=== PATIENT | female | born 1990 | race Native Hawaiian/Other Pacific Islander ===

== ENCOUNTER 2017-02-22 11:26 | Emergency (ER) | payer OTHER ==
[2017-02-22 11:48] LABS: BILIRUBIN,URINE NEGATIVE (NEGATIVE)
[2017-02-22 11:52] LABS: HCG UR QUAL NEGATIVE; UA w/ MICROSCOPIC CHARGE YES
[2017-02-22 12:02] LABS: WBC,URINE >25 /HPF (0-5)
[2017-02-22 12:03] LABS: UR CULTURE IF IND INDICATED
--- NOTE | 2017-02-22 12:16 | ED Physician Documentation ---
History of Present Illness - Stated complaint Stated Complaint: FEM - Chief complaint Chief Complaint: General - Additonal information Additional information: hx from pt 26 y/o f LMP now dysuria and urgency and suprapubic pain no fever chills NV flank paon no vag dc hx UTIs, last one yr ago Review of Systems Constitutional: denies: Fever, Chills, Myalgias Cardiac: denies: Chest pain / pressure Respiratory: denies: Dyspnea GI: reports: Abdominal Pain (suprapubic) : reports: LMP (now) Musculoskeletal: denies: Back pain Immunocompromised: denies: Immunocompromised PD PAST MEDICAL HISTORY - Past Medical History Past Medical History: No - Past Surgical History Past Surgical History: Yes - Present Medications Home Medications: Ambulatory Orders Medication Instructions Recorded Confirmed Control 02/22/17 Phenazopyridine [Pyridium] 100 mg PO Q8H PRN #9 tablet 02/22/17 Sulfamethox/Trimeth 800/160 1 each PO BID #6 tablet 02/22/17 [Bactrim Ds 800/160] - Allergies Allergies/Adverse Reactions: Allergies Allergy/AdvReac Type Severity Reaction Status Date / Time No Known Drug Allergies Allergy Verified 02/22/17 11:39 - Social History Does the pt smoke?: No Smoking Status: Never smoker Does the pt drink ETOH?: Yes ETOH Use: Liquor Does the pt have substance abuse?: No - Immunizations Immunizations are current?: Yes - POLST Patient has POLST: No PD ED PE NORMAL - Vitals Vital signs reviewed: Yes - General General: Alert and oriented X 3 - Cardiac Cardiac: RRR - Respiratory Respiratory: No respiratory distress, Clear bilaterally - Abdomen Abdomen: Soft, Other (mild suprapubic TTP s peritoneal signs) - Back Back: No CVA TTP - Derm Derm: Normal color - Neuro Neuro: Alert and oriented X 3 Results - Vitals Vitals: Vital Signs - 24 hr 02/22/17 11:36 Temperature 36.7 C Heart Rate 100 Respiratory 16 Rate Blood Pressure 137/93 H O2 Saturation 99 Oxygen O2 Source Room air - Labs Labs: Laboratory Tests 02/22/17 11:37 Urine Color YELLOW Urine Clarity HAZY Urine pH 6.0 Ur Specific [place] <=1.005 Urine Protein TRACE Urine Glucose (UA) NEGATIVE Urine Ketones NEGATIVE Urine Occult Blood LARGE H Urine Nitrite NEGATIVE Urine Bilirubin NEGATIVE Urine Urobilinogen 0.2 (NORMAL) Ur Leukocyte Esterase LARGE H Urine RBC 6-10 H Urine WBC >25 H Urine WBC Clumps PRESENT Ur Epithelial Cells RARE Transitional Ur Squamous Epith Cells FEW Squamous Urine Bacteria Many H Ur Microscopic Review INDICATED Urine Culture Comments INDICATED Urine HCG, Qual NEGATIVE Departure - Departure Disposition: 01 Home, Self Care Clinical Impression: UTI (urinary tract infection) Qualifiers: Urinary tract infection type: acute cystitis Hematuria presence: with hematuria Qualified Code(s): N30.01 - Acute cystitis with hematuria Condition: Good Instructions: ED UTI Cystitis Female Prescriptions: Phenazopyridine [Pyridium] 100 mg PO Q8H PRN #9 tablet PRN Reason: painful urination Sulfamethox/Trimeth 800/160 [Bactrim Ds 800/160] 1 each PO BID #6 tablet Comments: Please follow up with your PMD next week to recheck the urine and be sure the infection is gone Also please get your blood pressure rechecked - it was high today
[2017-02-22 12:27] VITALS: BP 141/96
== END 2017-02-22 12:25 | disposition home or self-care (01) ==
LOC: ED 11:26
DX: N30.01 Acute cystitis with hematuria (principal)
CPT/HCPCS: 81001; 81003; 81025; 87077; 87086; 99283

== ENCOUNTER 2017-11-02 07:27 | Emergency (ER) | payer OTHER ==
[2017-11-02] MEDS ORDERED: PHENAZOPYRIDINE 100 MG TABLET PO STA (07:49)
[2017-11-02 07:51] LABS: GLUCOSE, URINE (UA) NEGATIVE (NEGATIVE); KETONES,URINE (UA) NEGATIVE (NEGATIVE); LEUKOCYTE ESTERASE, URINE LARGE (NEGATIVE); NITRITE,URINE NEGATIVE (NEGATIVE); OCCULT BLOOD,URINE LARGE (NEGATIVE); PH,URINE 6.5 PH (5.0-7.5); PROTEIN,URINE 100 mg/dL (NEGATIVE); UROBILINOGEN,URINE 0.2 (NORMAL) E.U./dL (NORMAL)
--- NOTE | 2017-11-02 07:52 | ED Physician Documentation ---
History of Present Illness - Stated complaint Stated Complaint: FEMALE - Chief complaint Chief Complaint: Abd Pain - Additonal information Additional information: hx from pt 27 f to ED with dysuria and hematuria no fever no flank pain no severe abd pain, just mild suprapubic no NV has had irreg vag bleeding for 3 months and that is being evaluated her HR is 105 and she says she gets very anxious coming to the hospital Review of Systems Constitutional: denies: Fever, Chills Throat: denies: Sore throat Cardiac: denies: Chest pain / pressure Respiratory: denies: Dyspnea GI: reports: Abdominal Pain (mild suprapubic). denies: Nausea, Vomiting : reports: Vaginal bleeding (X 3 m). denies: Now EGA Musculoskeletal: denies: Back pain Endocrine: denies: Easy bruising / bleeding Immunocompromised: denies: Immunocompromised PD PAST MEDICAL HISTORY - Past Surgical History Past Surgical History: Yes - Present Medications Home Medications: Ambulatory Orders Medication Instructions Recorded Confirmed Control 02/22/17 Phenazopyridine [Pyridium] 100 mg PO Q8H PRN #9 tablet 02/22/17 Sulfamethox/Trimeth 800/160 1 each PO BID #6 tablet 02/22/17 [Bactrim Ds 800/160] Cephalexin [Keflex] 500 mg PO Q6H #28 capsule 11/02/17 Phenazopyridine [Pyridium] 100 mg PO Q8H PRN #9 tablet 11/02/17 - Allergies Allergies/Adverse Reactions: Allergies Allergy/AdvReac Type Severity Reaction Status Date / Time No Known Drug Allergies Allergy Verified 02/22/17 11:39 - Social History Does the pt smoke?: No Smoking Status: Never smoker Does the pt drink ETOH?: Yes Does the pt have substance abuse?: No - Immunizations Immunizations are current?: Yes - POLST Patient has POLST: No PD ED PE NORMAL - Vitals Vital signs reviewed: Yes - General General: Alert and oriented X 3 - HEENT HEENT: PERRL - Neck Neck: Supple, no meningeal sign - Cardiac Cardiac: RRR - Respiratory Respiratory: No respiratory distress - Abdomen Abdomen: Soft, Other (mild suprapubic TTP) - Back Back: No CVA TTP - Derm Derm: Normal color - Neuro Neuro: Alert and oriented X 3 Results - Vitals Vitals: Vital Signs - 24 hr 11/02/17 07:36 Temperature 37.0 C Heart Rate 105 H Respiratory 14 Rate Blood Pressure 153/106 H O2 Saturation 97 Oxygen O2 Source Room air - Labs Labs: Laboratory Tests 11/02/17 07:37 Urine Color RED/BLOODY Urine Clarity BLOODY Urine pH 6.5 Ur Specific [place] 1.010 Urine Protein 100 H Urine Glucose (UA) NEGATIVE Urine Ketones NEGATIVE Urine Occult Blood LARGE H Urine Nitrite NEGATIVE Urine Bilirubin NEGATIVE Urine Urobilinogen 0.2 (NORMAL) Ur Leukocyte Esterase LARGE H Urine RBC TNTC H Urine WBC >25 H Urine WBC Clumps PRESENT Ur Epithelial Cells RARE Transitional Ur Squamous Epith Cells NONE SEEN Urine Bacteria Few Ur Microscopic Review INDICATED Urine Culture Comments INDICATED Urine HCG, Qual NEGATIVE PD MEDICAL DECISION MAKING - Sepsis Event Vital Signs: Vital Signs - 24 hr 11/02/17 07:36 Temperature 37.0 C Heart Rate 105 H Respiratory 14 Rate Blood Pressure 153/106 H O2 Saturation 97 Oxygen O2 Source Room air Departure - Departure Disposition: 01 Home, Self Care Clinical Impression: UTI (urinary tract infection) Qualifiers: Urinary tract infection type: acute cystitis Hematuria presence: with hematuria Qualified Code(s): N30.01 - Acute cystitis with hematuria Instructions: ED UTI Cystitis Female Prescriptions: Cephalexin [Keflex] 500 mg PO Q6H #28 capsule Phenazopyridine [Pyridium] 100 mg PO Q8H PRN #9 tablet PRN Reason: painful urination Comments: You do have a urine infection I have prescribed the antibiotic keflex as well as pyridium to ease the symptoms A urine culture will be run and the ER staff will call you if the results indicate a need to change antibiotics There was blood in the uine as well It is very important that you follow up with your PMD to recheck the urine after completing antibiotics to be sure the blood and infection have resolved Return if worse (fever, flank pain, vomiting etc) And your blood pressure and heart rate were a bit high today - you say that coming to the hospital makes you anxious and that is probably the cause - but please have the blood pressure and heart rate rechecked Forms: Activity restrictions
[2017-11-02 08:00] LABS: BILIRUBIN,URINE NEGATIVE (NEGATIVE); CLARITY,URINE BLOODY (CLEAR); HCG UR QUAL NEGATIVE; ICTOTEST,URINE NEGATIVE; RBC,URINE TNTC /HPF (0-5); WBC CLUMPS,URINE PRESENT
[2017-11-02 08:01] LABS: BACTERIA,URINE Few /HPF (None Seen); EPITHELIAL CELLS,UR RARE Transitional /HPF (<= Few); SQUAMOUS EPITHELIAL CELL,UR NONE SEEN (<= Few)
[2017-11-02 08:31] VITALS: BP 149/100
== END 2017-11-02 08:33 | disposition home or self-care (01) ==
LOC: ED 07:27
DX: N30.01 Acute cystitis with hematuria (principal); R03.0 Elevated blood-pressure reading, without diagnosis of hypertension
CPT/HCPCS: 81001; 81025; 87086; 87181; 99283; A9270; 81003

== ENCOUNTER 2020-05-28 16:52 | Emergency (ER) | payer OTHER ==
[2020-05-28 17:07] LABS: BILIRUBIN,URINE NEGATIVE (NEGATIVE); GLUCOSE, URINE (UA) NEGATIVE (NEGATIVE); KETONES,URINE (UA) NEGATIVE (NEGATIVE); LEUKOCYTE ESTERASE, URINE SMALL (NEGATIVE); NITRITE,URINE NEGATIVE (NEGATIVE); OCCULT BLOOD,URINE MODERATE (NEGATIVE); PROTEIN,URINE NEGATIVE (NEGATIVE); UROBILINOGEN,URINE 0.2 (NORMAL) E.U./dL (NORMAL)
[2020-05-28] MEDS ORDERED: PHENAZOPYRIDINE 100 MG TABLET PO STA (17:10)
[2020-05-28] MEDS ORDERED: cephALEXin 250 MG CAPSULE PO STA (17:10)
[2020-05-28 17:11] LABS: CLARITY,URINE HAZY (CLEAR); HCG UR QUAL NEGATIVE
--- NOTE | 2020-05-28 17:14 | ED Physician Documentation ---
PD HPI FEMALE - Stated complaint Stated Complaint: FEMALE - Chief complaint Chief Complaint: UTI - History obtained from History obtained from: Patient - History of Present Illness Timing - onset: Today Timing - duration: Days (1) Timing - details: Gradual onset Pain level max: 4 Pain level max: 3 Associated symptoms: Dysuria, Urinary frequency. No: Fever, Chest/shoulder pain, Abdominal pain, Back pain, Pelvic pain, Vaginal pain, Vaginal bleeding, Vaginal discharge Contributing factors: No: Similar symptoms before: Diagnosis (UTI) - Additional information Additional information: no changes in sexual partners, no STI exposure Review of Systems Constitutional: denies: Fever, Chills Respiratory: denies: Cough GI: denies: Vomiting, Diarrhea : reports: Dysuria, Frequency, Hesitancy. 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 - Present Medications Home Medications: Ambulatory Orders Medication Instructions Recorded Confirmed Control 02/22/17 Nifedipine [Procardia Xl] 60 mg PO DAILY 05/28/20 05/28/20 Phenazopyridine HCl [Pyridium] 200 mg PO TID PRN #6 tab 05/28/20 cephALEXin [Keflex] 500 mg PO Q6H #20 cap 05/28/20 - Allergies Allergies/Adverse Reactions: Allergies Allergy/AdvReac Type Severity Reaction Status Date / Time No Known Drug Allergies Allergy Verified 05/28/20 16:57 - Social History Does the pt smoke?: No Smoking Status: Never smoker Does the pt drink ETOH?: Yes ETOH Use: Wine Does the pt have substance abuse?: No - Immunizations Immunizations are current?: Yes - POLST Patient has POLST: No PD ED PE NORMAL - Vitals Vital signs reviewed: Yes - General General: Alert and oriented X 3, No acute distress - HEENT HEENT: Moist mucous membranes - Neck Neck: Supple, no meningeal sign - Cardiac Cardiac: RRR - Respiratory Respiratory: No respiratory distress, Clear bilaterally - Abdomen Abdomen: Soft, Non tender, Non distended - Back Back: No CVA TTP - Derm Derm: Warm and dry - Neuro Neuro: Alert and oriented X 3 Results - Vitals Vitals: Vital Signs - 24 hr 05/28/20 16:55 Temperature 36.6 C Heart Rate 90 Respiratory 16 Rate Blood Pressure 150/102 H O2 Saturation 99 Oxygen O2 Source Room air - Labs Labs: Laboratory Tests 05/28/20 17:00 Urine Color YELLOW Urine Clarity HAZY Urine pH 6.0 Ur Specific [place] 1.010 Urine Protein NEGATIVE Urine Glucose (UA) NEGATIVE Urine Ketones NEGATIVE Urine Occult Blood MODERATE H Urine Nitrite NEGATIVE Urine Bilirubin NEGATIVE Urine Urobilinogen 0.2 (NORMAL) Ur Leukocyte Esterase SMALL H Ur Microscopic Review INDICATED Urine Culture Comments Not Reportable Urine HCG, Qual NEGATIVE PD MEDICAL DECISION MAKING - ED course Complexity details: reviewed results, considered differential, d/w patient ED course: 29-year-old female with a UTI. Will place on Pyridium and Keflex. Patient is well-appearing, nontoxic. Afebrile. No evidence of pyelonephritis. Denies any possibility of STI. Patient counseled regarding signs and symptoms for which I believe and urgent re-evaluation would be necessary. Patient with good understanding of and agreement to plan and is comfortable going home at this time This document was made in part using voice recognition software. While efforts are made to proofread this document, sound alike and grammatical errors may occur. Departure - Departure Disposition: 01 Home, Self Care Clinical Impression: UTI (urinary tract infection) Qualifiers: Urinary tract infection type: acute cystitis Hematuria presence: without hematuria Qualified Code(s): N30.00 - Acute cystitis without hematuria Condition: Good Instructions: ED UTI Cystitis Female Follow-Up: your,doctor as needed [Other] Prescriptions: cephALEXin [Keflex] 500 mg PO Q6H #20 cap Phenazopyridine HCl [Pyridium] 200 mg PO TID PRN #6 tab PRN Reason: dysuria Comments: Take all antibiotics until gone. Return if you worsen. If you fail to improve as expected, you should follow-up with your doctor.
[2020-05-28 17:20] LABS: BACTERIA,URINE Few /HPF (None Seen); SQUAMOUS EPITHELIAL CELL,UR FEW Squamous (<= Few)
[2020-05-28 17:23] VITALS: BP 140/108
== END 2020-05-28 17:26 | disposition home or self-care (01) ==
LOC: ED 16:52
DX: N30.00 Acute cystitis without hematuria (principal)
CPT/HCPCS: 81001; 81025; 87077; 87086; 87181; 99283; 99284; A9270; 81003

== ENCOUNTER 2020-09-30 12:50 | Emergency (ER) | payer OTHER ==
[2020-09-30 13:12] VITALS: BP 138/85
[2020-09-30 13:51] LABS: BILIRUBIN,URINE NEGATIVE (NEGATIVE); GLUCOSE, URINE (UA) NEGATIVE (NEGATIVE); KETONES,URINE (UA) NEGATIVE (NEGATIVE); LEUKOCYTE ESTERASE, URINE TRACE (NEGATIVE); NITRITE,URINE NEGATIVE (NEGATIVE); OCCULT BLOOD,URINE TRACE-LYSE (NEGATIVE); PH,URINE 7.5 PH (5.0-7.5); PROTEIN,URINE NEGATIVE (NEGATIVE); UROBILINOGEN,URINE 0.2 (NORMAL) E.U./dL (NORMAL)
[2020-09-30 13:55] LABS: CLARITY,URINE CLEAR (CLEAR); HCG UR QUAL NEGATIVE
--- NOTE | 2020-09-30 14:07 | ED Physician Documentation ---
History of Present Illness - Stated complaint Stated Complaint: FEMALE - Chief complaint Chief Complaint: UTI - Additonal information Additional information: 30-year-old female comes to the emergency department for evaluation of 24 hours intermittent dysuria urgency and frequency. She reports that sometimes in the morning when she wakes up it hurts to pee and she has to pee soon after but the symptoms go away during the day and sometimes will occur later in the afternoon. She has recently been sexually active and she admits to drinking more than usual last night. She states that if she has a urinary tract infection today this would be her third one this year. She denies any abdominal pain, flank pain CVA tenderness fevers or vomiting. Denies any pertinent past medical history. Review of Systems Constitutional: denies: Fever, Chills Eyes: reports: Reviewed and negative Ears: reports: Reviewed and negative Nose: reports: Reviewed and negative Throat: reports: Reviewed and negative Cardiac: reports: Reviewed and negative Respiratory: reports: Reviewed and negative GI: reports: Reviewed and negative : reports: Dysuria, Frequency, Hesitancy. 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 Home Medications: Ambulatory Orders Medication Instructions Recorded Confirmed Control 02/22/17 Nifedipine [Procardia Xl] 60 mg PO DAILY 05/28/20 09/30/20 Nitrofurantoin [Macrobid] 100 mg PO BID #14 09/30/20 Phenazopyridine HCl [Pyridium] 200 mg PO TID PRN #6 tablet 09/30/20 - Allergies Allergies/Adverse Reactions: Allergies Allergy/AdvReac Type Severity Reaction Status Date / Time No Known Drug Allergies Allergy Verified 09/30/20 13:12 - Social History Does the pt smoke?: No Smoking Status: Never smoker Does the pt drink ETOH?: Yes Does the pt have substance abuse?: No - Immunizations Immunizations are current?: Yes - POLST Patient has POLST: No PD ED PE NORMAL - General General: Alert and oriented X 3, No acute distress - HEENT HEENT: PERRL - Cardiac Cardiac: RRR, No murmur - Respiratory Respiratory: Clear bilaterally - Abdomen Abdomen: Normal bowel sounds, Soft, Non tender, Non distended, Other (Unable to elicit any abdominal tenderness on exam.) - Back Back: No CVA TTP, No spinal TTP Results - Vitals Vitals: Vital Signs - 24 hr 09/30/20 13:10 Temperature 37.1 C Heart Rate 109 H Respiratory 16 Rate Blood Pressure 138/85 H O2 Saturation 99 Oxygen O2 Source Room air - Labs Labs: Laboratory Tests 09/30/20 13:40 Urine Color YELLOW Urine Clarity CLEAR Urine pH 7.5 Ur Specific [place] 1.015 Urine Protein NEGATIVE Urine Glucose (UA) NEGATIVE Urine Ketones NEGATIVE Urine Occult Blood TRACE-LYSE Urine Nitrite NEGATIVE Urine Bilirubin NEGATIVE Urine Urobilinogen 0.2 (NORMAL) Ur Leukocyte Esterase TRACE H Urine RBC 0-5 Urine WBC >25 H Ur Squamous Epith Cells FEW Squamous Urine Bacteria Few Ur Microscopic Review INDICATED Urine Culture Comments INDICATED Urine HCG, Qual NEGATIVE PD MEDICAL DECISION MAKING - ED course Complexity details: reviewed results, d/w patient ED course: 30-year-old female presents the emergency department for evaluation of intermittent dysuria urgency and frequency that is waxed and waned over the last 24 hours. On exam there was no suprapubic or abdominal tenderness elicited. Her vital signs are unremarkable without fever. Urine is however highly suggestive of a urinary tract infection. No clinical exam findings to suggest a sending cystitis or pyelonephritis. Patient will be started on Macrobid as well as Pyridium. Emergent return precautions discussed for concerns of worsening symptoms. Departure - Departure Disposition: 01 Home, Self Care Clinical Impression: Acute cystitis Qualifiers: Hematuria presence: without hematuria Qualified Code(s): N30.00 - Acute cystitis without hematuria Condition: Stable Record reviewed to determine appropriate education?: Yes Instructions: ED UTI Cystitis Female Prescriptions: Nitrofurantoin [Macrobid] 100 mg PO BID #14 Phenazopyridine HCl [Pyridium] 200 mg PO TID PRN #6 tablet PRN Reason: dysuria Comments: You do have a urinary tract infection. Please fill the prescription for the antibiotics and take twice daily for the next week. I have also prescribed Pyridium which will help reduce the bladder spasm and discomfort but it will make your urine orange. Please make sure you stay well-hydrated and drink lots of fluids. If your symptoms are not improving, you develop severe abdominal pain fevers or vomiting please return to the ER for a second look.
[2020-09-30 14:15] LABS: BACTERIA,URINE Few /HPF (None Seen); RBC,URINE 0-5 /HPF (0-5); SQUAMOUS EPITHELIAL CELL,UR FEW Squamous (<= Few); WBC,URINE >25 /HPF (0-5)
== END 2020-09-30 14:32 | disposition home or self-care (01) ==
LOC: ED 12:50
DX: N30.00 Acute cystitis without hematuria (principal)
CPT/HCPCS: 81001; 81003; 81025; 87077; 87086; 87181; 99283; 99284

== ENCOUNTER 2021-02-25 00:54 | Emergency (ER) | payer OTHER ==
[2021-02-25 01:21] LABS: BASOPHILS # (AUTO) 0.1 10^3/uL (0.0-0.1); BASOPHILS % (AUTO) 0.8 %; EOSINOPHILS # (AUTO) 0.2 10^3/uL (0.0-0.7); EOSINOPHILS % (AUTO) 1.5 %; HCT - HEMATOCRIT 41.3 % (37.0-47.0); HGB - HEMOGLOBIN 13.8 g/dL (12.0-16.0); LYMPHOCYTES # (AUTO) 2.9 10^3/uL (1.5-3.5); LYMPHOCYTES % (AUTO) 24.4 %; MEAN CORPUSCULAR HEMOGLOBIN 27.8 pg (27.0-31.0); MEAN CORPUSCULAR HGB CONC 33.4 g/dL (32.0-36.0); MEAN CORPUSCULAR VOLUME 83.1 fL (81.0-99.0); MEAN PLATELET VOLUME 8.7 fL (7.9-10.8); MONOCYTES # (AUTO) 0.7 10^3/uL (0.0-1.0); MONOCYTES % (AUTO) 5.8 %; NEUTROPHILS # (AUTO) 7.9 10^3/uL (1.5-6.6); NEUTROPHILS % (AUTO) 67.2 %; PLT - PLATELET COUNT 310 10^3/uL (130-450); RED BLOOD COUNT 4.97 10^6/uL (4.20-5.40); WHITE BLOOD COUNT 11.8 x10^3/uL (4.8-10.8)
[2021-02-25 01:35] LABS: ALBUMIN 4.7 g/dL (3.2-5.5); ALBUMIN/GLOBULIN RATIO 1.4 (1.0-2.2); BILIRUBIN,TOTAL 0.4 mg/dL (0.2-1.0); CREATININE 0.5 mg/dL (0.4-1.0); POTASSIUM 3.2 mmol/L (3.5-5.0); TOTAL PROTEIN 8.1 g/dL (6.7-8.2)
[2021-02-25] MEDS ORDERED: POTASSIUM CHLORIDE 20 MEQ TABLET PO STA (02:29)
[2021-02-25 02:47] VITALS: BP 156/87
--- NOTE | 2021-02-25 09:05 | XRAY Report ---
PROCEDURE: Chest 1 View X-Ray INDICATIONS: Chest pain TECHNIQUE: One view of the chest was acquired. COMPARISON: None FINDINGS: Surgical changes and devices: None. Lungs and pleura: No pleural effusions or pneumothorax. Lungs are clear. Mediastinum: Mediastinal contours appear normal. Heart size is normal. Bones and chest wall: No suspicious bony lesions. Overlying soft tissues appear unremarkable. IMPRESSION: Portable chest within normal limits for age. Note: No significant discrepancy from the preliminary report. Reviewed by: Yuriy Malone MD on 02/25/2021 8:04 AM [facility] Approved by: Yuriy Malone MD on 02/25/2021 8:04 AM [facility] Station ID: [id number]
--- NOTE | 2021-02-26 09:27 | ED Physician Documentation ---
History of Present Illness - Stated complaint Stated Complaint: CHEST PRESSURE, HEADACHE, LIGHT HEADED - Chief complaint Chief Complaint: Cardiac - History obtained from History obtained from: Patient - History of Present Illness Timing: Enter time (18:00), Today Pain level max: 0 Pain level now: 0 Improved by: no ameliorating factors Worsened by: ambulating - Additonal information Additional information: c/o pounding palpitations since 6 PM, episodic, onset while at home cooking dinner. Review of Systems Constitutional: reports: Reviewed and negative Cardiac: reports: Palpitations. 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 - Present Medications Home Medications: Ambulatory Orders Medication Instructions Recorded Confirmed Control 02/22/17 Nifedipine [Procardia Xl] 60 mg PO DAILY 05/28/20 09/30/20 Nitrofurantoin [Macrobid] 100 mg PO BID #14 09/30/20 Phenazopyridine HCl [Pyridium] 200 mg PO TID PRN #6 tablet 09/30/20 - Allergies Allergies/Adverse Reactions: Allergies Allergy/AdvReac Type Severity Reaction Status Date / Time No Known Drug Allergies Allergy Verified 02/25/21 01:01 - Social History Does the pt smoke?: No Smoking Status: Never smoker Does the pt drink ETOH?: Yes Does the pt have substance abuse?: No - Immunizations Immunizations are current?: Yes - POLST Patient has POLST: No PD ED PE NORMAL - Vitals Vital signs reviewed: Yes - General General: Alert and oriented X 3, No acute distress, Well developed/nourished - Cardiac Cardiac: No murmur, No gallop, No rub - Respiratory Respiratory: No respiratory distress, Clear bilaterally - Abdomen Abdomen: Soft, Non tender - Extremities Extremities: No edema PD ED PE EXPANDED - Cardiac Cardiac: Tachy, Regular Rhythm Results - Vitals Vitals: Oxygen O2 Source Room air - EKG (time done) No standard instances Rate: Rate (enter#) (124), Tachy Rhythm: NSR [place]: Normal Intervals: Normal [place] QRS: Normal Ischemia: Normal ST segments - Labs Labs: Laboratory Tests 02/25/21 02/25/2102/25/21 01:14 01:14 01:14 WBC 11.8 H RBC 4.97 Hgb 13.8 Hct 41.3 MCV 83.1 MCH 27.8 MCHC 33.4 RDW 12.0 Plt Count 310 MPV 8.7 Neut # (Auto) 7.9 H Lymph # (Auto) 2.9 [place] # (Auto) 0.7 Eos # (Auto) 0.2 Baso # (Auto) 0.1 Absolute Nucleated RBC 0.00 Nucleated RBC % 0.0 Sodium 134 L Potassium 3.2 L Chloride 101 Carbon Dioxide 20 L Anion Gap 13.0 BUN 15 Creatinine 0.5 Estimated GFR (MDRD) 146 Glucose 56 L* POC Whole Bld Glucose Calcium 9.0 Total Bilirubin 0.4 AST 16 ALT 12 Alkaline Phosphatase 75 Troponin I High Sens 6.1 Total Protein 8.1 Albumin 4.7 Globulin 3.4 Albumin/Globulin Ratio 1.4 Lipase 31 02/25/21 02:24 WBC RBC Hgb Hct MCV MCH MCHC RDW Plt Count MPV Neut # (Auto) Lymph # (Auto) [place] # (Auto) Eos # (Auto) Baso # (Auto) Absolute Nucleated RBC Nucleated RBC % Sodium Potassium Chloride Carbon Dioxide Anion Gap BUN Creatinine Estimated GFR (MDRD) Glucose POC Whole Bld Glucose 142 H Calcium Total Bilirubin AST ALT Alkaline Phosphatase Troponin I High Sens Total Protein Albumin Globulin Albumin/Globulin Ratio Lipase - Rads (name of study) chest xray Radiology: Prelim report reviewed, See rad report PD MEDICAL DECISION MAKING - ED course Complexity details: reviewed results, re-evaluated patient, considered differential, d/w patient ED course: only c/o is pounding palpitations. unremarkable testing although noted to be in ST for most of ED stay. She says this is typical for her when she is anxious. doubt PE; no dyspnea, chest pain, extremity swelling, cough. Departure - Departure Disposition: 01 Home, Self Care Clinical Impression: Palpitations, Hypokalemia Condition: Good Instructions: ED Potassium Deficiency, ED Palpitations Comments: Follow up with your primary care provider. They might suggest repeating the blood tests for your potassium level , as it was a little low tonight. Discharge Date/Time: 02/25/21 02:47
== END 2021-02-25 02:47 | disposition home or self-care (01) ==
LOC: ED 00:54
DX: R00.0 Tachycardia, unspecified (principal); E87.6 Hypokalemia; I10 Essential (primary) hypertension
CPT/HCPCS: 36415; 71045; 80053; 83690; 84484; 85025; 93005; 99284; A9270

== ENCOUNTER 2021-04-06 05:24 | Emergency (ER) | payer OTHER ==
[2021-04-06] MEDS ORDERED: hydrOXYzine PAMOATE 25 MG CAPSULE PO STA (05:55)
--- NOTE | 2021-04-06 06:11 | ED Physician Documentation ---
History of Present Illness - Stated complaint Stated Complaint: HEART PALPITATIONS - Chief complaint Chief Complaint: Resp - History obtained from History obtained from: Patient - Additonal information Additional information: 30-year-old woman with past medical history of palpitations, high blood pressure on nifedipine, presents with palpitations occurring since 3 AM as well as URI symptoms X 1 week. her child has RSV at present. denies fever and states her cough and sore throat are improving. denies cp, soa, nausea. Review of Systems Ten Systems: 10 systems reviewed and negative Constitutional: denies: Fever Throat: reports: Sore throat Cardiac: reports: Palpitations. denies: Chest pain / pressure Respiratory: reports: Cough. denies: Dyspnea GI: denies: Nausea PD PAST MEDICAL HISTORY - Past Medical History Past Medical History: Yes Cardiovascular: Hypertension - Past Surgical History Past Surgical History: Yes /[employer]: section - Present Medications Home Medications: Ambulatory Orders Medication Instructions Recorded Confirmed Control 02/22/17 Nifedipine [Procardia Xl] 60 mg PO DAILY 05/28/20 04/06/21 hydrOXYzine HCL [Hydroxyzine HCl] 25 mg PO Q6H PRN #30 tablet 04/06/21 - Allergies Allergies/Adverse Reactions: Allergies Allergy/AdvReac Type Severity Reaction Status Date / Time No Known Drug Allergies Allergy Verified 04/06/21 05:51 - Social History Does the pt smoke?: No Smoking Status: Never smoker Does the pt drink ETOH?: Yes Does the pt have substance abuse?: No - Immunizations Immunizations are current?: Yes - POLST Patient has POLST: No PD ED PE NORMAL - Vitals Vital signs reviewed: Yes - General General: Alert and oriented X 3, No acute distress, Well developed/nourished - HEENT HEENT: Atraumatic, PERRL, EOMI - Neck Neck: Supple, no meningeal sign - Cardiac Cardiac: RRR - Respiratory Respiratory: No respiratory distress, Clear bilaterally - Abdomen Abdomen: Non tender, Non distended - Derm Derm: Normal color, Warm and dry - Extremities Extremities: No deformity, No edema - Neuro Neuro: Alert and oriented X 3 - Psych Psych: Normal mood, Normal affect Results - Vitals Vitals: Vital Signs - 24 hr 04/06/21 04/06/21 05:30 06:15 Temperature 36.2 C L Heart Rate 120 H 105 H Respiratory 18 18 Rate Blood Pressure 123/91 H O2 Saturation 97 99 Oxygen O2 Source Room air - EKG (time done) 0541 Rate: Rate (enter#) (117) Rhythm: Sinus tachycardia Intervals: Normal [place] QRS: Normal Ischemia: Normal ST segments PD MEDICAL DECISION MAKING - ED course ED course: 30-year-old woman presents with low risk palpitations. Patient has minimal risk factors for pulmonary embolism but I have low suspicion of cardiac etiology at this time. She will follow up for her appointment with her primary practitioner on April 18 in [place]. Return precautions given. Departure - Departure Disposition: Home, Self Care Clinical Impression: Palpitations, URI (upper respiratory infection) Condition: Good Instructions: ED Viral Syndrome, ED Palpitations Prescriptions: hydrOXYzine HCL [Hydroxyzine HCl] 25 mg PO Q6H PRN #30 tablet PRN Reason: Anxiety Comments: You are seen in the emergency department for evaluation of palpitations. Your EKG and cardiac monitoring in the emergency department was normal. A respiratory viral panel was sent to test for Covid, cold viruses and flu. You can view your results on the patient health portal. Please follow-up for your appointment with your primary practitioner on April 18. Return the emergency department if you have any new or worsening symptoms or other concerns.
[2021-04-06 07:00] VITALS: BP 124/91
[2021-04-06 07:59] LABS: B. PARAPERTUSSIS- RESP PCR PAN NOT DETECTED; B. PERTUSSIS- RESP PCR PANEL NOT DETECTED; C. PNEUMONIAE- RESP PCR PANEL NOT DETECTED; CORONAVIRUS 229E-RESP PCR NOT DETECTED; CORONAVIRUS HKU1-RESP PCR NOT DETECTED; CORONAVIRUS NL63-RESP PCR NOT DETECTED; CORONAVIRUS OC43-RESP PCR NOT DETECTED; HUMAN METAPNEUMOVIRUS NOT DETECTED; INFLUENZA A- RESP PCR PANEL NOT DETECTED; INFLUENZA B - RESP PCR PANEL NOT DETECTED; M. PNEUMONIAE- RESP PCR PANEL NOT DETECTED; PARAINFLUENZA VIRUS 1 NOT DETECTED; PARAINFLUENZA VIRUS 2 NOT DETECTED; PARAINFLUENZA VIRUS 3 NOT DETECTED; PARAINFLUENZA VIRUS 4 NOT DETECTED; RHINOVIRUS/ENTEROVIRUS NOT DETECTED; RSV- RESP PCR PANEL DETECTED; SARS-CoV-2 -RESP PCR PANEL NOT DETECTED
== END 2021-04-06 07:04 | disposition home or self-care (01) ==
LOC: ED 05:24
DX: R00.2 Palpitations (principal); R00.0 Tachycardia, unspecified; J06.9 Acute upper respiratory infection, unspecified; Z20.822 Contact with and (suspected) exposure to COVID-19; I10 Essential (primary) hypertension
CPT/HCPCS: 0202U; 36415; 93005; 99283; A9270

== ENCOUNTER 2022-02-01 22:24 | Emergency (ER) | payer OTHER ==
[2022-02-01 22:38] VITALS: BP 188/108
--- OUTSIDE RECORDS SUMMARY | 2022-02-01 22:41 | EXTERNAL MEDICAL SUMMARY RPT | Continuity of Care Document ---
:1990 Author Organization [facility] Address [address] [place] [address] Phone Care Team Providers Name Role Phone Nadja Vargas Unavailable Unavailable Allergies and Intolerances date description facility type (no date) No Known Drug Allergies [facility] (unkn own) Encounters No information. Functional Status No information. Immunizations No information. Medications date description facility [id number] [facility] [id number] Metoprolol Succinate [facility] Problems No information. Procedures No information. Results/Labs test date author facility value unit interpret ation Result panel 1 (unknown) (no (unknown) (unknown) (no value) (units (unk nown) date) unknown) (unknown) (no (unknown) (unknown) 12/07/21 (units (unkno wn) date) unknown) (unknown) (no (unknown) (unknown) Age/Sex: 31 / F (units (unknown) date) Date of Service: unknown) (unknown) (no (unknown) (unknown) Allergies (units (unkn own) date) unknown) (unknown) (no (unknown) (unknown) [place] (units ( unknown) date) [id number] unknown) (unknown) (no (unknown) (unknown) Anxiety (units (unkno wn) date) unknown) (unknown) (no (unknown) (unknown) Attending Dr: (units ( unknown) date) Celso SAUNDERS unknown) (unknown) (no (unknown) (unknown) Chicken pox (units (un known) date) () unknown) (unknown) (no (unknown) (unknown) : 1990 (units (unknown) date) Acct:[id number] unknown) (unknown) (no (unknown) (unknown) Dept at (units (unkno wn) date) . unknown) (unknown) (no (unknown) (unknown) Documented By: (units (unknown) date) Celso Rowley unknown) 12/07/21 1407 (unknown) (no (unknown) (unknown) Draft (units (unkno wn) date) unknown) (unknown) (no (unknown) (unknown) Essential (units (unkn own) date) hypertension unknown) (-2019) (unknown) (no (unknown) (unknown) Family Practice (units (unknown) date) Office Visit unknown) (unknown) (no (unknown) (unknown) [facility] ([facility]) (unknown) (no (unknown) (unknown) History of (units (unk nown) date) section unknown) (-01/02/19) (unknown) (no (unknown) (unknown) Immunization due (units (unknown) date) unknown) (unknown) (no (unknown) (unknown) Intake Note: (units (u nknown) date) unknown) (unknown) (no (unknown) (unknown) Intake (units (unkno wn) date) unknown) (unknown) (no (unknown) (unknown) Last Menstural (units (unknown) date) Cycle + Details unknown) (unknown) (no (unknown) (unknown) Loc: [facility] (units (unkno wn) date) unknown) (unknown) (no (unknown) (unknown) [id number] (units (unk nown) date) unknown) (unknown) (no (unknown) (unknown) Mass of breast, (units (unknown) date) left unknown) (unknown) (no (unknown) (unknown) Medical History (units (unknown) date) (Updated 05/25/21 unknown) @ 15:00 by NICKY Ellis) (unknown) (no (unknown) (unknown) Meds review (units (un known) date) unknown) (unknown) (no (unknown) (unknown) No Known Drug (units ( unknown) date) Allergies Allergy unknown) (Unverified 12/07/21 14:08) (unknown) (no (unknown) (unknown) Other Menstrual (units (unknown) date) Period: Other unknown) (irregular cycles since giving 2018) (unknown) (no (unknown) (unknown) PFSH (units (unkno wn) date) unknown) (unknown) (no (unknown) (unknown) Painful lumpy (units ( unknown) date) left breast unknown) (unknown) (no (unknown) (unknown) Patient: (units (unkno wn) date) Deepa Moser unknown) S MR#: (unknown) (no (unknown) (unknown) Pt here for (units (un known) date) establish care- unknown) new to you (unknown) (no (unknown) (unknown) Reason For Visit (units (unknown) date) unknown) (unknown) (no (unknown) (unknown) Signed By: (units (unk nown) date) unknown) (unknown) (no (unknown) (unknown) Smoking Status: (units (unknown) date) Never smoker unknown) (unknown) (no (unknown) (unknown) Surgical History (units (unknown) date) (Reviewed unknown) 04/18/21 @ 10:24 by NICKY Ellis) (unknown) (no (unknown) (unknown) This note may (units ( unknown) date) have been all or unknown) partially generated using voice recognition (unknown) (no (unknown) (unknown) Tobacco + (units (unkn own) date) Substance Use unknown) (unknown) (no (unknown) (unknown) Tobacco Status (units (unknown) date) unknown) (unknown) (no (unknown) (unknown) Visit Reasons: (units (unknown) date) NTY: Med Review unknown) (unknown) (no (unknown) (unknown) [place] teeth (units (u nknown) date) removed () unknown) (unknown) (no (unknown) (unknown) have occurred. (units (unknown) date) If there are any unknown) questions, please contact the Medical Records (unknown) (no (unknown) (unknown) may occur. (units (unk nown) date) Occasional unknown) wrong-word or 'sound-alike' substitutions may have (unknown) (no (unknown) (unknown) occurred due to (units (unknown) date) the inherent unknown) limitations of voice recognition software. Please (unknown) (no (unknown) (unknown) read the note (units ( unknown) date) carefully and unknown) recognize, using context, where these substitutions (unknown) (no (unknown) (unknown) software. 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 Result panel 2 (unknown) (no (unknown) (unknown) (no value) (units (unk nown) date) unknown) (unknown) (no (unknown) (unknown) .Route .COMPLEX (units (unknown) date) #63 tabs 09/01/21 unknown) [Rx Confirmed 12/07/21] (unknown) (no (unknown) (unknown) 12/07/21 (units (unkno wn) date) unknown) (unknown) (no (unknown) (unknown) 14:13 (units (unkno wn) date) unknown) (unknown) (no (unknown) (unknown) Age/Sex: 31 / F (units (unknown) date) Date of Service: unknown) (unknown) (no (unknown) (unknown) Allergies (units (unkn own) date) unknown) (unknown) (no (unknown) (unknown) [place], [place] (units ( unknown) date) [id number] unknown) (unknown) (no (unknown) (unknown) Anxiety (units (unkno wn) date) unknown) (unknown) (no (unknown) (unknown) Attending Dr: (units ( unknown) date) Celso SAUNDERS unknown) (unknown) (no (unknown) (unknown) BMI 29.5 (units (unkno wn) date) unknown) (unknown) (no (unknown) (unknown) BP 122/70 (units (unkn own) date) unknown) (unknown) (no (unknown) (unknown) Blood Pressure (units (unknown) date) Location Lt unknown) brachial (unknown) (no (unknown) (unknown) Chicken pox (units (un known) date) () unknown) (unknown) (no (unknown) (unknown) : 1990 (units (unknown) date) Acct:[id number] unknown) (unknown) (no (unknown) (unknown) Dept at (units (unkno wn) date) . unknown) (unknown) (no (unknown) (unknown) Documented By: (units (unknown) date) Celso Rowley unknown) 12/07/21 1407 (unknown) (no (unknown) (unknown) Draft (units (unkno wn) date) unknown) (unknown) (no (unknown) (unknown) Essential (units (unkn own) date) hypertension unknown) (-2019) (unknown) (no (unknown) (unknown) Family Practice (units (unknown) date) Office Visit unknown) (unknown) (no (unknown) (unknown) [facility] ([facility] unknown) (unknown) (no (unknown) (unknown) Height 5 ft (units (un known) date) unknown) (unknown) (no (unknown) (unknown) History of (units (unk nown) date) section unknown) (-01/02/19) (unknown) (no (unknown) (unknown) Immunization due (units (unknown) date) unknown) (unknown) (no (unknown) (unknown) Intake Note: (units (u nknown) date) unknown) (unknown) (no (unknown) (unknown) Intake (units (unkno wn) date) unknown) (unknown) (no (unknown) (unknown) Last Menstural (units (unknown) date) Cycle + Details unknown) (unknown) (no (unknown) (unknown) Loc: [facility] (units (unkno wn) date) unknown) (unknown) (no (unknown) (unknown) [id number] (units (unk nown) date) unknown) (unknown) (no (unknown) (unknown) Mass of breast, (units (unknown) date) left unknown) (unknown) (no (unknown) (unknown) Medical History (units (unknown) date) (Updated 05/25/21 unknown) @ 15:00 by NICKY Ellis) (unknown) (no (unknown) (unknown) Medications (units (un known) date) unknown) (unknown) (no (unknown) (unknown) Meds review (units (un known) date) unknown) (unknown) (no (unknown) (unknown) No Known Drug (units ( unknown) date) Allergies Allergy unknown) (Unverified 12/07/21 14:08) (unknown) (no (unknown) (unknown) Other Menstrual (units (unknown) date) Period: Other unknown) (irregular cycles since giving 2018) (unknown) (no (unknown) (unknown) Oxygen Delivery (units (unknown) date) Method room air unknown) (unknown) (no (unknown) (unknown) PFSH (units (unkno wn) date) unknown) (unknown) (no (unknown) (unknown) Painful lumpy (units ( unknown) date) left breast unknown) (unknown) (no (unknown) (unknown) Patient: (units (unkno wn) date) Deepa Moser unknown) S MR#: (unknown) (no (unknown) (unknown) Position Sitting (units (unknown) date) unknown) (unknown) (no (unknown) (unknown) Pt here for (units (un known) date) establish care- unknown) new to you (unknown) (no (unknown) (unknown) Pulse 64 (units (unkno wn) date) unknown) (unknown) (no (unknown) (unknown) Pulse Oximetry (units (unknown) date) (%) 99 unknown) (unknown) (no (unknown) (unknown) Pulse Source (units (u nknown) date) Monitor unknown) (unknown) (no (unknown) (unknown) Reason For Visit (units (unknown) date) unknown) (unknown) (no (unknown) (unknown) Signed By: (units (unk nown) date) unknown) (unknown) (no (unknown) (unknown) Smoking Status: (units (unknown) date) Never smoker unknown) (unknown) (no (unknown) (unknown) Surgical History (units (unknown) date) (Reviewed unknown) 04/18/21 @ 10:24 by NICKY Ellis) (unknown) (no (unknown) (unknown) This note may (units ( unknown) date) have been all or unknown) partially generated using voice recognition (unknown) (no (unknown) (unknown) Tobacco + (units (unkn own) date) Substance Use unknown) (unknown) (no (unknown) (unknown) Tobacco Status (units (unknown) date) unknown) (unknown) (no (unknown) (unknown) Visit Reasons: (units (unknown) date) NTY: Med Review unknown) (unknown) (no (unknown) (unknown) Vitals (units (unkno wn) date) unknown) (unknown) (no (unknown) (unknown) Weight 151 lb (units ( unknown) date) unknown) (unknown) (no (unknown) (unknown) [place] teeth (units (u nknown) date) removed () unknown) (unknown) (no (unknown) (unknown) [Rx Confirmed (units ( unknown) date) 12/07/21] unknown) (unknown) (no (unknown) (unknown) have occurred. (units (unknown) date) If there are any unknown) questions, please contact the Medical Records (unknown) (no (unknown) (unknown) may occur. (units (unk nown) date) Occasional unknown) wrong-word or 'sound-alike' substitutions may have (unknown) (no (unknown) (unknown) nifedipine 60 mg (units (unknown) date) tablet,extended unknown) release 60 mg PO DAILY HTN #30 tabs 11/14/21 (unknown) (no (unknown) (unknown) norethindrone (units ( unknown) date) acetate 1 unknown) mg-ethinyl estradiol 20 mcg tablet See Rx Instructions (unknown) (no (unknown) (unknown) occurred due to (units (unknown) date) the inherent unknown) limitations of voice recognition software. Please (unknown) (no (unknown) (unknown) read the note (units ( unknown) date) carefully and unknown) recognize, using context, where these substitutions (unknown) (no (unknown) (unknown) software. 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 Result panel 3 (unknown) (no (unknown) (unknown) (no value) (units (unk nown) date) unknown) (unknown) (no (unknown) (unknown) .Route .COMPLEX (units (unknown) date) #63 tabs 09/01/21 unknown) [Rx Confirmed 12/07/21] (unknown) (no (unknown) (unknown) 12/07/21 (units (unkno wn) date) unknown) (unknown) (no (unknown) (unknown) 1) irregular (units (u nknown) date) menstrual cycles, unknown) ovarian cysts: delivered in 2019 and has been (unknown) (no (unknown) (unknown) 14:13 (units (unkno wn) date) unknown) (unknown) (no (unknown) (unknown) 2) hypertension: (units (unknown) date) Stable and unknown) controlled with nifedipine med. Tolerating med and (unknown) (no (unknown) (unknown) Age/Sex: F (units (unknown) date) Date of Service: unknown) (unknown) (no (unknown) (unknown) Allergies (units (unkn own) date) unknown) (unknown) (no (unknown) (unknown) [place], [place] (units ( unknown) date) [address] unknown) (unknown) (no (unknown) (unknown) Anxiety (units (unkno wn) date) unknown) (unknown) (no (unknown) (unknown) Attending Dr: (units ( unknown) date) Celso SAUNDERS unknown) (unknown) (no (unknown) (unknown) BMI 29.5 (units (unkno wn) date) unknown) (unknown) (no (unknown) (unknown) BP 122/70 (units (unkn own) date) unknown) (unknown) (no (unknown) (unknown) Blood Pressure (units (unknown) date) Location Lt unknown) brachial (unknown) (no (unknown) (unknown) Chicken pox (units (un known) date) () unknown) (unknown) (no (unknown) (unknown) Chief Complaint (units (unknown) date) unknown) (unknown) (no (unknown) (unknown) Chief Complaint: (units (unknown) date) establish care unknown) (unknown) (no (unknown) (unknown) : 1990 (units (unknown) date) Acct:[id number] unknown) (unknown) (no (unknown) (unknown) Denies any (units (unk nown) date) personal or unknown) family history of blood disorder/or blood clots. (unknown) (no (unknown) (unknown) Denies any (units (unk nown) date) smoking; uses 1-3 unknown) drinks/week; denies any drug use (unknown) (no (unknown) (unknown) Dept at (units (unkno wn) date) . unknown) (unknown) (no (unknown) (unknown) Details: (units (unkno wn) date) unknown) (unknown) (no (unknown) (unknown) Documented By: (units (unknown) date) Celso Rowley unknown) 12/07/21 1407 (unknown) (no (unknown) (unknown) Draft (units (unkno wn) date) unknown) (unknown) (no (unknown) (unknown) Essential (units (unkn own) date) hypertension unknown) () (unknown) (no (unknown) (unknown) Family Practice (units (unknown) date) Office Visit unknown) (unknown) (no (unknown) (unknown) Family history (units (unknown) date) of diabetes. unknown) (unknown) (no (unknown) (unknown) [facility] ([facility]) (unknown) (no (unknown) (unknown) HPI (units (unkno wn) date) unknown) (unknown) (no (unknown) (unknown) Height 152.4 cm (units (unknown) date) unknown) (unknown) (no (unknown) (unknown) History of (units (unk nown) date) section unknown) (-01/02/19) (unknown) (no (unknown) (unknown) Immunization due (units (unknown) date) unknown) (unknown) (no (unknown) (unknown) Intake Note: (units (u nknown) date) unknown) (unknown) (no (unknown) (unknown) Intake (units (unkno wn) date) unknown) (unknown) (no (unknown) (unknown) Last Menstural (units (unknown) date) Cycle + Details unknown) (unknown) (no (unknown) (unknown) Last Pap test (units ( unknown) date) was in September 2019 unknown) and results were normal. Reports a history of (unknown) (no (unknown) (unknown) Loc: [facility] (units (unkno wn) date) unknown) (unknown) (no (unknown) (unknown) [id number] (units (unk nown) date) unknown) (unknown) (no (unknown) (unknown) Mass of breast, (units (unknown) date) left unknown) (unknown) (no (unknown) (unknown) Medical History (units (unknown) date) (Updated 05/25/21 unknown) @ 15:00 by NICKY Ellis) (unknown) (no (unknown) (unknown) Medications (units (un known) date) unknown) (unknown) (no (unknown) (unknown) Meds review (units (un known) date) unknown) (unknown) (no (unknown) (unknown) No Known Drug (units ( unknown) date) Allergies Allergy unknown) (Unverified 12/07/21 14:08) (unknown) (no (unknown) (unknown) Other Menstrual (units (unknown) date) Period: Other unknown) (irregular cycles since giving 2018) (unknown) (no (unknown) (unknown) Oxygen Delivery (units (unknown) date) Method room air unknown) (unknown) (no (unknown) (unknown) PFSH (units (unkno wn) date) unknown) (unknown) (no (unknown) (unknown) Painful lumpy (units ( unknown) date) left breast unknown) (unknown) (no (unknown) (unknown) Patient is (units (unk nown) date) pleasant unknown) 29-year-old female c/o here to establish care. Reports (unknown) (no (unknown) (unknown) Patient: (units (unkno wn) date) Deepa Moser unknown) S MR#: (unknown) (no (unknown) (unknown) Position Sitting (units (unknown) date) unknown) (unknown) (no (unknown) (unknown) Previous history (units (unknown) date) of gestational unknown) diabetes. Has not had any issues after this. (unknown) (no (unknown) (unknown) Pt here for (units (un known) date) establish care- unknown) new to you (unknown) (no (unknown) (unknown) Pulse 64 (units (unkno wn) date) unknown) (unknown) (no (unknown) (unknown) Pulse Oximetry (units (unknown) date) (%) 99 unknown) (unknown) (no (unknown) (unknown) Pulse Source (units (u nknown) date) Monitor unknown) (unknown) (no (unknown) (unknown) Reason For Visit (units (unknown) date) unknown) (unknown) (no (unknown) (unknown) Reports family (units (unknown) date) history of high unknown) cholesterol and would like to check her (unknown) (no (unknown) (unknown) Reports of (units (unk nown) date) following unknown) well-balanced diet, daily; does not follow any specific (unknown) (no (unknown) (unknown) Requesting (units (unk nown) date) further unknown) evaluation and management of conditions at this time. Also, (unknown) (no (unknown) (unknown) Signed By: (units (unk nown) date) unknown) (unknown) (no (unknown) (unknown) Smoking Status: (units (unknown) date) Never smoker unknown) (unknown) (no (unknown) (unknown) Surgical History (units (unknown) date) (Reviewed unknown) 04/18/21 @ 10:24 by NICKY Ellis) (unknown) (no (unknown) (unknown) This note may (units ( unknown) date) have been all or unknown) partially generated using voice recognition (unknown) (no (unknown) (unknown) Tobacco + (units (unkn own) date) Substance Use unknown) (unknown) (no (unknown) (unknown) Tobacco Status (units (unknown) date) unknown) (unknown) (no (unknown) (unknown) Visit Reasons: (units (unknown) date) NTY: Med Review unknown) (unknown) (no (unknown) (unknown) Vitals (units (unkno wn) date) unknown) (unknown) (no (unknown) (unknown) Weight 68.492 kg (units (unknown) date) unknown) (unknown) (no (unknown) (unknown) [place] teeth (units (u nknown) date) removed () unknown) (unknown) (no (unknown) (unknown) [Rx Confirmed (units ( unknown) date) 12/07/21] unknown) (unknown) (no (unknown) (unknown) a biopsy of the (units (unknown) date) endometrium in unknown) December 2019, and was told results were normal. (unknown) (no (unknown) (unknown) been consistent (units (unknown) date) as can get menses unknown) between periods as well. Was on Depo Provera (unknown) (no (unknown) (unknown) chlamydia. (units (unk nown) date) Denies any HPV or unknown) other STDs at this time. (unknown) (no (unknown) (unknown) cholesterol lab. (units (unknown) date) Aware might have unknown) to pay out of pocket if lipid panel is not (unknown) (no (unknown) (unknown) covered by (units (unk nown) date) insurance. Also unknown) reports family history of hypertension. (unknown) (no (unknown) (unknown) exercises but (units ( unknown) date) does housework to unknown) stay active. (unknown) (no (unknown) (unknown) have occurred. (units (unknown) date) If there are any unknown) questions, please contact the Medical Records (unknown) (no (unknown) (unknown) having irregular (units (unknown) date) menses since unknown) then. Menses usually last for 5 days but have not (unknown) (no (unknown) (unknown) injection and (units (u nknown) date) then OC unknown) control med but continues with irregular menses. Had (unknown) (no (unknown) (unknown) is requesting (units ( unknown) date) med refills. Uses unknown) salt. (unknown) (no (unknown) (unknown) may occur. (units (unk nown) date) Occasional unknown) wrong-word or 'sound-alike' substitutions may have (unknown) (no (unknown) (unknown) medical history (units (unknown) date) of: unknown) (unknown) (no (unknown) (unknown) nifedipine 60 mg (units (unknown) date) tablet,extended unknown) release 60 mg PO DAILY HTN #30 tabs 11/14/21 (unknown) (no (unknown) (unknown) norethindrone (units ( unknown) date) acetate 1 unknown) mg-ethinyl estradiol 20 mcg tablet See Rx Instructions (unknown) (no (unknown) (unknown) occurred due to (units (unknown) date) the inherent unknown) limitations of voice recognition software. Please (unknown) (no (unknown) (unknown) read the note (units ( unknown) date) carefully and unknown) recognize, using context, where these substitutions (unknown) (no (unknown) (unknown) request refills (units (unknown) date) on her med. unknown) Has been tolerating med. Denies any smoking. (unknown) (no (unknown) (unknown) software. 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 Result panel 4 (unknown) (no (unknown) (unknown) (no value) (units (unk nown) date) unknown) (unknown) (no (unknown) (unknown) .Route .COMPLEX (units (unknown) date) #63 tabs 09/01/21 unknown) [Rx Confirmed 12/07/21] (unknown) (no (unknown) (unknown) 12/07/21 (units (unkno wn) date) unknown) (unknown) (no (unknown) (unknown) 1) irregular (units (u nknown) date) menstrual cycles, unknown) ovarian cysts: delivered in 2019 and has been (unknown) (no (unknown) (unknown) 14:13 (units (unkno wn) date) unknown) (unknown) (no (unknown) (unknown) 2) hypertension: (units (unknown) date) Stable and unknown) controlled with nifedipine med. Tolerating med and (unknown) (no (unknown) (unknown) Age/Sex: 31 / F (units (unknown) date) Date of Service: unknown) (unknown) (no (unknown) (unknown) Allergies (units (unkn own) date) unknown) (unknown) (no (unknown) (unknown) [place], [place] (units ( unknown) date) [id number] unknown) (unknown) (no (unknown) (unknown) Anxiety (units (unkno wn) date) unknown) (unknown) (no (unknown) (unknown) Attending Dr: (units ( unknown) date) Celso SAUNDERS unknown) (unknown) (no (unknown) (unknown) BMI 29.5 (units (unkno wn) date) unknown) (unknown) (no (unknown) (unknown) BP 122/70 (units (unkn own) date) unknown) (unknown) (no (unknown) (unknown) Blood Pressure (units (unknown) date) Location Lt unknown) brachial (unknown) (no (unknown) (unknown) Chicken pox (units (un known) date) () unknown) (unknown) (no (unknown) (unknown) Chief Complaint (units (unknown) date) unknown) (unknown) (no (unknown) (unknown) Chief Complaint: (units (unknown) date) establish care unknown) (unknown) (no (unknown) (unknown) : 1990 (units (unknown) date) Acct:[id number] unknown) (unknown) (no (unknown) (unknown) Denies any (units (unk nown) date) personal or family unknown) history of blood disorder/or blood clots. (unknown) (no (unknown) (unknown) Denies any (units (unk nown) date) smoking; uses 1-3 unknown) drinks/week; denies any drug use (unknown) (no (unknown) (unknown) Dept at (units (unkno wn) date) . unknown) (unknown) (no (unknown) (unknown) Details: (units (unkno wn) date) unknown) (unknown) (no (unknown) (unknown) Documented By: (units (unknown) date) Celso Rowley unknown) 12/07/21 1407 (unknown) (no (unknown) (unknown) Draft (units (unkno wn) date) unknown) (unknown) (no (unknown) (unknown) Essential (units (unkn own) date) hypertension unknown) () (unknown) (no (unknown) (unknown) Family Practice (units (unknown) date) Office Visit unknown) (unknown) (no (unknown) (unknown) Family history of (units (unknown) date) diabetes. unknown) (unknown) (no (unknown) (unknown) [facility] ([facility]) (unknown) (no (unknown) (unknown) HPI (units (unkno wn) date) unknown) (unknown) (no (unknown) (unknown) Height 152.4 cm (units (unknown) date) unknown) (unknown) (no (unknown) (unknown) History of (units (unk nown) date) section unknown) (-01/02/19) (unknown) (no (unknown) (unknown) Immunization due (units (unknown) date) unknown) (unknown) (no (unknown) (unknown) Intake Note: (units (u nknown) date) unknown) (unknown) (no (unknown) (unknown) Intake (units (unkno wn) date) unknown) (unknown) (no (unknown) (unknown) Last Menstural (units (unknown) date) Cycle + Details unknown) (unknown) (no (unknown) (unknown) Last Pap test was (units (unknown) date) in September 2019 and unknown) results were normal. Reports a history of (unknown) (no (unknown) (unknown) Loc: [facility] (units (unkno wn) date) unknown) (unknown) (no (unknown) (unknown) [id number] (units (unk nown) date) unknown) (unknown) (no (unknown) (unknown) Mass of breast, (units (unknown) date) left unknown) (unknown) (no (unknown) (unknown) Medical History (units (unknown) date) (Updated 05/25/21 @ unknown) 15:00 by NICKY Ellis) (unknown) (no (unknown) (unknown) Medications (units (un known) date) unknown) (unknown) (no (unknown) (unknown) Meds review (units (un known) date) unknown) (unknown) (no (unknown) (unknown) No Known Drug (units ( unknown) date) Allergies Allergy unknown) (Unverified 12/07/21 14:08) (unknown) (no (unknown) (unknown) Other Menstrual (units (unknown) date) Period: Other unknown) (irregular cycles since giving 2018) (unknown) (no (unknown) (unknown) Oxygen Delivery (units (unknown) date) Method room air unknown) (unknown) (no (unknown) (unknown) PFSH (units (unkno wn) date) unknown) (unknown) (no (unknown) (unknown) Painful lumpy left (units (unknown) date) breast unknown) (unknown) (no (unknown) (unknown) Patient is (units (unk nown) date) pleasant unknown) 29-year-old female c/o here to establish care. Reports (unknown) (no (unknown) (unknown) Patient: (units (unkno wn) date) Deepa Moser S unknown) MR#: (unknown) (no (unknown) (unknown) Position Sitting (units (unknown) date) unknown) (unknown) (no (unknown) (unknown) Previous history (units (unknown) date) of gestational unknown) diabetes. Has not had any issues after this. (unknown) (no (unknown) (unknown) Pt here for (units (un known) date) establish care- new unknown) to you (unknown) (no (unknown) (unknown) Pulse 64 (units (unkno wn) date) unknown) (unknown) (no (unknown) (unknown) Pulse Oximetry (%) (units (unknown) date) 99 unknown) (unknown) (no (unknown) (unknown) Pulse Source (units (u nknown) date) Monitor unknown) (unknown) (no (unknown) (unknown) Reason For Visit (units (unknown) date) unknown) (unknown) (no (unknown) (unknown) Reports family (units (unknown) date) history of high unknown) cholesterol and would like to check her (unknown) (no (unknown) (unknown) Reports of (units (unk nown) date) following unknown) well-balanced diet, daily; does not follow any specific (unknown) (no (unknown) (unknown) Requesting further (units (unknown) date) evaluation and unknown) management of conditions at this time. Also, (unknown) (no (unknown) (unknown) Signed By: (units (unk nown) date) unknown) (unknown) (no (unknown) (unknown) Smoking Status: (units (unknown) date) Never smoker unknown) (unknown) (no (unknown) (unknown) Surgical History (units (unknown) date) (Reviewed 04/18/21 unknown) @ 10:24 by NICKY Ellis) (unknown) (no (unknown) (unknown) This note may have (units (unknown) date) been all or unknown) partially generated using voice recognition (unknown) (no (unknown) (unknown) Tobacco + (units (unkn own) date) Substance Use unknown) (unknown) (no (unknown) (unknown) Tobacco Status (units (unknown) date) unknown) (unknown) (no (unknown) (unknown) Visit Reasons: (units (unknown) date) NTY: Med Review unknown) (unknown) (no (unknown) (unknown) Vitals (units (unkno wn) date) unknown) (unknown) (no (unknown) (unknown) Weight 68.492 kg (units (unknown) date) unknown) (unknown) (no (unknown) (unknown) [place] teeth (units (u nknown) date) removed (-2013) unknown) (unknown) (no (unknown) (unknown) [Rx Confirmed (units ( unknown) date) 12/07/21] unknown) (unknown) (no (unknown) (unknown) a biopsy of the (units (unknown) date) endometrium in unknown) December 2019, and was told results were normal. (unknown) (no (unknown) (unknown) been consistent as (units (unknown) date) can get menses unknown) between periods as well. Was on Depo Provera (unknown) (no (unknown) (unknown) chlamydia. Denies (units (unknown) date) any HPV or other unknown) STDs at this time. (unknown) (no (unknown) (unknown) cholesterol lab. (units (unknown) date) Aware might have to unknown) pay out of pocket if lipid panel is not (unknown) (no (unknown) (unknown) covered by (units (unk nown) date) insurance. Also unknown) reports family history of hypertension. (unknown) (no (unknown) (unknown) exercises but does (units (unknown) date) housework to stay unknown) active. (unknown) (no (unknown) (unknown) have occurred. If (units (unknown) date) there are any unknown) questions, please contact the Medical Records (unknown) (no (unknown) (unknown) having irregular (units (unknown) date) menses since then. unknown) Menses usually last for 5 days but have not (unknown) (no (unknown) (unknown) injection and then (units (unknown) date) OC control unknown) med but continues with irregular menses. Had (unknown) (no (unknown) (unknown) is requesting med (units (unknown) date) refills. Uses salt. unknown) (unknown) (no (unknown) (unknown) lives with (units (unknown) date) and nearly 3 yo unknown) son. 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 (units (unk nown) date) Occasional unknown) wrong-word or 'sound-alike' substitutions may have (unknown) (no (unknown) (unknown) medical history (units (unknown) date) of: unknown) (unknown) (no (unknown) (unknown) nifedipine 60 mg (units (unknown) date) tablet,extended unknown) release 60 mg PO DAILY HTN #30 tabs 11/14/21 (unknown) (no (unknown) (unknown) norethindrone (units ( unknown) date) acetate 1 unknown) mg-ethinyl estradiol 20 mcg tablet See Rx Instructions (unknown) (no (unknown) (unknown) occurred due to (units (unknown) date) the inherent unknown) limitations of voice recognition software. Please (unknown) (no (unknown) (unknown) read the note (units ( unknown) date) carefully and unknown) recognize, using context, where these substitutions (unknown) (no (unknown) (unknown) request refills on (units (unknown) date) her Junel med. Has unknown) been tolerating med. Denies any smoking. (unknown) (no (unknown) (unknown) software. 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 no unknown) SEs. (unknown) (no (unknown) (unknown) started wroking at (units (unknown) date) [employer] sn[facility] unknown) full-times. daytimes. child goes to daycare. (unknown) (no (unknown) (unknown) was on HCTZ before (units (unknown) date) , no unknown) antihypertensive during preg, only ASA. Result panel 5 (unknown) (no (unknown) (unknown) (no value) (units (unk nown) date) unknown) (unknown) (no (unknown) (unknown) .Route .COMPLEX (units (unknown) date) #63 tabs 09/01/21 unknown) [Rx Confirmed 12/07/21] (unknown) (no (unknown) (unknown) 12/07/21 (units (unkno wn) date) unknown) (unknown) (no (unknown) (unknown) 1) irregular (units (u nknown) date) menstrual cycles, unknown) ovarian cysts: delivered in 2019 and has been (unknown) (no (unknown) (unknown) 14:13 (units (unkno wn) date) unknown) (unknown) (no (unknown) (unknown) 2) hypertension: (units (unknown) date) Stable and unknown) controlled with nifedipine med. Tolerating med and (unknown) (no (unknown) (unknown) Age/Sex: 31 / F (units (unknown) date) Date of Service: unknown) (unknown) (no (unknown) (unknown) Allergies (units (unkn own) date) unknown) (unknown) (no (unknown) (unknown) [place], [place] (units ( unknown) date) [id number] unknown) (unknown) (no (unknown) (unknown) Anxiety (units (unkno wn) date) unknown) (unknown) (no (unknown) (unknown) Attending Dr: (units ( unknown) date) Celso SAUNDERS unknown) (unknown) (no (unknown) (unknown) BMI 29.5 (units (unkno wn) date) unknown) (unknown) (no (unknown) (unknown) BP 122/70 (units (unkn own) date) unknown) (unknown) (no (unknown) (unknown) Blood Pressure (units (unknown) date) Location Lt unknown) brachial (unknown) (no (unknown) (unknown) Chicken pox (units (un known) date) () unknown) (unknown) (no (unknown) (unknown) Chief Complaint (units (unknown) date) unknown) (unknown) (no (unknown) (unknown) Chief Complaint: (units (unknown) date) establish care unknown) (unknown) (no (unknown) (unknown) : 1990 (units (unknown) date) Acct:[id number] unknown) (unknown) (no (unknown) (unknown) Denies any (units (unk nown) date) personal or family unknown) history of blood disorder/or blood clots. (unknown) (no (unknown) (unknown) Denies any (units (unk nown) date) smoking; uses 1-3 unknown) drinks/week; denies any drug use (unknown) (no (unknown) (unknown) Dept at (units (unkno wn) date) . unknown) (unknown) (no (unknown) (unknown) Details: (units (unkno wn) date) unknown) (unknown) (no (unknown) (unknown) Documented By: (units (unknown) date) Celso Rowley unknown) 12/07/21 1407 (unknown) (no (unknown) (unknown) Draft (units (unkno wn) date) unknown) (unknown) (no (unknown) (unknown) Essential (units (unkn own) date) hypertension unknown) () (unknown) (no (unknown) (unknown) Family Practice (units (unknown) date) Office Visit unknown) (unknown) (no (unknown) (unknown) Family history of (units (unknown) date) diabetes. unknown) (unknown) (no (unknown) (unknown) [facility]) (unknown) (no (unknown) (unknown) HPI (units (unkno wn) date) unknown) (unknown) (no (unknown) (unknown) Height 152.4 cm (units (unknown) date) unknown) (unknown) (no (unknown) (unknown) History of (units (unk nown) date) section unknown) (-01/02/19) (unknown) (no (unknown) (unknown) Immunization due (units (unknown) date) unknown) (unknown) (no (unknown) (unknown) Intake Note: (units (u nknown) date) unknown) (unknown) (no (unknown) (unknown) Intake (units (unkno wn) date) unknown) (unknown) (no (unknown) (unknown) Last Menstural (units (unknown) date) Cycle + Details unknown) (unknown) (no (unknown) (unknown) Last Pap test was (units (unknown) date) in September 2019 and unknown) results were normal. Reports a history of (unknown) (no (unknown) (unknown) Loc: [facility] (units (unkno wn) date) unknown) (unknown) (no (unknown) (unknown) [id number] (units (unk nown) date) unknown) (unknown) (no (unknown) (unknown) Mass of breast, (units (unknown) date) left unknown) (unknown) (no (unknown) (unknown) Medical History (units (unknown) date) (Updated 05/25/21 @ unknown) 15:00 by NICKY Ellis) (unknown) (no (unknown) (unknown) Medications (units (un known) date) unknown) (unknown) (no (unknown) (unknown) Meds review (units (un known) date) unknown) (unknown) (no (unknown) (unknown) No Known Drug (units ( unknown) date) Allergies Allergy unknown) (Unverified 12/07/21 14:08) (unknown) (no (unknown) (unknown) Other Menstrual (units (unknown) date) Period: Other unknown) (irregular cycles since giving 2018) (unknown) (no (unknown) (unknown) Oxygen Delivery (units (unknown) date) Method room air unknown) (unknown) (no (unknown) (unknown) PFSH (units (unkno wn) date) unknown) (unknown) (no (unknown) (unknown) Painful lumpy left (units (unknown) date) breast unknown) (unknown) (no (unknown) (unknown) Patient is (units (unk nown) date) pleasant unknown) 29-year-old female c/o here to establish care. Reports (unknown) (no (unknown) (unknown) Patient: (units (unkno wn) date) ZiggyyumikoSergeDeepa Dyan S unknown) MR#: (unknown) (no (unknown) (unknown) Position Sitting (units (unknown) date) unknown) (unknown) (no (unknown) (unknown) Previous history (units (unknown) date) of gestational unknown) diabetes. Has not had any issues after this. (unknown) (no (unknown) (unknown) Pt here for (units (un known) date) establish care- new unknown) to you (unknown) (no (unknown) (unknown) Pulse 64 (units (unkno wn) date) unknown) (unknown) (no (unknown) (unknown) Pulse Oximetry (%) (units (unknown) date) 99 unknown) (unknown) (no (unknown) (unknown) Pulse Source (units (u nknown) date) Monitor unknown) (unknown) (no (unknown) (unknown) Reason For Visit (units (unknown) date) unknown) (unknown) (no (unknown) (unknown) Reports family (units (unknown) date) history of high unknown) cholesterol and would like to check her (unknown) (no (unknown) (unknown) Reports of (units (unk nown) date) following unknown) well-balanced diet, daily; does not follow any specific (unknown) (no (unknown) (unknown) Requesting further (units (unknown) date) evaluation and unknown) management of conditions at this time. Also, (unknown) (no (unknown) (unknown) Signed By: (units (unk nown) date) unknown) (unknown) (no (unknown) (unknown) Smoking Status: (units (unknown) date) Never smoker unknown) (unknown) (no (unknown) (unknown) Surgical History (units (unknown) date) (Reviewed 04/18/21 unknown) @ 10:24 by NICKY Ellis) (unknown) (no (unknown) (unknown) This note may have (units (unknown) date) been all or unknown) partially generated using voice recognition (unknown) (no (unknown) (unknown) Tobacco + (units (unkn own) date) Substance Use unknown) (unknown) (no (unknown) (unknown) Tobacco Status (units (unknown) date) unknown) (unknown) (no (unknown) (unknown) Visit Reasons: (units (unknown) date) NTY: Med Review unknown) (unknown) (no (unknown) (unknown) Vitals (units (unkno wn) date) unknown) (unknown) (no (unknown) (unknown) Weight 68.492 kg (units (unknown) date) unknown) (unknown) (no (unknown) (unknown) [place] teeth (units (u nknown) date) removed () unknown) (unknown) (no (unknown) (unknown) [Rx Confirmed (units ( unknown) date) 12/07/21] unknown) (unknown) (no (unknown) (unknown) a biopsy of the (units (unknown) date) endometrium in unknown) December 2019, and was told results were normal. (unknown) (no (unknown) (unknown) been consistent as (units (unknown) date) can get menses unknown) between periods as well. Was on Depo Provera (unknown) (no (unknown) (unknown) chlamydia. Denies (units (unknown) date) any HPV or other unknown) STDs at this time. (unknown) (no (unknown) (unknown) cholesterol lab. (units (unknown) date) Aware might have to unknown) pay out of pocket if lipid panel is not (unknown) (no (unknown) (unknown) covered by (units (unk nown) date) insurance. Also unknown) reports family history of hypertension. (unknown) (no (unknown) (unknown) exercises but does (units (unknown) date) housework to stay unknown) active. (unknown) (no (unknown) (unknown) have occurred. If (units (unknown) date) there are any unknown) questions, please contact the Medical Records (unknown) (no (unknown) (unknown) having irregular (units (unknown) date) menses since then. unknown) Menses usually last for 5 days but have not (unknown) (no (unknown) (unknown) hours, then goes (units (unknown) date) away. unknown) (unknown) (no (unknown) (unknown) injection and then (units (unknown) date) OC control unknown) med but continues with irregular menses. Had (unknown) (no (unknown) (unknown) is requesting med (units (unknown) date) refills. Uses salt. unknown) (unknown) (no (unknown) (unknown) lives with (units (unknown) date) and nearly 3 yo unknown) son. 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 (units (unk nown) date) Occasional unknown) wrong-word or 'sound-alike' substitutions may have (unknown) (no (unknown) (unknown) medical history (units (unknown) date) of: unknown) (unknown) (no (unknown) (unknown) nifedipine 60 mg (units (unknown) date) tablet,extended unknown) release 60 mg PO DAILY HTN #30 tabs 11/14/21 (unknown) (no (unknown) (unknown) norethindrone (units ( unknown) date) acetate 1 unknown) mg-ethinyl estradiol 20 mcg tablet See Rx Instructions (unknown) (no (unknown) (unknown) occurred due to (units (unknown) date) the inherent unknown) limitations of voice recognition software. Please (unknown) (no (unknown) (unknown) read the note (units ( unknown) date) carefully and unknown) recognize, using context, where these substitutions (unknown) (no (unknown) (unknown) request refills on (units (unknown) date) her med. Has unknown) been tolerating med. Denies any smoking. (unknown) (no (unknown) (unknown) software. 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 no unknown) SEs. (unknown) (no (unknown) (unknown) started wroking at (units (unknown) date) [employer] unknown) full-times. daytimes. child goes to daycare. (unknown) (no (unknown) (unknown) usually in morning (units (unknown) date) when awakens. feels unknown) like pounding, no other sx. lasts 1-2 (unknown) (no (unknown) (unknown) was on HCTZ before (units (unknown) date) , no unknown) antihypertensive during preg, only ASA. Result panel 6 (unknown) (no (unknown) (unknown) (no value) (units (unk nown) date) unknown) (unknown) (no (unknown) (unknown) .Route .COMPLEX (units (unknown) date) #63 tabs 09/01/21 unknown) [Rx Confirmed 12/07/21] (unknown) (no (unknown) (unknown) 12/07/21 [Rx (units (u nknown) date) Confirmed 12/07/21] unknown) (unknown) (no (unknown) (unknown) 12/07/21 (units (unkno wn) date) unknown) (unknown) (no (unknown) (unknown) 1) irregular (units (u nknown) date) menstrual cycles, unknown) ovarian cysts: delivered in 2019 and has been (unknown) (no (unknown) (unknown) 14:13 (units (unkno wn) date) unknown) (unknown) (no (unknown) (unknown) 2) hypertension: (units (unknown) date) Stable and unknown) controlled with nifedipine med. Tolerating med and (unknown) (no (unknown) (unknown) Age/Sex: 31 / F (units (unknown) date) Date of Service: unknown) (unknown) (no (unknown) (unknown) Allergies (units (unkn own) date) unknown) (unknown) (no (unknown) (unknown) [place], [place] (units ( unknown) date) [id number] unknown) (unknown) (no (unknown) (unknown) Anxiety (units (unkno wn) date) unknown) (unknown) (no (unknown) (unknown) Assessment + Plan (units (unknown) date) unknown) (unknown) (no (unknown) (unknown) Attending Dr: (units ( unknown) date) Celso SAUNDERS unknown) (unknown) (no (unknown) (unknown) BMI 29.5 (units (unkno wn) date) unknown) (unknown) (no (unknown) (unknown) BP 122/70 (units (unkn own) date) unknown) (unknown) (no (unknown) (unknown) Blood Pressure (units (unknown) date) Location Lt unknown) brachial (unknown) (no (unknown) (unknown) Chicken pox (units (un known) date) () unknown) (unknown) (no (unknown) (unknown) Chief Complaint (units (unknown) date) unknown) (unknown) (no (unknown) (unknown) Chief Complaint: (units (unknown) date) establish care unknown) (unknown) (no (unknown) (unknown) : 1990 (units (unknown) date) Acct:[id number] unknown) (unknown) (no (unknown) (unknown) Denies any (units (unk nown) date) personal or family unknown) history of blood disorder/or blood clots. (unknown) (no (unknown) (unknown) Denies any (units (unk nown) date) smoking; uses 1-3 unknown) drinks/week; denies any drug use (unknown) (no (unknown) (unknown) Dept at (units (unkno wn) date) . unknown) (unknown) (no (unknown) (unknown) Details: (units (unkno wn) date) unknown) (unknown) (no (unknown) (unknown) Discontinued (units (u nknown) date) Reason: Order unknown) Change 60 mg PO DAILY 30 tabs 0RF HTN (unknown) (no (unknown) (unknown) Discontinued (units (u nknown) date) unknown) (unknown) (no (unknown) (unknown) Documented By: (units (unknown) date) Celso Rowley unknown) 12/07/21 1407 (unknown) (no (unknown) (unknown) Draft (units (unkno wn) date) unknown) (unknown) (no (unknown) (unknown) Essential (units (unkn own) date) hypertension unknown) () (unknown) (no (unknown) (unknown) Family [facility] (units (unknown) date) Office Visit unknown) (unknown) (no (unknown) (unknown) Family history of (units (unknown) date) diabetes. unknown) (unknown) (no (unknown) (unknown) [facility]) (unknown) (no (unknown) (unknown) HPI (units (unkno wn) date) unknown) (unknown) (no (unknown) (unknown) Height 152.4 cm (units (unknown) date) unknown) (unknown) (no (unknown) (unknown) History of (units (unk nown) date) section unknown) (-01/02/19) (unknown) (no (unknown) (unknown) Immunization due (units (unknown) date) unknown) (unknown) (no (unknown) (unknown) Intake Note: (units (u nknown) date) unknown) (unknown) (no (unknown) (unknown) Intake (units (unkno wn) date) unknown) (unknown) (no (unknown) (unknown) Last Menstural (units (unknown) date) Cycle + Details unknown) (unknown) (no (unknown) (unknown) Last Pap test was (units (unknown) date) in September 2019 and unknown) results were normal. Reports a history of (unknown) (no (unknown) (unknown) Loc: [facility] (units (unkno wn) date) unknown) (unknown) (no (unknown) (unknown) [id number] (units (unk nown) date) unknown) (unknown) (no (unknown) (unknown) Mass of breast, (units (unknown) date) left unknown) (unknown) (no (unknown) (unknown) Medical History (units (unknown) date) (Updated 05/25/21 @ unknown) 15:00 by NICKY Ellis) (unknown) (no (unknown) (unknown) Medications (units (un known) date) unknown) (unknown) (no (unknown) (unknown) Medications: (units (u nknown) date) unknown) (unknown) (no (unknown) (unknown) Meds review (units (un known) date) unknown) (unknown) (no (unknown) (unknown) New (units (unkno wn) date) unknown) (unknown) (no (unknown) (unknown) No Known Drug (units ( unknown) date) Allergies Allergy unknown) (Unverified 12/07/21 14:08) (unknown) (no (unknown) (unknown) Other Menstrual (units (unknown) date) Period: Other unknown) (irregular cycles since giving 2018) (unknown) (no (unknown) (unknown) Oxygen Delivery (units (unknown) date) Method room air unknown) (unknown) (no (unknown) (unknown) PFSH (units (unkno wn) date) unknown) (unknown) (no (unknown) (unknown) Painful lumpy left (units (unknown) date) breast unknown) (unknown) (no (unknown) (unknown) Patient is (units (unk nown) date) pleasant unknown) 29-year-old female c/o here to establish care. Reports (unknown) (no (unknown) (unknown) Patient: (units (unkno wn) date) Deepa Moser S unknown) MR#: (unknown) (no (unknown) (unknown) Position Sitting (units (unknown) date) unknown) (unknown) (no (unknown) (unknown) Previous history (units (unknown) date) of gestational unknown) diabetes. Has not had any issues after this. (unknown) (no (unknown) (unknown) Pt here for (units (un known) date) establish care- new unknown) to you (unknown) (no (unknown) (unknown) Pulse 64 (units (unkno wn) date) unknown) (unknown) (no (unknown) (unknown) Pulse Oximetry (%) (units (unknown) date) 99 unknown) (unknown) (no (unknown) (unknown) Pulse Source (units (u nknown) date) Monitor unknown) (unknown) (no (unknown) (unknown) Reason For Visit (units (unknown) date) unknown) (unknown) (no (unknown) (unknown) Reports family (units (unknown) date) history of high unknown) cholesterol and would like to check her (unknown) (no (unknown) (unknown) Reports of (units (unk nown) date) following unknown) well-balanced diet, daily; does not follow any specific (unknown) (no (unknown) (unknown) Requesting further (units (unknown) date) evaluation and unknown) management of conditions at this time. Also, (unknown) (no (unknown) (unknown) Signed By: (units (unk nown) date) unknown) (unknown) (no (unknown) (unknown) Smoking Status: (units (unknown) date) Never smoker unknown) (unknown) (no (unknown) (unknown) Surgical History (units (unknown) date) (Reviewed 04/18/21 unknown) @ 10:24 by NICKY Ellis) (unknown) (no (unknown) (unknown) This note may have (units (unknown) date) been all or unknown) partially generated using voice recognition (unknown) (no (unknown) (unknown) Tobacco + (units (unkn own) date) Substance Use unknown) (unknown) (no (unknown) (unknown) Tobacco Status (units (unknown) date) unknown) (unknown) (no (unknown) (unknown) Visit Reasons: (units (unknown) date) NTY: Med Review unknown) (unknown) (no (unknown) (unknown) Vitals (units (unkno wn) date) unknown) (unknown) (no (unknown) (unknown) Weight 68.492 kg (units (unknown) date) unknown) (unknown) (no (unknown) (unknown) [place] teeth (units (u nknown) date) removed () unknown) (unknown) (no (unknown) (unknown) a biopsy of the (units (unknown) date) endometrium in unknown) December 2019, and was told results were normal. (unknown) (no (unknown) (unknown) been consistent as (units (unknown) date) can get menses unknown) between periods as well. Was on Depo Provera (unknown) (no (unknown) (unknown) being monitored, (units (unknown) date) sinus tachycardia unknown) so we deferred further w/u today. (unknown) (no (unknown) (unknown) chlamydia. Denies (units (unknown) date) any HPV or other unknown) STDs at this time. (unknown) (no (unknown) (unknown) cholesterol lab. (units (unknown) date) Aware might have to unknown) pay out of pocket if lipid panel is not (unknown) (no (unknown) (unknown) covered by (units (unk nown) date) insurance. Also unknown) reports family history of hypertension. (unknown) (no (unknown) (unknown) exercises but does (units (unknown) date) housework to stay unknown) active. (unknown) (no (unknown) (unknown) f/u. feels like (units (unknown) date) nifedipine causes unknown) high HR. was having palpitations in ed while (unknown) (no (unknown) (unknown) have occurred. If (units (unknown) date) there are any unknown) questions, please contact the Medical Records (unknown) (no (unknown) (unknown) having irregular (units (unknown) date) menses since then. unknown) Menses usually last for 5 days but have not (unknown) (no (unknown) (unknown) hours, then goes (units (unknown) date) away. unknown) (unknown) (no (unknown) (unknown) injection and then (units (unknown) date) OC control unknown) med but continues with irregular menses. Had (unknown) (no (unknown) (unknown) is requesting med (units (unknown) date) refills. Uses salt. unknown) (unknown) (no (unknown) (unknown) lives with (units (unknown) date) and nearly 3 yo unknown) son. 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 (units (unk nown) date) Occasional unknown) wrong-word or 'sound-alike' substitutions may have (unknown) (no (unknown) (unknown) medical history (units (unknown) date) of: unknown) (unknown) (no (unknown) (unknown) metoprolol (units (unkn own) date) succinate 50 mg unknown) tablet,extended release 24 hr 50 mg PO DAILY #30 tabs (unknown) (no (unknown) (unknown) metoprolol (units (unk nown) date) succinate ER 50 mg unknown) PO DAILY 30 tabs 2RF (unknown) (no (unknown) (unknown) nifedipine ER (units ( unknown) date) unknown) (unknown) (no (unknown) (unknown) norethindrone (units ( unknown) date) acetate 1 unknown) mg-ethinyl estradiol 20 mcg tablet See Rx Instructions (unknown) (no (unknown) (unknown) normal cardiac (units (unknown) date) exam in clinic. unknown) switch to toprol xl, f/u 6 weeks for wwe/pap/bp (unknown) (no (unknown) (unknown) occurred due to (units (unknown) date) the inherent unknown) limitations of voice recognition software. Please (unknown) (no (unknown) (unknown) read the note (units ( unknown) date) carefully and unknown) recognize, using context, where these substitutions (unknown) (no (unknown) (unknown) request refills on (units (unknown) date) her Junel med. Has unknown) been tolerating med. Denies any smoking. (unknown) (no (unknown) (unknown) software. 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 unknown) (unknown) (no (unknown) (unknown) started wroking at (units (unknown) date) [employer] [facility] unknown) full-times. daytimes. child goes to daycare. (unknown) (no (unknown) (unknown) usually in morning (units (unknown) date) when awakens. feels unknown) like pounding, no other sx. lasts 1-2 (unknown) (no (unknown) (unknown) was on HCTZ before (units (unknown) date) , no unknown) antihypertensive during preg, only ASA. Result panel 7 (unknown) (no (unknown) (unknown) (no value) (units (unk nown) date) unknown) (unknown) (no (unknown) (unknown) .Route .COMPLEX #63 (unit s (unknown) date) tabs 09/01/21 [Rx unknown) Confirmed 12/07/21] (unknown) (no (unknown) (unknown) 12/07/21 [Rx (units (u nknown) date) Confirmed 12/07/21] unknown) (unknown) (no (unknown) (unknown) 12/07/21 (units (unkno wn) date) unknown) (unknown) (no (unknown) (unknown) 14:13 (units (unkno wn) date) unknown) (unknown) (no (unknown) (unknown) 31-year-old female (units (unknown) date) presents to establish unknown) care. She lives with her and (unknown) (no (unknown) (unknown) Age/Sex: 31 / F Date (uni ts (unknown) date) of Service: unknown) (unknown) (no (unknown) (unknown) Allergies (units (unkn own) date) unknown) (unknown) (no (unknown) (unknown) [place] [address] (unit s (unknown) date) unknown) (unknown) (no (unknown) (unknown) Anxiety (units (unkno wn) date) unknown) (unknown) (no (unknown) (unknown) Assessment + Plan (units (unknown) date) unknown) (unknown) (no (unknown) (unknown) Attending Dr: Celso (uni ts (unknown) date) Amrik SAUNDERS unknown) (unknown) (no (unknown) (unknown) BMI 29.5 (units (unkno wn) date) unknown) (unknown) (no (unknown) (unknown) BP 122/70 (units (unkn own) date) unknown) (unknown) (no (unknown) (unknown) Blood Pressure (units (unknown) date) Location Lt brachial unknown) (unknown) (no (unknown) (unknown) Chicken pox (-1995) (unit s (unknown) date) unknown) (unknown) (no (unknown) (unknown) Chief Complaint (units (unknown) date) unknown) (unknown) (no (unknown) (unknown) Chief Complaint: (units (unknown) date) establish care unknown) (unknown) (no (unknown) (unknown) : 1990 (units (unknown) date) Acct:[id number] unknown) (unknown) (no (unknown) (unknown) Dept at (units (unkno wn) date) . unknown) (unknown) (no (unknown) (unknown) Details: (units (unkno wn) date) unknown) (unknown) (no (unknown) (unknown) Discontinued Reason: (uni ts (unknown) date) Order Change 60 mg PO unknown) DAILY 30 tabs 0RF HTN (unknown) (no (unknown) (unknown) Discontinued (units (u nknown) date) unknown) (unknown) (no (unknown) (unknown) Documented By: (units (unknown) date) Celso Rowley unknown) 12/07/21 1407 (unknown) (no (unknown) (unknown) Draft (units (unkno wn) date) unknown) (unknown) (no (unknown) (unknown) Essential (units (unkn own) date) hypertension (-2019) unknown) (unknown) (no (unknown) (unknown) Family Practice (units (unknown) date) Office Visit unknown) (unknown) (no (unknown) (unknown) [facility]) (unknown) (no (unknown) (unknown) HPI (units (unkno wn) date) unknown) (unknown) (no (unknown) (unknown) [place]. Her (unit s (unknown) date) is in the [facility] unknown) [facility]. 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 She states that her (unknown) (no (unknown) (unknown) Immunization due (units (unknown) date) unknown) (unknown) (no (unknown) (unknown) Intake Note: (units (u nknown) date) unknown) (unknown) (no (unknown) (unknown) Intake (units (unkno wn) date) unknown) (unknown) (no (unknown) (unknown) Last Menstural Cycle (uni ts (unknown) date) + Details unknown) (unknown) (no (unknown) (unknown) Loc: [facility] (units (unkno wn) date) unknown) (unknown) (no (unknown) (unknown) [id number] (units (unk nown) date) unknown) (unknown) (no (unknown) (unknown) Mass of breast, left (uni ts (unknown) date) unknown) (unknown) (no (unknown) (unknown) Medical History (units (unknown) date) (Updated 05/25/21 @ unknown) 15:00 by NICKY Ellis) (unknown) (no (unknown) (unknown) Medications (units (un known) date) unknown) (unknown) (no (unknown) (unknown) Medications: (units (u nknown) date) unknown) (unknown) (no (unknown) (unknown) Meds review (units (un known) date) unknown) (unknown) (no (unknown) (unknown) New (units (unkno wn) date) unknown) (unknown) (no (unknown) (unknown) No Known Drug (units ( unknown) date) Allergies Allergy unknown) (Unverified 12/07/21 14:08) (unknown) (no (unknown) (unknown) No sensation of (units (unknown) date) irregular heartbeat unknown) or skipped beats. (unknown) (no (unknown) (unknown) On April 20, 2021 (unit s (unknown) date) patient was seen at unknown) [facility] ED for (unknown) (no (unknown) (unknown) Other Menstrual (units (unknown) date) Period: Other unknown) (irregular cycles since giving 2018) (unknown) (no (unknown) (unknown) Oxygen Delivery (units (unknown) date) Method room air unknown) (unknown) (no (unknown) (unknown) PFSH (units (unkno wn) date) unknown) (unknown) (no (unknown) (unknown) Painful lumpy left (units (unknown) date) breast unknown) (unknown) (no (unknown) (unknown) Past medical history (uni ts (unknown) date) notable for unknown) hypertension and anxiety. (unknown) (no (unknown) (unknown) Patient feels that (units (unknown) date) nifedipine XR has a unknown) side effect of palpitations. (unknown) (no (unknown) (unknown) Patient tells me (units (unknown) date) that she did not have unknown) these palpitations prior to starting (unknown) (no (unknown) (unknown) Patient: (units (unkno wn) date) Deepa Moser S unknown) MR#: (unknown) (no (unknown) (unknown) Position Sitting (units (unknown) date) unknown) (unknown) (no (unknown) (unknown) Pt here for (units (un known) date) establish care- new unknown) to you (unknown) (no (unknown) (unknown) Pulse 64 (units (unkno wn) date) unknown) (unknown) (no (unknown) (unknown) Pulse Oximetry (%) (units (unknown) date) 99 unknown) (unknown) (no (unknown) (unknown) Pulse Source Monitor (uni ts (unknown) date) unknown) (unknown) (no (unknown) (unknown) Reason For Visit (units (unknown) date) unknown) (unknown) (no (unknown) (unknown) Signed By: (units (unk nown) date) unknown) (unknown) (no (unknown) (unknown) Smoking Status: (units (unknown) date) Never smoker unknown) (unknown) (no (unknown) (unknown) Surgical History (units (unknown) date) (Reviewed 04/18/21 @ unknown) 10:24 by NICKY Ellis) (unknown) (no (unknown) (unknown) This note may have (units (unknown) date) been all or partially unknown) generated using voice recognition (unknown) (no (unknown) (unknown) Tobacco + Substance (unit s (unknown) date) Use unknown) (unknown) (no (unknown) (unknown) Tobacco Status (units (unknown) date) unknown) (unknown) (no (unknown) (unknown) Visit Reasons: NTY: (unit s (unknown) date) Med Review unknown) (unknown) (no (unknown) (unknown) Vitals (units (unkno wn) date) unknown) (unknown) (no (unknown) (unknown) Weight 68.492 kg (units (unknown) date) unknown) (unknown) (no (unknown) (unknown) [place] teeth removed (uni ts (unknown) date) () unknown) (unknown) (no (unknown) (unknown) anxiety without (units (unknown) date) medication. unknown) (unknown) (no (unknown) (unknown) being monitored, (units (unknown) date) sinus tachycardia so unknown) we deferred further w/u today. (unknown) (no (unknown) (unknown) but was on ASA. (units (unknown) date) During the unknown) period she was started on nifedipine XR. (unknown) (no (unknown) (unknown) child goes to (units ( unknown) date) daycare while she is unknown) at work. (unknown) (no (unknown) (unknown) complaint of (units (u nknown) date) palpitations. Twelve unknown) lead EKG was performed showing sinus (unknown) (no (unknown) (unknown) correlate with (units (unknown) date) feeling anxious. No unknown) chest pain, dizziness, shortness of breath. (unknown) (no (unknown) (unknown) f/u. feels like (units (unknown) date) nifedipine causes unknown) high HR. was having palpitations in ed while (unknown) (no (unknown) (unknown) have occurred. If (units (unknown) date) there are any unknown) questions, please contact the Medical Records (unknown) (no (unknown) (unknown) heartbeat. She did (units (unknown) date) follow-up with former unknown) PCP and they treated this as a (unknown) (no (unknown) (unknown) her nearly (units (unk nown) date) 3-year-old son in [place] unknown) [place], [place]. They are originally from (unknown) (no (unknown) (unknown) hours, then goes (units (unknown) date) away. unknown) (unknown) (no (unknown) (unknown) hypertension was 1st (uni ts (unknown) date) treated with unknown) hydrochlorothiazide before she became (unknown) (no (unknown) (unknown) indicated that (units (unknown) date) cardiac monitoring unknown) showed no worrisome findings. Patient tells (unknown) (no (unknown) (unknown) lives with (units (unknown) date) and nearly 3 yo son. unknown) from [place]. 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 (units (unk nown) date) Occasional wrong-word unknown) or 'sound-alike' substitutions may have (unknown) (no (unknown) (unknown) me that she was (units (unknown) date) indeed experiencing unknown) the palpitations sensation while being (unknown) (no (unknown) (unknown) metoprolol succinate (unit s (unknown) date) 50 mg tablet,extended unknown) release 24 hr 50 mg PO DAILY #30 tabs (unknown) (no (unknown) (unknown) metoprolol succinate (uni ts (unknown) date) ER 50 mg PO DAILY 30 unknown) tabs 2RF (unknown) (no (unknown) (unknown) monitored in the (units (unknown) date) EKG. She describes unknown) this as a sensation of a pounding (unknown) (no (unknown) (unknown) nifedipine ER (units ( unknown) date) unknown) (unknown) (no (unknown) (unknown) nifedipine XR. She (units (unknown) date) does believe this is unknown) a side effect. Although she endorses (unknown) (no (unknown) (unknown) norethindrone (units ( unknown) date) acetate 1 mg-ethinyl unknown) estradiol 20 mcg tablet See Rx Instructions (unknown) (no (unknown) (unknown) normal cardiac exam (unit s (unknown) date) in clinic. switch to unknown) toprol xl, f/u 6 weeks for wwe/pap/bp (unknown) (no (unknown) (unknown) occurred due to the (unit s (unknown) date) inherent limitations unknown) of voice recognition software. Please (unknown) (no (unknown) (unknown) . While she (unit s (unknown) date) was she was unknown) not on any antihypertensive medication (unknown) (no (unknown) (unknown) read the note (units ( unknown) date) carefully and unknown) recognize, using context, where these substitutions (unknown) (no (unknown) (unknown) recently started (units (unknown) date) working at [employer] unknown) [employer] full-time. 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 unknown) (unknown) (no (unknown) (unknown) started wroking at (units (unknown) date) [employer] sn[facility] unknown) full-times. daytimes. child goes to daycare. (unknown) (no (unknown) (unknown) tachycardia with a (units (unknown) date) rate of 117. EKG was unknown) otherwise normal and the provider (unknown) (no (unknown) (unknown) usually in morning (units (unknown) date) when awakens. feels unknown) like pounding, no other sx. lasts 1-2 (unknown) (no (unknown) (unknown) was on HCTZ before (units (unknown) date) , no unknown) antihypertensive during preg, only ASA. Result panel 8 (unknown) (no (unknown) (unknown) (no value) (units (unk nown) date) unknown) (unknown) (no (unknown) (unknown) (1) Palpitations: (units (unknown) date) unknown) (unknown) (no (unknown) (unknown) (2) Tachycardia: (units (unknown) date) unknown) (unknown) (no (unknown) (unknown) (3) Essential (units ( unknown) date) hypertension: unknown) (unknown) (no (unknown) (unknown) (4) Impaired fasting (uni ts (unknown) date) blood sugar: unknown) (unknown) (no (unknown) (unknown) (5) Dyslipidemia: (units (unknown) date) unknown) (unknown) (no (unknown) (unknown) - Palpitations, (units (unknown) date) R73.01 - Impaired unknown) fasting glucose (unknown) (no (unknown) (unknown) .Route .COMPLEX #63 (unit s (unknown) date) tabs 09/01/21 [Rx unknown) Confirmed 12/07/21] (unknown) (no (unknown) (unknown) 12/07/21 [Rx (units (u nknown) date) Confirmed 12/07/21] unknown) (unknown) (no (unknown) (unknown) 12/07/21 (units (unkno wn) date) unknown) (unknown) (no (unknown) (unknown) 12/09/21 1456 (units ( unknown) date) unknown) (unknown) (no (unknown) (unknown) 14:13 (units (unkno wn) date) unknown) (unknown) (no (unknown) (unknown) 31-year-old female (units (unknown) date) presents to establish unknown) care. She lives with her and (unknown) (no (unknown) (unknown) Affect: normal (units (unknown) date) affect unknown) (unknown) (no (unknown) (unknown) Age/Sex: 31 / F Date (uni ts (unknown) date) of Service: unknown) (unknown) (no (unknown) (unknown) All systems reviewed (uni ts (unknown) date) + are unremarkable unknown) except as noted in HPI and below (unknown) (no (unknown) (unknown) Allergies (units (unkn own) date) unknown) (unknown) (no (unknown) (unknown) [place] [address] (unit s (unknown) date) unknown) (unknown) (no (unknown) (unknown) Anxiety (units (unkno wn) date) unknown) (unknown) (no (unknown) (unknown) Appearance: grossly (unit s (unknown) date) normal unknown) (unknown) (no (unknown) (unknown) Assessment + Plan (units (unknown) date) unknown) (unknown) (no (unknown) (unknown) Attending Dr: Celso (uni ts (unknown) date) Amrik SAUNDERS unknown) (unknown) (no (unknown) (unknown) Attitude: (units (unkn own) date) cooperative unknown) (unknown) (no (unknown) (unknown) Auscultation: clear (unit s (unknown) date) to auscultation unknown) bilaterally (unknown) (no (unknown) (unknown) BMI 29.5 (units (unkno wn) date) unknown) (unknown) (no (unknown) (unknown) BP 122/70 (units (unkn own) date) unknown) (unknown) (no (unknown) (unknown) Blood Pressure (units (unknown) date) Location Lt brachial unknown) (unknown) (no (unknown) (unknown) Cardio (units (unkno wn) date) unknown) (unknown) (no (unknown) (unknown) Chicken pox (-1995) (unit s (unknown) date) unknown) (unknown) (no (unknown) (unknown) Chief Complaint (units (unknown) date) unknown) (unknown) (no (unknown) (unknown) Chief Complaint: (units (unknown) date) establish care unknown) (unknown) (no (unknown) (unknown) Cognition: normal (units (unknown) date) cognition unknown) (unknown) (no (unknown) (unknown) Complete Blood Count (uni ts (unknown) date) NO DIFF 2 Weeks E78.5 unknown) - Hyperlipidemia, unspecified, R00.2 (unknown) (no (unknown) (unknown) Comprehensive (units (u nknown) date) Metabolic Panel 2 unknown) Weeks E78.5 - Hyperlipidemia, unspecified, R00.2 (unknown) (no (unknown) (unknown) Const (units (unkno wn) date) unknown) (unknown) (no (unknown) (unknown) : 1990 (units (unknown) date) Acct:[id number] unknown) (unknown) (no (unknown) (unknown) Dept at (units (unkno wn) date) . unknown) (unknown) (no (unknown) (unknown) Details: (units (unkno wn) date) unknown) (unknown) (no (unknown) (unknown) Discontinued Reason: (uni ts (unknown) date) Order Change 60 mg PO unknown) DAILY 30 tabs 0RF HTN (unknown) (no (unknown) (unknown) Discontinued (units (u nknown) date) unknown) (unknown) (no (unknown) (unknown) Documented By: (units (unknown) date) Celso Rowley unknown) 12/07/21 1407 (unknown) (no (unknown) (unknown) Dyslipidemia (units (u nknown) date) unknown) (unknown) (no (unknown) (unknown) Effort + Inspection: (uni ts (unknown) date) normal respiratory unknown) effort (unknown) (no (unknown) (unknown) Essential (units (unkn own) date) hypertension (-2019) unknown) (unknown) (no (unknown) (unknown) Exam (units (unkno wn) date) unknown) (unknown) (no (unknown) (unknown) Extrem (units (unkno wn) date) unknown) (unknown) (no (unknown) (unknown) Eyes (units (unkno wn) date) unknown) (unknown) (no (unknown) (unknown) Family Practice (units (unknown) date) Office Visit unknown) (unknown) (no (unknown) (unknown) [facility]) (unknown) (no (unknown) (unknown) Gait: normal gait (units (unknown) date) unknown) (unknown) (no (unknown) (unknown) General: appearance (unit s (unknown) date) normal, both eyes and unknown) all related structures (unknown) (no (unknown) (unknown) General: (units (unkno wn) date) cooperative, healthy unknown) appearing and no acute distress (unknown) (no (unknown) (unknown) General: no edema (units (unknown) date) unknown) (unknown) (no (unknown) (unknown) General: no rashes (units (unknown) date) or lesions noted unknown) (unknown) (no (unknown) (unknown) General: patient (units (unknown) date) alert, patient awake unknown) and patient oriented x3 (unknown) (no (unknown) (unknown) HENMT (units (unkno wn) date) unknown) (unknown) (no (unknown) (unknown) HPI (units (unkno wn) date) unknown) (unknown) (no (unknown) (unknown) [place]. Her (unit s (unknown) date) is in the [facility] unknown) [facility]. 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 (unknown) (no (unknown) (unknown) Head: normal to (units (unknown) date) inspection unknown) (unknown) (no (unknown) (unknown) Heart Sounds: S1 (units (unknown) date) normal, S2 normal, unknown) normal S1 and S2 and no murmurs (unknown) (no (unknown) (unknown) Height 152.4 cm (units (unknown) date) unknown) (unknown) (no (unknown) (unknown) Hemoglobin A1C% w Est (uni ts (unknown) date) Avg Glu 2 Weeks E78.5 unknown) - Hyperlipidemia, unspecified, R00.2 (unknown) (no (unknown) (unknown) History of (unit s (unknown) date) section (-01/02/19) unknown) (unknown) (no (unknown) (unknown) Hypertension has (units (unknown) date) been generally well unknown) controlled. She states that her (unknown) (no (unknown) (unknown) Immunization due (units (unknown) date) unknown) (unknown) (no (unknown) (unknown) Impaired fasting (units (unknown) date) blood sugar unknown) (unknown) (no (unknown) (unknown) Impaired fasting (units (unknown) date) glucose and unknown) dyslipidemia: Noted on 2020 labs. We will get (unknown) (no (unknown) (unknown) Intake Note: (units (u nknown) date) unknown) (unknown) (no (unknown) (unknown) Intake (units (unkno wn) date) unknown) (unknown) (no (unknown) (unknown) Judgment: judgment (units (unknown) date) good unknown) (unknown) (no (unknown) (unknown) Last Menstural Cycle (uni ts (unknown) date) + Details unknown) (unknown) (no (unknown) (unknown) Lipid Panel 2 Weeks (unit s (unknown) date) E78.5 - unknown) Hyperlipidemia, unspecified, R00.2 - Palpitations, (unknown) (no (unknown) (unknown) Loc: [facility] (units (unkno wn) date) unknown) (unknown) (no (unknown) (unknown) [id number] (units (unk nown) date) unknown) (unknown) (no (unknown) (unknown) Mass of breast, left (uni ts (unknown) date) unknown) (unknown) (no (unknown) (unknown) Medical History (units (unknown) date) (Reviewed 12/09/21 @ unknown) 14:47 by NICKY Ferrer) (unknown) (no (unknown) (unknown) Medications (units (un known) date) unknown) (unknown) (no (unknown) (unknown) Medications: (units (u nknown) date) unknown) (unknown) (no (unknown) (unknown) Meds review (units (un known) date) unknown) (unknown) (no (unknown) (unknown) Mental Status: (units (unknown) date) mental status grossly unknown) normal (unknown) (no (unknown) (unknown) Mood: congruent mood (uni ts (unknown) date) unknown) (unknown) (no (unknown) (unknown) Neuro (units (unkno wn) date) unknown) (unknown) (no (unknown) (unknown) New (units (unkno wn) date) unknown) (unknown) (no (unknown) (unknown) No Known Drug (units ( unknown) date) Allergies Allergy unknown) (Unverified 12/07/21 14:08) (unknown) (no (unknown) (unknown) No sensation of (units (unknown) date) irregular heartbeat unknown) or skipped beats. She often feels this in (unknown) (no (unknown) (unknown) Nutritional (units (un known) date) Appearance: average unknown) body habitus (unknown) (no (unknown) (unknown) On April 20, 2021 (unit s (unknown) date) patient was seen at unknown) [facility] ED for (unknown) (no (unknown) (unknown) Orders (units (unkno wn) date) unknown) (unknown) (no (unknown) (unknown) Orders: (units (unkno wn) date) unknown) (unknown) (no (unknown) (unknown) Other Menstrual (units (unknown) date) Period: Other unknown) (irregular cycles since giving 2018) (unknown) (no (unknown) (unknown) Oxygen Delivery (units (unknown) date) Method room air unknown) (unknown) (no (unknown) (unknown) PFSH (units (unkno wn) date) unknown) (unknown) (no (unknown) (unknown) Painful lumpy left (units (unknown) date) breast unknown) (unknown) (no (unknown) (unknown) Palpitations, R73.01 (uni ts (unknown) date) - Impaired fasting unknown) glucose (unknown) (no (unknown) (unknown) Palpitations/tachyca (uni ts (unknown) date) rdia/hypertension: unknown) Reviewed ED note as well as note from (unknown) (no (unknown) (unknown) Past medical history (uni ts (unknown) date) notable for unknown) hypertension and anxiety. (unknown) (no (unknown) (unknown) Patient feels that (units (unknown) date) nifedipine XR has a unknown) side effect of palpitations. (unknown) (no (unknown) (unknown) Patient tells me (units (unknown) date) that she did not have unknown) these palpitations prior to starting (unknown) (no (unknown) (unknown) Patient: (units (unkno wn) date) Deepa Moser S unknown) MR#: (unknown) (no (unknown) (unknown) Plan (units (unkno wn) date) unknown) (unknown) (no (unknown) (unknown) Position Sitting (units (unknown) date) unknown) (unknown) (no (unknown) (unknown) Psych (units (unkno wn) date) unknown) (unknown) (no (unknown) (unknown) Pt here for (units (un known) date) establish care- new unknown) to you (unknown) (no (unknown) (unknown) Pulse 64 (units (unkno wn) date) unknown) (unknown) (no (unknown) (unknown) Pulse Oximetry (%) (units (unknown) date) 99 unknown) (unknown) (no (unknown) (unknown) Pulse Source Monitor (uni ts (unknown) date) unknown) (unknown) (no (unknown) (unknown) R73.01 - Impaired (units (unknown) date) fasting glucose unknown) (unknown) (no (unknown) (unknown) ROS (units (unkno wn) date) unknown) (unknown) (no (unknown) (unknown) Rate: regular rate (units (unknown) date) unknown) (unknown) (no (unknown) (unknown) Reason For Visit (units (unknown) date) unknown) (unknown) (no (unknown) (unknown) Resp (units (unkno wn) date) unknown) (unknown) (no (unknown) (unknown) Rhythm: regular (units (unknown) date) rhythm unknown) (unknown) (no (unknown) (unknown) Signed By: (units (unk nown) date) <Electronically unknown) signed by Celso Rowley> (unknown) (no (unknown) (unknown) Signed (units (unkno wn) date) unknown) (unknown) (no (unknown) (unknown) Skin (units (unkno wn) date) unknown) (unknown) (no (unknown) (unknown) Smoking Status: (units (unknown) date) Never smoker unknown) (unknown) (no (unknown) (unknown) Speech: speech (units (unknown) date) normal unknown) (unknown) (no (unknown) (unknown) Status: Acute (units ( unknown) date) unknown) (unknown) (no (unknown) (unknown) Status: Chronic (units (unknown) date) unknown) (unknown) (no (unknown) (unknown) Surgical History (units (unknown) date) (Reviewed 12/09/21 @ unknown) 14:47 by NICKY Ferrer) (unknown) (no (unknown) (unknown) TSH w/ Reflex to FT4 (uni ts (unknown) date) 2 Weeks E78.5 - unknown) Hyperlipidemia, unspecified, R00.2 (unknown) (no (unknown) (unknown) This note may have (units (unknown) date) been all or partially unknown) generated using voice recognition (unknown) (no (unknown) (unknown) Thought Content: (units (unknown) date) normal unknown) (unknown) (no (unknown) (unknown) Thought Process: (units (unknown) date) normal unknown) (unknown) (no (unknown) (unknown) Tobacco + Substance (unit s (unknown) date) Use unknown) (unknown) (no (unknown) (unknown) Tobacco Status (units (unknown) date) unknown) (unknown) (no (unknown) (unknown) Visit Reasons: NTY: (unit s (unknown) date) Med Review unknown) (unknown) (no (unknown) (unknown) Vitals (units (unkno wn) date) unknown) (unknown) (no (unknown) (unknown) Weight 68.492 kg (units (unknown) date) unknown) (unknown) (no (unknown) (unknown) [place] teeth removed (uni ts (unknown) date) () unknown) (unknown) (no (unknown) (unknown) action. Will trial (units (unknown) date) change to unknown) beta-suzie. Counseled on (unknown) (no (unknown) (unknown) administration/risks (uni ts (unknown) date) /benefits/side unknown) effects of medication. I have also ordered (unknown) (no (unknown) (unknown) anxiety without (units (unknown) date) medication. unknown) (unknown) (no (unknown) (unknown) at the ED she had no (uni ts (unknown) date) labs performed other unknown) than a respiratory panel, and her (unknown) (no (unknown) (unknown) but was on ASA. (units (unknown) date) During the unknown) period she was started on nifedipine XR. (unknown) (no (unknown) (unknown) child goes to (units ( unknown) date) daycare while she is unknown) at work. (unknown) (no (unknown) (unknown) complaint of (units (u nknown) date) palpitations. Twelve unknown) lead EKG was performed showing sinus (unknown) (no (unknown) (unknown) concerned that the (units (unknown) date) palpitation symptom unknown) which was associated with sinus (unknown) (no (unknown) (unknown) correlate with (units (unknown) date) feeling anxious. No unknown) chest pain, dizziness, shortness of breath. (unknown) (no (unknown) (unknown) effect and I agree (units (unknown) date) that changing to a unknown) different medication is an appropriate (unknown) (no (unknown) (unknown) follow-up labs and (units (unknown) date) review these at unknown) upcoming well-woman exam/Pap. (unknown) (no (unknown) (unknown) former PCP and lab (units (unknown) date) history. Although I unknown) did not see this until after our visit, (unknown) (no (unknown) (unknown) former PCP did not (units (unknown) date) perform any labs to unknown) further evaluate the issue. I am (unknown) (no (unknown) (unknown) have occurred. If (units (unknown) date) there are any unknown) questions, please contact the Medical Records (unknown) (no (unknown) (unknown) heartbeat. She did (units (unknown) date) follow-up with former unknown) PCP and they treated this as a (unknown) (no (unknown) (unknown) her nearly (units (unk nown) date) 3-year-old [place]. They are originally from (unknown) (no (unknown) (unknown) [place]. Since (unit s (unknown) date) the patient reports unknown) that she did have ongoing palpitations (unknown) (no (unknown) (unknown) hypertension was 1st (uni ts (unknown) date) treated with unknown) hydrochlorothiazide before she became (unknown) (no (unknown) (unknown) indicated that (units (unknown) date) cardiac monitoring unknown) showed no worrisome findings. Patient tells (unknown) (no (unknown) (unknown) irregular heartbeats (uni ts (unknown) date) so these may be less unknown) pertinent. Advised avoid caffeine and (unknown) (no (unknown) (unknown) lab work, with the (units (unknown) date) greatest concern unknown) being to check her thyroid lab, although her (unknown) (no (unknown) (unknown) manifestation of (units (unknown) date) anxiety and patient unknown) was advised on general measures to address (unknown) (no (unknown) (unknown) may occur. (units (unk nown) date) Occasional wrong-word unknown) or 'sound-alike' substitutions may have (unknown) (no (unknown) (unknown) me that she was (units (unknown) date) indeed experiencing unknown) the palpitations sensation while being (unknown) (no (unknown) (unknown) metoprolol succinate (unit s (unknown) date) 50 mg tablet,extended unknown) release 24 hr 50 mg PO DAILY #30 tabs (unknown) (no (unknown) (unknown) metoprolol succinate (uni ts (unknown) date) ER 50 mg PO DAILY 30 unknown) tabs 2RF (unknown) (no (unknown) (unknown) monitored in the (units (unknown) date) EKG. She describes unknown) this as a sensation of a pounding (unknown) (no (unknown) (unknown) nifedipine ER (units ( unknown) date) unknown) (unknown) (no (unknown) (unknown) nifedipine XR. She (units (unknown) date) does believe this is unknown) a side effect. Although she endorses (unknown) (no (unknown) (unknown) norethindrone (units ( unknown) date) acetate 1 mg-ethinyl unknown) estradiol 20 mcg tablet See Rx Instructions (unknown) (no (unknown) (unknown) occurred due to the (unit s (unknown) date) inherent limitations unknown) of voice recognition software. Please (unknown) (no (unknown) (unknown) patch/Holter monitor (uni ts (unknown) date) at this time. unknown) (unknown) (no (unknown) (unknown) . While she (unit s (unknown) date) was she was unknown) not on any antihypertensive medication (unknown) (no (unknown) (unknown) read the note (units ( unknown) date) carefully and unknown) recognize, using context, where these substitutions (unknown) (no (unknown) (unknown) recently started (units (unknown) date) working at [employer] unknown) [employer] full-time. 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 Although I have not seen this (unknown) (no (unknown) (unknown) tachycardia with a (units (unknown) date) rate of 117. EKG was unknown) otherwise normal and the provider (unknown) (no (unknown) (unknown) the morning when she (uni ts (unknown) date) awakens. unknown) (unknown) (no (unknown) (unknown) to be a common side (unit s (unknown) date) effect of nifedipine unknown) XR, tachycardia is a possible side (unknown) (no (unknown) (unknown) weight has been (units (unknown) date) reasonably stable, unknown) making rani hyperthyroidism less likely. We (unknown) (no (unknown) (unknown) while being (units (un known) date) monitored in the ED, unknown) we have deferred monitoring with [facility] (unknown) (no (unknown) (unknown) will get (units (unkno wn) date) electrolytes as well, unknown) although she has not reported a sense of Result panel 9 (unknown) (no date) (unknown) (unknown) 12.6 % (unkn own) (unknown) (no date) (unknown) (unknown) 14.1 g/dl (unkn own) (unknown) (no date) (unknown) (unknown) 27.3 pg (unkn own) (unknown) (no date) (unknown) (unknown) 33.5 % (unkn own) (unknown) (no date) (unknown) (unknown) 355 x10 3/ul (unkn own) (unknown) (no date) (unknown) (unknown) 42.1 % (unkn own) (unknown) (no date) (unknown) (unknown) 5.16 x10 6/ul (unkn own) (unknown) (no date) (unknown) (unknown) 6.1 x10 3/ul (unkn own) (unknown) (no date) (unknown) (unknown) 81.5 fl (unkn own) Result panel 10 (unknown) (no date) (unknown) (unknown) > 60 ml/min (unkn own) (unknown) (no date) (unknown) (unknown) > 60 ml/min (unkn own) (unknown) (no date) (unknown) (unknown) 0.4 mg/dl (unkn own) (unknown) (no date) (unknown) (unknown) 0.61 mg/dl (unkn own) (unknown) (no date) (unknown) (unknown) 1.4 (units unknown) (unknown) (unknown) (no date) (unknown) (unknown) 10 mg/dl (unkn own) (unknown) (no date) (unknown) (unknown) 102 mmol/l (unkn own) (unknown) (no date) (unknown) (unknown) 132 mg/dl (unkn own) (unknown) (no date) (unknown) (unknown) 132 mg/dl (unkn own) (unknown) (no date) (unknown) (unknown) 140 mmol/l (unkn own) (unknown) (no date) (unknown) (unknown) 15 iu/l (unkn own) (unknown) (no date) (unknown) (unknown) 16.4 (units unknown) (unknown) (unknown) (no date) (unknown) (unknown) 189 mg/dl (unkn own) (unknown) (no date) (unknown) (unknown) 189 mg/dl (unkn own) (unknown) (no date) (unknown) (unknown) 22 iu/l (unkn own) (unknown) (no date) (unknown) (unknown) 28 mmol/l (unkn own) (unknown) (no date) (unknown) (unknown) 3.3 g/dl (unkn own) (unknown) (no date) (unknown) (unknown) 3.6 mg/dl (unkn own) (unknown) (no date) (unknown) (unknown) 37 mg/dl (unkn own) (unknown) (no date) (unknown) (unknown) 37 mg/dl (unkn own) (unknown) (no date) (unknown) (unknown) 38.8 ug/mg cr (unkn own) (unknown) (no date) (unknown) (unknown) 38.8 ug/mg cr (unkn own) (unknown) (no date) (unknown) (unknown) 4.4 mmol/l (unkn own) (unknown) (no date) (unknown) (unknown) 4.7 g/dl (unkn own) (unknown) (no date) (unknown) (unknown) 5.0 % (unkn own) (unknown) (no date) (unknown) (unknown) 5.0 % (unkn own) (unknown) (no date) (unknown) (unknown) 8.0 g/dl (unkn own) (unknown) (no date) (unknown) (unknown) 81 u/l (unkn own) (unknown) (no date) (unknown) (unknown) 9.2 mg/dl (unkn own) (unknown) (no date) (unknown) (unknown) 92.6 mg/dl (unkn own) (unknown) (no date) (unknown) (unknown) 93 mg/dl (unkn own) (unknown) (no date) (unknown) (unknown) 93 mg/dl (unkn own) (unknown) (no date) (unknown) (unknown) 99 mg/dl (unkn own) (unknown) (no date) (unknown) (unknown) 99 mg/dl (unkn own) Result panel 11 (unknown) (no date) (unknown) (unknown) 1.03 uiu/ml (unkn own) Result panel 12 (unknown) (no (unknown) (unknown) (no value) (units (unk nown) date) unknown) (unknown) (no (unknown) (unknown) .Route .COMPLEX (units (unknown) date) #63 tabs 09/01/21 unknown) [Rx Confirmed 01/17/22] (unknown) (no (unknown) (unknown) 12/07/21 [Rx (units (u nknown) date) Confirmed unknown) 01/17/22] (unknown) (no (unknown) (unknown) 01/17/22 (units (unkno wn) date) unknown) (unknown) (no (unknown) (unknown) 11:19 (units (unkno wn) date) unknown) (unknown) (no (unknown) (unknown) 31 yo female (units (u nknown) date) presents today unknown) for a WWE and a PAP. BP was high, will recheck (unknown) (no (unknown) (unknown) Age/Sex: 31 / F (units (unknown) date) Date of Service: unknown) (unknown) (no (unknown) (unknown) Allergies (units (unkn own) date) unknown) (unknown) (no (unknown) (unknown) [place], [place] (units ( unknown) date) [id number] unknown) (unknown) (no (unknown) (unknown) Anxiety (units (unkno wn) date) unknown) (unknown) (no (unknown) (unknown) Attending Dr: (units ( unknown) date) Celso SAUNDERS unknown) (unknown) (no (unknown) (unknown) BMI 29.4 (units (unkno wn) date) unknown) (unknown) (no (unknown) (unknown) BP 158/110 H (units (u nknown) date) unknown) (unknown) (no (unknown) (unknown) Blood Pressure (units (unknown) date) Location Lt unknown) brachial (unknown) (no (unknown) (unknown) Chicken pox (units (un known) date) () unknown) (unknown) (no (unknown) (unknown) : 1990 (units (unknown) date) Acct:[id number] unknown) (unknown) (no (unknown) (unknown) Dept at (units (unkno wn) date) . unknown) (unknown) (no (unknown) (unknown) Documented By: (units (unknown) date) Celso Rowley unknown) 01/17/22 1118 (unknown) (no (unknown) (unknown) Draft (units (unkno wn) date) unknown) (unknown) (no (unknown) (unknown) Dyslipidemia (units (u nknown) date) unknown) (unknown) (no (unknown) (unknown) Essential (units (unkn own) date) hypertension unknown) () (unknown) (no (unknown) (unknown) Family Practice (units (unknown) date) Office Visit unknown) (unknown) (no (unknown) (unknown) [facility]) (unknown) (no (unknown) (unknown) Health (units (unkno wn) date) Management unknown) reviewed with patient: Yes (unknown) (no (unknown) (unknown) Health (units (unkno wn) date) Management unknown) (unknown) (no (unknown) (unknown) Height 5 ft (units (un known) date) unknown) (unknown) (no (unknown) (unknown) History of (units (unk nown) date) section unknown) (-01/02/19) (unknown) (no (unknown) (unknown) Immunization due (units (unknown) date) unknown) (unknown) (no (unknown) (unknown) Impaired fasting (units (unknown) date) blood sugar unknown) (unknown) (no (unknown) (unknown) Intake Note: (units (u nknown) date) unknown) (unknown) (no (unknown) (unknown) Intake performed (units (unknown) date) by: Jannette Whitman unknown) (unknown) (no (unknown) (unknown) Intake (units (unkno wn) date) unknown) (unknown) (no (unknown) (unknown) Intake- Clincial (units (unknown) date) Staff unknown) (unknown) (no (unknown) (unknown) Last Menstural (units (unknown) date) Cycle + Details unknown) (unknown) (no (unknown) (unknown) Loc: [facility] (units (unkno wn) date) unknown) (unknown) (no (unknown) (unknown) [id number] (units (unk nown) date) unknown) (unknown) (no (unknown) (unknown) Mass of breast, (units (unknown) date) left unknown) (unknown) (no (unknown) (unknown) Medical History (units (unknown) date) (Reviewed unknown) 12/09/21 @ 14:47 by NICKY Ferrer) (unknown) (no (unknown) (unknown) Medications (units (un known) date) unknown) (unknown) (no (unknown) (unknown) No Known Drug (units ( unknown) date) Allergies Allergy unknown) (Unverified 01/17/22 11:19) (unknown) (no (unknown) (unknown) Other Menstrual (units (unknown) date) Period: Other unknown) (irregular cycles since giving 2018) (unknown) (no (unknown) (unknown) Oxygen Delivery (units (unknown) date) Method room air unknown) (unknown) (no (unknown) (unknown) PFSH (units (unkno wn) date) unknown) (unknown) (no (unknown) (unknown) Painful lumpy (units ( unknown) date) left breast unknown) (unknown) (no (unknown) (unknown) Patient: (units (unkno wn) date) Deepa Moser unknown) S MR#: (unknown) (no (unknown) (unknown) Position Sitting (units (unknown) date) unknown) (unknown) (no (unknown) (unknown) Pulse 81 (units (unkno wn) date) unknown) (unknown) (no (unknown) (unknown) Pulse Oximetry (units (unknown) date) (%) 98 unknown) (unknown) (no (unknown) (unknown) Pulse Source (units (u nknown) date) Monitor unknown) (unknown) (no (unknown) (unknown) Reason For Visit (units (unknown) date) unknown) (unknown) (no (unknown) (unknown) Signed By: (units (unk nown) date) unknown) (unknown) (no (unknown) (unknown) Smoking Status: (units (unknown) date) Never smoker unknown) (unknown) (no (unknown) (unknown) Surgical History (units (unknown) date) (Reviewed unknown) 12/09/21 @ 14:47 by NICKY Ferrer) (unknown) (no (unknown) (unknown) This note may (units ( unknown) date) have been all or unknown) partially generated using voice recognition (unknown) (no (unknown) (unknown) Tobacco + (units (unkn own) date) Substance Use unknown) (unknown) (no (unknown) (unknown) Tobacco Status (units (unknown) date) unknown) (unknown) (no (unknown) (unknown) Visit Reasons: (units (unknown) date) WWE W/PAP, f/u BP unknown) (unknown) (no (unknown) (unknown) Vitals (units (unkno wn) date) unknown) (unknown) (no (unknown) (unknown) Weight 150 lb 8 (units (unknown) date) oz unknown) (unknown) (no (unknown) (unknown) [place] teeth (units (u nknown) date) removed () unknown) (unknown) (no (unknown) (unknown) before patient (units (unknown) date) leaves. unknown) (unknown) (no (unknown) (unknown) have occurred. (units (unknown) date) If there are any unknown) questions, please contact the Medical Records (unknown) (no (unknown) (unknown) may occur. (units (unk nown) date) Occasional unknown) wrong-word or 'sound-alike' substitutions may have (unknown) (no (unknown) (unknown) metoprolol (units (unkn own) date) succinate 50 mg unknown) tablet,extended release 24 hr 50 mg PO DAILY #30 tabs (unknown) (no (unknown) (unknown) norethindrone (units ( unknown) date) acetate 1 unknown) mg-ethinyl estradiol 20 mcg tablet See Rx Instructions (unknown) (no (unknown) (unknown) occurred due to (units (unknown) date) the inherent unknown) limitations of voice recognition software. Please (unknown) (no (unknown) (unknown) read the note (units ( unknown) date) carefully and unknown) recognize, using context, where these substitutions (unknown) (no (unknown) (unknown) software. 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 BP was high, will recheck (unknown) (no (unknown) (unknown) Age/Sex: 31 / F (units (unknown) date) Date of Service: unknown) (unknown) (no (unknown) (unknown) Allergies (units (unkn own) date) unknown) (unknown) (no (unknown) (unknown) [place] (units ( unknown) date) [id number] unknown) (unknown) (no (unknown) (unknown) Anxiety (units (unkno wn) date) unknown) (unknown) (no (unknown) (unknown) Assessment + (units (u nknown) date) Plan unknown) (unknown) (no (unknown) (unknown) Attending Dr: (units ( unknown) date) Celso SAUNDERS unknown) (unknown) (no (unknown) (unknown) BMI 29.4 (units (unkno wn) date) unknown) (unknown) (no (unknown) (unknown) BP 158/110 H (units (u nknown) date) unknown) (unknown) (no (unknown) (unknown) Blood Pressure (units (unknown) date) Location Lt unknown) brachial (unknown) (no (unknown) (unknown) Chicken pox (units (un known) date) () unknown) (unknown) (no (unknown) (unknown) : 1990 (units (unknown) date) Acct:[id number] unknown) (unknown) (no (unknown) (unknown) Dept at (units (unkno wn) date) . unknown) (unknown) (no (unknown) (unknown) Documented By: (units (unknown) date) Celso Rowley unknown) 01/17/22 1118 (unknown) (no (unknown) (unknown) Draft (units (unkno wn) date) unknown) (unknown) (no (unknown) (unknown) Dyslipidemia (units (u nknown) date) unknown) (unknown) (no (unknown) (unknown) Essential (units (unkn own) date) hypertension unknown) () (unknown) (no (unknown) (unknown) Family Practice (units (unknown) date) Office Visit unknown) (unknown) (no (unknown) (unknown) [facility]) (unknown) (no (unknown) (unknown) Health (units (unkno wn) date) Management unknown) reviewed with patient: Yes (unknown) (no (unknown) (unknown) Health (units (unkno wn) date) Management unknown) (unknown) (no (unknown) (unknown) Height 5 ft (units (un known) date) unknown) (unknown) (no (unknown) (unknown) History of (units (unk nown) date) section unknown) (-01/02/19) (unknown) (no (unknown) (unknown) Immunization due (units (unknown) date) unknown) (unknown) (no (unknown) (unknown) Impaired fasting (units (unknown) date) blood sugar unknown) (unknown) (no (unknown) (unknown) Intake Note: (units (u nknown) date) unknown) (unknown) (no (unknown) (unknown) Intake performed (units (unknown) date) by: Jannette Whitman unknown) (unknown) (no (unknown) (unknown) Intake (units (unkno wn) date) unknown) (unknown) (no (unknown) (unknown) Intake- Clincial (units (unknown) date) Staff unknown) (unknown) (no (unknown) (unknown) Last Menstural (units (unknown) date) Cycle + Details unknown) (unknown) (no (unknown) (unknown) Loc: [facility] (units (unkno wn) date) unknown) (unknown) (no (unknown) (unknown) [id number] (units (unk nown) date) unknown) (unknown) (no (unknown) (unknown) Mass of breast, (units (unknown) date) left unknown) (unknown) (no (unknown) (unknown) Medical History (units (unknown) date) (Reviewed unknown) 12/09/21 @ 14:47 by NICKY Ferrer) (unknown) (no (unknown) (unknown) Medications (units (un known) date) unknown) (unknown) (no (unknown) (unknown) No Known Drug (units ( unknown) date) Allergies Allergy unknown) (Unverified 01/17/22 11:19) (unknown) (no (unknown) (unknown) Orders (units (unkno wn) date) unknown) (unknown) (no (unknown) (unknown) Orders: (units (unkno wn) date) unknown) (unknown) (no (unknown) (unknown) Other Menstrual (units (unknown) date) Period: Other unknown) (irregular cycles since giving 2019) (unknown) (no (unknown) (unknown) Oxygen Delivery (units (unknown) date) Method room air unknown) (unknown) (no (unknown) (unknown) PAP with hr HPV (units (unknown) date) Today Z00.00 - unknown) Encounter for general adult medical examination (unknown) (no (unknown) (unknown) PFSH (units (unkno wn) date) unknown) (unknown) (no (unknown) (unknown) Painful lumpy (units ( unknown) date) left breast unknown) (unknown) (no (unknown) (unknown) Patient: (units (unkno wn) date) Deepa Moser unknown) S MR#: (unknown) (no (unknown) (unknown) Position Sitting (units (unknown) date) unknown) (unknown) (no (unknown) (unknown) Pulse 81 (units (unkno wn) date) unknown) (unknown) (no (unknown) (unknown) Pulse Oximetry (units (unknown) date) (%) 98 unknown) (unknown) (no (unknown) (unknown) Pulse Source (units (u nknown) date) Monitor unknown) (unknown) (no (unknown) (unknown) Reason For Visit (units (unknown) date) unknown) (unknown) (no (unknown) (unknown) Signed By: (units (unk nown) date) unknown) (unknown) (no (unknown) (unknown) Smoking Status: (units (unknown) date) Never smoker unknown) (unknown) (no (unknown) (unknown) Surgical History (units (unknown) date) (Reviewed unknown) 12/09/21 @ 14:47 by NICKY Ferrer) (unknown) (no (unknown) (unknown) This note may (units ( unknown) date) have been all or unknown) partially generated using voice recognition (unknown) (no (unknown) (unknown) Tobacco + (units (unkn own) date) Substance Use unknown) (unknown) (no (unknown) (unknown) Tobacco Status (units (unknown) date) unknown) (unknown) (no (unknown) (unknown) Visit Reasons: (units (unknown) date) WWE W/PAP, f/u BP unknown) (unknown) (no (unknown) (unknown) Vitals (units (unkno wn) date) unknown) (unknown) (no (unknown) (unknown) Weight 150 lb 8 (units (unknown) date) oz unknown) (unknown) (no (unknown) (unknown) [place] teeth (units (u nknown) date) removed () unknown) (unknown) (no (unknown) (unknown) before patient (units (unknown) date) leaves. unknown) (unknown) (no (unknown) (unknown) have occurred. (units (unknown) date) If there are any unknown) questions, please contact the Medical Records (unknown) (no (unknown) (unknown) may occur. (units (unk nown) date) Occasional unknown) wrong-word or 'sound-alike' substitutions may have (unknown) (no (unknown) (unknown) metoprolol (units (unkn own) date) succinate 50 mg unknown) tablet,extended release 24 hr 50 mg PO DAILY #30 tabs (unknown) (no (unknown) (unknown) neoplasm of (units (un known) date) cervix unknown) (unknown) (no (unknown) (unknown) norethindrone (units ( unknown) date) acetate 1 unknown) mg-ethinyl estradiol 20 mcg tablet See Rx Instructions (unknown) (no (unknown) (unknown) occurred due to (units (unknown) date) the inherent unknown) limitations of voice recognition software. Please (unknown) (no (unknown) (unknown) read the note (units ( unknown) date) carefully and unknown) recognize, using context, where these substitutions (unknown) (no (unknown) (unknown) software. 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 (unknown) (no (unknown) (unknown) without abnormal (units (unknown) date) findings, Z12.4 - unknown) Encounter for screening for malignant Result panel 14 (unknown) (no (unknown) (unknown) (no value) (units (unk nown) date) unknown) (unknown) (no (unknown) (unknown) .Route .COMPLEX #63 (unit s (unknown) date) tabs 09/01/21 [Rx unknown) Confirmed 01/17/22] (unknown) (no (unknown) (unknown) 12/07/21 [Rx (units (u nknown) date) Confirmed 01/17/22] unknown) (unknown) (no (unknown) (unknown) 01/17/22 (units (unkno wn) date) unknown) (unknown) (no (unknown) (unknown) 11:19 (units (unkno wn) date) unknown) (unknown) (no (unknown) (unknown) 31 yo female (units (u nknown) date) presents today for a unknown) [employer] and a PAP. BP was high, will recheck (unknown) (no (unknown) (unknown) 31-year-old female (units (unknown) date) presents to establish unknown) care. She lives with her and (unknown) (no (unknown) (unknown) Age/Sex: 31 / F Date (uni ts (unknown) date) of Service: unknown) (unknown) (no (unknown) (unknown) Allergies (units (unkn own) date) unknown) (unknown) (no (unknown) (unknown) [place] [address] (unit s (unknown) date) unknown) (unknown) (no (unknown) (unknown) Anxiety (units (unkno wn) date) unknown) (unknown) (no (unknown) (unknown) Assessment + Plan (units (unknown) date) unknown) (unknown) (no (unknown) (unknown) Attending Dr: Celso (uni ts (unknown) date) Amrik SAUNDERS unknown) (unknown) (no (unknown) (unknown) BMI 29.4 (units (unkno wn) date) unknown) (unknown) (no (unknown) (unknown) BP 158/110 H (units (u nknown) date) unknown) (unknown) (no (unknown) (unknown) Blood Pressure (units (unknown) date) Location Lt brachial unknown) (unknown) (no (unknown) (unknown) Chicken pox (-1995) (unit s (unknown) date) unknown) (unknown) (no (unknown) (unknown) Chief Complaint (units (unknown) date) unknown) (unknown) (no (unknown) (unknown) Chief Complaint: (units (unknown) date) WWE/Pap unknown) (unknown) (no (unknown) (unknown) : 1990 (units (unknown) date) Acct:[id number] unknown) (unknown) (no (unknown) (unknown) Dept at (units (unkno wn) date) . unknown) (unknown) (no (unknown) (unknown) Details: (units (unkno wn) date) unknown) (unknown) (no (unknown) (unknown) Documented By: (units (unknown) date) Celso Rowley unknown) 01/17/22 1118 (unknown) (no (unknown) (unknown) Draft (units (unkno wn) date) unknown) (unknown) (no (unknown) (unknown) Dyslipidemia (units (u nknown) date) unknown) (unknown) (no (unknown) (unknown) EKG. She describes (units (unknown) date) this as a sensation unknown) of a pounding heartbeat. She did (unknown) (no (unknown) (unknown) Essential (units (unkn own) date) hypertension () unknown) (unknown) (no (unknown) (unknown) Family Practice (units (unknown) date) Office Visit unknown) (unknown) (no (unknown) (unknown) [facility]) (unknown) (no (unknown) (unknown) HPI (units (unkno wn) date) unknown) (unknown) (no (unknown) (unknown) [place]. Her (unit s (unknown) date) is in the [facility] unknown) [facility]. 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 She states that her (unknown) (no (unknown) (unknown) Immunization due (units (unknown) date) unknown) (unknown) (no (unknown) (unknown) Impaired fasting (units (unknown) date) blood sugar unknown) (unknown) (no (unknown) (unknown) Intake Note: (units (u nknown) date) unknown) (unknown) (no (unknown) (unknown) Intake performed by: (uni ts (unknown) date) Jannette Whitman unknown) (unknown) (no (unknown) (unknown) Intake (units (unkno wn) date) unknown) (unknown) (no (unknown) (unknown) Intake- Clincial (units (unknown) date) Staff unknown) (unknown) (no (unknown) (unknown) Last Menstural Cycle (uni ts (unknown) date) + Details unknown) (unknown) (no (unknown) (unknown) Loc: [facility] (units (unkno wn) date) unknown) (unknown) (no (unknown) (unknown) [id number] (units (unk nown) date) unknown) (unknown) (no (unknown) (unknown) Mass of breast, left (uni ts (unknown) date) unknown) (unknown) (no (unknown) (unknown) Medical History (units (unknown) date) (Reviewed 12/09/21 @ unknown) 14:47 by NICKY Ferrer) (unknown) (no (unknown) (unknown) Medications (units (un known) date) unknown) (unknown) (no (unknown) (unknown) No Known Drug (units ( unknown) date) Allergies Allergy unknown) (Unverified 01/17/22 11:19) (unknown) (no (unknown) (unknown) No sensation of (units (unknown) date) irregular heartbeat unknown) or skipped beats. She often feels this in (unknown) (no (unknown) (unknown) On April 20, 2021 (unit s (unknown) date) patient was seen at unknown) [facility] ED for (unknown) (no (unknown) (unknown) Orders (units (unkno wn) date) unknown) (unknown) (no (unknown) (unknown) Orders: (units (unkno wn) date) unknown) (unknown) (no (unknown) (unknown) Other Menstrual (units (unknown) date) Period: Other unknown) (irregular cycles since giving 2018) (unknown) (no (unknown) (unknown) Oxygen Delivery (units (unknown) date) Method room air unknown) (unknown) (no (unknown) (unknown) PAP with hr HPV (units (unknown) date) Today Z00.00 - unknown) Encounter for general adult medical examination (unknown) (no (unknown) (unknown) PFSH (units (unkno wn) date) unknown) (unknown) (no (unknown) (unknown) Painful lumpy left (units (unknown) date) breast unknown) (unknown) (no (unknown) (unknown) Past medical history (uni ts (unknown) date) notable for unknown) hypertension and anxiety. (unknown) (no (unknown) (unknown) Patient feels that (units (unknown) date) nifedipine XR has a unknown) side effect of palpitations. (unknown) (no (unknown) (unknown) Patient tells me (units (unknown) date) that she did not have unknown) these palpitations prior to starting (unknown) (no (unknown) (unknown) Patient: (units (unkno wn) date) Deepa Moser S unknown) MR#: (unknown) (no (unknown) (unknown) Position Sitting (units (unknown) date) unknown) (unknown) (no (unknown) (unknown) Pulse 81 (units (unkno wn) date) unknown) (unknown) (no (unknown) (unknown) Pulse Oximetry (%) (units (unknown) date) 98 unknown) (unknown) (no (unknown) (unknown) Pulse Source Monitor (uni ts (unknown) date) unknown) (unknown) (no (unknown) (unknown) Reason For Visit (units (unknown) date) unknown) (unknown) (no (unknown) (unknown) Signed By: (units (unk nown) date) unknown) (unknown) (no (unknown) (unknown) Smoking Status: (units (unknown) date) Never smoker unknown) (unknown) (no (unknown) (unknown) Surgical History (units (unknown) date) (Reviewed 12/09/21 @ unknown) 14:47 by NICKY Ferrer) (unknown) (no (unknown) (unknown) This note may have (units (unknown) date) been all or partially unknown) generated using voice recognition (unknown) (no (unknown) (unknown) Tobacco + Substance (unit s (unknown) date) Use unknown) (unknown) (no (unknown) (unknown) Tobacco Status (units (unknown) date) unknown) (unknown) (no (unknown) (unknown) Visit Reasons: WWE (units (unknown) date) W/PAP, f/u BP unknown) (unknown) (no (unknown) (unknown) Vitals (units (unkno wn) date) unknown) (unknown) (no (unknown) (unknown) Weight 68.266 kg (units (unknown) date) unknown) (unknown) (no (unknown) (unknown) [place] teeth removed (uni ts (unknown) date) () unknown) (unknown) (no (unknown) (unknown) and patient was (units (unknown) date) advised on general unknown) measures to address anxiety without (unknown) (no (unknown) (unknown) before patient (units (unknown) date) leaves. unknown) (unknown) (no (unknown) (unknown) but was on ASA. (units (unknown) date) During the unknown) period she was started on nifedipine XR. (unknown) (no (unknown) (unknown) child goes to (units ( unknown) date) daycare while she is unknown) at work. (unknown) (no (unknown) (unknown) complaint of (units (u nknown) date) palpitations. Twelve unknown) lead EKG was performed showing sinus tachyca (unknown) (no (unknown) (unknown) correlate with (units (unknown) date) feeling anxious. No unknown) chest pain, dizziness, shortness of breath. (unknown) (no (unknown) (unknown) follow-up with (units (unknown) date) former PCP and they unknown) treated this as a manifestation of anxiety (unknown) (no (unknown) (unknown) have occurred. If (units (unknown) date) there are any unknown) questions, please contact the Medical Records (unknown) (no (unknown) (unknown) her nearly (units (unk nown) date) 3-year-old son in [place] unknown) [place], [place]. They are originally from (unknown) (no (unknown) (unknown) hypertension was 1st (uni ts (unknown) date) treated with unknown) hydrochlorothiazide before she became (unknown) (no (unknown) (unknown) may occur. (units (unk nown) date) Occasional wrong-word unknown) or 'sound-alike' substitutions may have (unknown) (no (unknown) (unknown) medication. (units (un known) date) unknown) (unknown) (no (unknown) (unknown) metoprolol succinate (unit s (unknown) date) 50 mg tablet,extended unknown) release 24 hr 50 mg PO DAILY #30 tabs (unknown) (no (unknown) (unknown) neoplasm of cervix (units (unknown) date) unknown) (unknown) (no (unknown) (unknown) nifedipine XR. She (units (unknown) date) does believe this is unknown) a side effect. Although she endorses (unknown) (no (unknown) (unknown) norethindrone (units ( unknown) date) acetate 1 mg-ethinyl unknown) estradiol 20 mcg tablet See Rx Instructions (unknown) (no (unknown) (unknown) occurred due to the (unit s (unknown) date) inherent limitations unknown) of voice recognition software. Please (unknown) (no (unknown) (unknown) . While she (unit s (unknown) date) was she was unknown) not on any antihypertensive medication (unknown) (no (unknown) (unknown) rdia with a rate of (unit s (unknown) date) 117. EKG was unknown) otherwise normal and the provider indicated (unknown) (no (unknown) (unknown) read the note (units ( unknown) date) carefully and unknown) recognize, using context, where these substitutions (unknown) (no (unknown) (unknown) recently started (units (unknown) date) working at [employer] unknown) [employer] full-time. 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 Patient tells me that she (unknown) (no (unknown) (unknown) the morning when she (uni ts (unknown) date) awakens. unknown) (unknown) (no (unknown) (unknown) was indeed (units (unk nown) date) experiencing the unknown) palpitations sensation while being monitored in the (unknown) (no (unknown) (unknown) without abnormal (units (unknown) date) findings, Z12.4 - unknown) Encounter for screening for malignant Result panel 15 (unknown) (no (unknown) (unknown) (no value) (units (unk nown) date) unknown) (unknown) (no (unknown) (unknown) .Route .COMPLEX #63 (unit s (unknown) date) tabs 09/01/21 [Rx unknown) Confirmed 01/17/22] (unknown) (no (unknown) (unknown) 12/07/21 [Rx (units (u nknown) date) Confirmed 01/17/22] unknown) (unknown) (no (unknown) (unknown) 01/17/22 (units (unkno wn) date) unknown) (unknown) (no (unknown) (unknown) 11:19 (units (unkno wn) date) unknown) (unknown) (no (unknown) (unknown) 31 yo female (units (u nknown) date) presents today for a unknown) [employer] and a PAP. BP was high, will recheck (unknown) (no (unknown) (unknown) 31-year-old female (units (unknown) date) presents to establish unknown) care. She lives with her and (unknown) (no (unknown) (unknown) Age/Sex: 31 / F Date (uni ts (unknown) date) of Service: unknown) (unknown) (no (unknown) (unknown) Allergies (units (unkn own) date) unknown) (unknown) (no (unknown) (unknown) [place] [address] (unit s (unknown) date) unknown) (unknown) (no (unknown) (unknown) Anxiety (units (unkno wn) date) unknown) (unknown) (no (unknown) (unknown) Assessment + Plan (units (unknown) date) unknown) (unknown) (no (unknown) (unknown) Attending Dr: Celso (uni ts (unknown) date) Amrik SAUNDERS unknown) (unknown) (no (unknown) (unknown) BMI 29.4 (units (unkno wn) date) unknown) (unknown) (no (unknown) (unknown) BP 158/110 H (units (u nknown) date) unknown) (unknown) (no (unknown) (unknown) Blood Pressure (units (unknown) date) Location Lt brachial unknown) (unknown) (no (unknown) (unknown) Chicken pox (-1995) (unit s (unknown) date) unknown) (unknown) (no (unknown) (unknown) Chief Complaint (units (unknown) date) unknown) (unknown) (no (unknown) (unknown) Chief Complaint: (units (unknown) date) WWE/Pap unknown) (unknown) (no (unknown) (unknown) : 1990 (units (unknown) date) Acct:[id number] unknown) (unknown) (no (unknown) (unknown) Dept at (units (unkno wn) date) . unknown) (unknown) (no (unknown) (unknown) Details: (units (unkno wn) date) unknown) (unknown) (no (unknown) (unknown) Documented By: (units (unknown) date) Celso Rowley unknown) 01/17/22 1118 (unknown) (no (unknown) (unknown) Draft (units (unkno wn) date) unknown) (unknown) (no (unknown) (unknown) Dyslipidemia (units (u nknown) date) unknown) (unknown) (no (unknown) (unknown) Essential (units (unkn own) date) hypertension () unknown) (unknown) (no (unknown) (unknown) Family Practice (units (unknown) date) Office Visit unknown) (unknown) (no (unknown) (unknown) [facility] unknown) (unknown) (no (unknown) (unknown) HPI (units (unkno wn) date) unknown) (unknown) (no (unknown) (unknown) [place]. Her (unit s (unknown) date) is in the [facility] unknown) [employer]. 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 She states that her (unknown) (no (unknown) (unknown) Immunization due (units (unknown) date) unknown) (unknown) (no (unknown) (unknown) Impaired fasting (units (unknown) date) blood sugar unknown) (unknown) (no (unknown) (unknown) Intake Note: (units (u nknown) date) unknown) (unknown) (no (unknown) (unknown) Intake performed by: (uni ts (unknown) date) Jannette Whitman unknown) (unknown) (no (unknown) (unknown) Intake (units (unkno wn) date) unknown) (unknown) (no (unknown) (unknown) Intake- Clincial (units (unknown) date) Staff unknown) (unknown) (no (unknown) (unknown) Last Menstural Cycle (uni ts (unknown) date) + Details unknown) (unknown) (no (unknown) (unknown) Loc: [facility] (units (unkno wn) date) unknown) (unknown) (no (unknown) (unknown) [id number] (units (unk nown) date) unknown) (unknown) (no (unknown) (unknown) Mass of breast, left (uni ts (unknown) date) unknown) (unknown) (no (unknown) (unknown) Medical History (units (unknown) date) (Reviewed 12/09/21 @ unknown) 14:47 by NICKY Ferrer) (unknown) (no (unknown) (unknown) Medications (units (un known) date) unknown) (unknown) (no (unknown) (unknown) No Known Drug (units ( unknown) date) Allergies Allergy unknown) (Unverified 01/17/22 11:19) (unknown) (no (unknown) (unknown) No sensation of (units (unknown) date) irregular heartbeat unknown) or skipped beats. She often feels this in (unknown) (no (unknown) (unknown) On April 20, 2021 (unit s (unknown) date) patient was seen at unknown) [facility] ED for (unknown) (no (unknown) (unknown) Orders (units (unkno wn) date) unknown) (unknown) (no (unknown) (unknown) Orders: (units (unkno wn) date) unknown) (unknown) (no (unknown) (unknown) Other Menstrual (units (unknown) date) Period: Other unknown) (irregular cycles since giving 2019) (unknown) (no (unknown) (unknown) Oxygen Delivery (units (unknown) date) Method room air unknown) (unknown) (no (unknown) (unknown) PAP with hr HPV (units (unknown) date) Today Z00.00 - unknown) Encounter for general adult medical examination (unknown) (no (unknown) (unknown) PFSH (units (unkno wn) date) unknown) (unknown) (no (unknown) (unknown) Painful lumpy left (units (unknown) date) breast unknown) (unknown) (no (unknown) (unknown) Past medical history (uni ts (unknown) date) notable for unknown) hypertension and anxiety. (unknown) (no (unknown) (unknown) Patient feels that (units (unknown) date) nifedipine XR has a unknown) side effect of palpitations. (unknown) (no (unknown) (unknown) Patient tells me (units (unknown) date) that she did not have unknown) these palpitations prior to starting (unknown) (no (unknown) (unknown) Patient: (units (unkno wn) date) Deepa Moser unknown) MR#: (unknown) (no (unknown) (unknown) Position Sitting (units (unknown) date) unknown) (unknown) (no (unknown) (unknown) Pulse 81 (units (unkno wn) date) unknown) (unknown) (no (unknown) (unknown) Pulse Oximetry (%) (units (unknown) date) 98 unknown) (unknown) (no (unknown) (unknown) Pulse Source Monitor (uni ts (unknown) date) unknown) (unknown) (no (unknown) (unknown) Reason For Visit (units (unknown) date) unknown) (unknown) (no (unknown) (unknown) Signed By: (units (unk nown) date) unknown) (unknown) (no (unknown) (unknown) Smoking Status: (units (unknown) date) Never smoker unknown) (unknown) (no (unknown) (unknown) Surgical History (units (unknown) date) (Reviewed 12/09/21 @ unknown) 14:47 by NICKY Ferrer) (unknown) (no (unknown) (unknown) This note may have (units (unknown) date) been all or partially unknown) generated using voice recognition (unknown) (no (unknown) (unknown) Tobacco + Substance (unit s (unknown) date) Use unknown) (unknown) (no (unknown) (unknown) Tobacco Status (units (unknown) date) unknown) (unknown) (no (unknown) (unknown) Visit Reasons: WWE (units (unknown) date) W/PAP, f/u BP unknown) (unknown) (no (unknown) (unknown) Vitals (units (unkno wn) date) unknown) (unknown) (no (unknown) (unknown) Weight 68.266 kg (units (unknown) date) unknown) (unknown) (no (unknown) (unknown) [place] teeth removed (uni ts (unknown) date) () unknown) (unknown) (no (unknown) (unknown) anxiety without (units (unknown) date) medication. unknown) (unknown) (no (unknown) (unknown) before patient (units (unknown) date) leaves. unknown) (unknown) (no (unknown) (unknown) but was on ASA. (units (unknown) date) During the unknown) period she was started on nifedipine XR. (unknown) (no (unknown) (unknown) child goes to (units ( unknown) date) daycare while she is unknown) at work. (unknown) (no (unknown) (unknown) complaint of (units (u nknown) date) palpitations. Twelve unknown) lead EKG was performed showing sinus (unknown) (no (unknown) (unknown) correlate with (units (unknown) date) feeling anxious. No unknown) chest pain, dizziness, shortness of breath. (unknown) (no (unknown) (unknown) have occurred. If (units (unknown) date) there are any unknown) questions, please contact the Medical Records (unknown) (no (unknown) (unknown) heartbeat. She did (units (unknown) date) follow-up with former unknown) PCP and they treated this as a (unknown) (no (unknown) (unknown) her nearly (units (unk nown) date) 3-year-old son in [place] unknown) [place], [place]. They are originally from (unknown) (no (unknown) (unknown) hypertension was 1st (uni ts (unknown) date) treated with unknown) hydrochlorothiazide before she became (unknown) (no (unknown) (unknown) indicated that (units (unknown) date) cardiac monitoring unknown) showed no worrisome findings. Patient tells (unknown) (no (unknown) (unknown) manifestation of (units (unknown) date) anxiety and patient unknown) was advised on general measures to address (unknown) (no (unknown) (unknown) may occur. (units (unk nown) date) Occasional wrong-word unknown) or 'sound-alike' substitutions may have (unknown) (no (unknown) (unknown) me that she was (units (unknown) date) indeed experiencing unknown) the palpitations sensation while being (unknown) (no (unknown) (unknown) metoprolol succinate (unit s (unknown) date) 50 mg tablet,extended unknown) release 24 hr 50 mg PO DAILY #30 tabs (unknown) (no (unknown) (unknown) monitored in the (units (unknown) date) EKG. She describes unknown) this as a sensation of a pounding (unknown) (no (unknown) (unknown) neoplasm of cervix (units (unknown) date) unknown) (unknown) (no (unknown) (unknown) nifedipine XR. She (units (unknown) date) does believe this is unknown) a side effect. Although she endorses (unknown) (no (unknown) (unknown) no side effects of (units (unknown) date) metoprolol, feeling unknown) slightly better. will increase dose. (unknown) (no (unknown) (unknown) norethindrone (units ( unknown) date) acetate 1 mg-ethinyl unknown) estradiol 20 mcg tablet See Rx Instructions (unknown) (no (unknown) (unknown) occurred due to the (unit s (unknown) date) inherent limitations unknown) of voice recognition software. Please (unknown) (no (unknown) (unknown) . While she (unit s (unknown) date) was she was unknown) not on any antihypertensive medication (unknown) (no (unknown) (unknown) read the note (units ( unknown) date) carefully and unknown) recognize, using context, where these substitutions (unknown) (no (unknown) (unknown) recently started (units (unknown) date) working at [employer] unknown) [employer] full-time. 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 EKG was unknown) otherwise normal and the provider (unknown) (no (unknown) (unknown) the morning when she (uni ts (unknown) date) awakens. unknown) (unknown) (no (unknown) (unknown) without abnormal (units (unknown) date) findings, Z12.4 - unknown) Encounter for screening for malignant Result panel 16 (unknown) (no (unknown) (unknown) (no value) (units (unk nown) date) unknown) (unknown) (no (unknown) (unknown) .Route .COMPLEX #63 (unit s (unknown) date) tabs 09/01/21 [Rx unknown) Confirmed 01/17/22] (unknown) (no (unknown) (unknown) 01/17/22 (units (unkno wn) date) unknown) (unknown) (no (unknown) (unknown) 11:19 (units (unkno wn) date) unknown) (unknown) (no (unknown) (unknown) 31 yo female (units (u nknown) date) presents today for a unknown) [employer] and a PAP. BP was high, will recheck (unknown) (no (unknown) (unknown) 31-year-old female (units (unknown) date) presents to establish unknown) care. She lives with her and (unknown) (no (unknown) (unknown) Age/Sex: 31 / F Date (uni ts (unknown) date) of Service: unknown) (unknown) (no (unknown) (unknown) Allergies (units (unkn own) date) unknown) (unknown) (no (unknown) (unknown) [place] [address] (unit s (unknown) date) unknown) (unknown) (no (unknown) (unknown) Anxiety (units (unkno wn) date) unknown) (unknown) (no (unknown) (unknown) Assessment + Plan (units (unknown) date) unknown) (unknown) (no (unknown) (unknown) Attending Dr: Celso (uni ts (unknown) date) Amrik SAUNDERS unknown) (unknown) (no (unknown) (unknown) BMI 29.4 (units (unkno wn) date) unknown) (unknown) (no (unknown) (unknown) BP 158/110 H (units (u nknown) date) unknown) (unknown) (no (unknown) (unknown) Blood Pressure (units (unknown) date) Location Lt brachial unknown) (unknown) (no (unknown) (unknown) Chicken pox (-1995) (unit s (unknown) date) unknown) (unknown) (no (unknown) (unknown) Chief Complaint (units (unknown) date) unknown) (unknown) (no (unknown) (unknown) Chief Complaint: (units (unknown) date) WWE/Pap unknown) (unknown) (no (unknown) (unknown) : 1990 (units (unknown) date) Acct:[id number] unknown) (unknown) (no (unknown) (unknown) Dept at (units (unkno wn) date) . unknown) (unknown) (no (unknown) (unknown) Details: (units (unkno wn) date) unknown) (unknown) (no (unknown) (unknown) Discontinued Reason: (uni ts (unknown) date) Dose Change 50 mg PO unknown) DAILY 30 tabs 2RF (unknown) (no (unknown) (unknown) Discontinued (units (u nknown) date) unknown) (unknown) (no (unknown) (unknown) Documented By: (units (unknown) date) Celso Rowley unknown) 01/17/22 1118 (unknown) (no (unknown) (unknown) Draft (units (unkno wn) date) unknown) (unknown) (no (unknown) (unknown) Dyslipidemia (units (u nknown) date) unknown) (unknown) (no (unknown) (unknown) Essential (units (unkn own) date) hypertension (-2019) unknown) (unknown) (no (unknown) (unknown) Family Practice (units (unknown) date) Office Visit unknown) (unknown) (no (unknown) (unknown) [facility]) (unknown) (no (unknown) (unknown) HPI (units (unkno wn) date) unknown) (unknown) (no (unknown) (unknown) [place]. Her (unit s (unknown) date) is in the [facility] unknown) Eponymy. 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 She states that her (unknown) (no (unknown) (unknown) Immunization due (units (unknown) date) unknown) (unknown) (no (unknown) (unknown) Impaired fasting (units (unknown) date) blood sugar unknown) (unknown) (no (unknown) (unknown) Intake Note: (units (u nknown) date) unknown) (unknown) (no (unknown) (unknown) Intake performed by: (uni ts (unknown) date) Jannette Whitman unknown) (unknown) (no (unknown) (unknown) Intake (units (unkno wn) date) unknown) (unknown) (no (unknown) (unknown) Intake- Clincial (units (unknown) date) Staff unknown) (unknown) (no (unknown) (unknown) L breast lum about (units (unknown) date) 12 oclock is smaller, unknown) about 1cm feels more fibrocystic now (unknown) (no (unknown) (unknown) Last Menstural Cycle (uni ts (unknown) date) + Details unknown) (unknown) (no (unknown) (unknown) Loc: [facility] (units (unkno wn) date) unknown) (unknown) (no (unknown) (unknown) [id number] (units (unk nown) date) unknown) (unknown) (no (unknown) (unknown) Mass of breast, left (uni ts (unknown) date) unknown) (unknown) (no (unknown) (unknown) Medical History (units (unknown) date) (Reviewed 12/09/21 @ unknown) 14:47 by NICKY Ferrer) (unknown) (no (unknown) (unknown) Medications (units (un known) date) unknown) (unknown) (no (unknown) (unknown) Medications: (units (u nknown) date) unknown) (unknown) (no (unknown) (unknown) New (units (unkno wn) date) unknown) (unknown) (no (unknown) (unknown) No Known Drug (units ( unknown) date) Allergies Allergy unknown) (Unverified 01/17/22 11:19) (unknown) (no (unknown) (unknown) No sensation of (units (unknown) date) irregular heartbeat unknown) or skipped beats. She often feels this in (unknown) (no (unknown) (unknown) On April 20, 2021 (unit s (unknown) date) patient was seen at unknown) [facility] ED for (unknown) (no (unknown) (unknown) Orders (units (unkno wn) date) unknown) (unknown) (no (unknown) (unknown) Orders: (units (unkno wn) date) unknown) (unknown) (no (unknown) (unknown) Other Menstrual (units (unknown) date) Period: Other unknown) (irregular cycles since giving 2019) (unknown) (no (unknown) (unknown) Oxygen Delivery (units (unknown) date) Method room air unknown) (unknown) (no (unknown) (unknown) PAP with hr HPV (units (unknown) date) Today Z00.00 - unknown) Encounter for general adult medical examination (unknown) (no (unknown) (unknown) PFSH (units (unkno wn) date) unknown) (unknown) (no (unknown) (unknown) Painful lumpy left (units (unknown) date) breast unknown) (unknown) (no (unknown) (unknown) Past medical history (uni ts (unknown) date) notable for unknown) hypertension and anxiety. (unknown) (no (unknown) (unknown) Patient feels that (units (unknown) date) nifedipine XR has a unknown) side effect of palpitations. (unknown) (no (unknown) (unknown) Patient tells me (units (unknown) date) that she did not have unknown) these palpitations prior to starting (unknown) (no (unknown) (unknown) Patient: (units (unkno wn) date) Deepa Moser S unknown) MR#: (unknown) (no (unknown) (unknown) Position Sitting (units (unknown) date) unknown) (unknown) (no (unknown) (unknown) Pulse 81 (units (unkno wn) date) unknown) (unknown) (no (unknown) (unknown) Pulse Oximetry (%) (units (unknown) date) 98 unknown) (unknown) (no (unknown) (unknown) Pulse Source Monitor (uni ts (unknown) date) unknown) (unknown) (no (unknown) (unknown) Reason For Visit (units (unknown) date) unknown) (unknown) (no (unknown) (unknown) Signed By: (units (unk nown) date) unknown) (unknown) (no (unknown) (unknown) Smoking Status: (units (unknown) date) Never smoker unknown) (unknown) (no (unknown) (unknown) Surgical History (units (unknown) date) (Reviewed 12/09/21 @ unknown) 14:47 by NICKY Ferrer) (unknown) (no (unknown) (unknown) This note may have (units (unknown) date) been all or partially unknown) generated using voice recognition (unknown) (no (unknown) (unknown) Tobacco + Substance (unit s (unknown) date) Use unknown) (unknown) (no (unknown) (unknown) Tobacco Status (units (unknown) date) unknown) (unknown) (no (unknown) (unknown) Visit Reasons: WWE (units (unknown) date) W/PAP, f/u BP unknown) (unknown) (no (unknown) (unknown) Vitals (units (unkno wn) date) unknown) (unknown) (no (unknown) (unknown) Weight 68.266 kg (units (unknown) date) unknown) (unknown) (no (unknown) (unknown) [place] teeth removed (uni ts (unknown) date) () unknown) (unknown) (no (unknown) (unknown) anxiety without (units (unknown) date) medication. unknown) (unknown) (no (unknown) (unknown) before patient (units (unknown) date) leaves. unknown) (unknown) (no (unknown) (unknown) but was on ASA. (units (unknown) date) During the unknown) period she was started on nifedipine XR. (unknown) (no (unknown) (unknown) child goes to (units ( unknown) date) daycare while she is unknown) at work. (unknown) (no (unknown) (unknown) complaint of (units (u nknown) date) palpitations. Twelve unknown) lead EKG was performed showing sinus (unknown) (no (unknown) (unknown) correlate with (units (unknown) date) feeling anxious. No unknown) chest pain, dizziness, shortness of breath. (unknown) (no (unknown) (unknown) have occurred. If (units (unknown) date) there are any unknown) questions, please contact the Medical Records (unknown) (no (unknown) (unknown) heartbeat. She did (units (unknown) date) follow-up with former unknown) PCP and they treated this as a (unknown) (no (unknown) (unknown) her nearly (units (unk nown) date) 3-year-old [place]. They are originally from (unknown) (no (unknown) (unknown) hypertension was 1st (uni ts (unknown) date) treated with unknown) hydrochlorothiazide before she became (unknown) (no (unknown) (unknown) indicated that (units (unknown) date) cardiac monitoring unknown) showed no worrisome findings. Patient tells (unknown) (no (unknown) (unknown) manifestation of (units (unknown) date) anxiety and patient unknown) was advised on general measures to address (unknown) (no (unknown) (unknown) may occur. (units (unk nown) date) Occasional wrong-word unknown) or 'sound-alike' substitutions may have (unknown) (no (unknown) (unknown) me that she was (units (unknown) date) indeed experiencing unknown) the palpitations sensation while being (unknown) (no (unknown) (unknown) metoprolol succinate (uni ts (unknown) date) 100 mg unknown) tablet,extended release 24 hr 100 mg PO DAILY #90 (unknown) (no (unknown) (unknown) metoprolol succinate (uni ts (unknown) date) ER 100 mg PO DAILY 90 unknown) tabs 0RF (unknown) (no (unknown) (unknown) metoprolol succinate (uni ts (unknown) date) ER unknown) (unknown) (no (unknown) (unknown) monitored in the (units (unknown) date) EKG. She describes unknown) this as a sensation of a pounding (unknown) (no (unknown) (unknown) neoplasm of cervix (units (unknown) date) unknown) (unknown) (no (unknown) (unknown) nifedipine XR. She (units (unknown) date) does believe this is unknown) a side effect. Although she endorses (unknown) (no (unknown) (unknown) no side effects of (units (unknown) date) metoprolol, feeling unknown) slightly better. will increase dose. (unknown) (no (unknown) (unknown) norethindrone (units ( unknown) date) acetate 1 mg-ethinyl unknown) estradiol 20 mcg tablet See Rx Instructions (unknown) (no (unknown) (unknown) occurred due to the (unit s (unknown) date) inherent limitations unknown) of voice recognition software. Please (unknown) (no (unknown) (unknown) . While she (unit s (unknown) date) was she was unknown) not on any antihypertensive medication (unknown) (no (unknown) (unknown) read the note (units ( unknown) date) carefully and unknown) recognize, using context, where these substitutions (unknown) (no (unknown) (unknown) recently started (units (unknown) date) working at [employer] unknown) [employer] full-time. 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 EKG was unknown) otherwise normal and the provider (unknown) (no (unknown) (unknown) the morning when she (uni ts (unknown) date) awakens. unknown) (unknown) (no (unknown) (unknown) without abnormal (units (unknown) date) findings, Z12.4 - unknown) Encounter for screening for malignant Result panel 17 (unknown) (no (unknown) (unknown) (no value) (units (unk nown) date) unknown) (unknown) (no (unknown) (unknown) .Route .COMPLEX #63 (unit s (unknown) date) tabs 09/01/21 [Rx unknown) Confirmed 01/17/22] (unknown) (no (unknown) (unknown) 01/17/22 (units (unkno wn) date) unknown) (unknown) (no (unknown) (unknown) 11:19 01/17/22 (units (unknown) date) unknown) (unknown) (no (unknown) (unknown) 12:14 (units (unkno wn) date) unknown) (unknown) (no (unknown) (unknown) 31 yo female (units (u nknown) date) presents today for a unknown) WWE and a PAP. BP was high, will recheck (unknown) (no (unknown) (unknown) 31-year-old female (units (unknown) date) presents to establish unknown) care. She lives with her and (unknown) (no (unknown) (unknown) Age/Sex: 31 / F Date (uni ts (unknown) date) of Service: unknown) (unknown) (no (unknown) (unknown) Allergies (units (unkn own) date) unknown) (unknown) (no (unknown) (unknown) [place] [address] (unit s (unknown) date) unknown) (unknown) (no (unknown) (unknown) Anxiety (units (unkno wn) date) unknown) (unknown) (no (unknown) (unknown) Assessment + Plan (units (unknown) date) unknown) (unknown) (no (unknown) (unknown) Attending Dr: Celso (uni ts (unknown) date) Amrik SAUNDERS unknown) (unknown) (no (unknown) (unknown) BMI 29.4 (units (unkno wn) date) unknown) (unknown) (no (unknown) (unknown) BP 158/110 H 138/102 (uni ts (unknown) date) H unknown) (unknown) (no (unknown) (unknown) Blood Pressure (units (unknown) date) Location Lt brachial unknown) Lt brachial (unknown) (no (unknown) (unknown) Chicken pox (-1995) (unit s (unknown) date) unknown) (unknown) (no (unknown) (unknown) Chief Complaint (units (unknown) date) unknown) (unknown) (no (unknown) (unknown) Chief Complaint: (units (unknown) date) WWE/Pap unknown) (unknown) (no (unknown) (unknown) : 1990 (units (unknown) date) Acct:[id number] unknown) (unknown) (no (unknown) (unknown) Dept at (units (unkno wn) date) . unknown) (unknown) (no (unknown) (unknown) Details: (units (unkno wn) date) unknown) (unknown) (no (unknown) (unknown) Discontinued Reason: (uni ts (unknown) date) Dose Change 50 mg PO unknown) DAILY 30 tabs 2RF (unknown) (no (unknown) (unknown) Discontinued (units (u nknown) date) unknown) (unknown) (no (unknown) (unknown) Documented By: (units (unknown) date) Celso Rowley unknown) 01/17/22 1118 (unknown) (no (unknown) (unknown) Draft (units (unkno wn) date) unknown) (unknown) (no (unknown) (unknown) Dyslipidemia (units (u nknown) date) unknown) (unknown) (no (unknown) (unknown) Essential (units (unkn own) date) hypertension (-2018) unknown) (unknown) (no (unknown) (unknown) Family Practice (units (unknown) date) Office Visit unknown) (unknown) (no (unknown) (unknown) [facility] unknown) (unknown) (no (unknown) (unknown) HPI (units (unkno wn) date) unknown) (unknown) (no (unknown) (unknown) [place]. Her (unit s (unknown) date) is in the [facility] unknown) [facility]. 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 She states that her (unknown) (no (unknown) (unknown) Immunization due (units (unknown) date) unknown) (unknown) (no (unknown) (unknown) Impaired fasting (units (unknown) date) blood sugar unknown) (unknown) (no (unknown) (unknown) Intake Note: (units (u nknown) date) unknown) (unknown) (no (unknown) (unknown) Intake performed by: (uni ts (unknown) date) Jannette Whitman unknown) (unknown) (no (unknown) (unknown) Intake (units (unkno wn) date) unknown) (unknown) (no (unknown) (unknown) Intake- Clincial (units (unknown) date) Staff unknown) (unknown) (no (unknown) (unknown) L breast lum about (units (unknown) date) 12 oclock is smaller, unknown) about 1cm feels more fibrocystic now (unknown) (no (unknown) (unknown) Last Menstural Cycle (uni ts (unknown) date) + Details unknown) (unknown) (no (unknown) (unknown) Loc: [facility] (units (unkno wn) date) unknown) (unknown) (no (unknown) (unknown) [id number] (units (unk nown) date) unknown) (unknown) (no (unknown) (unknown) Mass of breast, left (uni ts (unknown) date) unknown) (unknown) (no (unknown) (unknown) Medical History (units (unknown) date) (Reviewed 12/09/21 @ unknown) 14:47 by NICKY Ferrer) (unknown) (no (unknown) (unknown) Medications (units (un known) date) unknown) (unknown) (no (unknown) (unknown) Medications: (units (u nknown) date) unknown) (unknown) (no (unknown) (unknown) NORMAL aileen, pelvic. (unit s (unknown) date) only abnormality is unknown) breast from known biopsied lump. no (unknown) (no (unknown) (unknown) New (units (unkno wn) date) unknown) (unknown) (no (unknown) (unknown) No Known Drug (units ( unknown) date) Allergies Allergy unknown) (Unverified 01/17/22 11:19) (unknown) (no (unknown) (unknown) No sensation of (units (unknown) date) irregular heartbeat unknown) or skipped beats. She often feels this in (unknown) (no (unknown) (unknown) On April 20, 2021 (unit s (unknown) date) patient was seen at unknown) [facility] ED for (unknown) (no (unknown) (unknown) Orders (units (unkno wn) date) unknown) (unknown) (no (unknown) (unknown) Orders: (units (unkno wn) date) unknown) (unknown) (no (unknown) (unknown) Other Menstrual (units (unknown) date) Period: Other unknown) (irregular cycles since giving 2018) (unknown) (no (unknown) (unknown) Oxygen Delivery (units (unknown) date) Method room air unknown) (unknown) (no (unknown) (unknown) PAP with hr HPV (units (unknown) date) Today Z00.00 - unknown) Encounter for general adult medical examination (unknown) (no (unknown) (unknown) PFSH (units (unkno wn) date) unknown) (unknown) (no (unknown) (unknown) Painful lumpy left (units (unknown) date) breast unknown) (unknown) (no (unknown) (unknown) Past medical history (uni ts (unknown) date) notable for unknown) hypertension and anxiety. (unknown) (no (unknown) (unknown) Patient feels that (units (unknown) date) nifedipine XR has a unknown) side effect of palpitations. (unknown) (no (unknown) (unknown) Patient tells me (units (unknown) date) that she did not have unknown) these palpitations prior to starting (unknown) (no (unknown) (unknown) Patient: (units (unkno wn) date) Deepa Moser S unknown) MR#: (unknown) (no (unknown) (unknown) Position Sitting (units (unknown) date) Sitting unknown) (unknown) (no (unknown) (unknown) Pulse 81 (units (unkno wn) date) unknown) (unknown) (no (unknown) (unknown) Pulse Oximetry (%) (units (unknown) date) 98 unknown) (unknown) (no (unknown) (unknown) Pulse Source Monitor (uni ts (unknown) date) unknown) (unknown) (no (unknown) (unknown) Reason For Visit (units (unknown) date) unknown) (unknown) (no (unknown) (unknown) Signed By: (units (unk nown) date) unknown) (unknown) (no (unknown) (unknown) Smoking Status: (units (unknown) date) Never smoker unknown) (unknown) (no (unknown) (unknown) Surgical History (units (unknown) date) (Reviewed 12/09/21 @ unknown) 14:47 by NICKY Ferrer) (unknown) (no (unknown) (unknown) This note may have (units (unknown) date) been all or partially unknown) generated using voice recognition (unknown) (no (unknown) (unknown) Tobacco + Substance (unit s (unknown) date) Use unknown) (unknown) (no (unknown) (unknown) Tobacco Status (units (unknown) date) unknown) (unknown) (no (unknown) (unknown) Visit Reasons: WWE (units (unknown) date) W/PAP, f/u BP unknown) (unknown) (no (unknown) (unknown) Vitals (units (unkno wn) date) unknown) (unknown) (no (unknown) (unknown) Weight 150 lb 8 oz (units (unknown) date) unknown) (unknown) (no (unknown) (unknown) [place] teeth removed (uni ts (unknown) date) () unknown) (unknown) (no (unknown) (unknown) anxiety without (units (unknown) date) medication. unknown) (unknown) (no (unknown) (unknown) before patient (units (unknown) date) leaves. unknown) (unknown) (no (unknown) (unknown) but was on ASA. (units (unknown) date) During the unknown) period she was started on nifedipine XR. (unknown) (no (unknown) (unknown) child goes to (units ( unknown) date) daycare while she is unknown) at work. (unknown) (no (unknown) (unknown) complaint of (units (u nknown) date) palpitations. Twelve unknown) lead EKG was performed showing sinus (unknown) (no (unknown) (unknown) correlate with (units (unknown) date) feeling anxious. No unknown) chest pain, dizziness, shortness of breath. (unknown) (no (unknown) (unknown) f/u on increased (units (unknown) date) metoprolol 4-6 weeks. unknown) (unknown) (no (unknown) (unknown) further f/u (units (un known) date) recommended. unknown) (unknown) (no (unknown) (unknown) have occurred. If (units (unknown) date) there are any unknown) questions, please contact the Medical Records (unknown) (no (unknown) (unknown) heartbeat. She did (units (unknown) date) follow-up with former unknown) PCP and they treated this as a (unknown) (no (unknown) (unknown) her nearly (units (unn) date) 3-year-old [place]. They are originally from (unknown) (no (unknown) (unknown) hypertension was 1st (uni ts (unknown) date) treated with unknown) hydrochlorothiazide before she became (unknown) (no (unknown) (unknown) indicated that (units (unknown) date) cardiac monitoring unknown) showed no worrisome findings. Patient tells (unknown) (no (unknown) (unknown) manifestation of (units (unknown) date) anxiety and patient unknown) was advised on general measures to address (unknown) (no (unknown) (unknown) may occur. (units (unk nown) date) Occasional wrong-word unknown) or 'sound-alike' substitutions may have (unknown) (no (unknown) (unknown) me that she was (units (unknown) date) indeed experiencing unknown) the palpitations sensation while being (unknown) (no (unknown) (unknown) metoprolol succinate (uni ts (unknown) date) 100 mg unknown) tablet,extended release 24 hr 100 mg PO DAILY #90 (unknown) (no (unknown) (unknown) metoprolol succinate (uni ts (unknown) date) ER 100 mg PO DAILY 90 unknown) tabs 0RF (unknown) (no (unknown) (unknown) metoprolol succinate (uni ts (unknown) date) ER unknown) (unknown) (no (unknown) (unknown) monitored in the (units (unknown) date) EKG. She describes unknown) this as a sensation of a pounding (unknown) (no (unknown) (unknown) neoplasm of cervix (units (unknown) date) unknown) (unknown) (no (unknown) (unknown) nifedipine XR. She (units (unknown) date) does believe this is unknown) a side effect. Although she endorses (unknown) (no (unknown) (unknown) no side effects of (units (unknown) date) metoprolol, feeling unknown) slightly better. will increase dose. (unknown) (no (unknown) (unknown) norethindrone (units ( unknown) date) acetate 1 mg-ethinyl unknown) estradiol 20 mcg tablet See Rx Instructions (unknown) (no (unknown) (unknown) occurred due to the (unit s (unknown) date) inherent limitations unknown) of voice recognition software. Please (unknown) (no (unknown) (unknown) . While she (unit s (unknown) date) was she was unknown) not on any antihypertensive medication (unknown) (no (unknown) (unknown) read the note (units ( unknown) date) carefully and unknown) recognize, using context, where these substitutions (unknown) (no (unknown) (unknown) recently started (units (unknown) date) working at [employer] unknown) [employer] full-time. 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 EKG was unknown) otherwise normal and the provider (unknown) (no (unknown) (unknown) the morning when she (uni ts (unknown) date) awakens. unknown) (unknown) (no (unknown) (unknown) without abnormal (units (unknown) date) findings, Z12.4 - unknown) Encounter for screening for malignant Result panel 18 (unknown) (no (unknown) (unknown) (no value) (units (unk nown) date) unknown) (unknown) (no (unknown) (unknown) 01/18/22 (units (unkno wn) date) unknown) (unknown) (no (unknown) (unknown) [address] [place] [address] (units (unknown) date) unknown) (unknown) (no (unknown) (unknown) Accession Number: (units (unknown) date) [id number] unknown) (unknown) (no (unknown) (unknown) Age/Sex: 31 / F (units (unknown) date) Date of Service: unknown) (unknown) (no (unknown) (unknown) [place], [place] (units ( unknown) date) [id number] unknown) (unknown) (no (unknown) (unknown) Approved by: (units (u nknown) date) Carson Peter M.D. unknown) on 01/18/2022 at 11:28 (unknown) (no (unknown) (unknown) Bones and chest (units (unknown) date) wall: No unknown) suspicious bony lesions. Overlying soft tissues (unknown) (no (unknown) (unknown) COMPARISON: None. (units (unknown) date) unknown) (unknown) (no (unknown) (unknown) : 1990 (units (unknown) date) Acct:[id number] unknown) (unknown) (no (unknown) (unknown) Dictated by: (units (u nknown) date) Carson Peter M.D. unknown) on 01/18/2022 at 11:27 (unknown) (no (unknown) (unknown) FINDINGS: (units (unkn own) date) unknown) (unknown) (no (unknown) (unknown) IMPRESSION: (units (un known) date) unknown) (unknown) (no (unknown) (unknown) INDICATIONS: (units (u nknown) date) chest pain unknown) (unknown) (no (unknown) (unknown) [facility] (units (unknown) date) unknown) (unknown) (no (unknown) (unknown) Loc: ED (units (unkno wn) date) unknown) (unknown) (no (unknown) (unknown) Lungs and pleura: (units (unknown) date) Lungs are clear. unknown) No pleural effusions or pneumothorax. (unknown) (no (unknown) (unknown) [id number] (units (unk nown) date) unknown) (unknown) (no (unknown) (unknown) Mediastinum: (units (u nknown) date) Mediastinal unknown) contours appear normal. Heart size is normal. (unknown) (no (unknown) (unknown) No acute (units (unkno wn) date) cardiopulmonary unknown) abnormality. (unknown) (no (unknown) (unknown) Ordering (units (unkno wn) date) Provider: unknown) Maryanne Panchal D.O. (unknown) (no (unknown) (unknown) PROCEDURE: XR (units ( unknown) date) CHEST 1V unknown) (unknown) (no (unknown) (unknown) Patient: (units (unkno wn) date) ZiggyyumikoDeepa Dyan S unknown) MR#: (unknown) (no (unknown) (unknown) Procedure: XR (units ( unknown) date) chest 1V unknown) (unknown) (no (unknown) (unknown) Signed (units (unkno wn) date) unknown) (unknown) (no (unknown) (unknown) Surgical changes (units (unknown) date) and devices: Left unknown) breast clips. (unknown) (no (unknown) (unknown) TECHNIQUE: One (units (unknown) date) view of the chest unknown) was acquired. (unknown) (no (unknown) (unknown) XRay Report (units (un known) date) unknown) (unknown) (no (unknown) (unknown) appear (units (unkno wn) date) unknown) (unknown) (no (unknown) (unknown) unremarkable. (units ( unknown) date) unknown) Result panel 19 (unknown) (no date) (unknown) (unknown) 1.1 % (unkn own) (unknown) (no date) (unknown) (unknown) 100 /ul (unkn own) (unknown) (no date) (unknown) (unknown) 13.0 % (unkn own) (unknown) (no date) (unknown) (unknown) 13.7 g/dl (unkn own) (unknown) (no date) (unknown) (unknown) 2400 /ul (unkn own) (unknown) (no date) (unknown) (unknown) 27.2 pg (unkn own) (unknown) (no date) (unknown) (unknown) 29.3 % (unkn own) (unknown) (no date) (unknown) (unknown) 3.6 % (unkn own) (unknown) (no date) (unknown) (unknown) 300 /ul (unkn own) (unknown) (no date) (unknown) (unknown) 32.9 % (unkn own) (unknown) (no date) (unknown) (unknown) 323 x10 3/ul (unkn own) (unknown) (no date) (unknown) (unknown) 41.7 % (unkn own) (unknown) (no date) (unknown) (unknown) 4900 /ul (unkn own) (unknown) (no date) (unknown) (unknown) 5.04 x10 6/ul (unkn own) (unknown) (no date) (unknown) (unknown) 58.7 % (unkn own) (unknown) (no date) (unknown) (unknown) 600 /ul (unkn own) (unknown) (no date) (unknown) (unknown) 7.3 % (unkn own) (unknown) (no date) (unknown) (unknown) 8.3 x10 3/ul (unkn own) (unknown) (no date) (unknown) (unknown) 82.8 fl (unkn own) Result panel 20 (unknown) (no date) (unknown) (unknown) 1.0 (units unknown) (unknown) (unknown) (no date) (unknown) (unknown) 11.3 seconds (unkn own) (unknown) (no date) (unknown) (unknown) 32 seconds (unkn own) (unknown) (no date) (unknown) (unknown) 32 seconds (unkn own) Result panel 21 (unknown) (no date) (unknown) (unknown) > 60 ml/min (unkn own) (unknown) (no date) (unknown) (unknown) > 60 ml/min (unkn own) (unknown) (no date) (unknown) (unknown) 0.53 mg/dl (unkn own) (unknown) (no date) (unknown) (unknown) 0.6 mg/dl (unkn own) (unknown) (no date) (unknown) (unknown) 1.4 (units (unkn own) unknown) (unknown) (no date) (unknown) (unknown) 104 mmol/l (unkn own) (unknown) (no date) (unknown) (unknown) 105 mg/dl (unkn own) (unknown) (no date) (unknown) (unknown) 105 mg/dl (unkn own) (unknown) (no date) (unknown) (unknown) 13 mg/dl (unkn own) (unknown) (no date) (unknown) (unknown) 139 mmol/l (unkn own) (unknown) (no date) (unknown) (unknown) 14 iu/l (unkn own) (unknown) (no date) (unknown) (unknown) 18 iu/l (unkn own) (unknown) (no date) (unknown) (unknown) 2.0 mg/dl (unkn own) (unknown) (no date) (unknown) (unknown) 23 mmol/l (unkn own) (unknown) (no date) (unknown) (unknown) 24.5 (units (unkn own) unknown) (unknown) (no date) (unknown) (unknown) 3.4 g/dl (unkn own) (unknown) (no date) (unknown) (unknown) 3.9 mmol/l (unkn own) (unknown) (no date) (unknown) (unknown) 4.7 g/dl (unkn own) (unknown) (no date) (unknown) (unknown) 49 u/l (unkn own) (unknown) (no date) (unknown) (unknown) 8.1 g/dl (unkn own) (unknown) (no date) (unknown) (unknown) 89 u/l (unkn own) (unknown) (no date) (unknown) (unknown) 9.0 mg/dl (unkn own) (unknown) (no date) (unknown) (unknown) 90 u/l (unkn own) (unknown) (no date) (unknown) (unknown) Test not % (unkn own) performed (unknown) (no date) (unknown) (unknown) Test not % (unkn own) performed (unknown) (no date) (unknown) (unknown) Test not ng/ml (unkn own) performed (unknown) (no date) (unknown) (unknown) Test not ng/ml (unkn own) performed Result panel 22 (unknown) (no date) (unknown) (unknown) > 60 ml/min (unkn own) (unknown) (no date) (unknown) (unknown) > 60 ml/min (unkn own) (unknown) (no date) (unknown) (unknown) < 0.012 ng/ml (unkn own) (unknown) (no date) (unknown) (unknown) < 0.012 ng/ml (unkn own) (unknown) (no date) (unknown) (unknown) 0.53 mg/dl (unkn own) (unknown) (no date) (unknown) (unknown) 0.6 mg/dl (unkn own) (unknown) (no date) (unknown) (unknown) 1.4 (units (unkn own) unknown) (unknown) (no date) (unknown) (unknown) 104 mmol/l (unkn own) (unknown) (no date) (unknown) (unknown) 105 mg/dl (unkn own) (unknown) (no date) (unknown) (unknown) 105 mg/dl (unkn own) (unknown) (no date) (unknown) (unknown) 13 mg/dl (unkn own) (unknown) (no date) (unknown) (unknown) 139 mmol/l (unkn own) (unknown) (no date) (unknown) (unknown) 14 iu/l (unkn own) (unknown) (no date) (unknown) (unknown) 18 iu/l (unkn own) (unknown) (no date) (unknown) (unknown) 2.0 mg/dl (unkn own) (unknown) (no date) (unknown) (unknown) 23 mmol/l (unkn own) (unknown) (no date) (unknown) (unknown) 24.5 (units (unkn own) unknown) (unknown) (no date) (unknown) (unknown) 3.4 g/dl (unkn own) (unknown) (no date) (unknown) (unknown) 3.9 mmol/l (unkn own) (unknown) (no date) (unknown) (unknown) 4.7 g/dl (unkn own) (unknown) (no date) (unknown) (unknown) 49 u/l (unkn own) (unknown) (no date) (unknown) (unknown) 8.1 g/dl (unkn own) (unknown) (no date) (unknown) (unknown) 89 u/l (unkn own) (unknown) (no date) (unknown) (unknown) 9.0 mg/dl (unkn own) (unknown) (no date) (unknown) (unknown) 90 u/l (unkn own) (unknown) (no date) (unknown) (unknown) Test not % (unkn own) performed (unknown) (no date) (unknown) (unknown) Test not % (unkn own) performed (unknown) (no date) (unknown) (unknown) Test not ng/ml (unkn own) performed (unknown) (no date) (unknown) (unknown) Test not ng/ml (unkn own) performed Result panel 23 (unknown) (no (unknown) (unknown) (no value) (units (unk nown) date) unknown) (unknown) (no (unknown) (unknown) 01/18/22 (units (unkno wn) date) 01/18/22 01/18/22 unknown) Range/Units (unknown) (no (unknown) (unknown) 01/18/22 10:30 (units (unknown) date) unknown) (unknown) (no (unknown) (unknown) 01/18/22 10:43 (units (unknown) date) unknown) (unknown) (no (unknown) (unknown) 01/18/22 10:50 (units (unknown) date) unknown) (unknown) (no (unknown) (unknown) 01/18/22 15:39 (units (unknown) date) unknown) (unknown) (no (unknown) (unknown) 01/18/22 (units (unkno wn) date) unknown) (unknown) (no (unknown) (unknown) 100 mg PO DAILY (units (unknown) date) Qty: 90 0RF unknown) (unknown) (no (unknown) (unknown) 10:30 10:30 (units (un known) date) 10:50 unknown) (unknown) (no (unknown) (unknown) 10:38 (units (unkno wn) date) unknown) (unknown) (no (unknown) (unknown) 12 point review (units (unknown) date) of systems is unknown) negative except for those stated above (unknown) (no (unknown) (unknown) ALT 14 (<35) (units (u nknown) date) IU/L unknown) (unknown) (no (unknown) (unknown) APTT 32 (26-36) (units (unknown) date) SECONDS unknown) (unknown) (no (unknown) (unknown) AST 18 (14-36) (units (unknown) date) IU/L unknown) (unknown) (no (unknown) (unknown) Age/Sex: 31 / F (units (unknown) date) unknown) (unknown) (no (unknown) (unknown) Albumin 4.7 (units (un known) date) (3.5-5.0) g/dL unknown) (unknown) (no (unknown) (unknown) Albumin/Globulin (units (unknown) date) Ratio 1.4 unknown) (1.0-2.8) (unknown) (no (unknown) (unknown) Alkaline (units (unkno wn) date) Phosphatase 89 unknown) (38-126) U/L (unknown) (no (unknown) (unknown) Allergies (units (unkn own) date) unknown) (unknown) (no (unknown) (unknown) Allergy/AdvReac (units (unknown) date) Type Severity unknown) Reaction Status Date / Time (unknown) (no (unknown) (unknown) Anxiety (units (unkno wn) date) unknown) (unknown) (no (unknown) (unknown) BACK: Nontender (units (unknown) date) without deformity unknown) or crepitance. No flank tenderness. (unknown) (no (unknown) (unknown) BUN 13 (7-17) (units ( unknown) date) mg/dL unknown) (unknown) (no (unknown) (unknown) BUN/Creatinine (units (unknown) date) Ratio 24.5 H unknown) (6-22) (unknown) (no (unknown) (unknown) Baso # (Auto) (units ( unknown) date) 100 (0-100) /uL unknown) (unknown) (no (unknown) (unknown) Baso % (Auto) (units ( unknown) date) 1.1 (0-2) % unknown) (unknown) (no (unknown) (unknown) Blood Pressure (units (unknown) date) 184/116 H unknown) 01/18/22 10:38 (unknown) (no (unknown) (unknown) Blood Pressure (units (unknown) date) 184/116 H unknown) (unknown) (no (unknown) (unknown) CARDIOVASCULAR: (units (unknown) date) Regular rate and unknown) rhythm without murmurs, gallops, or rubs. (unknown) (no (unknown) (unknown) CARDIOVASCULAR: (units (unknown) date) Reports chest unknown) tightness as well as chest pressure, denies, (unknown) (no (unknown) (unknown) CK-MB (CK-2) Rel (units (unknown) date) Index TNP unknown) (unknown) (no (unknown) (unknown) CK-MB (CK-2) TNP (units (unknown) date) unknown) (unknown) (no (unknown) (unknown) Calcium 9.0 (units (un known) date) (8.4-10.2) mg/dL unknown) (unknown) (no (unknown) (unknown) Carbon Dioxide (units (unknown) date) 23 (22-32) mmol/L unknown) (unknown) (no (unknown) (unknown) Chicken pox (units (un known) date) (-1995) unknown) (unknown) (no (unknown) (unknown) Chief Complaint: (units (unknown) date) Chest Pain unknown) (unknown) (no (unknown) (unknown) Chloride 104 (units (u nknown) date) (98-107) mmol/L unknown) (unknown) (no (unknown) (unknown) Complete Blood (units (unknown) date) Count AUTO DIFF unknown) Stat (unknown) (no (unknown) (unknown) Comprehensive (units ( unknown) date) Metabolic Panel unknown) Stat (unknown) (no (unknown) (unknown) Course (units (unkno wn) date) unknown) (unknown) (no (unknown) (unknown) Creatinine 0.53 (units (unknown) date) (0.52-1.04) mg/dL unknown) (unknown) (no (unknown) (unknown) D Dimer Stat (units (u nknown) date) unknown) (unknown) (no (unknown) (unknown) : 1990 (units (unknown) date) Acct:[id number] unknown) (unknown) (no (unknown) (unknown) Date of Service: (units (unknown) date) 01/18/22 unknown) (unknown) (no (unknown) (unknown) Departure (units (unkn own) date) unknown) (unknown) (no (unknown) (unknown) Discharge Plan (units (unknown) date) unknown) (unknown) (no (unknown) (unknown) Dose (units (unkno wn) date) Instruction: unknown) (unknown) (no (unknown) (unknown) Dyslipidemia (units (u nknown) date) unknown) (unknown) (no (unknown) (unknown) ED Orders (units (unkn own) date) unknown) (unknown) (no (unknown) (unknown) EKG-12 Lead Stat (units (unknown) date) unknown) (unknown) (no (unknown) (unknown) ENT: Nose (units (unkn own) date) without bleeding, unknown) purulent drainage. Throat without erythema, (unknown) (no (unknown) (unknown) ER Physician: (units ( unknown) date) Kalyan Schwartz P.A-C unknown) (unknown) (no (unknown) (unknown) EXTREMITIES: No (units (unknown) date) edema or joint unknown) tenderness. (unknown) (no (unknown) (unknown) EYES: Pupils (units (u nknown) date) equal round and unknown) reactive. Extraocular motions intact. No scleral (unknown) (no (unknown) (unknown) Emergency Report (units (unknown) date) unknown) (unknown) (no (unknown) (unknown) Eos # (Auto) 300 (units (unknown) date) (0-450) /uL unknown) (unknown) (no (unknown) (unknown) Eos % (Auto) 3.6 (units (unknown) date) (2-4) % unknown) (unknown) (no (unknown) (unknown) Essential (units (unkn own) date) hypertension unknown) (-2019) (unknown) (no (unknown) (unknown) Estimated GFR > (units (unknown) date) 60 (>60) mL/min unknown) (unknown) (no (unknown) (unknown) Exam Narrative: (units (unknown) date) unknown) (unknown) (no (unknown) (unknown) Exam (units (unkno wn) date) unknown) (unknown) (no (unknown) (unknown) GASTROINTESTINAL (units (unknown) date) : Abdomen soft, unknown) non-tender, nondistended. (unknown) (no (unknown) (unknown) GASTROINTESTINAL (units (unknown) date) : Denies nausea, unknown) vomiting, abdominal pain, diarrhea, (unknown) (no (unknown) (unknown) GENERAL: Denies (units (unknown) date) chills, fatigue, unknown) malaise, fever, sweats. (unknown) (no (unknown) (unknown) GENERAL: (units (unkno wn) date) Well-developed unknown) patient, in mild distress. (unknown) (no (unknown) (unknown) : Denies (units (unk nown) date) dysuria, unknown) frequency, incontinence, hematuria, urinary retention. (unknown) (no (unknown) (unknown) General (units (unkno wn) date) unknown) (unknown) (no (unknown) (unknown) Globulin 3.4 (units (u nknown) date) (1.7-4.1) g/dL unknown) (unknown) (no (unknown) (unknown) Glucose 105 H (units ( unknown) date) (70-100) mg/dL unknown) (unknown) (no (unknown) (unknown) HEAD: (units (unkno wn) date) Atraumatic. unknown) Normocephalic. (unknown) (no (unknown) (unknown) HEENT: Denies (units ( unknown) date) sinus pain, ear unknown) pain, sore throat, difficulty swallowing, (unknown) (no (unknown) (unknown) HPI - Chest Pain (units (unknown) date) unknown) (unknown) (no (unknown) (unknown) HPI narrative: (units (unknown) date) unknown) (unknown) (no (unknown) (unknown) Hct 41.7 (36-46) (units (unknown) date) % unknown) (unknown) (no (unknown) (unknown) Hgb 13.7 (units (unkno wn) date) (12.0-16.0) g/dL unknown) (unknown) (no (unknown) (unknown) History of (units (unk nown) date) Present Illness unknown) (unknown) (no (unknown) (unknown) History of (units (unk nown) date) section unknown) (-01/02/19) (unknown) (no (unknown) (unknown) INR 1.0 (units (unkno wn) date) (0.9-1.3) unknown) (unknown) (no (unknown) (unknown) Immunization due (units (unknown) date) unknown) (unknown) (no (unknown) (unknown) Impaired fasting (units (unknown) date) blood sugar unknown) (unknown) (no (unknown) (unknown) Initial Vital (units ( unknown) date) Signs unknown) (unknown) (no (unknown) (unknown) Initial Vital (units ( unknown) date) Signs: unknown) (unknown) (no (unknown) (unknown) [facility] (units (unknown) date) [address] unknown) [place] [address] (unknown) (no (unknown) (unknown) Lab Data (units (unkno wn) date) unknown) (unknown) (no (unknown) (unknown) Lab Results (units (un known) date) unknown) (unknown) (no (unknown) (unknown) Labs: (units (unkno wn) date) unknown) (unknown) (no (unknown) (unknown) Limitations: no (units (unknown) date) limitations unknown) (unknown) (no (unknown) (unknown) Lipase 90 (units (unkn own) date) (23-300) U/L unknown) (unknown) (no (unknown) (unknown) Lipase Stat (units (un known) date) unknown) (unknown) (no (unknown) (unknown) Lymph # (Auto) (units (unknown) date) 2400 (6133-0022) unknown) /uL (unknown) (no (unknown) (unknown) Lymph % (Auto) (units (unknown) date) 29.3 (25-40) % unknown) (unknown) (no (unknown) (unknown) [id number] (units (unk nown) date) unknown) (unknown) (no (unknown) (unknown) MCH 27.2 (26-34) (units (unknown) date) PG unknown) (unknown) (no (unknown) (unknown) MCHC 32.9 (units (unkn own) date) (30-36) % unknown) (unknown) (no (unknown) (unknown) MCV 82.8 (units (unkno wn) date) (80-100) fL unknown) (unknown) (no (unknown) (unknown) MDM - Chest Pain (units (unknown) date) unknown) (unknown) (no (unknown) (unknown) MUSCULOSKELETAL: (units (unknown) date) denies weakness, unknown) joint pain, or bony pain (unknown) (no (unknown) (unknown) Magnesium 2.0 (units ( unknown) date) (1.6-2.3) mg/dL unknown) (unknown) (no (unknown) (unknown) Magnesium Stat (units (unknown) date) unknown) (unknown) (no (unknown) (unknown) Mass of breast, (units (unknown) date) left unknown) (unknown) (no (unknown) (unknown) Medical History (units (unknown) date) (Reviewed unknown) 12/09/21 @ 14:47 by NICKY Ferrer) (unknown) (no (unknown) (unknown) Medication (units (unk nown) date) Instructions unknown) Recorded (unknown) (no (unknown) (unknown) Mode of arrival: (units (unknown) date) Ambulatory unknown) (unknown) (no (unknown) (unknown) Pike # (Auto) (units ( unknown) date) 600 (0-900) /uL unknown) (unknown) (no (unknown) (unknown) [place]ike % (Auto) (units ( unknown) date) 7.3 (3-14) % unknown) (unknown) (no (unknown) (unknown) NECK: Trachea (units ( unknown) date) midline. Non unknown) tender (unknown) (no (unknown) (unknown) NEURO: AOx3. (units (u nknown) date) unknown) (unknown) (no (unknown) (unknown) NEUROLOGIC: (units (un known) date) Denies weakness, unknown) headache, numbness, change in speech, confusion, (unknown) (no (unknown) (unknown) Narrative (units (unkn own) date) unknown) (unknown) (no (unknown) (unknown) Narrative: (units (unk nown) date) unknown) (unknown) (no (unknown) (unknown) Neut # (Auto) (units ( unknown) date) 4900 ([id number]) unknown) /uL (unknown) (no (unknown) (unknown) Neut % (Auto) (units ( unknown) date) 58.7 (50-75) % unknown) (unknown) (no (unknown) (unknown) No Action (units (unkn own) date) unknown) (unknown) (no (unknown) (unknown) No Known Drug (units ( unknown) date) Allergies Allergy unknown) Unverified 01/18/22 10:45 (unknown) (no (unknown) (unknown) Ordered: (units (unkno wn) date) unknown) (unknown) (no (unknown) (unknown) Orders (units (unkno wn) date) unknown) (unknown) (no (unknown) (unknown) Oxygen Delivery (units (unknown) date) Method 01/18/22 unknown) 10:38 (unknown) (no (unknown) (unknown) Oxygen Delivery (units (unknown) date) Method Room Air unknown) (unknown) (no (unknown) (unknown) PSYCHIATRIC: No (units (unknown) date) concerning unknown) psychosocial issues. (unknown) (no (unknown) (unknown) PT 11.3 (units (unkno wn) date) (10.1-12.7) unknown) SECONDS (unknown) (no (unknown) (unknown) Painful lumpy (units ( unknown) date) left breast unknown) (unknown) (no (unknown) (unknown) Partial (units (unkno wn) date) Thromboplastin unknown) Time Stat (unknown) (no (unknown) (unknown) Patient History (units (unknown) date) unknown) (unknown) (no (unknown) (unknown) Patient: (units (unkno wn) date) Deepa Moser Dyan unknown) S MR#: (unknown) (no (unknown) (unknown) Plt Count 323 (units ( unknown) date) (150-400) X103/uL unknown) (unknown) (no (unknown) (unknown) Potassium 3.9 (units ( unknown) date) (3.4-5.1) mmol/L unknown) (unknown) (no (unknown) (unknown) Prescriptions: (units (unknown) date) unknown) (unknown) (no (unknown) (unknown) Previous Rx's (units ( unknown) date) unknown) (unknown) (no (unknown) (unknown) Prothrombin Time (units (unknown) date) INR Stat unknown) (unknown) (no (unknown) (unknown) Pulse Oximetry (units (unknown) date) 100 01/18/22 unknown) 10:38 (unknown) (no (unknown) (unknown) Pulse Oximetry (units (unknown) date) 100 unknown) (unknown) (no (unknown) (unknown) Pulse Rate 75 (units ( unknown) date) 01/18/22 10:38 unknown) (unknown) (no (unknown) (unknown) Pulse Rate 75 (units ( unknown) date) unknown) (unknown) (no (unknown) (unknown) RBC 5.04 (units (unkno wn) date) (4.0-5.2) X106/uL unknown) (unknown) (no (unknown) (unknown) RDW 13.0 (units (unkno wn) date) (11.6-14.8) % unknown) (unknown) (no (unknown) (unknown) RESPIRATORY: (units (un known) date) Clear to unknown) auscultation. Breath sounds equal bilaterally. No wheezes, (unknown) (no (unknown) (unknown) RESPIRATORY: (units (u nknown) date) Denies dyspnea, unknown) cough, wheezing, hemoptysis, sputum. (unknown) (no (unknown) (unknown) Referrals: (units (unk nown) date) unknown) (unknown) (no (unknown) (unknown) Related Data (units (u nknown) date) unknown) (unknown) (no (unknown) (unknown) Respiratory Rate (units (unknown) date) 15 01/18/22 10:38 unknown) (unknown) (no (unknown) (unknown) Respiratory Rate (units (unknown) date) 15 unknown) (unknown) (no (unknown) (unknown) Result diagrams: (units (unknown) date) unknown) (unknown) (no (unknown) (unknown) Review of (units (unkn own) date) Systems unknown) (unknown) (no (unknown) (unknown) Celso Rowley, (units ( unknown) date) NICKY [Primary unknown) Care Provider] (unknown) (no (unknown) (unknown) Rx Instructions: (units (unknown) date) unknown) (unknown) (no (unknown) (unknown) SKIN: Denies (units (u nknown) date) rash, skin unknown) lesions, or other (unknown) (no (unknown) (unknown) SKIN: No rash or (units (unknown) date) erythema of unknown) visible areas (unknown) (no (unknown) (unknown) See Rx (units (unkno wn) date) Instructions unknown) .ROUTE .COMPLEX Qty: 63 1RF (unknown) (no (unknown) (unknown) Signed By: (units (unk nown) date) unknown) (unknown) (no (unknown) (unknown) Smoking Status: (units (unknown) date) Unknown if ever unknown) smoked (unknown) (no (unknown) (unknown) Social History (units (unknown) date) (System 01/18/22 unknown) @ 10:45 by Rhoda Mohr) (unknown) (no (unknown) (unknown) Sodium 139 (units (unk nown) date) (137-145) mmol/L unknown) (unknown) (no (unknown) (unknown) Source: patient (units (unknown) date) unknown) (unknown) (no (unknown) (unknown) Stated (units (unkno wn) date) Complaint: chest unknown) pressure, headace yesterday (unknown) (no (unknown) (unknown) Substance Use (units ( unknown) date) Type: does not unknown) use (unknown) (no (unknown) (unknown) Surgical History (units (unknown) date) (Reviewed unknown) 12/09/21 @ 14:47 by NICKY Ferrer) (unknown) (no (unknown) (unknown) TAKE 1 TABLET BY (units (unknown) date) MOUTH DAILY unknown) (unknown) (no (unknown) (unknown) Temperature 96.4 (units (unknown) date) F L 01/18/22 unknown) 10:38 (unknown) (no (unknown) (unknown) Temperature 96.4 (units (unknown) date) F L unknown) (unknown) (no (unknown) (unknown) This is a (units (unkn own) date) 31-year-old unknown) female presents 3 department due to a week of chest (unknown) (no (unknown) (unknown) Time Seen by (units (u nknown) date) Provider: unknown) 01/18/22 15:25 (unknown) (no (unknown) (unknown) Total Bilirubin (units (unknown) date) 0.6 (0.2-1.3) unknown) mg/dL (unknown) (no (unknown) (unknown) Total Creatine (units (unknown) date) Kinase 49 unknown) (30-135) U/L (unknown) (no (unknown) (unknown) Total Protein (units ( unknown) date) 8.1 (6.3-8.2) unknown) g/dL (unknown) (no (unknown) (unknown) Troponin + CK (units ( unknown) date) Cardiac Panel unknown) Stat (unknown) (no (unknown) (unknown) Troponin I < (units (u nknown) date) 0.012 unknown) (0.01-0.034) ng/mL (unknown) (no (unknown) (unknown) Vital Signs - 8 (units (unknown) date) hr unknown) (unknown) (no (unknown) (unknown) Vital Signs (units (un known) date) unknown) (unknown) (no (unknown) (unknown) Vital signs: (units (u nknown) date) unknown) (unknown) (no (unknown) (unknown) WBC 8.3 (units (unkno wn) date) (4.5-11.0) unknown) X103/uL (unknown) (no (unknown) (unknown) [place] teeth (units (u nknown) date) removed (-2013) unknown) (unknown) (no (unknown) (unknown) XR chest 1V Stat (units (unknown) date) unknown) (unknown) (no (unknown) (unknown) [Embedded Image (units (unknown) date) Not Available] unknown) (unknown) (no (unknown) (unknown) alcohol intake (units (unknown) date) frequency: unknown) holidays/special occasions only (unknown) (no (unknown) (unknown) any other (units (unkn own) date) concerning signs unknown) or symptoms. Patient states that the pain is (unknown) (no (unknown) (unknown) chest pain. (units (un known) date) Patient denies unknown) any fevers, nausea, vomiting, your eye symptoms, or (unknown) (no (unknown) (unknown) constant and (units (u nknown) date) does not worsen unknown) with activity or changes in position. Patient (unknown) (no (unknown) (unknown) constipation, (units ( unknown) date) melena. unknown) (unknown) (no (unknown) (unknown) dizziness. (units (unk nown) date) unknown) (unknown) (no (unknown) (unknown) estradiol 20 mcg (units (unknown) date) tablet .COMPLEX unknown) #63 tabs (unknown) (no (unknown) (unknown) icterus. No (units (un known) date) injection or unknown) drainage. (unknown) (no (unknown) (unknown) metoprolol (units (unk nown) date) succinate 100 mg unknown) 100 mg PO DAILY #90 tabs 01/17/22 (unknown) (no (unknown) (unknown) metoprolol (units (unk nown) date) succinate 100 mg unknown) tablet extended release 24 hr (unknown) (no (unknown) (unknown) norethindrone (units ( unknown) date) ac-eth estradiol unknown) 1-20 mg-mcg tablet (unknown) (no (unknown) (unknown) norethindrone (units ( unknown) date) acetate 1 unknown) mg-ethinyl See Rx Instructions .Route 09/01/21 (unknown) (no (unknown) (unknown) official (units (unkno wn) date) diagnosis. Last unknown) took her control pill a month ago. (unknown) (no (unknown) (unknown) palpitations, (units ( unknown) date) orthopnea, edema, unknown) (unknown) (no (unknown) (unknown) pressure and (units (u nknown) date) ?tightness?. unknown) Denies any significant shortness of breath or sharp (unknown) (no (unknown) (unknown) rales, or (units (unkn own) date) rhonchi. unknown) (unknown) (no (unknown) (unknown) seizures, (units (unkn own) date) incoordination. unknown) (unknown) (no (unknown) (unknown) states that she (units (unknown) date) is been seen by unknown) her primary care provider for this without any (unknown) (no (unknown) (unknown) tablet,extended (units (unknown) date) release 24 hr unknown) (unknown) (no (unknown) (unknown) tonsillar (units (unkn own) date) hypertrophy or unknown) exudate. Airway patent. Result panel 24 (unknown) (no date) (unknown) (unknown) 305 ng/ml (unkn own) (unknown) (no date) (unknown) (unknown) 305 ng/ml (unkn own) Result panel 25 (unknown) (no (unknown) (unknown) (no value) (units (unk nown) date) unknown) (unknown) (no (unknown) (unknown) 1 inh inhalation (units (unknown) date) Q4-6H PRN (Reason: unknown) shortness of breath) Qty: 1 0RF (unknown) (no (unknown) (unknown) 01/18/22 01/18/22 (units (unknown) date) 01/18/22 unknown) Range/Units (unknown) (no (unknown) (unknown) 01/18/22 10:30 (units (unknown) date) unknown) (unknown) (no (unknown) (unknown) 01/18/22 10:43 (units (unknown) date) unknown) (unknown) (no (unknown) (unknown) 01/18/22 10:50 (units (unknown) date) unknown) (unknown) (no (unknown) (unknown) 01/18/22 15:50 (units (unknown) date) unknown) (unknown) (no (unknown) (unknown) 01/18/22 (units (unkno wn) date) Range/Units unknown) (unknown) (no (unknown) (unknown) 01/18/22 (units (unkno wn) date) unknown) (unknown) (no (unknown) (unknown) 100 mg PO DAILY (units (unknown) date) Qty: 90 0RF unknown) (unknown) (no (unknown) (unknown) 10:30 10:30 10:50 (units (unknown) date) unknown) (unknown) (no (unknown) (unknown) 10:38 (units (unkno wn) date) unknown) (unknown) (no (unknown) (unknown) 12 point review (units (unknown) date) of systems is unknown) negative except for those stated above (unknown) (no (unknown) (unknown) [address] (units (unknown) date) unknown) (unknown) (no (unknown) (unknown) 15:50 (units (unkno wn) date) unknown) (unknown) (no (unknown) (unknown) ? (units (unkno wn) date) unknown) (unknown) (no (unknown) (unknown) ALT (<35) IU/L (units (unknown) date) unknown) (unknown) (no (unknown) (unknown) ALT 14 (<35) IU/L (units (unknown) date) unknown) (unknown) (no (unknown) (unknown) APTT (26-36) (units (u nknown) date) SECONDS unknown) (unknown) (no (unknown) (unknown) APTT 32 (26-36) (units (unknown) date) SECONDS unknown) (unknown) (no (unknown) (unknown) AST (14-36) IU/L (units (unknown) date) unknown) (unknown) (no (unknown) (unknown) AST 18 (14-36) (units (unknown) date) IU/L unknown) (unknown) (no (unknown) (unknown) Accession Number: (units (unknown) date) [id number] ?? unknown) (unknown) (no (unknown) (unknown) Acct:[id number] (units (unknown) date) unknown) (unknown) (no (unknown) (unknown) Activity (units (unkno wn) date) Restrictions/Addit unknown) ional Instructions: (unknown) (no (unknown) (unknown) Age/Sex: 31 / F (units (unknown) date) unknown) (unknown) (no (unknown) (unknown) Albumin (3.5-5.0) (units (unknown) date) g/dL unknown) (unknown) (no (unknown) (unknown) Albumin 4.7 (units (un known) date) (3.5-5.0) g/dL unknown) (unknown) (no (unknown) (unknown) Albumin/Globulin (units (unknown) date) Ratio (1.0-2.8) unknown) (unknown) (no (unknown) (unknown) Albumin/Globulin (units (unknown) date) Ratio 1.4 unknown) (1.0-2.8) (unknown) (no (unknown) (unknown) Alkaline (units (unkno wn) date) Phosphatase unknown) (38-126) U/L (unknown) (no (unknown) (unknown) Alkaline (units (unkno wn) date) Phosphatase 89 unknown) (38-126) U/L (unknown) (no (unknown) (unknown) Allergies (units (unkn own) date) unknown) (unknown) (no (unknown) (unknown) Allergy/AdvReac (units (unknown) date) Type Severity unknown) Reaction Status Date / Time (unknown) (no (unknown) (unknown) [place], [place] (units ( unknown) date) [id number] unknown) (unknown) (no (unknown) (unknown) Anxiety (units (unkno wn) date) unknown) (unknown) (no (unknown) (unknown) Approved by: (units (u nknown) date) Carson Peter M.D. unknown) on 01/18/2022 at 11:28 ? (unknown) (no (unknown) (unknown) BACK: Nontender (units (unknown) date) without deformity unknown) or crepitance. No flank tenderness. (unknown) (no (unknown) (unknown) BUN (7-17) mg/dL (units (unknown) date) unknown) (unknown) (no (unknown) (unknown) BUN 13 (7-17) (units ( unknown) date) mg/dL unknown) (unknown) (no (unknown) (unknown) BUN/Creatinine (units (unknown) date) Ratio (6-22) unknown) (unknown) (no (unknown) (unknown) BUN/Creatinine (units (unknown) date) Ratio 24.5 H unknown) (6-22) (unknown) (no (unknown) (unknown) Baso # (Auto) (units ( unknown) date) (0-100) /uL unknown) (unknown) (no (unknown) (unknown) Baso # (Auto) 100 (units (unknown) date) (0-100) /uL unknown) (unknown) (no (unknown) (unknown) Baso % (Auto) (units ( unknown) date) (0-2) % unknown) (unknown) (no (unknown) (unknown) Baso % (Auto) 1.1 (units (unknown) date) (0-2) % unknown) (unknown) (no (unknown) (unknown) Blood Pressure (units (unknown) date) 184/116 H 01/18/22 unknown) 10:38 (unknown) (no (unknown) (unknown) Blood Pressure (units (unknown) date) 184/116 H unknown) (unknown) (no (unknown) (unknown) Bones and chest (units (unknown) date) wall:? No unknown) suspicious bony lesions.? Overlying soft tissues (unknown) (no (unknown) (unknown) CARDIOVASCULAR: (units (unknown) date) Regular rate and unknown) rhythm without murmurs, gallops, or rubs. (unknown) (no (unknown) (unknown) CARDIOVASCULAR: (units (unknown) date) Reports chest unknown) tightness as well as chest pressure, denies, (unknown) (no (unknown) (unknown) CK-MB (CK-2) Rel (units (unknown) date) Index TNP unknown) (unknown) (no (unknown) (unknown) CK-MB (CK-2) Rel (units (unknown) date) Index unknown) (unknown) (no (unknown) (unknown) CK-MB (CK-2) TNP (units (unknown) date) unknown) (unknown) (no (unknown) (unknown) CK-MB (CK-2) (units (u nknown) date) unknown) (unknown) (no (unknown) (unknown) COMPARISON:? (units (u nknown) date) None. unknown) (unknown) (no (unknown) (unknown) Calcium (units (unkno wn) date) (8.4-10.2) mg/dL unknown) (unknown) (no (unknown) (unknown) Calcium 9.0 (units (un known) date) (8.4-10.2) mg/dL unknown) (unknown) (no (unknown) (unknown) Carbon Dioxide (units (unknown) date) (22-32) mmol/L unknown) (unknown) (no (unknown) (unknown) Carbon Dioxide 23 (units (unknown) date) (22-32) mmol/L unknown) (unknown) (no (unknown) (unknown) Chest pressure (units (unknown) date) unknown) (unknown) (no (unknown) (unknown) Chest x-ray: (units (u nknown) date) unknown) (unknown) (no (unknown) (unknown) Chicken pox (units (un known) date) () unknown) (unknown) (no (unknown) (unknown) Chief Complaint: (units (unknown) date) Chest Pain unknown) (unknown) (no (unknown) (unknown) Chloride (98-107) (units (unknown) date) mmol/L unknown) (unknown) (no (unknown) (unknown) Chloride 104 (units (u nknown) date) (98-107) mmol/L unknown) (unknown) (no (unknown) (unknown) Clinical (units (o wn) date) Impression: unknown) (unknown) (no (unknown) (unknown) Complete Blood (units (unknown) date) Count AUTO DIFF unknown) Stat (unknown) (no (unknown) (unknown) Comprehensive (units ( unknown) date) Metabolic Panel unknown) Stat (unknown) (no (unknown) (unknown) Course (units (unkno wn) date) unknown) (unknown) (no (unknown) (unknown) Creatinine (units (unk nown) date) (0.52-1.04) mg/dL unknown) (unknown) (no (unknown) (unknown) Creatinine 0.53 (units (unknown) date) (0.52-1.04) mg/dL unknown) (unknown) (no (unknown) (unknown) D Dimer Stat (units (u nknown) date) unknown) (unknown) (no (unknown) (unknown) D-Dimer (<500) (units (unknown) date) ng/ml unknown) (unknown) (no (unknown) (unknown) D-Dimer 305 (units (un known) date) (<500) ng/ml unknown) (unknown) (no (unknown) (unknown) : 1990 (units (unknown) date) Acct:[id number] unknown) (unknown) (no (unknown) (unknown) : 1990 (units (unknown) date) unknown) (unknown) (no (unknown) (unknown) Date of Service: (units (unknown) date) 01/18/22 unknown) (unknown) (no (unknown) (unknown) Departure (units (unkn own) date) unknown) (unknown) (no (unknown) (unknown) Dictated by: (units (u nknown) date) Carson Peter M.D. unknown) on 01/18/2022 at 11:27 ? ? (unknown) (no (unknown) (unknown) Discharge Plan (units (unknown) date) unknown) (unknown) (no (unknown) (unknown) Dose Instruction: (units (unknown) date) unknown) (unknown) (no (unknown) (unknown) Dyslipidemia (units (u nknown) date) unknown) (unknown) (no (unknown) (unknown) ECG Data (units (unkno wn) date) unknown) (unknown) (no (unknown) (unknown) ED Orders (units (unkn own) date) unknown) (unknown) (no (unknown) (unknown) EKG is normal (units ( unknown) date) sinus rhythm rate unknown) 89 and free of any signs of ischemia or ectopy. (unknown) (no (unknown) (unknown) EKG-12 Lead Stat (units (unknown) date) unknown) (unknown) (no (unknown) (unknown) ENT: Nose without (units (unknown) date) bleeding, purulent unknown) drainage. Throat without erythema, (unknown) (no (unknown) (unknown) ER Physician: (units ( unknown) date) Kalyan Schwartz P.A-C unknown) (unknown) (no (unknown) (unknown) EXTREMITIES: No (units (unknown) date) edema or joint unknown) tenderness. (unknown) (no (unknown) (unknown) EYES: Pupils (units (u nknown) date) equal round and unknown) reactive. Extraocular motions intact. No scleral (unknown) (no (unknown) (unknown) Emergency Report (units (unknown) date) unknown) (unknown) (no (unknown) (unknown) Eos # (Auto) (units (u nknown) date) (0-450) /uL unknown) (unknown) (no (unknown) (unknown) Eos # (Auto) 300 (units (unknown) date) (0-450) /uL unknown) (unknown) (no (unknown) (unknown) Eos % (Auto) (units (u nknown) date) (2-4) % unknown) (unknown) (no (unknown) (unknown) Eos % (Auto) 3.6 (units (unknown) date) (2-4) % unknown) (unknown) (no (unknown) (unknown) Essential (units (unkn own) date) hypertension unknown) (-2019) (unknown) (no (unknown) (unknown) Estimated GFR > (units (unknown) date) 60 (>60) mL/min unknown) (unknown) (no (unknown) (unknown) Estimated GFR (units ( unknown) date) (>60) mL/min unknown) (unknown) (no (unknown) (unknown) Exam Narrative: (units (unknown) date) unknown) (unknown) (no (unknown) (unknown) Exam (units (unkno wn) date) unknown) (unknown) (no (unknown) (unknown) FINDINGS:? (units (unk nown) date) unknown) (unknown) (no (unknown) (unknown) GASTROINTESTINAL: (units (unknown) date) Abdomen soft, unknown) non-tender, nondistended. (unknown) (no (unknown) (unknown) GASTROINTESTINAL: (units (unknown) date) Denies nausea, unknown) vomiting, abdominal pain, diarrhea, (unknown) (no (unknown) (unknown) GENERAL: Denies (units (unknown) date) chills, fatigue, unknown) malaise, fever, sweats. (unknown) (no (unknown) (unknown) GENERAL: (units (unkno wn) date) Well-developed unknown) patient, in mild distress. (unknown) (no (unknown) (unknown) : Denies (units (unk nown) date) dysuria, unknown) frequency, incontinence, hematuria, urinary retention. (unknown) (no (unknown) (unknown) General (units (unkno wn) date) unknown) (unknown) (no (unknown) (unknown) Globulin (units (unkno wn) date) (1.7-4.1) g/dL unknown) (unknown) (no (unknown) (unknown) Globulin 3.4 (units (u nknown) date) (1.7-4.1) g/dL unknown) (unknown) (no (unknown) (unknown) Glucose (70-100) (units (unknown) date) mg/dL unknown) (unknown) (no (unknown) (unknown) Glucose 105 H (units ( unknown) date) (70-100) mg/dL unknown) (unknown) (no (unknown) (unknown) HEAD: Atraumatic. (units (unknown) date) Normocephalic. unknown) (unknown) (no (unknown) (unknown) HEENT: Denies (units ( unknown) date) sinus pain, ear unknown) pain, sore throat, difficulty swallowing, (unknown) (no (unknown) (unknown) HPI - Chest Pain (units (unknown) date) unknown) (unknown) (no (unknown) (unknown) HPI narrative: (units (unknown) date) unknown) (unknown) (no (unknown) (unknown) Hct (36-46) % (units ( unknown) date) unknown) (unknown) (no (unknown) (unknown) Hct 41.7 (36-46) (units (unknown) date) % unknown) (unknown) (no (unknown) (unknown) Hgb (12.0-16.0) (units (unknown) date) g/dL unknown) (unknown) (no (unknown) (unknown) Hgb 13.7 (units (unkno wn) date) (12.0-16.0) g/dL unknown) (unknown) (no (unknown) (unknown) History of (units (unk nown) date) Present Illness unknown) (unknown) (no (unknown) (unknown) History of (units (unk nown) date) section unknown) (-01/02/19) (unknown) (no (unknown) (unknown) I hope you feel (units (unknown) date) better soon. unknown) (unknown) (no (unknown) (unknown) IMPRESSION:? (units (u nknown) date) unknown) (unknown) (no (unknown) (unknown) INDICATIONS:? (units ( unknown) date) chest pain unknown) (unknown) (no (unknown) (unknown) INR (0.9-1.3) (units ( unknown) date) unknown) (unknown) (no (unknown) (unknown) INR 1.0 (0.9-1.3) (units (unknown) date) unknown) (unknown) (no (unknown) (unknown) Imaging Data (units (u nknown) date) unknown) (unknown) (no (unknown) (unknown) Immunization due (units (unknown) date) unknown) (unknown) (no (unknown) (unknown) Impaired fasting (units (unknown) date) blood sugar unknown) (unknown) (no (unknown) (unknown) Initial Vital (units ( unknown) date) Signs unknown) (unknown) (no (unknown) (unknown) Initial Vital (units ( unknown) date) Signs: unknown) (unknown) (no (unknown) (unknown) Instructions: DI (units (unknown) date) for Atypical Chest unknown) Pain (unknown) (no (unknown) (unknown) Interpretation: (units (unknown) date) unknown) (unknown) (no (unknown) (unknown) Is an otherwise (units (unknown) date) healthy unknown) 31-year-old female presents to the emergency department (unknown) (no (unknown) (unknown) [facility] (units (unknown) date) [address] unknown) [place] [address] (unknown) (no (unknown) (unknown) [facility] (units (unknown) date) unknown) (unknown) (no (unknown) (unknown) Lab Data (units (unkno wn) date) unknown) (unknown) (no (unknown) (unknown) Lab Results (units (un known) date) unknown) (unknown) (no (unknown) (unknown) Labs: (units (unkno wn) date) unknown) (unknown) (no (unknown) (unknown) Limitations: no (units (unknown) date) limitations unknown) (unknown) (no (unknown) (unknown) Lipase (23-300) (units (unknown) date) U/L unknown) (unknown) (no (unknown) (unknown) Lipase 90 (units (unkn own) date) (23-300) U/L unknown) (unknown) (no (unknown) (unknown) Lipase Stat (units (un known) date) unknown) (unknown) (no (unknown) (unknown) Loc: ED (units (unkno wn) date) unknown) (unknown) (no (unknown) (unknown) Lungs and (units (unkn own) date) pleura:? Lungs are unknown) clear.? No pleural effusions or pneumothorax.? (unknown) (no (unknown) (unknown) Lymph # (Auto) (units (unknown) date) (6073-4529) /uL unknown) (unknown) (no (unknown) (unknown) Lymph # (Auto) (units (unknown) date) 2400 (4319-2512) unknown) /uL (unknown) (no (unknown) (unknown) Lymph % (Auto) (units (unknown) date) (25-40) % unknown) (unknown) (no (unknown) (unknown) Lymph % (Auto) (units (unknown) date) 29.3 (25-40) % unknown) (unknown) (no (unknown) (unknown) [id number] (units (unk nown) date) unknown) (unknown) (no (unknown) (unknown) MCH (26-34) PG (units (unknown) date) unknown) (unknown) (no (unknown) (unknown) MCH 27.2 (26-34) (units (unknown) date) PG unknown) (unknown) (no (unknown) (unknown) MCHC (30-36) % (units (unknown) date) unknown) (unknown) (no (unknown) (unknown) MCHC 32.9 (30-36) (units (unknown) date) % unknown) (unknown) (no (unknown) (unknown) MCV (80-100) fL (units (unknown) date) unknown) (unknown) (no (unknown) (unknown) MCV 82.8 (80-100) (units (unknown) date) fL unknown) (unknown) (no (unknown) (unknown) MDM - Chest Pain (units (unknown) date) unknown) (unknown) (no (unknown) (unknown) MDM Narrative (units ( unknown) date) unknown) (unknown) (no (unknown) (unknown) MR#: [id number] (units (unknown) date) unknown) (unknown) (no (unknown) (unknown) MUSCULOSKELETAL: (units (unknown) date) denies weakness, unknown) joint pain, or bony pain (unknown) (no (unknown) (unknown) Magnesium (units (unkn own) date) (1.6-2.3) mg/dL unknown) (unknown) (no (unknown) (unknown) Magnesium 2.0 (units ( unknown) date) (1.6-2.3) mg/dL unknown) (unknown) (no (unknown) (unknown) Magnesium Stat (units (unknown) date) unknown) (unknown) (no (unknown) (unknown) Mass of breast, (units (unknown) date) left unknown) (unknown) (no (unknown) (unknown) Mediastinum:? (units ( unknown) date) Mediastinal unknown) contours appear normal.? Heart size is normal.? (unknown) (no (unknown) (unknown) Medical History (units (unknown) date) (Reviewed 12/09/21 unknown) @ 14:47 by NICKY Ferrer) (unknown) (no (unknown) (unknown) Medical decision (units (unknown) date) making narrative: unknown) (unknown) (no (unknown) (unknown) Medication (units (unk nown) date) Instructions unknown) Recorded (unknown) (no (unknown) (unknown) Mode of arrival: (units (unknown) date) Ambulatory unknown) (unknown) (no (unknown) (unknown) [place] # (Auto) (units ( unknown) date) (0-900) /uL unknown) (unknown) (no (unknown) (unknown) [place] # (Auto) 600 (units (unknown) date) (0-900) /uL unknown) (unknown) (no (unknown) (unknown) [place] % (Auto) (units ( unknown) date) (3-14) % unknown) (unknown) (no (unknown) (unknown) [place] % (Auto) 7.3 (units (unknown) date) (3-14) % unknown) (unknown) (no (unknown) (unknown) NECK: Trachea (units ( unknown) date) midline. Non unknown) tender (unknown) (no (unknown) (unknown) NEURO: AOx3. (units (u nknown) date) unknown) (unknown) (no (unknown) (unknown) NEUROLOGIC: (units (un known) date) Denies weakness, unknown) headache, numbness, change in speech, confusion, (unknown) (no (unknown) (unknown) Narrative (units (unkn own) date) unknown) (unknown) (no (unknown) (unknown) Narrative: (units (unk nown) date) unknown) (unknown) (no (unknown) (unknown) Neut # (Auto) (units ( unknown) date) (1289-3066) /uL unknown) (unknown) (no (unknown) (unknown) Neut # (Auto) (units ( unknown) date) 4900 (0600-3700) unknown) /uL (unknown) (no (unknown) (unknown) Neut % (Auto) (units ( unknown) date) (50-75) % unknown) (unknown) (no (unknown) (unknown) Neut % (Auto) (units ( unknown) date) 58.7 (50-75) % unknown) (unknown) (no (unknown) (unknown) New (units (unkno wn) date) unknown) (unknown) (no (unknown) (unknown) No Action (units (unkn own) date) unknown) (unknown) (no (unknown) (unknown) No Known Drug (units ( unknown) date) Allergies Allergy unknown) Unverified 01/18/22 10:45 (unknown) (no (unknown) (unknown) No ST segmental (units (unknown) date) elevation or unknown) depression. No T wave inversions (unknown) (no (unknown) (unknown) No acute (units (unkno wn) date) cardiopulmonary unknown) abnormality. (unknown) (no (unknown) (unknown) Ordered: (units (unkno wn) date) unknown) (unknown) (no (unknown) (unknown) Ordering (units (unkno wn) date) Provider: unknown) Maryanne Panchal D.O. (unknown) (no (unknown) (unknown) Orders (units (unkno wn) date) unknown) (unknown) (no (unknown) (unknown) Oxygen Delivery (units (unknown) date) Method 01/18/22 unknown) 10:38 (unknown) (no (unknown) (unknown) Oxygen Delivery (units (unknown) date) Method Room Air unknown) (unknown) (no (unknown) (unknown) PROCEDURE:? XR (units (unknown) date) CHEST 1V unknown) (unknown) (no (unknown) (unknown) PSYCHIATRIC: No (units (unknown) date) concerning unknown) psychosocial issues. (unknown) (no (unknown) (unknown) PT (10.1-12.7) (units (unknown) date) SECONDS unknown) (unknown) (no (unknown) (unknown) PT 11.3 (units (unkno wn) date) (10.1-12.7) unknown) SECONDS (unknown) (no (unknown) (unknown) Painful lumpy (units ( unknown) date) left breast unknown) (unknown) (no (unknown) (unknown) Partial (units (unkno wn) date) Thromboplastin unknown) Time Stat (unknown) (no (unknown) (unknown) Patient (units (unkno wn) date) Disposition: Home unknown) (unknown) (no (unknown) (unknown) Patient History (units (unknown) date) unknown) (unknown) (no (unknown) (unknown) Patient: (units (unkno wn) date) Deepa Moser unknown) MR#: (unknown) (no (unknown) (unknown) Patient: (units (unkno wn) date) Deepa Moser unknown) (unknown) (no (unknown) (unknown) Plt Count (units (unkn own) date) (150-400) X103/uL unknown) (unknown) (no (unknown) (unknown) Plt Count 323 (units ( unknown) date) (150-400) X103/uL unknown) (unknown) (no (unknown) (unknown) Potassium (units (unkn own) date) (3.4-5.1) mmol/L unknown) (unknown) (no (unknown) (unknown) Potassium 3.9 (units ( unknown) date) (3.4-5.1) mmol/L unknown) (unknown) (no (unknown) (unknown) Prescriptions: (units (unknown) date) unknown) (unknown) (no (unknown) (unknown) Previous Rx's (units ( unknown) date) unknown) (unknown) (no (unknown) (unknown) Procedure: XR (units ( unknown) date) chest 1V unknown) (unknown) (no (unknown) (unknown) Prothrombin Time (units (unknown) date) INR Stat unknown) (unknown) (no (unknown) (unknown) Pulse Oximetry (units (unknown) date) 100 01/18/22 10:38 unknown) (unknown) (no (unknown) (unknown) Pulse Oximetry (units (unknown) date) 100 unknown) (unknown) (no (unknown) (unknown) Pulse Rate 75 (units ( unknown) date) 01/18/22 10:38 unknown) (unknown) (no (unknown) (unknown) Pulse Rate 75 (units ( unknown) date) unknown) (unknown) (no (unknown) (unknown) RBC (4.0-5.2) (units ( unknown) date) X106/uL unknown) (unknown) (no (unknown) (unknown) RBC 5.04 (units (unkno wn) date) (4.0-5.2) X106/uL unknown) (unknown) (no (unknown) (unknown) RDW (11.6-14.8) % (units (unknown) date) unknown) (unknown) (no (unknown) (unknown) RDW 13.0 (units (unkno wn) date) (11.6-14.8) % unknown) (unknown) (no (unknown) (unknown) RESPIRATORY: Clear (units (unknown) date) to auscultation. unknown) Breath sounds equal bilaterally. No wheezes, (unknown) (no (unknown) (unknown) RESPIRATORY: (units (u nknown) date) Denies dyspnea, unknown) cough, wheezing, hemoptysis, sputum. (unknown) (no (unknown) (unknown) Radiologist's (units ( unknown) date) Impression: unknown) (unknown) (no (unknown) (unknown) Referrals: (units (unk nown) date) unknown) (unknown) (no (unknown) (unknown) Related Data (units (u nknown) date) unknown) (unknown) (no (unknown) (unknown) Respiratory Rate (units (unknown) date) 15 01/18/22 10:38 unknown) (unknown) (no (unknown) (unknown) Respiratory Rate (units (unknown) date) 15 unknown) (unknown) (no (unknown) (unknown) Result diagrams: (units (unknown) date) unknown) (unknown) (no (unknown) (unknown) Review of Systems (units (unknown) date) unknown) (unknown) (no (unknown) (unknown) Celso Rowley, (units ( unknown) date) [employer]ER [Primary Care unknown) Provider] (unknown) (no (unknown) (unknown) Rx Instructions: (units (unknown) date) unknown) (unknown) (no (unknown) (unknown) SKIN: Denies (units (u nknown) date) rash, skin unknown) lesions, or other (unknown) (no (unknown) (unknown) SKIN: No rash or (units (unknown) date) erythema of unknown) visible areas (unknown) (no (unknown) (unknown) See Rx (units (unkno wn) date) Instructions unknown) .ROUTE .COMPLEX Qty: 63 1RF (unknown) (no (unknown) (unknown) Signed By: (units (unk nown) date) unknown) (unknown) (no (unknown) (unknown) Signed (units (unkno wn) date) unknown) (unknown) (no (unknown) (unknown) Smoking Status: (units (unknown) date) Unknown if ever unknown) smoked (unknown) (no (unknown) (unknown) Social History (units (unknown) date) (System 01/18/22 @ unknown) 10:45 by Rhoda Mohr) (unknown) (no (unknown) (unknown) Sodium (137-145) (units (unknown) date) mmol/L unknown) (unknown) (no (unknown) (unknown) Sodium 139 (units (unk nown) date) (137-145) mmol/L unknown) (unknown) (no (unknown) (unknown) Source: patient (units (unknown) date) unknown) (unknown) (no (unknown) (unknown) Stated Complaint: (units (unknown) date) chest pressure, unknown) headace yesterday (unknown) (no (unknown) (unknown) Substance Use (units ( unknown) date) Type: does not use unknown) (unknown) (no (unknown) (unknown) Surgical History (units (unknown) date) (Reviewed 12/09/21 unknown) @ 14:47 by NICKY Ferrer) (unknown) (no (unknown) (unknown) Surgical changes (units (unknown) date) and devices:? Left unknown) breast clips. (unknown) (no (unknown) (unknown) TAKE 1 TABLET BY (units (unknown) date) MOUTH DAILY unknown) (unknown) (no (unknown) (unknown) TECHNIQUE:? One (units (unknown) date) view of the chest unknown) was acquired.? (unknown) (no (unknown) (unknown) Temperature 96.4 (units (unknown) date) F L 01/18/22 10:38 unknown) (unknown) (no (unknown) (unknown) Temperature 96.4 (units (unknown) date) F L unknown) (unknown) (no (unknown) (unknown) Thank you for (units ( unknown) date) coming to the unknown) [facility] Emergency Department today. Your (unknown) (no (unknown) (unknown) This is a (units (unkn own) date) 31-year-old female unknown) presents 3 department due to a week of chest (unknown) (no (unknown) (unknown) Time Seen by (units (u nknown) date) Provider: 01/18/22 unknown) 15:25 (unknown) (no (unknown) (unknown) Total Bilirubin (units (unknown) date) (0.2-1.3) mg/dL unknown) (unknown) (no (unknown) (unknown) Total Bilirubin (units (unknown) date) 0.6 (0.2-1.3) unknown) mg/dL (unknown) (no (unknown) (unknown) Total Creatine (units (unknown) date) Kinase (30-135) unknown) U/L (unknown) (no (unknown) (unknown) Total Creatine (units (unknown) date) Kinase 49 (30-135) unknown) U/L (unknown) (no (unknown) (unknown) Total Protein (units ( unknown) date) (6.3-8.2) g/dL unknown) (unknown) (no (unknown) (unknown) Total Protein 8.1 (units (unknown) date) (6.3-8.2) g/dL unknown) (unknown) (no (unknown) (unknown) Troponin + CK (units ( unknown) date) Cardiac Panel Stat unknown) (unknown) (no (unknown) (unknown) Troponin I < (units (u nknown) date) 0.012 (0.01-0.034) unknown) ng/mL (unknown) (no (unknown) (unknown) Troponin I (units (unk nown) date) (0.01-0.034) ng/mL unknown) (unknown) (no (unknown) (unknown) Vital Signs - 8 (units (unknown) date) hr unknown) (unknown) (no (unknown) (unknown) Vital Signs (units (un known) date) unknown) (unknown) (no (unknown) (unknown) Vital signs: (units (u nknown) date) unknown) (unknown) (no (unknown) (unknown) WBC (4.5-11.0) (units (unknown) date) X103/uL unknown) (unknown) (no (unknown) (unknown) WBC 8.3 (units (unkno wn) date) (4.5-11.0) X103/uL unknown) (unknown) (no (unknown) (unknown) [place] teeth (units (u nknown) date) removed () unknown) (unknown) (no (unknown) (unknown) XR chest 1V Stat (units (unknown) date) unknown) (unknown) (no (unknown) (unknown) XRay Report (units (un known) date) unknown) (unknown) (no (unknown) (unknown) [Embedded Image (units (unknown) date) Not Available] unknown) (unknown) (no (unknown) (unknown) abnormalities, (units (unknown) date) all other lab work unknown) negative as well. Background patient follow (unknown) (no (unknown) (unknown) albuterol sulfate (units (unknown) date) 90 mcg/actuation 1 unknown) inh inhalation Q4-6H PRN 01/18/22 (unknown) (no (unknown) (unknown) albuterol sulfate (units (unknown) date) 90 mcg/actuation unknown) aerosol powdr breath activated (unknown) (no (unknown) (unknown) alcohol intake (units (unknown) date) frequency: unknown) holidays/special occasions only (unknown) (no (unknown) (unknown) any other (units (unkn own) date) concerning signs unknown) or symptoms. Patient states that the pain is (unknown) (no (unknown) (unknown) appear (units (unkno wn) date) unknown) (unknown) (no (unknown) (unknown) breath activated (units (unknown) date) powder inhaler unknown) shortness of breath #1 ea (unknown) (no (unknown) (unknown) cardiac workup (units (unknown) date) was unremarkable. unknown) Chest x-ray showed no evidence of heart or (unknown) (no (unknown) (unknown) chest pain. (units (un known) date) Patient denies any unknown) fevers, nausea, vomiting, your eye symptoms, or (unknown) (no (unknown) (unknown) clot in your (units (u nknown) date) lungs which was unknown) also negative. I recommended follow-up with the (unknown) (no (unknown) (unknown) constant and does (units (unknown) date) not worsen with unknown) activity or changes in position. Patient (unknown) (no (unknown) (unknown) constipation, (units ( unknown) date) melena. unknown) (unknown) (no (unknown) (unknown) dizziness. (units (unk nown) date) unknown) (unknown) (no (unknown) (unknown) due to a week of (units (unknown) date) chest pressure unknown) mild chest ?tightness?. All cardiac workup (unknown) (no (unknown) (unknown) electrolyte (units (un known) date) abnormalities. We unknown) also did a test to check for any kind of blood (unknown) (no (unknown) (unknown) estradiol 20 mcg (units (unknown) date) tablet .COMPLEX unknown) #63 tabs (unknown) (no (unknown) (unknown) icterus. No (units (un known) date) injection or unknown) drainage. (unknown) (no (unknown) (unknown) lung (units (unkno wn) date) abnormalities. The unknown) blood test to check for any kind of heart attack was (unknown) (no (unknown) (unknown) metoprolol (units (unk nown) date) succinate 100 mg unknown) 100 mg PO DAILY #90 tabs 01/17/22 (unknown) (no (unknown) (unknown) metoprolol (units (unk nown) date) succinate 100 mg unknown) tablet extended release 24 hr (unknown) (no (unknown) (unknown) negative. (units (unkn own) date) Troponin within unknown) normal limits, EKG reassuring, chest x-ray showed no (unknown) (no (unknown) (unknown) norethindrone (units ( unknown) date) ac-eth estradiol unknown) 1-20 mg-mcg tablet (unknown) (no (unknown) (unknown) norethindrone (units ( unknown) date) acetate 1 unknown) mg-ethinyl See Rx Instructions .Route 09/01/21 (unknown) (no (unknown) (unknown) of mild reaction (units (unknown) date) to the increased unknown) smoke in the area. D-dimer also negative to (unknown) (no (unknown) (unknown) official (units (unkno wn) date) diagnosis. Last unknown) took her control pill a month ago. (unknown) (no (unknown) (unknown) other lab work (units (unknown) date) was unremarkable unknown) as well, did not show any signs of infection or (unknown) (no (unknown) (unknown) palpitations, (units ( unknown) date) orthopnea, edema, unknown) (unknown) (no (unknown) (unknown) pressure and (units (u nknown) date) ?tightness?. unknown) Denies any significant shortness of breath or sharp (unknown) (no (unknown) (unknown) primary care (units (u nknown) date) provider for unknown) possible cardiology referral if symptoms continue. (unknown) (no (unknown) (unknown) rales, or (units (unkn own) date) rhonchi. unknown) (unknown) (no (unknown) (unknown) reassuring. EKG (units (unknown) date) showed no evidence unknown) of any kind heart abnormality. All your (unknown) (no (unknown) (unknown) referral. (units (unkn own) date) Albuterol inhaler unknown) also prescribed in the event that this is some kind (unknown) (no (unknown) (unknown) rule out PE. (units (u nknown) date) unknown) (unknown) (no (unknown) (unknown) seizures, (units (unkn own) date) incoordination. unknown) (unknown) (no (unknown) (unknown) states that she (units (unknown) date) is been seen by unknown) her primary care provider for this without any (unknown) (no (unknown) (unknown) tablet,extended (units (unknown) date) release 24 hr unknown) (unknown) (no (unknown) (unknown) tonsillar (units (unkn own) date) hypertrophy or unknown) exudate. Airway patent. (unknown) (no (unknown) (unknown) unremarkable.? (units (unknown) date) unknown) (unknown) (no (unknown) (unknown) up with her (units (un known) date) primary care unknown) provider for continued workup with possible Cardiology Result panel 26 (unknown) (no (unknown) (unknown) (no value) (units (unk nown) date) unknown) (unknown) (no (unknown) (unknown) <Electronically (units (unknown) date) signed by Kalyan unknown) PSaida Schwartz> (unknown) (no (unknown) (unknown) 1 inh inhalation (units (unknown) date) Q4-6H PRN (Reason: unknown) shortness of breath) Qty: 1 0RF (unknown) (no (unknown) (unknown) 01/18/22 01/18/22 (units (unknown) date) 01/18/22 unknown) Range/Units (unknown) (no (unknown) (unknown) 01/18/22 10:30 (units (unknown) date) unknown) (unknown) (no (unknown) (unknown) 01/18/22 10:43 (units (unknown) date) unknown) (unknown) (no (unknown) (unknown) 01/18/22 10:50 (units (unknown) date) unknown) (unknown) (no (unknown) (unknown) 01/18/22 15:50 (units (unknown) date) unknown) (unknown) (no (unknown) (unknown) 01/18/22 1833 (units ( unknown) date) unknown) (unknown) (no (unknown) (unknown) 01/18/22 (units (unkno wn) date) Range/Units unknown) (unknown) (no (unknown) (unknown) 01/18/22 (units (unkno wn) date) unknown) (unknown) (no (unknown) (unknown) 100 mg PO DAILY (units (unknown) date) Qty: 90 0RF unknown) (unknown) (no (unknown) (unknown) 10:30 10:30 10:50 (units (unknown) date) unknown) (unknown) (no (unknown) (unknown) 10:38 (units (unkno wn) date) unknown) (unknown) (no (unknown) (unknown) 12 point review (units (unknown) date) of systems is unknown) negative except for those stated above (unknown) (no (unknown) (unknown) [address] (units (unknown) date) unknown) (unknown) (no (unknown) (unknown) 15:50 (units (unkno wn) date) unknown) (unknown) (no (unknown) (unknown) ? (units (unkno wn) date) unknown) (unknown) (no (unknown) (unknown) ALT (<35) IU/L (units (unknown) date) unknown) (unknown) (no (unknown) (unknown) ALT 14 (<35) IU/L (units (unknown) date) unknown) (unknown) (no (unknown) (unknown) APTT (26-36) (units (u nknown) date) SECONDS unknown) (unknown) (no (unknown) (unknown) APTT 32 (26-36) (units (unknown) date) SECONDS unknown) (unknown) (no (unknown) (unknown) AST (14-36) IU/L (units (unknown) date) unknown) (unknown) (no (unknown) (unknown) AST 18 (14-36) (units (unknown) date) IU/L unknown) (unknown) (no (unknown) (unknown) Accession Number: (units (unknown) date) [id number] ?? unknown) (unknown) (no (unknown) (unknown) Acct:[id number] (units (unknown) date) unknown) (unknown) (no (unknown) (unknown) Activity (units (unkno wn) date) Restrictions/Addit unknown) ional Instructions: (unknown) (no (unknown) (unknown) Age/Sex: 31 / F (units (unknown) date) unknown) (unknown) (no (unknown) (unknown) Albumin (3.5-5.0) (units (unknown) date) g/dL unknown) (unknown) (no (unknown) (unknown) Albumin 4.7 (units (un known) date) (3.5-5.0) g/dL unknown) (unknown) (no (unknown) (unknown) Albumin/Globulin (units (unknown) date) Ratio (1.0-2.8) unknown) (unknown) (no (unknown) (unknown) Albumin/Globulin (units (unknown) date) Ratio 1.4 unknown) (1.0-2.8) (unknown) (no (unknown) (unknown) Alkaline (units (unkno wn) date) Phosphatase unknown) (38-126) U/L (unknown) (no (unknown) (unknown) Alkaline (units (unkno wn) date) Phosphatase 89 unknown) (38-126) U/L (unknown) (no (unknown) (unknown) Allergies (units (unkn own) date) unknown) (unknown) (no (unknown) (unknown) Allergy/AdvReac (units (unknown) date) Type Severity unknown) Reaction Status Date / Time (unknown) (no (unknown) (unknown) [place], [place] (units ( unknown) date) [id number] unknown) (unknown) (no (unknown) (unknown) Anxiety (units (unkno wn) date) unknown) (unknown) (no (unknown) (unknown) Approved by: (units (u nknown) date) Carson Peter M.D. unknown) on 01/18/2022 at 11:28 ? (unknown) (no (unknown) (unknown) BACK: Nontender (units (unknown) date) without deformity unknown) or crepitance. No flank tenderness. (unknown) (no (unknown) (unknown) BUN (7-17) mg/dL (units (unknown) date) unknown) (unknown) (no (unknown) (unknown) BUN 13 (7-17) (units ( unknown) date) mg/dL unknown) (unknown) (no (unknown) (unknown) BUN/Creatinine (units (unknown) date) Ratio (6-22) unknown) (unknown) (no (unknown) (unknown) BUN/Creatinine (units (unknown) date) Ratio 24.5 H unknown) (6-22) (unknown) (no (unknown) (unknown) Baso # (Auto) (units ( unknown) date) (0-100) /uL unknown) (unknown) (no (unknown) (unknown) Baso # (Auto) 100 (units (unknown) date) (0-100) /uL unknown) (unknown) (no (unknown) (unknown) Baso % (Auto) (units ( unknown) date) (0-2) % unknown) (unknown) (no (unknown) (unknown) Baso % (Auto) 1.1 (units (unknown) date) (0-2) % unknown) (unknown) (no (unknown) (unknown) Blood Pressure (units (unknown) date) 184/116 H 01/18/22 unknown) 10:38 (unknown) (no (unknown) (unknown) Blood Pressure (units (unknown) date) 184/116 H unknown) (unknown) (no (unknown) (unknown) Bones and chest (units (unknown) date) wall:? No unknown) suspicious bony lesions.? Overlying soft tissues (unknown) (no (unknown) (unknown) CARDIOVASCULAR: (units (unknown) date) Regular rate and unknown) rhythm without murmurs, gallops, or rubs. (unknown) (no (unknown) (unknown) CARDIOVASCULAR: (units (unknown) date) Reports chest unknown) tightness as well as chest pressure, denies, (unknown) (no (unknown) (unknown) CK-MB (CK-2) Rel (units (unknown) date) Index TNP unknown) (unknown) (no (unknown) (unknown) CK-MB (CK-2) Rel (units (unknown) date) Index unknown) (unknown) (no (unknown) (unknown) CK-MB (CK-2) TNP (units (unknown) date) unknown) (unknown) (no (unknown) (unknown) CK-MB (CK-2) (units (u nknown) date) unknown) (unknown) (no (unknown) (unknown) COMPARISON:? (units (u nknown) date) None. unknown) (unknown) (no (unknown) (unknown) Calcium (units (unkno wn) date) (8.4-10.2) mg/dL unknown) (unknown) (no (unknown) (unknown) Calcium 9.0 (units (un known) date) (8.4-10.2) mg/dL unknown) (unknown) (no (unknown) (unknown) Carbon Dioxide (units (unknown) date) (22-32) mmol/L unknown) (unknown) (no (unknown) (unknown) Carbon Dioxide 23 (units (unknown) date) (22-32) mmol/L unknown) (unknown) (no (unknown) (unknown) Chest pressure (units (unknown) date) unknown) (unknown) (no (unknown) (unknown) Chest x-ray: (units (u nknown) date) unknown) (unknown) (no (unknown) (unknown) Chicken pox (units (un known) date) () unknown) (unknown) (no (unknown) (unknown) Chief Complaint: (units (unknown) date) Chest Pain unknown) (unknown) (no (unknown) (unknown) Chloride (98-107) (units (unknown) date) mmol/L unknown) (unknown) (no (unknown) (unknown) Chloride 104 (units (u nknown) date) (98-107) mmol/L unknown) (unknown) (no (unknown) (unknown) Clinical (units (unkno wn) date) Impression: unknown) (unknown) (no (unknown) (unknown) Complete Blood (units (unknown) date) Count AUTO DIFF unknown) Stat (unknown) (no (unknown) (unknown) Comprehensive (units ( unknown) date) Metabolic Panel unknown) Stat (unknown) (no (unknown) (unknown) Course (units (unkno wn) date) unknown) (unknown) (no (unknown) (unknown) Creatinine (units (unk nown) date) (0.52-1.04) mg/dL unknown) (unknown) (no (unknown) (unknown) Creatinine 0.53 (units (unknown) date) (0.52-1.04) mg/dL unknown) (unknown) (no (unknown) (unknown) D Dimer Stat (units (u nknown) date) unknown) (unknown) (no (unknown) (unknown) D-Dimer (<500) (units (unknown) date) ng/ml unknown) (unknown) (no (unknown) (unknown) D-Dimer 305 (units (un known) date) (<500) ng/ml unknown) (unknown) (no (unknown) (unknown) : 1990 (units (unknown) date) Acct:[id number] unknown) (unknown) (no (unknown) (unknown) : 1990 (units (unknown) date) unknown) (unknown) (no (unknown) (unknown) Date of Service: (units (unknown) date) 01/18/22 unknown) (unknown) (no (unknown) (unknown) Departure (units (unkn own) date) unknown) (unknown) (no (unknown) (unknown) Dictated by: (units (u nknown) date) Carson Peter M.D. unknown) on 01/18/2022 at 11:27 ? ? (unknown) (no (unknown) (unknown) Discharge Plan (units (unknown) date) unknown) (unknown) (no (unknown) (unknown) Dose Instruction: (units (unknown) date) unknown) (unknown) (no (unknown) (unknown) Dyslipidemia (units (u nknown) date) unknown) (unknown) (no (unknown) (unknown) ECG Data (units (unkno wn) date) unknown) (unknown) (no (unknown) (unknown) ED Orders (units (unkn own) date) unknown) (unknown) (no (unknown) (unknown) EKG is normal (units ( unknown) date) sinus rhythm rate unknown) 89 and free of any signs of ischemia or ectopy. (unknown) (no (unknown) (unknown) EKG-12 Lead Stat (units (unknown) date) unknown) (unknown) (no (unknown) (unknown) ENT: Nose without (units (unknown) date) bleeding, purulent unknown) drainage. Throat without erythema, (unknown) (no (unknown) (unknown) ER Physician: (units ( unknown) date) Kalyan Schwartz P.A-C unknown) (unknown) (no (unknown) (unknown) EXTREMITIES: No (units (unknown) date) edema or joint unknown) tenderness. (unknown) (no (unknown) (unknown) EYES: Pupils (units (u nknown) date) equal round and unknown) reactive. Extraocular motions intact. No scleral (unknown) (no (unknown) (unknown) Emergency Report (units (unknown) date) unknown) (unknown) (no (unknown) (unknown) Eos # (Auto) (units (u nknown) date) (0-450) /uL unknown) (unknown) (no (unknown) (unknown) Eos # (Auto) 300 (units (unknown) date) (0-450) /uL unknown) (unknown) (no (unknown) (unknown) Eos % (Auto) (units (u nknown) date) (2-4) % unknown) (unknown) (no (unknown) (unknown) Eos % (Auto) 3.6 (units (unknown) date) (2-4) % unknown) (unknown) (no (unknown) (unknown) Essential (units (unkn own) date) hypertension unknown) (-2019) (unknown) (no (unknown) (unknown) Estimated GFR > (units (unknown) date) 60 (>60) mL/min unknown) (unknown) (no (unknown) (unknown) Estimated GFR (units ( unknown) date) (>60) mL/min unknown) (unknown) (no (unknown) (unknown) Exam Narrative: (units (unknown) date) unknown) (unknown) (no (unknown) (unknown) Exam (units (unkno wn) date) unknown) (unknown) (no (unknown) (unknown) FINDINGS:? (units (unk nown) date) unknown) (unknown) (no (unknown) (unknown) GASTROINTESTINAL: (units (unknown) date) Abdomen soft, unknown) non-tender, nondistended. (unknown) (no (unknown) (unknown) GASTROINTESTINAL: (units (unknown) date) Denies nausea, unknown) vomiting, abdominal pain, diarrhea, (unknown) (no (unknown) (unknown) GENERAL: Denies (units (unknown) date) chills, fatigue, unknown) malaise, fever, sweats. (unknown) (no (unknown) (unknown) GENERAL: (units (unkno wn) date) Well-developed unknown) patient, in mild distress. (unknown) (no (unknown) (unknown) : Denies (units (unk nown) date) dysuria, unknown) frequency, incontinence, hematuria, urinary retention. (unknown) (no (unknown) (unknown) General (units (unkno wn) date) unknown) (unknown) (no (unknown) (unknown) Globulin (units (unkno wn) date) (1.7-4.1) g/dL unknown) (unknown) (no (unknown) (unknown) Globulin 3.4 (units (u nknown) date) (1.7-4.1) g/dL unknown) (unknown) (no (unknown) (unknown) Glucose (70-100) (units (unknown) date) mg/dL unknown) (unknown) (no (unknown) (unknown) Glucose 105 H (units ( unknown) date) (70-100) mg/dL unknown) (unknown) (no (unknown) (unknown) HEAD: Atraumatic. (units (unknown) date) Normocephalic. unknown) (unknown) (no (unknown) (unknown) HEENT: Denies (units ( unknown) date) sinus pain, ear unknown) pain, sore throat, difficulty swallowing, (unknown) (no (unknown) (unknown) HPI - Chest Pain (units (unknown) date) unknown) (unknown) (no (unknown) (unknown) HPI narrative: (units (unknown) date) unknown) (unknown) (no (unknown) (unknown) Hct (36-46) % (units ( unknown) date) unknown) (unknown) (no (unknown) (unknown) Hct 41.7 (36-46) (units (unknown) date) % unknown) (unknown) (no (unknown) (unknown) Hgb (12.0-16.0) (units (unknown) date) g/dL unknown) (unknown) (no (unknown) (unknown) Hgb 13.7 (units (unkno wn) date) (12.0-16.0) g/dL unknown) (unknown) (no (unknown) (unknown) History of (units (unk nown) date) Present Illness unknown) (unknown) (no (unknown) (unknown) History of (units (unk nown) date) section unknown) (-01/02/19) (unknown) (no (unknown) (unknown) I hope you feel (units (unknown) date) better soon. unknown) (unknown) (no (unknown) (unknown) IMPRESSION:? (units (u nknown) date) unknown) (unknown) (no (unknown) (unknown) INDICATIONS:? (units ( unknown) date) chest pain unknown) (unknown) (no (unknown) (unknown) INR (0.9-1.3) (units ( unknown) date) unknown) (unknown) (no (unknown) (unknown) INR 1.0 (0.9-1.3) (units (unknown) date) unknown) (unknown) (no (unknown) (unknown) Imaging Data (units (u nknown) date) unknown) (unknown) (no (unknown) (unknown) Immunization due (units (unknown) date) unknown) (unknown) (no (unknown) (unknown) Impaired fasting (units (unknown) date) blood sugar unknown) (unknown) (no (unknown) (unknown) Initial Vital (units ( unknown) date) Signs unknown) (unknown) (no (unknown) (unknown) Initial Vital (units ( unknown) date) Signs: unknown) (unknown) (no (unknown) (unknown) Instructions: DI (units (unknown) date) for Atypical Chest unknown) Pain (unknown) (no (unknown) (unknown) Interpretation: (units (unknown) date) unknown) (unknown) (no (unknown) (unknown) Is an otherwise (units (unknown) date) healthy unknown) 31-year-old female presents to the emergency department (unknown) (no (unknown) (unknown) [facility] (units (unknown) date) [address] [place] [address] unknown) [place] [address] (unknown) (no (unknown) (unknown) [facility] (units (unknown) date) unknown) (unknown) (no (unknown) (unknown) Lab Data (units (unkno wn) date) unknown) (unknown) (no (unknown) (unknown) Lab Results (units (un known) date) unknown) (unknown) (no (unknown) (unknown) Labs: (units (unkno wn) date) unknown) (unknown) (no (unknown) (unknown) Limitations: no (units (unknown) date) limitations unknown) (unknown) (no (unknown) (unknown) Lipase (23-300) (units (unknown) date) U/L unknown) (unknown) (no (unknown) (unknown) Lipase 90 (units (unkn own) date) (23-300) U/L unknown) (unknown) (no (unknown) (unknown) Lipase Stat (units (un known) date) unknown) (unknown) (no (unknown) (unknown) Loc: ED (units (unkno wn) date) unknown) (unknown) (no (unknown) (unknown) Lungs and (units (unkn own) date) pleura:? Lungs are unknown) clear.? No pleural effusions or pneumothorax.? (unknown) (no (unknown) (unknown) Lymph # (Auto) (units (unknown) date) ([phone]) /uL unknown) (unknown) (no (unknown) (unknown) Lymph # (Auto) (units (unknown) date) 2400 (4728-2354) unknown) /uL (unknown) (no (unknown) (unknown) Lymph % (Auto) (units (unknown) date) (25-40) % unknown) (unknown) (no (unknown) (unknown) Lymph % (Auto) (units (unknown) date) 29.3 (25-40) % unknown) (unknown) (no (unknown) (unknown) [id number] (units (unk nown) date) unknown) (unknown) (no (unknown) (unknown) MCH (26-34) PG (units (unknown) date) unknown) (unknown) (no (unknown) (unknown) MCH 27.2 (26-34) (units (unknown) date) PG unknown) (unknown) (no (unknown) (unknown) MCHC (30-36) % (units (unknown) date) unknown) (unknown) (no (unknown) (unknown) MCHC 32.9 (30-36) (units (unknown) date) % unknown) (unknown) (no (unknown) (unknown) MCV (80-100) fL (units (unknown) date) unknown) (unknown) (no (unknown) (unknown) MCV 82.8 (80-100) (units (unknown) date) fL unknown) (unknown) (no (unknown) (unknown) MDM - Chest Pain (units (unknown) date) unknown) (unknown) (no (unknown) (unknown) MDM Narrative (units ( unknown) date) unknown) (unknown) (no (unknown) (unknown) MR#: [id number] (units (unknown) date) unknown) (unknown) (no (unknown) (unknown) MUSCULOSKELETAL: (units (unknown) date) denies weakness, unknown) joint pain, or bony pain (unknown) (no (unknown) (unknown) Magnesium (units (unkn own) date) (1.6-2.3) mg/dL unknown) (unknown) (no (unknown) (unknown) Magnesium 2.0 (units ( unknown) date) (1.6-2.3) mg/dL unknown) (unknown) (no (unknown) (unknown) Magnesium Stat (units (unknown) date) unknown) (unknown) (no (unknown) (unknown) Mass of breast, (units (unknown) date) left unknown) (unknown) (no (unknown) (unknown) Mediastinum:? (units ( unknown) date) Mediastinal unknown) contours appear normal.? Heart size is normal.? (unknown) (no (unknown) (unknown) Medical History (units (unknown) date) (Reviewed 12/09/21 unknown) @ 14:47 by NICKY Ferrer) (unknown) (no (unknown) (unknown) Medical decision (units (unknown) date) making narrative: unknown) (unknown) (no (unknown) (unknown) Medication (units (unk nown) date) Instructions unknown) Recorded (unknown) (no (unknown) (unknown) Mode of arrival: (units (unknown) date) Ambulatory unknown) (unknown) (no (unknown) (unknown) [place]ike # (Auto) (units ( unknown) date) (0-900) /uL unknown) (unknown) (no (unknown) (unknown) [place]ike # (Auto) 600 (units (unknown) date) (0-900) /uL unknown) (unknown) (no (unknown) (unknown) [place] % (Auto) (units ( unknown) date) (3-14) % unknown) (unknown) (no (unknown) (unknown) Pike % (Auto) 7.3 (units (unknown) date) (3-14) % unknown) (unknown) (no (unknown) (unknown) NECK: Trachea (units ( unknown) date) midline. Non unknown) tender (unknown) (no (unknown) (unknown) NEURO: AOx3. (units (u nknown) date) unknown) (unknown) (no (unknown) (unknown) NEUROLOGIC: (units (un known) date) Denies weakness, unknown) headache, numbness, change in speech, confusion, (unknown) (no (unknown) (unknown) Narrative (units (unkn own) date) unknown) (unknown) (no (unknown) (unknown) Narrative: (units (unk nown) date) unknown) (unknown) (no (unknown) (unknown) Neut # (Auto) (units ( unknown) date) (7771-3813) /uL unknown) (unknown) (no (unknown) (unknown) Neut # (Auto) (units ( unknown) date) 4900 ([phone]) unknown) /uL (unknown) (no (unknown) (unknown) Neut % (Auto) (units ( unknown) date) (50-75) % unknown) (unknown) (no (unknown) (unknown) Neut % (Auto) (units ( unknown) date) 58.7 (50-75) % unknown) (unknown) (no (unknown) (unknown) New (units (unkno wn) date) unknown) (unknown) (no (unknown) (unknown) No Action (units (unkn own) date) unknown) (unknown) (no (unknown) (unknown) No Known Drug (units ( unknown) date) Allergies Allergy unknown) Unverified 01/18/22 10:45 (unknown) (no (unknown) (unknown) No ST segmental (units (unknown) date) elevation or unknown) depression. No T wave inversions (unknown) (no (unknown) (unknown) No acute (units (unkno wn) date) cardiopulmonary unknown) abnormality. (unknown) (no (unknown) (unknown) Ordered: (units (unkno wn) date) unknown) (unknown) (no (unknown) (unknown) Ordering (units (unkno wn) date) Provider: unknown) Maryanne Panchal D.O. (unknown) (no (unknown) (unknown) Orders (units (unkno wn) date) unknown) (unknown) (no (unknown) (unknown) Oxygen Delivery (units (unknown) date) Method 01/18/22 unknown) 10:38 (unknown) (no (unknown) (unknown) Oxygen Delivery (units (unknown) date) Method Room Air unknown) (unknown) (no (unknown) (unknown) PROCEDURE:? XR (units (unknown) date) CHEST 1V unknown) (unknown) (no (unknown) (unknown) PSYCHIATRIC: No (units (unknown) date) concerning unknown) psychosocial issues. (unknown) (no (unknown) (unknown) PT (10.1-12.7) (units (unknown) date) SECONDS unknown) (unknown) (no (unknown) (unknown) PT 11.3 (units (unkno wn) date) (10.1-12.7) unknown) SECONDS (unknown) (no (unknown) (unknown) Painful lumpy (units ( unknown) date) left breast unknown) (unknown) (no (unknown) (unknown) Partial (units (unkno wn) date) Thromboplastin unknown) Time Stat (unknown) (no (unknown) (unknown) Patient (units (unkno wn) date) Disposition: Home unknown) (unknown) (no (unknown) (unknown) Patient History (units (unknown) date) unknown) (unknown) (no (unknown) (unknown) Patient: (units (unkno wn) date) Deepa Moser unknown) MR#: (unknown) (no (unknown) (unknown) Patient: (units (unkno wn) date) Deepa Moser unknown) (unknown) (no (unknown) (unknown) Plt Count (units (unkn own) date) (150-400) X103/uL unknown) (unknown) (no (unknown) (unknown) Plt Count 323 (units ( unknown) date) (150-400) X103/uL unknown) (unknown) (no (unknown) (unknown) Potassium (units (unkn own) date) (3.4-5.1) mmol/L unknown) (unknown) (no (unknown) (unknown) Potassium 3.9 (units ( unknown) date) (3.4-5.1) mmol/L unknown) (unknown) (no (unknown) (unknown) Prescriptions: (units (unknown) date) unknown) (unknown) (no (unknown) (unknown) Previous Rx's (units ( unknown) date) unknown) (unknown) (no (unknown) (unknown) Procedure: XR (units ( unknown) date) chest 1V unknown) (unknown) (no (unknown) (unknown) Prothrombin Time (units (unknown) date) INR Stat unknown) (unknown) (no (unknown) (unknown) Pulse Oximetry (units (unknown) date) 100 01/18/22 10:38 unknown) (unknown) (no (unknown) (unknown) Pulse Oximetry (units (unknown) date) 100 unknown) (unknown) (no (unknown) (unknown) Pulse Rate 75 (units ( unknown) date) 01/18/22 10:38 unknown) (unknown) (no (unknown) (unknown) Pulse Rate 75 (units ( unknown) date) unknown) (unknown) (no (unknown) (unknown) RBC (4.0-5.2) (units ( unknown) date) X106/uL unknown) (unknown) (no (unknown) (unknown) RBC 5.04 (units (unkno wn) date) (4.0-5.2) X106/uL unknown) (unknown) (no (unknown) (unknown) RDW (11.6-14.8) % (units (unknown) date) unknown) (unknown) (no (unknown) (unknown) RDW 13.0 (units (unkno wn) date) (11.6-14.8) % unknown) (unknown) (no (unknown) (unknown) RESPIRATORY: Clear (units (unknown) date) to auscultation. unknown) Breath sounds equal bilaterally. No wheezes, (unknown) (no (unknown) (unknown) RESPIRATORY: (units (u nknown) date) Denies dyspnea, unknown) cough, wheezing, hemoptysis, sputum. (unknown) (no (unknown) (unknown) Radiologist's (units ( unknown) date) Impression: unknown) (unknown) (no (unknown) (unknown) Referrals: (units (unk nown) date) unknown) (unknown) (no (unknown) (unknown) Related Data (units (u nknown) date) unknown) (unknown) (no (unknown) (unknown) Respiratory Rate (units (unknown) date) 15 01/18/22 10:38 unknown) (unknown) (no (unknown) (unknown) Respiratory Rate (units (unknown) date) 15 unknown) (unknown) (no (unknown) (unknown) Result diagrams: (units (unknown) date) unknown) (unknown) (no (unknown) (unknown) Review of Systems (units (unknown) date) unknown) (unknown) (no (unknown) (unknown) Celso Rowley, (units ( unknown) date) FRUIT OR NUT PICKER [Primary Care unknown) Provider] (unknown) (no (unknown) (unknown) Rx Instructions: (units (unknown) date) unknown) (unknown) (no (unknown) (unknown) SKIN: Denies (units (u nknown) date) rash, skin unknown) lesions, or other (unknown) (no (unknown) (unknown) SKIN: No rash or (units (unknown) date) erythema of unknown) visible areas (unknown) (no (unknown) (unknown) See Rx (units (unkno wn) date) Instructions unknown) .ROUTE .COMPLEX Qty: 63 1RF (unknown) (no (unknown) (unknown) Signed By: (units (unk nown) date) unknown) (unknown) (no (unknown) (unknown) Signed (units (unkno wn) date) unknown) (unknown) (no (unknown) (unknown) Smoking Status: (units (unknown) date) Unknown if ever unknown) smoked (unknown) (no (unknown) (unknown) Social History (units (unknown) date) (System 01/18/22 @ unknown) 10:45 by Rhoda Mohr) (unknown) (no (unknown) (unknown) Sodium (137-145) (units (unknown) date) mmol/L unknown) (unknown) (no (unknown) (unknown) Sodium 139 (units (unk nown) date) (137-145) mmol/L unknown) (unknown) (no (unknown) (unknown) Source: patient (units (unknown) date) unknown) (unknown) (no (unknown) (unknown) Stated Complaint: (units (unknown) date) chest pressure, unknown) headace yesterday (unknown) (no (unknown) (unknown) Substance Use (units ( unknown) date) Type: does not use unknown) (unknown) (no (unknown) (unknown) Surgical History (units (unknown) date) (Reviewed 12/09/21 unknown) @ 14:47 by NICKY Ferrer) (unknown) (no (unknown) (unknown) Surgical changes (units (unknown) date) and devices:? Left unknown) breast clips. (unknown) (no (unknown) (unknown) TAKE 1 TABLET BY (units (unknown) date) MOUTH DAILY unknown) (unknown) (no (unknown) (unknown) TECHNIQUE:? One (units (unknown) date) view of the chest unknown) was acquired.? (unknown) (no (unknown) (unknown) Temperature 96.4 (units (unknown) date) F L 01/18/22 10:38 unknown) (unknown) (no (unknown) (unknown) Temperature 96.4 (units (unknown) date) F L unknown) (unknown) (no (unknown) (unknown) Thank you for (units ( unknown) date) coming to the unknown) [facility] Emergency Department today. Your (unknown) (no (unknown) (unknown) This is a (units (unkn own) date) 31-year-old female unknown) presents 3 department due to a week of chest (unknown) (no (unknown) (unknown) Time Seen by (units (u nknown) date) Provider: 01/18/22 unknown) 15:25 (unknown) (no (unknown) (unknown) Total Bilirubin (units (unknown) date) (0.2-1.3) mg/dL unknown) (unknown) (no (unknown) (unknown) Total Bilirubin (units (unknown) date) 0.6 (0.2-1.3) unknown) mg/dL (unknown) (no (unknown) (unknown) Total Creatine (units (unknown) date) Kinase (30-135) unknown) U/L (unknown) (no (unknown) (unknown) Total Creatine (units (unknown) date) Kinase 49 (30-135) unknown) U/L (unknown) (no (unknown) (unknown) Total Protein (units ( unknown) date) (6.3-8.2) g/dL unknown) (unknown) (no (unknown) (unknown) Total Protein 8.1 (units (unknown) date) (6.3-8.2) g/dL unknown) (unknown) (no (unknown) (unknown) Troponin + CK (units ( unknown) date) Cardiac Panel Stat unknown) (unknown) (no (unknown) (unknown) Troponin I < (units (u nknown) date) 0.012 (0.01-0.034) unknown) ng/mL (unknown) (no (unknown) (unknown) Troponin I (units (unk nown) date) (0.01-0.034) ng/mL unknown) (unknown) (no (unknown) (unknown) Vital Signs - 8 (units (unknown) date) hr unknown) (unknown) (no (unknown) (unknown) Vital Signs (units (un known) date) unknown) (unknown) (no (unknown) (unknown) Vital signs: (units (u nknown) date) unknown) (unknown) (no (unknown) (unknown) WBC (4.5-11.0) (units (unknown) date) X103/uL unknown) (unknown) (no (unknown) (unknown) WBC 8.3 (units (unkno wn) date) (4.5-11.0) X103/uL unknown) (unknown) (no (unknown) (unknown) [place] teeth (units (u nknown) date) removed () unknown) (unknown) (no (unknown) (unknown) XR chest 1V Stat (units (unknown) date) unknown) (unknown) (no (unknown) (unknown) XRay Report (units (un known) date) unknown) (unknown) (no (unknown) (unknown) [Embedded Image (units (unknown) date) Not Available] unknown) (unknown) (no (unknown) (unknown) abnormalities, (units (unknown) date) all other lab work unknown) negative as well. Background patient follow (unknown) (no (unknown) (unknown) albuterol sulfate (units (unknown) date) 90 mcg/actuation 1 unknown) inh inhalation Q4-6H PRN 01/18/22 (unknown) (no (unknown) (unknown) albuterol sulfate (units (unknown) date) 90 mcg/actuation unknown) aerosol powdr breath activated (unknown) (no (unknown) (unknown) alcohol intake (units (unknown) date) frequency: unknown) holidays/special occasions only (unknown) (no (unknown) (unknown) any other (units (unkn own) date) concerning signs unknown) or symptoms. Patient states that the pain is (unknown) (no (unknown) (unknown) appear (units (unkno wn) date) unknown) (unknown) (no (unknown) (unknown) breath activated (units (unknown) date) powder inhaler unknown) shortness of breath #1 ea (unknown) (no (unknown) (unknown) cardiac workup (units (unknown) date) was unremarkable. unknown) Chest x-ray showed no evidence of heart or (unknown) (no (unknown) (unknown) chest pain. (units (un known) date) Patient denies any unknown) fevers, nausea, vomiting, your eye symptoms, or (unknown) (no (unknown) (unknown) clot in your (units (u nknown) date) lungs which was unknown) also negative. I recommended follow-up with the (unknown) (no (unknown) (unknown) constant and does (units (unknown) date) not worsen with unknown) activity or changes in position. Patient (unknown) (no (unknown) (unknown) constipation, (units ( unknown) date) melena. unknown) (unknown) (no (unknown) (unknown) dizziness. (units (unk nown) date) unknown) (unknown) (no (unknown) (unknown) due to a week of (units (unknown) date) chest pressure unknown) mild chest ?tightness?. All cardiac workup (unknown) (no (unknown) (unknown) electrolyte (units (un known) date) abnormalities. We unknown) also did a test to check for any kind of blood (unknown) (no (unknown) (unknown) estradiol 20 mcg (units (unknown) date) tablet .COMPLEX unknown) #63 tabs (unknown) (no (unknown) (unknown) icterus. No (units (un known) date) injection or unknown) drainage. (unknown) (no (unknown) (unknown) lung (units (unkno wn) date) abnormalities. The unknown) blood test to check for any kind of heart attack was (unknown) (no (unknown) (unknown) metoprolol (units (unk nown) date) succinate 100 mg unknown) 100 mg PO DAILY #90 tabs 01/17/22 (unknown) (no (unknown) (unknown) metoprolol (units (unk nown) date) succinate 100 mg unknown) tablet extended release 24 hr (unknown) (no (unknown) (unknown) negative. (units (unkn own) date) Troponin within unknown) normal limits, EKG reassuring, chest x-ray showed no (unknown) (no (unknown) (unknown) norethindrone (units ( unknown) date) ac-eth estradiol unknown) 1-20 mg-mcg tablet (unknown) (no (unknown) (unknown) norethindrone (units ( unknown) date) acetate 1 unknown) mg-ethinyl See Rx Instructions .Route 09/01/21 (unknown) (no (unknown) (unknown) of mild reaction (units (unknown) date) to the increased unknown) smoke in the area. D-dimer also negative to (unknown) (no (unknown) (unknown) official (units (unkno wn) date) diagnosis. Last unknown) took her control pill a month ago. (unknown) (no (unknown) (unknown) other lab work (units (unknown) date) was unremarkable unknown) as well, did not show any signs of infection or (unknown) (no (unknown) (unknown) palpitations, (units ( unknown) date) orthopnea, edema, unknown) (unknown) (no (unknown) (unknown) pressure and (units (u nknown) date) ?tightness?. unknown) Denies any significant shortness of breath or sharp (unknown) (no (unknown) (unknown) primary care (units (u nknown) date) provider for unknown) possible cardiology referral if symptoms continue. (unknown) (no (unknown) (unknown) rales, or (units (unkn own) date) rhonchi. unknown) (unknown) (no (unknown) (unknown) reassuring. EKG (units (unknown) date) showed no evidence unknown) of any kind heart abnormality. All your (unknown) (no (unknown) (unknown) referral. (units (unkn own) date) Albuterol inhaler unknown) also prescribed in the event that this is some kind (unknown) (no (unknown) (unknown) rule out PE. (units (u nknown) date) unknown) (unknown) (no (unknown) (unknown) seizures, (units (unkn own) date) incoordination. unknown) (unknown) (no (unknown) (unknown) states that she (units (unknown) date) is been seen by unknown) her primary care provider for this without any (unknown) (no (unknown) (unknown) tablet,extended (units (unknown) date) release 24 hr unknown) (unknown) (no (unknown) (unknown) tonsillar (units (unkn own) date) hypertrophy or unknown) exudate. Airway patent. (unknown) (no (unknown) (unknown) unremarkable.? (units (unknown) date) unknown) (unknown) (no (unknown) (unknown) up with her (units (un known) date) primary care unknown) provider for continued workup with possible Cardiology Result panel 27 (unknown) (no (unknown) (unknown) (no value) (units (unk nown) date) unknown) (unknown) (no (unknown) (unknown) <Electronically (units (unknown) date) signed by Maryanne unknown) Ansley D.O.> (unknown) (no (unknown) (unknown) <Electronically (units (unknown) date) signed by Maryanne unknown) Ansley D.O.> (unknown) (no (unknown) (unknown) <Electronically (units (unknown) date) signed by Kalyan unknown) Elizabeth Schwartz> (unknown) (no (unknown) (unknown) <Maryanne Panchal, (units (unknown) date) DO - Last Filed: unknown) 01/19/22 09:26> (unknown) (no (unknown) (unknown) <Kalyan Schwartz PA-C (units (unknown) date) - Last Filed: unknown) 01/18/22 16:13> (unknown) (no (unknown) (unknown) <cosigner> (units (unk nown) date) unknown) (unknown) (no (unknown) (unknown) 1 inh inhalation (units (unknown) date) Q4-6H PRN (Reason: unknown) shortness of breath) Qty: 1 0RF (unknown) (no (unknown) (unknown) 01/18/22 01/18/22 (units (unknown) date) 01/18/22 unknown) Range/Units (unknown) (no (unknown) (unknown) 01/18/22 10:30 (units (unknown) date) unknown) (unknown) (no (unknown) (unknown) 01/18/22 10:43 (units (unknown) date) unknown) (unknown) (no (unknown) (unknown) 01/18/22 10:50 (units (unknown) date) unknown) (unknown) (no (unknown) (unknown) 01/18/22 15:50 (units (unknown) date) unknown) (unknown) (no (unknown) (unknown) 01/18/22 1833 (units ( unknown) date) unknown) (unknown) (no (unknown) (unknown) 01/18/22 (units (unkno wn) date) Range/Units unknown) (unknown) (no (unknown) (unknown) 01/18/22 (units (unkno wn) date) unknown) (unknown) (no (unknown) (unknown) 01/19/22 0926 (units ( unknown) date) unknown) (unknown) (no (unknown) (unknown) 100 mg PO DAILY (units (unknown) date) Qty: 90 0RF unknown) (unknown) (no (unknown) (unknown) 10:30 10:30 10:50 (units (unknown) date) unknown) (unknown) (no (unknown) (unknown) 10:38 (units (unkno wn) date) unknown) (unknown) (no (unknown) (unknown) 12 point review (units (unknown) date) of systems is unknown) negative except for those stated above (unknown) (no (unknown) (unknown) [address] [place] [address] (units (unknown) date) unknown) (unknown) (no (unknown) (unknown) 15:50 (units (unkno wn) date) unknown) (unknown) (no (unknown) (unknown) ? (units (unkno wn) date) unknown) (unknown) (no (unknown) (unknown) ALT (<35) IU/L (units (unknown) date) unknown) (unknown) (no (unknown) (unknown) ALT 14 (<35) IU/L (units (unknown) date) unknown) (unknown) (no (unknown) (unknown) APTT (26-36) (units (u nknown) date) SECONDS unknown) (unknown) (no (unknown) (unknown) APTT 32 (26-36) (units (unknown) date) SECONDS unknown) (unknown) (no (unknown) (unknown) AST (14-36) IU/L (units (unknown) date) unknown) (unknown) (no (unknown) (unknown) AST 18 (14-36) (units (unknown) date) IU/L unknown) (unknown) (no (unknown) (unknown) Accession Number: (units (unknown) date) [id number] ?? unknown) (unknown) (no (unknown) (unknown) Acct:[id number] (units (unknown) date) unknown) (unknown) (no (unknown) (unknown) Activity (units (unkno wn) date) Restrictions/Addit unknown) ional Instructions: (unknown) (no (unknown) (unknown) Age/Sex: 31 / F (units (unknown) date) unknown) (unknown) (no (unknown) (unknown) Albumin (3.5-5.0) (units (unknown) date) g/dL unknown) (unknown) (no (unknown) (unknown) Albumin 4.7 (units (un known) date) (3.5-5.0) g/dL unknown) (unknown) (no (unknown) (unknown) Albumin/Globulin (units (unknown) date) Ratio (1.0-2.8) unknown) (unknown) (no (unknown) (unknown) Albumin/Globulin (units (unknown) date) Ratio 1.4 unknown) (1.0-2.8) (unknown) (no (unknown) (unknown) Alkaline (units (unkno wn) date) Phosphatase unknown) (38-126) U/L (unknown) (no (unknown) (unknown) Alkaline (units (unkno wn) date) Phosphatase 89 unknown) (38-126) U/L (unknown) (no (unknown) (unknown) Allergies (units (unkn own) date) unknown) (unknown) (no (unknown) (unknown) Allergy/AdvReac (units (unknown) date) Type Severity unknown) Reaction Status Date / Time (unknown) (no (unknown) (unknown) STANLEY Talbert (units ( unknown) date) [id number] unknown) (unknown) (no (unknown) (unknown) Anxiety (units (unkno wn) date) unknown) (unknown) (no (unknown) (unknown) Approved by: (units (u nknown) date) Carson Peter M.D. unknown) on 01/18/2022 at 11:28 ? (unknown) (no (unknown) (unknown) BACK: Nontender (units (unknown) date) without deformity unknown) or crepitance. No flank tenderness. (unknown) (no (unknown) (unknown) BUN (7-17) mg/dL (units (unknown) date) unknown) (unknown) (no (unknown) (unknown) BUN 13 (7-17) (units ( unknown) date) mg/dL unknown) (unknown) (no (unknown) (unknown) BUN/Creatinine (units (unknown) date) Ratio (6-22) unknown) (unknown) (no (unknown) (unknown) BUN/Creatinine (units (unknown) date) Ratio 24.5 H unknown) (6-22) (unknown) (no (unknown) (unknown) Baso # (Auto) (units ( unknown) date) (0-100) /uL unknown) (unknown) (no (unknown) (unknown) Baso # (Auto) 100 (units (unknown) date) (0-100) /uL unknown) (unknown) (no (unknown) (unknown) Baso % (Auto) (units ( unknown) date) (0-2) % unknown) (unknown) (no (unknown) (unknown) Baso % (Auto) 1.1 (units (unknown) date) (0-2) % unknown) (unknown) (no (unknown) (unknown) Blood Pressure (units (unknown) date) 184/116 H 01/18/22 unknown) 10:38 (unknown) (no (unknown) (unknown) Blood Pressure (units (unknown) date) 184/116 H unknown) (unknown) (no (unknown) (unknown) Bones and chest (units (unknown) date) wall:? No unknown) suspicious bony lesions.? Overlying soft tissues (unknown) (no (unknown) (unknown) Botnick-sinus (units (u nknown) date) rhythm rate unknown) 81-year-old 1 2 QRS [address] changes no T-wave (unknown) (no (unknown) (unknown) CARDIOVASCULAR: (units (unknown) date) Regular rate and unknown) rhythm without murmurs, gallops, or rubs. (unknown) (no (unknown) (unknown) CARDIOVASCULAR: (units (unknown) date) Reports chest unknown) tightness as well as chest pressure, denies, (unknown) (no (unknown) (unknown) CK-MB (CK-2) Rel (units (unknown) date) Index TNP unknown) (unknown) (no (unknown) (unknown) CK-MB (CK-2) Rel (units (unknown) date) Index unknown) (unknown) (no (unknown) (unknown) CK-MB (CK-2) TNP (units (unknown) date) unknown) (unknown) (no (unknown) (unknown) CK-MB (CK-2) (units (u nknown) date) unknown) (unknown) (no (unknown) (unknown) COMPARISON:? (units (u nknown) date) None. unknown) (unknown) (no (unknown) (unknown) Calcium (units (o wn) date) (8.4-10.2) mg/dL unknown) (unknown) (no (unknown) (unknown) Calcium 9.0 (units (un known) date) (8.4-10.2) mg/dL unknown) (unknown) (no (unknown) (unknown) Carbon Dioxide (units (unknown) date) (22-32) mmol/L unknown) (unknown) (no (unknown) (unknown) Carbon Dioxide 23 (units (unknown) date) (22-32) mmol/L unknown) (unknown) (no (unknown) (unknown) Chest pressure (units (unknown) date) unknown) (unknown) (no (unknown) (unknown) Chest x-ray: (units (u nknown) date) unknown) (unknown) (no (unknown) (unknown) Chicken pox (units (un known) date) () unknown) (unknown) (no (unknown) (unknown) Chief Complaint: (units (unknown) date) Chest Pain unknown) (unknown) (no (unknown) (unknown) Chloride (98-107) (units (unknown) date) mmol/L unknown) (unknown) (no (unknown) (unknown) Chloride 104 (units (u nknown) date) (98-107) mmol/L unknown) (unknown) (no (unknown) (unknown) Clinical (units ( wn) ) Impression: unknown) (unknown) (no (unknown) (unknown) Complete Blood (units (unknown) date) Count AUTO DIFF unknown) Stat (unknown) (no (unknown) (unknown) Comprehensive (units ( unknown) date) Metabolic Panel unknown) Stat (unknown) (no (unknown) (unknown) Cosign (units (o wn) date) unknown) (unknown) (no (unknown) (unknown) Course (units (o wn) date) unknown) (unknown) (no (unknown) (unknown) Creatinine (units (unk nown) date) (0.52-1.04) mg/dL unknown) (unknown) (no (unknown) (unknown) Creatinine 0.53 (units (unknown) date) (0.52-1.04) mg/dL unknown) (unknown) (no (unknown) (unknown) D Dimer Stat (units (u nknown) date) unknown) (unknown) (no (unknown) (unknown) D-Dimer (<500) (units (unknown) date) ng/ml unknown) (unknown) (no (unknown) (unknown) D-Dimer 305 (units (un known) date) (<500) ng/ml unknown) (unknown) (no (unknown) (unknown) : 1990 (units (unknown) date) Acct:[id number] unknown) (unknown) (no (unknown) (unknown) : 1990 (units (unknown) date) unknown) (unknown) (no (unknown) (unknown) Date of Service: (units (unknown) date) 01/18/22 unknown) (unknown) (no (unknown) (unknown) Departure (units (unkn own) date) unknown) (unknown) (no (unknown) (unknown) Dictated by: (units (u nknown) date) Carson Peter M.D. unknown) on 01/18/2022 at 11:27 ? ? (unknown) (no (unknown) (unknown) Discharge Plan (units (unknown) date) unknown) (unknown) (no (unknown) (unknown) Dose Instruction: (units (unknown) date) unknown) (unknown) (no (unknown) (unknown) Dyslipidemia (units (u nknown) date) unknown) (unknown) (no (unknown) (unknown) ECG Data (units (unkno wn) date) unknown) (unknown) (no (unknown) (unknown) ED Attending (units (u nknown) date) Cosignature unknown) Attestation: (unknown) (no (unknown) (unknown) ED Orders (units (unkn own) date) unknown) (unknown) (no (unknown) (unknown) EKG is normal (units ( unknown) date) sinus rhythm rate unknown) 89 and free of any signs of ischemia or ectopy. (unknown) (no (unknown) (unknown) EKG-12 Lead Stat (units (unknown) date) unknown) (unknown) (no (unknown) (unknown) ENT: Nose without (units (unknown) date) bleeding, purulent unknown) drainage. Throat without erythema, (unknown) (no (unknown) (unknown) ER Physician: (units ( unknown) date) Kalyan Schwartz P.A-C unknown) (unknown) (no (unknown) (unknown) EXTREMITIES: No (units (unknown) date) edema or joint unknown) tenderness. (unknown) (no (unknown) (unknown) EYES: Pupils (units (u nknown) date) equal round and unknown) reactive. Extraocular motions intact. No scleral (unknown) (no (unknown) (unknown) Emergency Report (units (unknown) date) unknown) (unknown) (no (unknown) (unknown) Eos # (Auto) (units (u nknown) date) (0-450) /uL unknown) (unknown) (no (unknown) (unknown) Eos # (Auto) 300 (units (unknown) date) (0-450) /uL unknown) (unknown) (no (unknown) (unknown) Eos % (Auto) (units (u nknown) date) (2-4) % unknown) (unknown) (no (unknown) (unknown) Eos % (Auto) 3.6 (units (unknown) date) (2-4) % unknown) (unknown) (no (unknown) (unknown) Essential (units (unkn own) date) hypertension unknown) (-2019) (unknown) (no (unknown) (unknown) Estimated GFR > (units (unknown) date) 60 (>60) mL/min unknown) (unknown) (no (unknown) (unknown) Estimated GFR (units ( unknown) date) (>60) mL/min unknown) (unknown) (no (unknown) (unknown) Exam Narrative: (units (unknown) date) unknown) (unknown) (no (unknown) (unknown) Exam (units (unkno wn) date) unknown) (unknown) (no (unknown) (unknown) FINDINGS:? (units (unk nown) date) unknown) (unknown) (no (unknown) (unknown) GASTROINTESTINAL: (units (unknown) date) Abdomen soft, unknown) non-tender, nondistended. (unknown) (no (unknown) (unknown) GASTROINTESTINAL: (units (unknown) date) Denies nausea, unknown) vomiting, abdominal pain, diarrhea, (unknown) (no (unknown) (unknown) GENERAL: Denies (units (unknown) date) chills, fatigue, unknown) malaise, fever, sweats. (unknown) (no (unknown) (unknown) GENERAL: (units (unkno wn) date) Well-developed unknown) patient, in mild distress. (unknown) (no (unknown) (unknown) : Denies (units (unk nown) date) dysuria, unknown) frequency, incontinence, hematuria, urinary retention. (unknown) (no (unknown) (unknown) General (units (unkno wn) date) unknown) (unknown) (no (unknown) (unknown) Globulin (units (unkno wn) date) (1.7-4.1) g/dL unknown) (unknown) (no (unknown) (unknown) Globulin 3.4 (units (u nknown) date) (1.7-4.1) g/dL unknown) (unknown) (no (unknown) (unknown) Glucose (70-100) (units (unknown) date) mg/dL unknown) (unknown) (no (unknown) (unknown) Glucose 105 H (units ( unknown) date) (70-100) mg/dL unknown) (unknown) (no (unknown) (unknown) HEAD: Atraumatic. (units (unknown) date) Normocephalic. unknown) (unknown) (no (unknown) (unknown) HEENT: Denies (units ( unknown) date) sinus pain, ear unknown) pain, sore throat, difficulty swallowing, (unknown) (no (unknown) (unknown) HPI - Chest Pain (units (unknown) date) unknown) (unknown) (no (unknown) (unknown) HPI narrative: (units (unknown) date) unknown) (unknown) (no (unknown) (unknown) Hct (36-46) % (units ( unknown) date) unknown) (unknown) (no (unknown) (unknown) Hct 41.7 (36-46) (units (unknown) date) % unknown) (unknown) (no (unknown) (unknown) Hgb (12.0-16.0) (units (unknown) date) g/dL unknown) (unknown) (no (unknown) (unknown) Hgb 13.7 (units (unkno wn) date) (12.0-16.0) g/dL unknown) (unknown) (no (unknown) (unknown) History of (units (unk nown) date) Present Illness unknown) (unknown) (no (unknown) (unknown) History of (units (unk nown) date) section unknown) (-01/02/19) (unknown) (no (unknown) (unknown) I hope you feel (units (unknown) date) better soon. unknown) (unknown) (no (unknown) (unknown) I was immediately (units (unknown) date) available in the unknown) department for consultation. Documentation (unknown) (no (unknown) (unknown) IMPRESSION:? (units (u nknown) date) unknown) (unknown) (no (unknown) (unknown) INDICATIONS:? (units ( unknown) date) chest pain unknown) (unknown) (no (unknown) (unknown) INR (0.9-1.3) (units ( unknown) date) unknown) (unknown) (no (unknown) (unknown) INR 1.0 (0.9-1.3) (units (unknown) date) unknown) (unknown) (no (unknown) (unknown) Imaging Data (units (u nknown) date) unknown) (unknown) (no (unknown) (unknown) Immunization due (units (unknown) date) unknown) (unknown) (no (unknown) (unknown) Impaired fasting (units (unknown) date) blood sugar unknown) (unknown) (no (unknown) (unknown) Initial Vital (units ( unknown) date) Signs unknown) (unknown) (no (unknown) (unknown) Initial Vital (units ( unknown) date) Signs: unknown) (unknown) (no (unknown) (unknown) Instructions: DI (units (unknown) date) for Atypical Chest unknown) Pain (unknown) (no (unknown) (unknown) Interpretation: (units (unknown) date) unknown) (unknown) (no (unknown) (unknown) Is an otherwise (units (unknown) date) healthy unknown) 31-year-old female presents to the emergency department (unknown) (no (unknown) (unknown) [facility] (units (unknown) date) [address] unknown) [place] [address] (unknown) (no (unknown) (unknown) [facility] (units (unknown) date) unknown) (unknown) (no (unknown) (unknown) Lab Data (units (unkno wn) date) unknown) (unknown) (no (unknown) (unknown) Lab Results (units (un known) date) unknown) (unknown) (no (unknown) (unknown) Labs: (units (unkno wn) date) unknown) (unknown) (no (unknown) (unknown) Limitations: no (units (unknown) date) limitations unknown) (unknown) (no (unknown) (unknown) Lipase (23-300) (units (unknown) date) U/L unknown) (unknown) (no (unknown) (unknown) Lipase 90 (units (unkn own) date) (23-300) U/L unknown) (unknown) (no (unknown) (unknown) Lipase Stat (units (un known) date) unknown) (unknown) (no (unknown) (unknown) Loc: ED (units (unkno wn) date) unknown) (unknown) (no (unknown) (unknown) Lungs and (units (unkn own) date) pleura:? Lungs are unknown) clear.? No pleural effusions or pneumothorax.? (unknown) (no (unknown) (unknown) Lymph # (Auto) (units (unknown) date) (5333-7688) /uL unknown) (unknown) (no (unknown) (unknown) Lymph # (Auto) (units (unknown) date) 2400 (0567-1856) unknown) /uL (unknown) (no (unknown) (unknown) Lymph % (Auto) (units (unknown) date) (25-40) % unknown) (unknown) (no (unknown) (unknown) Lymph % (Auto) (units (unknown) date) 29.3 (25-40) % unknown) (unknown) (no (unknown) (unknown) [id number] (units (unk nown) date) unknown) (unknown) (no (unknown) (unknown) MCH (26-34) PG (units (unknown) date) unknown) (unknown) (no (unknown) (unknown) MCH 27.2 (26-34) (units (unknown) date) PG unknown) (unknown) (no (unknown) (unknown) MCHC (30-36) % (units (unknown) date) unknown) (unknown) (no (unknown) (unknown) MCHC 32.9 (30-36) (units (unknown) date) % unknown) (unknown) (no (unknown) (unknown) MCV (80-100) fL (units (unknown) date) unknown) (unknown) (no (unknown) (unknown) MCV 82.8 (80-100) (units (unknown) date) fL unknown) (unknown) (no (unknown) (unknown) MDM - Chest Pain (units (unknown) date) unknown) (unknown) (no (unknown) (unknown) MDM Narrative (units ( unknown) date) unknown) (unknown) (no (unknown) (unknown) MR#: [id number] (units (unknown) date) unknown) (unknown) (no (unknown) (unknown) MUSCULOSKELETAL: (units (unknown) date) denies weakness, unknown) joint pain, or bony pain (unknown) (no (unknown) (unknown) Magnesium (units (unkn own) date) (1.6-2.3) mg/dL unknown) (unknown) (no (unknown) (unknown) Magnesium 2.0 (units ( unknown) date) (1.6-2.3) mg/dL unknown) (unknown) (no (unknown) (unknown) Magnesium Stat (units (unknown) date) unknown) (unknown) (no (unknown) (unknown) Mass of breast, (units (unknown) date) left unknown) (unknown) (no (unknown) (unknown) Mediastinum:? (units ( unknown) date) Mediastinal unknown) contours appear normal.? Heart size is normal.? (unknown) (no (unknown) (unknown) Medical History (units (unknown) date) (Reviewed 12/09/21 unknown) @ 14:47 by NICKY Ferrer) (unknown) (no (unknown) (unknown) Medical decision (units (unknown) date) making narrative: unknown) (unknown) (no (unknown) (unknown) Medication (units (unk nown) date) Instructions unknown) Recorded (unknown) (no (unknown) (unknown) Mode of arrival: (units (unknown) date) Ambulatory unknown) (unknown) (no (unknown) (unknown) [place]ike # (Auto) (units ( unknown) date) (0-900) /uL unknown) (unknown) (no (unknown) (unknown) [place]ike # (Auto) 600 (units (unknown) date) (0-900) /uL unknown) (unknown) (no (unknown) (unknown) [place] % (Auto) (units ( unknown) date) (3-14) % unknown) (unknown) (no (unknown) (unknown) [place]ike % (Auto) 7.3 (units (unknown) date) (3-14) % unknown) (unknown) (no (unknown) (unknown) NECK: Trachea (units ( unknown) date) midline. Non unknown) tender (unknown) (no (unknown) (unknown) NEURO: AOx3. (units (u nknown) date) unknown) (unknown) (no (unknown) (unknown) NEUROLOGIC: (units (un known) date) Denies weakness, unknown) headache, numbness, change in speech, confusion, (unknown) (no (unknown) (unknown) Narrative (units (unkn own) date) unknown) (unknown) (no (unknown) (unknown) Narrative: (units (unk nown) date) unknown) (unknown) (no (unknown) (unknown) Neut # (Auto) (units ( unknown) date) (1049-4269) /uL unknown) (unknown) (no (unknown) (unknown) Neut # (Auto) (units ( unknown) date) 4900 (7741-8851) unknown) /uL (unknown) (no (unknown) (unknown) Neut % (Auto) (units ( unknown) date) (50-75) % unknown) (unknown) (no (unknown) (unknown) Neut % (Auto) (units ( unknown) date) 58.7 (50-75) % unknown) (unknown) (no (unknown) (unknown) New (units (unkno wn) date) unknown) (unknown) (no (unknown) (unknown) No Action (units (unkn own) date) unknown) (unknown) (no (unknown) (unknown) No Known Drug (units ( unknown) date) Allergies Allergy unknown) Unverified 01/18/22 10:45 (unknown) (no (unknown) (unknown) No ST segmental (units (unknown) date) elevation or unknown) depression. No T wave inversions (unknown) (no (unknown) (unknown) No acute (units (unkno wn) date) cardiopulmonary unknown) abnormality. (unknown) (no (unknown) (unknown) Ordered: (units (unkno wn) date) unknown) (unknown) (no (unknown) (unknown) Ordering (units (unkno wn) date) Provider: unknown) Maryanne Panchal D.O. (unknown) (no (unknown) (unknown) Orders (units (unkno wn) date) unknown) (unknown) (no (unknown) (unknown) Oxygen Delivery (units (unknown) date) Method 01/18/22 unknown) 10:38 (unknown) (no (unknown) (unknown) Oxygen Delivery (units (unknown) date) Method Room Air unknown) (unknown) (no (unknown) (unknown) PROCEDURE:? XR (units (unknown) date) CHEST 1V unknown) (unknown) (no (unknown) (unknown) PSYCHIATRIC: No (units (unknown) date) concerning unknown) psychosocial issues. (unknown) (no (unknown) (unknown) PT (10.1-12.7) (units (unknown) date) SECONDS unknown) (unknown) (no (unknown) (unknown) PT 11.3 (units (unkno wn) date) (10.1-12.7) unknown) SECONDS (unknown) (no (unknown) (unknown) Painful lumpy (units ( unknown) date) left breast unknown) (unknown) (no (unknown) (unknown) Partial (units (unkno wn) date) Thromboplastin unknown) Time Stat (unknown) (no (unknown) (unknown) Patient (units (unkno wn) date) Disposition: Home unknown) (unknown) (no (unknown) (unknown) Patient History (units (unknown) date) unknown) (unknown) (no (unknown) (unknown) Patient: (units (unkno wn) date) Deepa Moser unknown) MR#: (unknown) (no (unknown) (unknown) Patient: (units (unkno wn) date) Deepa Moser unknown) (unknown) (no (unknown) (unknown) Plt Count (units (unkn own) date) (150-400) X103/uL unknown) (unknown) (no (unknown) (unknown) Plt Count 323 (units ( unknown) date) (150-400) X103/uL unknown) (unknown) (no (unknown) (unknown) Potassium (units (unkn own) date) (3.4-5.1) mmol/L unknown) (unknown) (no (unknown) (unknown) Potassium 3.9 (units ( unknown) date) (3.4-5.1) mmol/L unknown) (unknown) (no (unknown) (unknown) Prescriptions: (units (unknown) date) unknown) (unknown) (no (unknown) (unknown) Previous Rx's (units ( unknown) date) unknown) (unknown) (no (unknown) (unknown) Procedure: XR (units ( unknown) date) chest 1V unknown) (unknown) (no (unknown) (unknown) Prothrombin Time (units (unknown) date) INR Stat unknown) (unknown) (no (unknown) (unknown) Pulse Oximetry (units (unknown) date) 100 01/18/22 10:38 unknown) (unknown) (no (unknown) (unknown) Pulse Oximetry (units (unknown) date) 100 unknown) (unknown) (no (unknown) (unknown) Pulse Rate 75 (units ( unknown) date) 01/18/22 10:38 unknown) (unknown) (no (unknown) (unknown) Pulse Rate 75 (units ( unknown) date) unknown) (unknown) (no (unknown) (unknown) RBC (4.0-5.2) (units ( unknown) date) X106/uL unknown) (unknown) (no (unknown) (unknown) RBC 5.04 (units (unkno wn) date) (4.0-5.2) X106/uL unknown) (unknown) (no (unknown) (unknown) RDW (11.6-14.8) % (units (unknown) date) unknown) (unknown) (no (unknown) (unknown) RDW 13.0 (units (unkno wn) date) (11.6-14.8) % unknown) (unknown) (no (unknown) (unknown) RESPIRATORY: Clear (units (unknown) date) to auscultation. unknown) Breath sounds equal bilaterally. No wheezes, (unknown) (no (unknown) (unknown) RESPIRATORY: (units (u nknown) date) Denies dyspnea, unknown) cough, wheezing, hemoptysis, sputum. (unknown) (no (unknown) (unknown) Radiologist's (units ( unknown) date) Impression: unknown) (unknown) (no (unknown) (unknown) Referrals: (units (unk nown) date) unknown) (unknown) (no (unknown) (unknown) Related Data (units (u nknown) date) unknown) (unknown) (no (unknown) (unknown) Respiratory Rate (units (unknown) date) 15 01/18/22 10:38 unknown) (unknown) (no (unknown) (unknown) Respiratory Rate (units (unknown) date) 15 unknown) (unknown) (no (unknown) (unknown) Result diagrams: (units (unknown) date) unknown) (unknown) (no (unknown) (unknown) Review of Systems (units (unknown) date) unknown) (unknown) (no (unknown) (unknown) Celso Rowley, (units ( unknown) date) FRUIT [employer] NUT PICKER [Primary Care unknown) Provider] (unknown) (no (unknown) (unknown) Rx Instructions: (units (unknown) date) unknown) (unknown) (no (unknown) (unknown) SKIN: Denies (units (u nknown) date) rash, skin unknown) lesions, or other (unknown) (no (unknown) (unknown) SKIN: No rash or (units (unknown) date) erythema of unknown) visible areas (unknown) (no (unknown) (unknown) See Rx (units (unkno wn) date) Instructions unknown) .ROUTE .COMPLEX Qty: 63 1RF (unknown) (no (unknown) (unknown) Signed By: (units (unk nown) date) unknown) (unknown) (no (unknown) (unknown) Signed (units (unkno wn) date) unknown) (unknown) (no (unknown) (unknown) Smoking Status: (units (unknown) date) Unknown if ever unknown) smoked (unknown) (no (unknown) (unknown) Social History (units (unknown) date) (System 01/18/22 @ unknown) 10:45 by Rhoda Mohr) (unknown) (no (unknown) (unknown) Sodium (137-145) (units (unknown) date) mmol/L unknown) (unknown) (no (unknown) (unknown) Sodium 139 (units (unk nown) date) (137-145) mmol/L unknown) (unknown) (no (unknown) (unknown) Source: patient (units (unknown) date) unknown) (unknown) (no (unknown) (unknown) Stated Complaint: (units (unknown) date) chest pressure, unknown) headace yesterday (unknown) (no (unknown) (unknown) Substance Use (units ( unknown) date) Type: does not use unknown) (unknown) (no (unknown) (unknown) Surgical History (units (unknown) date) (Reviewed 12/09/21 unknown) @ 14:47 by NICKY Ferrer) (unknown) (no (unknown) (unknown) Surgical changes (units (unknown) date) and devices:? Left unknown) breast clips. (unknown) (no (unknown) (unknown) TAKE 1 TABLET BY (units (unknown) date) MOUTH DAILY unknown) (unknown) (no (unknown) (unknown) TECHNIQUE:? One (units (unknown) date) view of the chest unknown) was acquired.? (unknown) (no (unknown) (unknown) Temperature 96.4 (units (unknown) date) F L 01/18/22 10:38 unknown) (unknown) (no (unknown) (unknown) Temperature 96.4 (units (unknown) date) F L unknown) (unknown) (no (unknown) (unknown) Thank you for (units ( unknown) date) coming to the unknown) [facility] Emergency Department today. Your (unknown) (no (unknown) (unknown) This is a (units (unkn own) date) 31-year-old female unknown) presents 3 department due to a week of chest (unknown) (no (unknown) (unknown) Time Seen by (units (u nknown) date) Provider: 01/18/22 unknown) 15:25 (unknown) (no (unknown) (unknown) Total Bilirubin (units (unknown) date) (0.2-1.3) mg/dL unknown) (unknown) (no (unknown) (unknown) Total Bilirubin (units (unknown) date) 0.6 (0.2-1.3) unknown) mg/dL (unknown) (no (unknown) (unknown) Total Creatine (units (unknown) date) Kinase (30-135) unknown) U/L (unknown) (no (unknown) (unknown) Total Creatine (units (unknown) date) Kinase 49 (30-135) unknown) U/L (unknown) (no (unknown) (unknown) Total Protein (units ( unknown) date) (6.3-8.2) g/dL unknown) (unknown) (no (unknown) (unknown) Total Protein 8.1 (units (unknown) date) (6.3-8.2) g/dL unknown) (unknown) (no (unknown) (unknown) Troponin + CK (units ( unknown) date) Cardiac Panel Stat unknown) (unknown) (no (unknown) (unknown) Troponin I < (units (u nknown) date) 0.012 (0.01-0.034) unknown) ng/mL (unknown) (no (unknown) (unknown) Troponin I (units (unk nown) date) (0.01-0.034) ng/mL unknown) (unknown) (no (unknown) (unknown) Visit Report (units (u nknown) date) Forms: Patient unknown) Portal/API (unknown) (no (unknown) (unknown) Vital Signs - 8 (units (unknown) date) hr unknown) (unknown) (no (unknown) (unknown) Vital Signs (units (un known) date) unknown) (unknown) (no (unknown) (unknown) Vital signs: (units (u nknown) date) unknown) (unknown) (no (unknown) (unknown) WBC (4.5-11.0) (units (unknown) date) X103/uL unknown) (unknown) (no (unknown) (unknown) WBC 8.3 (units (unkno wn) date) (4.5-11.0) X103/uL unknown) (unknown) (no (unknown) (unknown) [place] teeth (units (u nknown) date) removed (-2013) unknown) (unknown) (no (unknown) (unknown) XR chest 1V Stat (units (unknown) date) unknown) (unknown) (no (unknown) (unknown) XRay Report (units (un known) date) unknown) (unknown) (no (unknown) (unknown) [Embedded Image (units (unknown) date) Not Available] unknown) (unknown) (no (unknown) (unknown) abnormalities, (units (unknown) date) all other lab work unknown) negative as well. Background patient follow (unknown) (no (unknown) (unknown) albuterol sulfate (units (unknown) date) 90 mcg/actuation 1 unknown) inh inhalation Q4-6H PRN 01/18/22 (unknown) (no (unknown) (unknown) albuterol sulfate (units (unknown) date) 90 mcg/actuation unknown) aerosol powdr breath activated (unknown) (no (unknown) (unknown) alcohol intake (units (unknown) date) frequency: unknown) holidays/special occasions only (unknown) (no (unknown) (unknown) any other (units (unkn own) date) concerning signs unknown) or symptoms. Patient states that the pain is (unknown) (no (unknown) (unknown) appear (units (unkno wn) date) unknown) (unknown) (no (unknown) (unknown) breath activated (units (unknown) date) powder inhaler unknown) shortness of breath #1 ea (unknown) (no (unknown) (unknown) cardiac workup (units (unknown) date) was unremarkable. unknown) Chest x-ray showed no evidence of heart or (unknown) (no (unknown) (unknown) chest pain. (units (un known) date) Patient denies any unknown) fevers, nausea, vomiting, your eye symptoms, or (unknown) (no (unknown) (unknown) clot in your (units (u nknown) date) lungs which was unknown) also negative. I recommended follow-up with the (unknown) (no (unknown) (unknown) constant and does (units (unknown) date) not worsen with unknown) activity or changes in position. Patient (unknown) (no (unknown) (unknown) constipation, (units ( unknown) date) melena. unknown) (unknown) (no (unknown) (unknown) dizziness. (units (unk nown) date) unknown) (unknown) (no (unknown) (unknown) due to a week of (units (unknown) date) chest pressure unknown) mild chest ?tightness?. All cardiac workup (unknown) (no (unknown) (unknown) electrolyte (units (un known) date) abnormalities. We unknown) also did a test to check for any kind of blood (unknown) (no (unknown) (unknown) estradiol 20 mcg (units (unknown) date) tablet .COMPLEX unknown) #63 tabs (unknown) (no (unknown) (unknown) has been (units (unkno wn) date) reviewed. I agree unknown) with assessment and plan. (unknown) (no (unknown) (unknown) icterus. No (units (un known) date) injection or unknown) drainage. (unknown) (no (unknown) (unknown) inversions no (units ( unknown) date) priors to compare unknown) (unknown) (no (unknown) (unknown) lung (units (unkno wn) date) abnormalities. The unknown) blood test to check for any kind of heart attack was (unknown) (no (unknown) (unknown) metoprolol (units (unk nown) date) succinate 100 mg unknown) 100 mg PO DAILY #90 tabs 01/17/22 (unknown) (no (unknown) (unknown) metoprolol (units (unk nown) date) succinate 100 mg unknown) tablet extended release 24 hr (unknown) (no (unknown) (unknown) negative. (units (unkn own) date) Troponin within unknown) normal limits, EKG reassuring, chest x-ray showed no (unknown) (no (unknown) (unknown) norethindrone (units ( unknown) date) ac-eth estradiol unknown) 1-20 mg-mcg tablet (unknown) (no (unknown) (unknown) norethindrone (units ( unknown) date) acetate 1 unknown) mg-ethinyl See Rx Instructions .Route 09/01/21 (unknown) (no (unknown) (unknown) of mild reaction (units (unknown) date) to the increased unknown) smoke in the area. D-dimer also negative to (unknown) (no (unknown) (unknown) official (units (unkno wn) date) diagnosis. Last unknown) took her control pill a month ago. (unknown) (no (unknown) (unknown) other lab work (units (unknown) date) was unremarkable unknown) as well, did not show any signs of infection or (unknown) (no (unknown) (unknown) palpitations, (units ( unknown) date) orthopnea, edema, unknown) (unknown) (no (unknown) (unknown) pressure and (units (u nknown) date) ?tightness?. unknown) Denies any significant shortness of breath or sharp (unknown) (no (unknown) (unknown) primary care (units (u nknown) date) provider for unknown) possible cardiology referral if symptoms continue. (unknown) (no (unknown) (unknown) rales, or (units (unkn own) date) rhonchi. unknown) (unknown) (no (unknown) (unknown) reassuring. EKG (units (unknown) date) showed no evidence unknown) of any kind heart abnormality. All your (unknown) (no (unknown) (unknown) referral. (units (unkn own) date) Albuterol inhaler unknown) also prescribed in the event that this is some kind (unknown) (no (unknown) (unknown) rule out PE. (units (u nknown) date) unknown) (unknown) (no (unknown) (unknown) seizures, (units (unkn own) date) incoordination. unknown) (unknown) (no (unknown) (unknown) states that she (units (unknown) date) is been seen by unknown) her primary care provider for this without any (unknown) (no (unknown) (unknown) tablet,extended (units (unknown) date) release 24 hr unknown) (unknown) (no (unknown) (unknown) tonsillar (units (unkn own) date) hypertrophy or unknown) exudate. Airway patent. (unknown) (no (unknown) (unknown) unremarkable.? (units (unknown) date) unknown) (unknown) (no (unknown) (unknown) up with her (units (un known) date) primary care unknown) provider for continued workup with possible Cardiology Result panel 28 (unknown) (no (unknown) (unknown) (no value) (units (unk nown) date) unknown) (unknown) (no (unknown) (unknown) .Route .COMPLEX #63 (unit s (unknown) date) tabs 09/01/21 [Rx unknown) Confirmed 01/17/22] (unknown) (no (unknown) (unknown) 01/17/22 (units (unkno wn) date) unknown) (unknown) (no (unknown) (unknown) 11:19 01/17/22 (units (unknown) date) unknown) (unknown) (no (unknown) (unknown) 12:14 (units (unkno wn) date) unknown) (unknown) (no (unknown) (unknown) 31 yo female (units (u nknown) date) presents today for a unknown) WWE and a PAP. BP was high, will recheck (unknown) (no (unknown) (unknown) 31-year-old female (units (unknown) date) presents for unknown) well-woman exam/Pap and to follow-up on (unknown) (no (unknown) (unknown) 31-year-old female (units (unknown) date) presents to establish unknown) care. She lives with her and (unknown) (no (unknown) (unknown) Age/Sex: 31 / F Date (uni ts (unknown) date) of Service: unknown) (unknown) (no (unknown) (unknown) Allergies (units (unkn own) date) unknown) (unknown) (no (unknown) (unknown) [place] [id number] (unit s (unknown) date) unknown) (unknown) (no (unknown) (unknown) Anxiety (units (unkno wn) date) unknown) (unknown) (no (unknown) (unknown) Assessment + Plan (units (unknown) date) unknown) (unknown) (no (unknown) (unknown) Attending Dr: Celso (uni ts (unknown) date) Amrki SAUNDERS unknown) (unknown) (no (unknown) (unknown) BMI 29.4 (units (unkno wn) date) unknown) (unknown) (no (unknown) (unknown) BP 158/110 H 138/102 (uni ts (unknown) date) H unknown) (unknown) (no (unknown) (unknown) Blood Pressure (units (unknown) date) Location Lt brachial unknown) Lt brachial (unknown) (no (unknown) (unknown) Chicken pox (-1995) (unit s (unknown) date) unknown) (unknown) (no (unknown) (unknown) Chief Complaint (units (unknown) date) unknown) (unknown) (no (unknown) (unknown) Chief Complaint: (units (unknown) date) WWE/Pap/follow-up unknown) hypertension/labs (unknown) (no (unknown) (unknown) : 1990 (units (unknown) date) Acct:[id number] unknown) (unknown) (no (unknown) (unknown) Dept at (units (unkno wn) date) . unknown) (unknown) (no (unknown) (unknown) Details: (units (unkno wn) date) unknown) (unknown) (no (unknown) (unknown) Discontinued Reason: (uni ts (unknown) date) Dose Change 50 mg PO unknown) DAILY 30 tabs 2RF (unknown) (no (unknown) (unknown) Discontinued (units (u nknown) date) unknown) (unknown) (no (unknown) (unknown) Documented By: (units (unknown) date) Celso Rowley unknown) 01/17/22 1118 (unknown) (no (unknown) (unknown) Draft (units (unkno wn) date) unknown) (unknown) (no (unknown) (unknown) Dyslipidemia (units (u nknown) date) unknown) (unknown) (no (unknown) (unknown) Essential (units (unkn own) date) hypertension () unknown) (unknown) (no (unknown) (unknown) Family Practice (units (unknown) date) Office Visit unknown) (unknown) (no (unknown) (unknown) [facility]) (unknown) (no (unknown) (unknown) HPI (units (unkno wn) date) unknown) (unknown) (no (unknown) (unknown) [place]. Her (unit s (unknown) date) is in the [place] [facility] [employer]. 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 She states that her (unknown) (no (unknown) (unknown) Immunization due (units (unknown) date) unknown) (unknown) (no (unknown) (unknown) Impaired fasting (units (unknown) date) blood sugar unknown) (unknown) (no (unknown) (unknown) Intake Note: (units (u nknown) date) unknown) (unknown) (no (unknown) (unknown) Intake performed by: (uni ts (unknown) date) aJnnette Whitman unknown) (unknown) (no (unknown) (unknown) Intake (units (unkno wn) date) unknown) (unknown) (no (unknown) (unknown) Intake- Clincial (units (unknown) date) Staff unknown) (unknown) (no (unknown) (unknown) L breast lum about (units (unknown) date) 12 oclock is smaller, unknown) about 1cm feels more fibrocystic now (unknown) (no (unknown) (unknown) Last Menstural Cycle (uni ts (unknown) date) + Details unknown) (unknown) (no (unknown) (unknown) Loc: [facility] (units (unkno wn) date) unknown) (unknown) (no (unknown) (unknown) [id number] (units (unk nown) date) unknown) (unknown) (no (unknown) (unknown) Mass of breast, left (uni ts (unknown) date) unknown) (unknown) (no (unknown) (unknown) Medical History (units (unknown) date) (Reviewed 12/09/21 @ unknown) 14:47 by NICKY Ferrer) (unknown) (no (unknown) (unknown) Medications (units (un known) date) unknown) (unknown) (no (unknown) (unknown) Medications: (units (u nknown) date) unknown) (unknown) (no (unknown) (unknown) NORMAL aileen, pelvic. (unit s (unknown) date) only abnormality is unknown) breast from known biopsied lump. no (unknown) (no (unknown) (unknown) New (units (unkno wn) date) unknown) (unknown) (no (unknown) (unknown) No Known Drug (units ( unknown) date) Allergies Allergy unknown) (Unverified 01/18/22 10:45) (unknown) (no (unknown) (unknown) No sensation of (units (unknown) date) irregular heartbeat unknown) or skipped beats. She often feels this in (unknown) (no (unknown) (unknown) On April 20, 2021 (unit s (unknown) date) patient was seen at unknown) [facility] ED for (unknown) (no (unknown) (unknown) Orders (units (unkno wn) date) unknown) (unknown) (no (unknown) (unknown) Orders: (units (unkno wn) date) unknown) (unknown) (no (unknown) (unknown) Other Menstrual (units (unknown) date) Period: Other unknown) (irregular cycles since giving 2018) (unknown) (no (unknown) (unknown) Oxygen Delivery (units (unknown) date) Method room air unknown) (unknown) (no (unknown) (unknown) PAP with hr HPV (units (unknown) date) 01/17/22 Z00.00 - unknown) Encounter for general adult medical (unknown) (no (unknown) (unknown) PFSH (units (unkno wn) date) unknown) (unknown) (no (unknown) (unknown) Painful lumpy left (units (unknown) date) breast unknown) (unknown) (no (unknown) (unknown) Past medical history (uni ts (unknown) date) notable for unknown) hypertension and anxiety. (unknown) (no (unknown) (unknown) Patient feels that (units (unknown) date) nifedipine XR has a unknown) side effect of palpitations. (unknown) (no (unknown) (unknown) Patient tells me (units (unknown) date) that she did not have unknown) these palpitations prior to starting (unknown) (no (unknown) (unknown) Patient: (units (unkno wn) date) Deepa Moser S unknown) MR#: (unknown) (no (unknown) (unknown) Position Sitting (units (unknown) date) Sitting unknown) (unknown) (no (unknown) (unknown) Pulse 81 (units (unkno wn) date) unknown) (unknown) (no (unknown) (unknown) Pulse Oximetry (%) (units (unknown) date) 98 unknown) (unknown) (no (unknown) (unknown) Pulse Source Monitor (uni ts (unknown) date) unknown) (unknown) (no (unknown) (unknown) Reason For Visit (units (unknown) date) unknown) (unknown) (no (unknown) (unknown) She (units (unkno wn) date) unknown) (unknown) (no (unknown) (unknown) Signed By: (units (unk nown) date) unknown) (unknown) (no (unknown) (unknown) Smoking Status: (units (unknown) date) Never smoker unknown) (unknown) (no (unknown) (unknown) Surgical History (units (unknown) date) (Reviewed 12/09/21 @ unknown) 14:47 by NICKY Ferrer) (unknown) (no (unknown) (unknown) This note may have (units (unknown) date) been all or partially unknown) generated using voice recognition (unknown) (no (unknown) (unknown) Tobacco + Substance (unit s (unknown) date) Use unknown) (unknown) (no (unknown) (unknown) Tobacco Status (units (unknown) date) unknown) (unknown) (no (unknown) (unknown) Visit Reasons: WWE (units (unknown) date) W/PAP, f/u BP unknown) (unknown) (no (unknown) (unknown) Vitals (units (unkno wn) date) unknown) (unknown) (no (unknown) (unknown) Weight 68.266 kg (units (unknown) date) unknown) (unknown) (no (unknown) (unknown) [place] teeth removed (uni ts (unknown) date) () unknown) (unknown) (no (unknown) (unknown) albuterol sulfate 90 (uni ts (unknown) date) mcg/actuation breath unknown) activated powder inhaler 1 inh (unknown) (no (unknown) (unknown) anxiety without (units (unknown) date) medication. unknown) (unknown) (no (unknown) (unknown) before patient (units (unknown) date) leaves. unknown) (unknown) (no (unknown) (unknown) but was on ASA. (units (unknown) date) During the unknown) period she was started on nifedipine XR. (unknown) (no (unknown) (unknown) child goes to (units ( unknown) date) daycare while she is unknown) at work. (unknown) (no (unknown) (unknown) complaint of (units (u nknown) date) palpitations. Twelve unknown) lead EKG was performed showing sinus (unknown) (no (unknown) (unknown) correlate with (units (unknown) date) feeling anxious. No unknown) chest pain, dizziness, shortness of breath. (unknown) (no (unknown) (unknown) examination without (unit s (unknown) date) abnormal findings, unknown) Z12.4 - Encounter for screening for (unknown) (no (unknown) (unknown) f/u on increased (units (unknown) date) metoprolol 4-6 weeks. unknown) (unknown) (no (unknown) (unknown) further f/u (units (un known) date) recommended. unknown) (unknown) (no (unknown) (unknown) have occurred. If (units (unknown) date) there are any unknown) questions, please contact the Medical Records (unknown) (no (unknown) (unknown) heartbeat. She did (units (unknown) date) follow-up with former unknown) PCP and they treated this as a (unknown) (no (unknown) (unknown) her nearly (units (unk nown) date) 3-year-old [place] They are originally from (unknown) (no (unknown) (unknown) hypertension and (units (unknown) date) review pertinent lab unknown) work. (unknown) (no (unknown) (unknown) hypertension was 1st (uni ts (unknown) date) treated with unknown) hydrochlorothiazide before she became (unknown) (no (unknown) (unknown) indicated that (units (unknown) date) cardiac monitoring unknown) showed no worrisome findings. 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 (units (unk nown) date) Occasional wrong-word unknown) or 'sound-alike' substitutions may have (unknown) (no (unknown) (unknown) me that she was (units (unknown) date) indeed experiencing unknown) the palpitations sensation while being (unknown) (no (unknown) (unknown) metoprolol succinate (uni ts (unknown) date) 100 mg unknown) tablet,extended release 24 hr 100 mg PO DAILY #90 (unknown) (no (unknown) (unknown) metoprolol succinate (uni ts (unknown) date) ER 100 mg PO DAILY 90 unknown) tabs 0RF (unknown) (no (unknown) (unknown) metoprolol succinate (uni ts (unknown) date) ER unknown) (unknown) (no (unknown) (unknown) monitored in the (units (unknown) date) EKG. She describes unknown) this as a sensation of a pounding (unknown) (no (unknown) (unknown) nifedipine XR. She (units (unknown) date) does believe this is unknown) a side effect. Although she endorses (unknown) (no (unknown) (unknown) no side effects of (units (unknown) date) metoprolol, feeling unknown) slightly better. will increase dose. (unknown) (no (unknown) (unknown) norethindrone (units ( unknown) date) acetate 1 mg-ethinyl unknown) estradiol 20 mcg tablet See Rx Instructions (unknown) (no (unknown) (unknown) occurred due to the (unit s (unknown) date) inherent limitations unknown) of voice recognition software. Please (unknown) (no (unknown) (unknown) . While she (unit s (unknown) date) was she was unknown) not on any antihypertensive medication (unknown) (no (unknown) (unknown) read the note (units ( unknown) date) carefully and unknown) recognize, using context, where these substitutions (unknown) (no (unknown) (unknown) recently started (units (unknown) date) working at [employer] unknown) [employer] full-time. 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 EKG was unknown) otherwise normal and the provider (unknown) (no (unknown) (unknown) the morning when she (uni ts (unknown) date) awakens. unknown) Result panel 29 (unknown) (no (unknown) (unknown) (no value) (units (unk nown) date) unknown) (unknown) (no (unknown) (unknown) (1) Well woman (units (unknown) date) exam with routine unknown) gynecological exam: (unknown) (no (unknown) (unknown) (2) Essential (units ( unknown) date) hypertension: unknown) (unknown) (no (unknown) (unknown) (3) Impaired (units (u nknown) date) fasting blood unknown) sugar: (unknown) (no (unknown) (unknown) (4) Dyslipidemia: (units (unknown) date) unknown) (unknown) (no (unknown) (unknown) (5) Fibroadenoma (units (unknown) date) of left breast: unknown) (unknown) (no (unknown) (unknown) .Route .COMPLEX (units (unknown) date) #63 tabs 09/01/21 unknown) [Rx Confirmed 01/17/22] (unknown) (no (unknown) (unknown) 01/17/22 (units (unkno wn) date) unknown) (unknown) (no (unknown) (unknown) 11:19 01/17/22 (units (unknown) date) unknown) (unknown) (no (unknown) (unknown) 12:14 (units (unkno wn) date) unknown) (unknown) (no (unknown) (unknown) 31 yo female (units (u nknown) date) presents today for unknown) a WWE and a PAP. BP was high, will recheck (unknown) (no (unknown) (unknown) 31-year-old female (units (unknown) date) presents for unknown) well-woman exam/Pap and to follow-up on (unknown) (no (unknown) (unknown) Affect: normal (units (unknown) date) affect unknown) (unknown) (no (unknown) (unknown) Age/Sex: 31 / F (units (unknown) date) Date of Service: unknown) (unknown) (no (unknown) (unknown) All systems (units (un known) date) reviewed + are unknown) unremarkable except as noted in HPI and below (unknown) (no (unknown) (unknown) Allergies (units (unkn own) date) unknown) (unknown) (no (unknown) (unknown) [place], [place] (units ( unknown) date) [id number] unknown) (unknown) (no (unknown) (unknown) Anxiety (units (unkno wn) date) unknown) (unknown) (no (unknown) (unknown) Appearance: (units (un known) date) grossly normal unknown) (unknown) (no (unknown) (unknown) Assessment + Plan (units (unknown) date) unknown) (unknown) (no (unknown) (unknown) Attending Dr: (units ( unknown) date) Celso SAUNDERS unknown) (unknown) (no (unknown) (unknown) Attitude: (units (unkn own) date) cooperative unknown) (unknown) (no (unknown) (unknown) Auscultation: (units ( unknown) date) clear to unknown) auscultation bilaterally (unknown) (no (unknown) (unknown) Auscultation: (units ( unknown) date) normal bowel sounds unknown) (unknown) (no (unknown) (unknown) BMI 29.4 (units (unkno wn) date) unknown) (unknown) (no (unknown) (unknown) BP 158/110 H (units (u nknown) date) 138/102 H unknown) (unknown) (no (unknown) (unknown) Bimanual Exam- (units (unknown) date) Adnexa, other: unknown) normal adnexae, normal and non-tender (unknown) (no (unknown) (unknown) Bimanual Exam- (units (unknown) date) Vagina + Uterus: unknown) normal bimanual exam, normal palpation, uterine (unknown) (no (unknown) (unknown) Blood Pressure (units (unknown) date) Location Lt unknown) brachial Lt brachial (unknown) (no (unknown) (unknown) Breast inspection: (units (unknown) date) normal inspection unknown) of the breasts and normal inspection of the (unknown) (no (unknown) (unknown) Breast palpation: (units (unknown) date) normal palpation of unknown) the axillae and no axillary (unknown) (no (unknown) (unknown) Cardio (units (unkno wn) date) unknown) (unknown) (no (unknown) (unknown) Chest (units (unkno wn) date) unknown) (unknown) (no (unknown) (unknown) Chicken pox (units (un known) date) () unknown) (unknown) (no (unknown) (unknown) Chief Complaint (units (unknown) date) unknown) (unknown) (no (unknown) (unknown) Chief Complaint: (units (unknown) date) WWE/Pap/follow-up unknown) hypertension/labs (unknown) (no (unknown) (unknown) Cognition: normal (units (unknown) date) cognition unknown) (unknown) (no (unknown) (unknown) Const (units (unkno wn) date) unknown) (unknown) (no (unknown) (unknown) : 1990 (units (unknown) date) Acct:[id number] unknown) (unknown) (no (unknown) (unknown) Denies breast skin (units (unknown) date) changes, Denies unknown) breast pain, Denies breast mass and Denies (unknown) (no (unknown) (unknown) Denies genital (units (unknown) date) lesions, Denies unknown) nipple discharge, Denies prolapse symptoms, (unknown) (no (unknown) (unknown) Denies history of (units (unknown) date) abnormal Paps. unknown) , delivered by . Patient was (unknown) (no (unknown) (unknown) Denies sexual (units ( unknown) date) dysfunction, Denies unknown) vaginal discharge and Denies vaginal odor (unknown) (no (unknown) (unknown) Dept at (units (o wn) date) . unknown) (unknown) (no (unknown) (unknown) Details: (units (unkno wn) date) unknown) (unknown) (no (unknown) (unknown) Discontinued (units (u nknown) date) Reason: Dose Change unknown) 50 mg PO DAILY 30 tabs 2RF (unknown) (no (unknown) (unknown) Discontinued (units (u nknown) date) unknown) (unknown) (no (unknown) (unknown) Documented By: (units (unknown) date) Celso Rowley unknown) 01/17/22 1118 (unknown) (no (unknown) (unknown) Draft (units (unkno wn) date) unknown) (unknown) (no (unknown) (unknown) Dyslipidemia (units (u nknown) date) unknown) (unknown) (no (unknown) (unknown) Ears: hearing (units ( unknown) date) grossly normal unknown) bilaterally, TM's normal bilaterally and EAC's (unknown) (no (unknown) (unknown) Effort + (units (unkno wn) date) Inspection: normal unknown) respiratory effort (unknown) (no (unknown) (unknown) Essential (units (unkn own) date) hypertension unknown) (-2019) (unknown) (no (unknown) (unknown) Exam (units (unkno wn) date) unknown) (unknown) (no (unknown) (unknown) External Female (units (unknown) date) Exam: normal unknown) external appearance (unknown) (no (unknown) (unknown) Extrem (units (unkno wn) date) unknown) (unknown) (no (unknown) (unknown) Eyes (units (unkno wn) date) unknown) (unknown) (no (unknown) (unknown) Family Practice (units (unknown) date) Office Visit unknown) (unknown) (no (unknown) (unknown) [facility] ([facility]) (unknown) (no (unknown) (unknown) GI (units (unkno wn) date) unknown) (unknown) (no (unknown) (unknown) (units (unkno wn) date) unknown) (unknown) (no (unknown) (unknown) Gait: normal gait (units (unknown) date) unknown) (unknown) (no (unknown) (unknown) General physical (units (unknown) date) exam and unknown) gynecological exam were unremarkable. Clinical breast (unknown) (no (unknown) (unknown) General: (units (unkno wn) date) appearance normal, unknown) both eyes and all related structures (unknown) (no (unknown) (unknown) General: (units (unkno wn) date) cooperative, unknown) healthy appearing and no acute distress (unknown) (no (unknown) (unknown) General: no rashes (units (unknown) date) or lesions noted unknown) (unknown) (no (unknown) (unknown) General: normal to (units (unknown) date) inspection, full unknown) ROM and no edema (unknown) (no (unknown) (unknown) General: patient (units (unknown) date) alert, patient unknown) awake and patient oriented x3 (unknown) (no (unknown) (unknown) HENMT (units (unkno wn) date) unknown) (unknown) (no (unknown) (unknown) HPI (units (unkno wn) date) unknown) (unknown) (no (unknown) (unknown) Head: normal to (units (unknown) date) inspection unknown) (unknown) (no (unknown) (unknown) Health Management (units (unknown) date) reviewed with unknown) patient: Yes (unknown) (no (unknown) (unknown) Health Management (units (unknown) date) unknown) (unknown) (no (unknown) (unknown) Heart Sounds: S1 (units (unknown) date) normal, S2 normal, unknown) normal S1 and S2 and no murmurs (unknown) (no (unknown) (unknown) Height 152.4 cm (units (unknown) date) unknown) (unknown) (no (unknown) (unknown) History of (units (unk nown) date) section unknown) (-01/02/19) (unknown) (no (unknown) (unknown) Immunization due (units (unknown) date) unknown) (unknown) (no (unknown) (unknown) Impaired fasting (units (unknown) date) blood sugar unknown) (unknown) (no (unknown) (unknown) Impaired fasting (units (unknown) date) glucose and unknown) dyslipidemia: Noted on 2020 labs. We will get (unknown) (no (unknown) (unknown) Inspection: normal (units (unknown) date) to inspection unknown) (unknown) (no (unknown) (unknown) Intake Note: (units (u nknown) date) unknown) (unknown) (no (unknown) (unknown) Intake performed (units (unknown) date) by: Jannette Whitman unknown) (unknown) (no (unknown) (unknown) Intake (units (unkno wn) date) unknown) (unknown) (no (unknown) (unknown) Intake- Clincial (units (unknown) date) Staff unknown) (unknown) (no (unknown) (unknown) Judgment: judgment (units (unknown) date) good unknown) (unknown) (no (unknown) (unknown) L breast lum about (units (unknown) date) 12 oclock is unknown) smaller, about 1cm feels more fibrocystic now (unknown) (no (unknown) (unknown) Last Menstural (units (unknown) date) Cycle + Details unknown) (unknown) (no (unknown) (unknown) Left breast 12 (units (unknown) date) o'clock: unknown) Approximately 1 cm diameter cystic type mass in the (unknown) (no (unknown) (unknown) Loc: [facility] (units (unkno wn) date) unknown) (unknown) (no (unknown) (unknown) [id number] (units (unk nown) date) unknown) (unknown) (no (unknown) (unknown) Mass of breast, (units (unknown) date) left unknown) (unknown) (no (unknown) (unknown) Medical History (units (unknown) date) (Reviewed 12/09/21 unknown) @ 14:47 by NICKY Ferrer) (unknown) (no (unknown) (unknown) Medications (units (un known) date) unknown) (unknown) (no (unknown) (unknown) Medications: (units (u nknown) date) unknown) (unknown) (no (unknown) (unknown) Mental Status: (units (unknown) date) mental status unknown) grossly normal (unknown) (no (unknown) (unknown) Mood: congruent (units (unknown) date) mood unknown) (unknown) (no (unknown) (unknown) Motor: muscle tone (units (unknown) date) normal throughout unknown) (unknown) (no (unknown) (unknown) Mouth: oral (units (un known) date) mucosae normal and unknown) oropharynx normal (unknown) (no (unknown) (unknown) NORMAL aileen, (units (un known) date) pelvic. only unknown) abnormality is breast from known biopsied lump. no (unknown) (no (unknown) (unknown) Neck mass: No (units ( unknown) date) unknown) (unknown) (no (unknown) (unknown) Neck (units (unkno wn) date) unknown) (unknown) (no (unknown) (unknown) Neck: normal (units (u nknown) date) visual inspection unknown) and no lymphadenopathy (unknown) (no (unknown) (unknown) Neuro (units (unkno wn) date) unknown) (unknown) (no (unknown) (unknown) New (units (unkno wn) date) unknown) (unknown) (no (unknown) (unknown) No Known Drug (units ( unknown) date) Allergies Allergy unknown) (Unverified 01/18/22 10:45) (unknown) (no (unknown) (unknown) No supraclavicular (units (unknown) date) or infraclavicular unknown) lymphadenopathy. (unknown) (no (unknown) (unknown) Nose: external (units (unknown) date) nose normal and unknown) nasal mucous membranes and turbinates normal (unknown) (no (unknown) (unknown) Orders (units (unkno wn) date) unknown) (unknown) (no (unknown) (unknown) Orders: (units (unkno wn) date) unknown) (unknown) (no (unknown) (unknown) Other Menstrual (units (unknown) date) Period: Other unknown) (irregular cycles since giving 2018) (unknown) (no (unknown) (unknown) Other: (units (unkno wn) date) unknown) (unknown) (no (unknown) (unknown) Oxygen Delivery (units (unknown) date) Method room air unknown) (unknown) (no (unknown) (unknown) PAP with hr HPV (units (unknown) date) 01/17/22 Z00.00 - unknown) Encounter for general adult medical (unknown) (no (unknown) (unknown) PFSH (units (unkno wn) date) unknown) (unknown) (no (unknown) (unknown) Painful lumpy left (units (unknown) date) breast unknown) (unknown) (no (unknown) (unknown) Palpation: soft, (units (unknown) date) no unknown) hepatosplenomegaly, no guarding, no hernias, no masses and (unknown) (no (unknown) (unknown) Palpitations/tachy (units (unknown) date) cardia/hypertension unknown) : Reviewed ED note as well as note from (unknown) (no (unknown) (unknown) Patient has (units (un known) date) history of 2 breast unknown) biopsies on the left breast. Reports that (unknown) (no (unknown) (unknown) Patient states (units (unknown) date) that her unknown) palpitations and tachycardia seem to have improved (unknown) (no (unknown) (unknown) Patient was seen (units (unknown) date) by me about 6 weeks unknown) ago when we changed her from nifedipine ER (unknown) (no (unknown) (unknown) Patient: (units (unkno wn) date) Deepa Moser S unknown) MR#: (unknown) (no (unknown) (unknown) Pelvic Support: (units (unknown) date) normal unknown) (unknown) (no (unknown) (unknown) Percussion: normal (units (unknown) date) to percussion unknown) (unknown) (no (unknown) (unknown) Plan (units (unkno wn) date) unknown) (unknown) (no (unknown) (unknown) Position Sitting (units (unknown) date) Sitting unknown) (unknown) (no (unknown) (unknown) Psych (units (unkno wn) date) unknown) (unknown) (no (unknown) (unknown) Pulse 81 (units (unkno wn) date) unknown) (unknown) (no (unknown) (unknown) Pulse Oximetry (%) (units (unknown) date) 98 unknown) (unknown) (no (unknown) (unknown) Pulse Source (units (u nknown) date) Monitor unknown) (unknown) (no (unknown) (unknown) ROS (units (unkno wn) date) unknown) (unknown) (no (unknown) (unknown) Rate: regular rate (units (unknown) date) unknown) (unknown) (no (unknown) (unknown) Reason For Visit (units (unknown) date) unknown) (unknown) (no (unknown) (unknown) Reports as per (units (unknown) date) HPI, Denies unknown) abnormal vaginal bleeding, Denies metrorrhagia, (unknown) (no (unknown) (unknown) Resp (units (unkno wn) date) unknown) (unknown) (no (unknown) (unknown) Rhythm: regular (units (unknown) date) rhythm unknown) (unknown) (no (unknown) (unknown) Sensory Exam: no (units (unknown) date) sensory deficits unknown) noted (unknown) (no (unknown) (unknown) Signed By: (units (unk nown) date) unknown) (unknown) (no (unknown) (unknown) Skin (units (unkno wn) date) unknown) (unknown) (no (unknown) (unknown) Skin/Breast (units (un known) date) unknown) (unknown) (no (unknown) (unknown) Smoking Status: (units (unknown) date) Never smoker unknown) (unknown) (no (unknown) (unknown) Speculum Exam - (units (unknown) date) Cervix: normal unknown) appearance of the cervix (unknown) (no (unknown) (unknown) Speculum Exam - (units (unknown) date) Vagina: normal unknown) appearance of the vagina and normal vaginal (unknown) (no (unknown) (unknown) Speech: speech (units (unknown) date) normal unknown) (unknown) (no (unknown) (unknown) Status: Acute (units ( unknown) date) unknown) (unknown) (no (unknown) (unknown) Status: Chronic (units (unknown) date) unknown) (unknown) (no (unknown) (unknown) Surgical History (units (unknown) date) (Reviewed 12/09/21 unknown) @ 14:47 by NICKY Ferrer) (unknown) (no (unknown) (unknown) This note may have (units (unknown) date) been all or unknown) partially generated using voice recognition (unknown) (no (unknown) (unknown) Thought Content: (units (unknown) date) normal unknown) (unknown) (no (unknown) (unknown) Thought Process: (units (unknown) date) normal unknown) (unknown) (no (unknown) (unknown) Throat: posterior (units (unknown) date) oropharynx normal unknown) (unknown) (no (unknown) (unknown) Thyroid: thyroid (units (unknown) date) normal unknown) (unknown) (no (unknown) (unknown) Tobacco + (units (unkn own) date) Substance Use unknown) (unknown) (no (unknown) (unknown) Tobacco Status (units (unknown) date) unknown) (unknown) (no (unknown) (unknown) Visit Reasons: WWE (units (unknown) date) W/PAP, f/u BP unknown) (unknown) (no (unknown) (unknown) Vitals (units (unkno wn) date) unknown) (unknown) (no (unknown) (unknown) We will get (units (un known) date) electrolytes as unknown) well, although she has not reported a sense of (unknown) (no (unknown) (unknown) Weight 68.266 kg (units (unknown) date) unknown) (unknown) (no (unknown) (unknown) [place] teeth (units (u nknown) date) removed () unknown) (unknown) (no (unknown) (unknown) able to feel the (units (unknown) date) lump in the 12 unknown) o'clock region but it feels smaller than (unknown) (no (unknown) (unknown) action. Will trial (units (unknown) date) change to unknown) beta-suzie. Counseled on (unknown) (no (unknown) (unknown) administration/ris (units (unknown) date) ks/benefits/side unknown) effects of medication. I have also ordered (unknown) (no (unknown) (unknown) albuterol sulfate (units (unknown) date) 90 mcg/actuation unknown) breath activated powder inhaler 1 inh (unknown) (no (unknown) (unknown) at the ED she had (units (unknown) date) no labs performed unknown) other than a respiratory panel, and her (unknown) (no (unknown) (unknown) axillae (units (unkno wn) date) unknown) (unknown) (no (unknown) (unknown) before patient (units (unknown) date) leaves. unknown) (unknown) (no (unknown) (unknown) bilateral breasts. (units (unknown) date) unknown) (unknown) (no (unknown) (unknown) concerned that the (units (unknown) date) palpitation symptom unknown) which was associated with sinus (unknown) (no (unknown) (unknown) discharge (units (unkn own) date) unknown) (unknown) (no (unknown) (unknown) effect and I agree (units (unknown) date) that changing to a unknown) different medication is an appropriate (unknown) (no (unknown) (unknown) exam notable for (units (unknown) date) findings as above. unknown) Pap performed; will contact the patient (unknown) (no (unknown) (unknown) examination (units (un known) date) without abnormal unknown) findings, Z12.4 - Encounter for screening for (unknown) (no (unknown) (unknown) f/u on increased (units (unknown) date) metoprolol 4-6 unknown) weeks. (unknown) (no (unknown) (unknown) follow-up labs and (units (unknown) date) review these at unknown) upcoming well-woman exam/Pap. (unknown) (no (unknown) (unknown) for her menses. (units (unknown) date) Denies bleeding unknown) between menses. No gynecological symptoms. (unknown) (no (unknown) (unknown) former PCP and lab (units (unknown) date) history. Although I unknown) did not see this until after our visit, (unknown) (no (unknown) (unknown) former PCP did not (units (unknown) date) perform any labs to unknown) further evaluate the issue. I am (unknown) (no (unknown) (unknown) further f/u (units (un known) date) recommended. unknown) (unknown) (no (unknown) (unknown) had a regular (units ( unknown) date) menses while being unknown) on the EM pill; she is currently 1 day late (unknown) (no (unknown) (unknown) have occurred. If (units (unknown) date) there are any unknown) questions, please contact the Medical Records (unknown) (no (unknown) (unknown) her (units (un known) date) decided they were unknown) open to the possibility of conceiving another (unknown) (no (unknown) (unknown) hydrate well. (units ( unknown) date) Since the patient unknown) reports that she did have ongoing palpitations (unknown) (no (unknown) (unknown) hypertension and (units (unknown) date) review pertinent unknown) lab work. (unknown) (no (unknown) (unknown) inhalation Q4-6H (units (unknown) date) PRN shortness of unknown) breath #1 ea 01/18/22 [Rx] (unknown) (no (unknown) (unknown) irregular (units (unkn own) date) heartbeats so these unknown) may be less pertinent. Advised avoid caffeine and (unknown) (no (unknown) (unknown) lab work, with the (units (unknown) date) greatest concern unknown) being to check her thyroid lab, although her (unknown) (no (unknown) (unknown) lymphadenopathy (units (unknown) date) unknown) (unknown) (no (unknown) (unknown) malignant neoplasm (units (unknown) date) of cervix unknown) (unknown) (no (unknown) (unknown) may occur. (units (unk nown) date) Occasional unknown) wrong-word or 'sound-alike' substitutions may have (unknown) (no (unknown) (unknown) metoprolol (units (unk nown) date) succinate 100 mg unknown) tablet,extended release 24 hr 100 mg PO DAILY #90 (unknown) (no (unknown) (unknown) metoprolol (units (unk nown) date) succinate ER 100 mg unknown) PO DAILY 90 tabs 0RF (unknown) (no (unknown) (unknown) metoprolol (units (unk nown) date) succinate ER unknown) (unknown) (no (unknown) (unknown) nipple discharge (units (unknown) date) unknown) (unknown) (no (unknown) (unknown) no side effects of (units (unknown) date) metoprolol, feeling unknown) slightly better. will increase dose. (unknown) (no (unknown) (unknown) nontender (units (unkn own) date) unknown) (unknown) (no (unknown) (unknown) norethindrone (units ( unknown) date) acetate 1 unknown) mg-ethinyl estradiol 20 mcg tablet See Rx Instructions (unknown) (no (unknown) (unknown) normal (units (unkno wn) date) unknown) (unknown) (no (unknown) (unknown) occurred due to (units (unknown) date) the inherent unknown) limitations of voice recognition software. Please (unknown) (no (unknown) (unknown) patch/Holter (units (u nknown) date) monitor at this unknown) time. (unknown) (no (unknown) (unknown) , (units (unk nown) date) although not unknown) specifically planning for this. Patient has generally (unknown) (no (unknown) (unknown) previously taking (units (unknown) date) EM pill for unknown) contraception; she has stopped this as she and (unknown) (no (unknown) (unknown) previously. No new (units (unknown) date) symptoms. unknown) (unknown) (no (unknown) (unknown) read the note (units ( unknown) date) carefully and unknown) recognize, using context, where these substitutions (unknown) (no (unknown) (unknown) repeat (units (unkno wn) date) microalbumin 3 unknown) months (unknown) (no (unknown) (unknown) results were (units (u nknown) date) benign and no unknown) additional follow-up was recommended. She is still (unknown) (no (unknown) (unknown) setting of (units (unk nown) date) generally unknown) fibrocystic type tissue. Otherwise normal palpation (unknown) (no (unknown) (unknown) size normal, (units (u nknown) date) consistency normal, unknown) normal palpation, uterine mobility normal, (unknown) (no (unknown) (unknown) software. 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 (unknown) (no (unknown) (unknown) tabs 01/17/22 [Rx (units (unknown) date) Confirmed 01/17/22] unknown) (unknown) (no (unknown) (unknown) tachycardia in the (units (unknown) date) ED is not due only unknown) to anxiety. Although I have not seen this (unknown) (no (unknown) (unknown) that the (units (unkno wn) date) nifedipine ER might unknown) have been causing the palpitations/tachyc ardia.? (unknown) (no (unknown) (unknown) to be a common (units (unknown) date) side effect of unknown) nifedipine XR, tachycardia is a possible side (unknown) (no (unknown) (unknown) to metoprolol (units ( unknown) date) succinate ER for unknown) her antihypertensive medicine, due to concern (unknown) (no (unknown) (unknown) uterine shape (units ( unknown) date) normal and unknown) non-tender (unknown) (no (unknown) (unknown) weight has been (units (unknown) date) reasonably stable, unknown) making rain hyperthyroidism less likely. (unknown) (no (unknown) (unknown) while being (units (un known) date) monitored in the unknown) ED, we have deferred monitoring with [facility] (unknown) (no (unknown) (unknown) with results and (units (unknown) date) recommendations. unknown) Result panel 30 (unknown) (no (unknown) (unknown) (no value) (units (unk nown) date) unknown) (unknown) (no (unknown) (unknown) (1) Well woman (units (unknown) date) exam with routine unknown) gynecological exam: (unknown) (no (unknown) (unknown) (2) Essential (units ( unknown) date) hypertension: unknown) (unknown) (no (unknown) (unknown) (3) Dyslipidemia: (units (unknown) date) unknown) (unknown) (no (unknown) (unknown) (4) Fibroadenoma (units (unknown) date) of left breast: unknown) (unknown) (no (unknown) (unknown) (5) (units (unkno wn) date) Microalbuminuria: unknown) (unknown) (no (unknown) (unknown) .Route .COMPLEX (units (unknown) date) #63 tabs 09/01/21 unknown) [Rx Confirmed 01/17/22] (unknown) (no (unknown) (unknown) 01/17/22 (units (unkno wn) date) unknown) (unknown) (no (unknown) (unknown) 11:19 01/17/22 (units (unknown) date) unknown) (unknown) (no (unknown) (unknown) 12:14 (units (unkno wn) date) unknown) (unknown) (no (unknown) (unknown) 31 yo female (units (u nknown) date) presents today for unknown) a WWE and a PAP. BP was high, will recheck (unknown) (no (unknown) (unknown) 31-year-old female (units (unknown) date) presents for unknown) well-woman exam/Pap and to follow-up on (unknown) (no (unknown) (unknown) Affect: normal (units (unknown) date) affect unknown) (unknown) (no (unknown) (unknown) Age/Sex: 31 / F (units (unknown) date) Date of Service: unknown) (unknown) (no (unknown) (unknown) All systems (units (un known) date) reviewed + are unknown) unremarkable except as noted in HPI and below (unknown) (no (unknown) (unknown) Allergies (units (unkn own) date) unknown) (unknown) (no (unknown) (unknown) [place], [place] (units ( unknown) date) [id number] unknown) (unknown) (no (unknown) (unknown) Anxiety (units (unkno wn) date) unknown) (unknown) (no (unknown) (unknown) Appearance: (units (un known) date) grossly normal unknown) (unknown) (no (unknown) (unknown) Assessment + Plan (units (unknown) date) unknown) (unknown) (no (unknown) (unknown) Attending Dr: (units ( unknown) date) Celso SAUNDERS unknown) (unknown) (no (unknown) (unknown) Attitude: (units (unkn own) date) cooperative unknown) (unknown) (no (unknown) (unknown) Auscultation: (units ( unknown) date) clear to unknown) auscultation bilaterally (unknown) (no (unknown) (unknown) Auscultation: (units ( unknown) date) normal bowel sounds unknown) (unknown) (no (unknown) (unknown) BMI 29.4 (units (unkno wn) date) unknown) (unknown) (no (unknown) (unknown) BP 158/110 H (units (u nknown) date) 138/102 H unknown) (unknown) (no (unknown) (unknown) Bimanual Exam- (units (unknown) date) Adnexa, other: unknown) normal adnexae, normal and non-tender (unknown) (no (unknown) (unknown) Bimanual Exam- (units (unknown) date) Vagina + Uterus: unknown) normal bimanual exam, normal palpation, uterine (unknown) (no (unknown) (unknown) Blood Pressure (units (unknown) date) Location Lt unknown) brachial Lt brachial (unknown) (no (unknown) (unknown) Breast inspection: (units (unknown) date) normal inspection unknown) of the breasts and normal inspection of the (unknown) (no (unknown) (unknown) Breast palpation: (units (unknown) date) normal palpation of unknown) the axillae and no axillary (unknown) (no (unknown) (unknown) Cardio (units (unkno wn) date) unknown) (unknown) (no (unknown) (unknown) Chest (units (unkno wn) date) unknown) (unknown) (no (unknown) (unknown) Chicken pox (units (un known) date) () unknown) (unknown) (no (unknown) (unknown) Chief Complaint (units (unknown) date) unknown) (unknown) (no (unknown) (unknown) Chief Complaint: (units (unknown) date) WWE/Pap/follow-up unknown) hypertension/labs (unknown) (no (unknown) (unknown) Cognition: normal (units (unknown) date) cognition unknown) (unknown) (no (unknown) (unknown) Const (units (unkno wn) date) unknown) (unknown) (no (unknown) (unknown) : 1990 (units (unknown) date) Acct:[id number] unknown) (unknown) (no (unknown) (unknown) Denies breast skin (units (unknown) date) changes, Denies unknown) breast pain, Denies breast mass and Denies (unknown) (no (unknown) (unknown) Denies genital (units (unknown) date) lesions, Denies unknown) nipple discharge, Denies prolapse symptoms, (unknown) (no (unknown) (unknown) Denies history of (units (unknown) date) abnormal Paps. unknown) , delivered by . Patient was (unknown) (no (unknown) (unknown) Denies sexual (units ( unknown) date) dysfunction, Denies unknown) vaginal discharge and Denies vaginal odor (unknown) (no (unknown) (unknown) Dept at (units (unkno wn) date) . unknown) (unknown) (no (unknown) (unknown) Details: (units (unkno wn) date) unknown) (unknown) (no (unknown) (unknown) Discontinued (units (u nknown) date) Reason: Dose Change unknown) 50 mg PO DAILY 30 tabs 2RF (unknown) (no (unknown) (unknown) Discontinued (units (u nknown) date) unknown) (unknown) (no (unknown) (unknown) Documented By: (units (unknown) date) Celso Rowley unknown) 01/17/22 1118 (unknown) (no (unknown) (unknown) Draft (units (unkno wn) date) unknown) (unknown) (no (unknown) (unknown) Dyslipidemia (units (u nknown) date) unknown) (unknown) (no (unknown) (unknown) Dyslipidemia:? (units (unknown) date) Mildly elevated unknown) LDL, decreased HDL:? Counseled on dietary (unknown) (no (unknown) (unknown) Ears: hearing (units ( unknown) date) grossly normal unknown) bilaterally, TM's normal bilaterally and EAC's (unknown) (no (unknown) (unknown) Effort + (units (unkno wn) date) Inspection: normal unknown) respiratory effort (unknown) (no (unknown) (unknown) Essential (units (unkn own) date) hypertension unknown) (-2019) (unknown) (no (unknown) (unknown) Exam (units (unkno wn) date) unknown) (unknown) (no (unknown) (unknown) External Female (units (unknown) date) Exam: normal unknown) external appearance (unknown) (no (unknown) (unknown) Extrem (units (unkno wn) date) unknown) (unknown) (no (unknown) (unknown) Eyes (units (unkno wn) date) unknown) (unknown) (no (unknown) (unknown) Family Practice (units (unknown) date) Office Visit unknown) (unknown) (no (unknown) (unknown) [facility]) (unknown) (no (unknown) (unknown) GI (units (unkno wn) date) unknown) (unknown) (no (unknown) (unknown) (units (unkno wn) date) unknown) (unknown) (no (unknown) (unknown) Gait: normal gait (units (unknown) date) unknown) (unknown) (no (unknown) (unknown) General physical (units (unknown) date) exam and unknown) gynecological exam were unremarkable. Clinical breast (unknown) (no (unknown) (unknown) General: (units (unkno wn) date) appearance normal, unknown) both eyes and all related structures (unknown) (no (unknown) (unknown) General: (units (unkno wn) date) cooperative, unknown) healthy appearing and no acute distress (unknown) (no (unknown) (unknown) General: no rashes (units (unknown) date) or lesions noted unknown) (unknown) (no (unknown) (unknown) General: normal to (units (unknown) date) inspection, full unknown) ROM and no edema (unknown) (no (unknown) (unknown) General: patient (units (unknown) date) alert, patient unknown) awake and patient oriented x3 (unknown) (no (unknown) (unknown) HENMT (units (unkno wn) date) unknown) (unknown) (no (unknown) (unknown) HPI (units (unkno wn) date) unknown) (unknown) (no (unknown) (unknown) Head: normal to (units (unknown) date) inspection unknown) (unknown) (no (unknown) (unknown) Health Management (units (unknown) date) reviewed with unknown) patient: Yes (unknown) (no (unknown) (unknown) Health Management (units (unknown) date) unknown) (unknown) (no (unknown) (unknown) Heart Sounds: S1 (units (unknown) date) normal, S2 normal, unknown) normal S1 and S2 and no murmurs (unknown) (no (unknown) (unknown) Height 152.4 cm (units (unknown) date) unknown) (unknown) (no (unknown) (unknown) History of (units (unk nown) date) section unknown) (-01/02/19) (unknown) (no (unknown) (unknown) Immunization due (units (unknown) date) unknown) (unknown) (no (unknown) (unknown) Impaired fasting (units (unknown) date) blood sugar unknown) (unknown) (no (unknown) (unknown) Inspection: normal (units (unknown) date) to inspection unknown) (unknown) (no (unknown) (unknown) Intake Note: (units (u nknown) date) unknown) (unknown) (no (unknown) (unknown) Intake performed (units (unknown) date) by: Jannette Whitman unknown) (unknown) (no (unknown) (unknown) Intake (units (unkno wn) date) unknown) (unknown) (no (unknown) (unknown) Intake- Clincial (units (unknown) date) Staff unknown) (unknown) (no (unknown) (unknown) Judgment: judgment (units (unknown) date) good unknown) (unknown) (no (unknown) (unknown) L breast lum about (units (unknown) date) 12 oclock is unknown) smaller, about 1cm feels more fibrocystic now (unknown) (no (unknown) (unknown) Lab work otherwise (units (unknown) date) unremarkable.? unknown) Outside of above, recommend next screening lab (unknown) (no (unknown) (unknown) Last Menstural (units (unknown) date) Cycle + Details unknown) (unknown) (no (unknown) (unknown) Left breast 12 (units (unknown) date) o'clock: unknown) Approximately 1 cm diameter cystic type mass in the (unknown) (no (unknown) (unknown) Loc: [facility] (units (unkno wn) date) unknown) (unknown) (no (unknown) (unknown) [id number] (units (unk nown) date) unknown) (unknown) (no (unknown) (unknown) Mass of breast, (units (unknown) date) left unknown) (unknown) (no (unknown) (unknown) Medical History (units (unknown) date) (Reviewed 12/09/21 unknown) @ 14:47 by NICKY Ferrer) (unknown) (no (unknown) (unknown) Medications (units (un known) date) unknown) (unknown) (no (unknown) (unknown) Medications: (units (u nknown) date) unknown) (unknown) (no (unknown) (unknown) Mental Status: (units (unknown) date) mental status unknown) grossly normal (unknown) (no (unknown) (unknown) Microalbuminuria:? (units (unknown) date) Mild.? We will get unknown) repeat microalbumin/creati nine ratio in (unknown) (no (unknown) (unknown) Mood: congruent (units (unknown) date) mood unknown) (unknown) (no (unknown) (unknown) Motor: muscle tone (units (unknown) date) normal throughout unknown) (unknown) (no (unknown) (unknown) Mouth: oral (units (un known) date) mucosae normal and unknown) oropharynx normal (unknown) (no (unknown) (unknown) NORMAL aileen, (units (un known) date) pelvic. only unknown) abnormality is breast from known biopsied lump. no (unknown) (no (unknown) (unknown) Neck mass: No (units ( unknown) date) unknown) (unknown) (no (unknown) (unknown) Neck (units (unkno wn) date) unknown) (unknown) (no (unknown) (unknown) Neck: normal (units (u nknown) date) visual inspection unknown) and no lymphadenopathy (unknown) (no (unknown) (unknown) Neuro (units (unkno wn) date) unknown) (unknown) (no (unknown) (unknown) New (units (unkno wn) date) unknown) (unknown) (no (unknown) (unknown) No Known Drug (units ( unknown) date) Allergies Allergy unknown) (Unverified 01/18/22 10:45) (unknown) (no (unknown) (unknown) No supraclavicular (units (unknown) date) or infraclavicular unknown) lymphadenopathy. (unknown) (no (unknown) (unknown) Nose: external (units (unknown) date) nose normal and unknown) nasal mucous membranes and turbinates normal (unknown) (no (unknown) (unknown) Orders (units (unkno wn) date) unknown) (unknown) (no (unknown) (unknown) Orders: (units (unkno wn) date) unknown) (unknown) (no (unknown) (unknown) Other Menstrual (units (unknown) date) Period: Other unknown) (irregular cycles since giving 2018) (unknown) (no (unknown) (unknown) Other: (units (unkno wn) date) unknown) (unknown) (no (unknown) (unknown) Oxygen Delivery (units (unknown) date) Method room air unknown) (unknown) (no (unknown) (unknown) PAP with hr HPV (units (unknown) date) 01/17/22 Z00.00 - unknown) Encounter for general adult medical (unknown) (no (unknown) (unknown) PFSH (units (unkno wn) date) unknown) (unknown) (no (unknown) (unknown) Painful lumpy left (units (unknown) date) breast unknown) (unknown) (no (unknown) (unknown) Palpation: soft, (units (unknown) date) no unknown) hepatosplenomegaly, no guarding, no hernias, no masses and (unknown) (no (unknown) (unknown) Patient has (units (un known) date) history of 2 breast unknown) biopsies on the left breast. Reports that (unknown) (no (unknown) (unknown) Patient states (units (unknown) date) that her unknown) palpitations and tachycardia seem to have improved (unknown) (no (unknown) (unknown) Patient was seen (units (unknown) date) by me about 6 weeks unknown) ago when we changed her from nifedipine ER (unknown) (no (unknown) (unknown) Patient: (units (unkno wn) date) Deepa Moser unknown) MR#: (unknown) (no (unknown) (unknown) Pelvic Support: (units (unknown) date) normal unknown) (unknown) (no (unknown) (unknown) Percussion: normal (units (unknown) date) to percussion unknown) (unknown) (no (unknown) (unknown) Plan (units (unkno wn) date) unknown) (unknown) (no (unknown) (unknown) Position Sitting (units (unknown) date) Sitting unknown) (unknown) (no (unknown) (unknown) Psych (units (unkno wn) date) unknown) (unknown) (no (unknown) (unknown) Pulse 81 (units (unkno wn) date) unknown) (unknown) (no (unknown) (unknown) Pulse Oximetry (%) (units (unknown) date) 98 unknown) (unknown) (no (unknown) (unknown) Pulse Source (units (u nknown) date) Monitor unknown) (unknown) (no (unknown) (unknown) ROS (units (unkno wn) date) unknown) (unknown) (no (unknown) (unknown) Rate: regular rate (units (unknown) date) unknown) (unknown) (no (unknown) (unknown) Reason For Visit (units (unknown) date) unknown) (unknown) (no (unknown) (unknown) Reports as per (units (unknown) date) HPI, Denies unknown) abnormal vaginal bleeding, Denies metrorrhagia, (unknown) (no (unknown) (unknown) Resp (units (unkno wn) date) unknown) (unknown) (no (unknown) (unknown) Rhythm: regular (units (unknown) date) rhythm unknown) (unknown) (no (unknown) (unknown) Sensory Exam: no (units (unknown) date) sensory deficits unknown) noted (unknown) (no (unknown) (unknown) Signed By: (units (unk nown) date) unknown) (unknown) (no (unknown) (unknown) Skin (units (unkno wn) date) unknown) (unknown) (no (unknown) (unknown) Skin/Breast (units (un known) date) unknown) (unknown) (no (unknown) (unknown) Smoking Status: (units (unknown) date) Never smoker unknown) (unknown) (no (unknown) (unknown) Speculum Exam - (units (unknown) date) Cervix: normal unknown) appearance of the cervix (unknown) (no (unknown) (unknown) Speculum Exam - (units (unknown) date) Vagina: normal unknown) appearance of the vagina and normal vaginal (unknown) (no (unknown) (unknown) Speech: speech (units (unknown) date) normal unknown) (unknown) (no (unknown) (unknown) Status: Acute (units ( unknown) date) unknown) (unknown) (no (unknown) (unknown) Status: Chronic (units (unknown) date) unknown) (unknown) (no (unknown) (unknown) Surgical History (units (unknown) date) (Reviewed 12/09/21 unknown) @ 14:47 by NICKY Ferrer) (unknown) (no (unknown) (unknown) This note may have (units (unknown) date) been all or unknown) partially generated using voice recognition (unknown) (no (unknown) (unknown) Thought Content: (units (unknown) date) normal unknown) (unknown) (no (unknown) (unknown) Thought Process: (units (unknown) date) normal unknown) (unknown) (no (unknown) (unknown) Throat: posterior (units (unknown) date) oropharynx normal unknown) (unknown) (no (unknown) (unknown) Thyroid: thyroid (units (unknown) date) normal unknown) (unknown) (no (unknown) (unknown) Tobacco + (units (unkn own) date) Substance Use unknown) (unknown) (no (unknown) (unknown) Tobacco Status (units (unknown) date) unknown) (unknown) (no (unknown) (unknown) Visit Reasons: WWE (units (unknown) date) W/PAP, f/u BP unknown) (unknown) (no (unknown) (unknown) Vitals (units (unkno wn) date) unknown) (unknown) (no (unknown) (unknown) Weight 68.266 kg (units (unknown) date) unknown) (unknown) (no (unknown) (unknown) [place] teeth (units (u nknown) date) removed () unknown) (unknown) (no (unknown) (unknown) able to feel the (units (unknown) date) lump in the 12 unknown) o'clock region but it feels smaller than (unknown) (no (unknown) (unknown) about 3 months.? (units (unknown) date) Will contact her unknown) with results and recommendations.? (unknown) (no (unknown) (unknown) albuterol sulfate (units (unknown) date) 90 mcg/actuation unknown) breath activated powder inhaler 1 inh (unknown) (no (unknown) (unknown) axillae (units (unkno wn) date) unknown) (unknown) (no (unknown) (unknown) before patient (units (unknown) date) leaves. unknown) (unknown) (no (unknown) (unknown) bilateral breasts. (units (unknown) date) unknown) (unknown) (no (unknown) (unknown) discharge (units (unkn own) date) unknown) (unknown) (no (unknown) (unknown) exam notable for (units (unknown) date) findings as above. unknown) Pap performed; will contact the patient (unknown) (no (unknown) (unknown) examination (units (un known) date) without abnormal unknown) findings, Z12.4 - Encounter for screening for (unknown) (no (unknown) (unknown) f/u on increased (units (unknown) date) metoprolol 4-6 unknown) weeks. (unknown) (no (unknown) (unknown) for her menses. (units (unknown) date) Denies bleeding unknown) between menses. No gynecological symptoms. (unknown) (no (unknown) (unknown) further f/u (units (un known) date) recommended. unknown) (unknown) (no (unknown) (unknown) had a regular (units ( unknown) date) menses while being unknown) on the EM pill; she is currently 1 day late (unknown) (no (unknown) (unknown) have occurred. If (units (unknown) date) there are any unknown) questions, please contact the Medical Records (unknown) (no (unknown) (unknown) her (units (un known) date) decided they were unknown) open to the possibility of conceiving another (unknown) (no (unknown) (unknown) hypertension and (units (unknown) date) review pertinent unknown) lab work. (unknown) (no (unknown) (unknown) inhalation Q4-6H (units (unknown) date) PRN shortness of unknown) breath #1 ea 01/18/22 [Rx] (unknown) (no (unknown) (unknown) lymphadenopathy (units (unknown) date) unknown) (unknown) (no (unknown) (unknown) malignant neoplasm (units (unknown) date) of cervix unknown) (unknown) (no (unknown) (unknown) may occur. (units (unk nown) date) Occasional unknown) wrong-word or 'sound-alike' substitutions may have (unknown) (no (unknown) (unknown) metoprolol (units (unk nown) date) succinate 100 mg unknown) tablet,extended release 24 hr 100 mg PO DAILY #90 (unknown) (no (unknown) (unknown) metoprolol (units (unk nown) date) succinate ER 100 mg unknown) PO DAILY 90 tabs 0RF (unknown) (no (unknown) (unknown) metoprolol (units (unk nown) date) succinate ER unknown) (unknown) (no (unknown) (unknown) modifications, (units (unknown) date) regular CV and unknown) conditioning exercise, weight management. (unknown) (no (unknown) (unknown) nipple discharge (units (unknown) date) unknown) (unknown) (no (unknown) (unknown) no side effects of (units (unknown) date) metoprolol, feeling unknown) slightly better. will increase dose. (unknown) (no (unknown) (unknown) nontender (units (unkn own) date) unknown) (unknown) (no (unknown) (unknown) norethindrone (units ( unknown) date) acetate 1 unknown) mg-ethinyl estradiol 20 mcg tablet See Rx Instructions (unknown) (no (unknown) (unknown) normal (units (unkno wn) date) unknown) (unknown) (no (unknown) (unknown) occurred due to (units (unknown) date) the inherent unknown) limitations of voice recognition software. Please (unknown) (no (unknown) (unknown) , (units (unk nown) date) although not unknown) specifically planning for this. Patient has generally (unknown) (no (unknown) (unknown) previously taking (units (unknown) date) EM pill for unknown) contraception; she has stopped this as she and (unknown) (no (unknown) (unknown) previously. No new (units (unknown) date) symptoms. unknown) (unknown) (no (unknown) (unknown) read the note (units ( unknown) date) carefully and unknown) recognize, using context, where these substitutions (unknown) (no (unknown) (unknown) reflex free T4, (units (unknown) date) lipids, CMP. unknown) (unknown) (no (unknown) (unknown) repeat (units (unkno wn) date) microalbumin 3 unknown) months (unknown) (no (unknown) (unknown) results were (units (u nknown) date) benign and no unknown) additional follow-up was recommended. She is still (unknown) (no (unknown) (unknown) setting of (units (unk nown) date) generally unknown) fibrocystic type tissue. Otherwise normal palpation (unknown) (no (unknown) (unknown) size normal, (units (u nknown) date) consistency normal, unknown) normal palpation, uterine mobility normal, (unknown) (no (unknown) (unknown) software. 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 (unknown) (no (unknown) (unknown) tabs 01/17/22 [Rx (units (unknown) date) Confirmed 01/17/22] unknown) (unknown) (no (unknown) (unknown) that the (units (unkno wn) date) nifedipine ER might unknown) have been causing the palpitations/tachyc ardia.? (unknown) (no (unknown) (unknown) to metoprolol (units ( unknown) date) succinate ER for unknown) her antihypertensive medicine, due to concern (unknown) (no (unknown) (unknown) uterine shape (units ( unknown) date) normal and unknown) non-tender (unknown) (no (unknown) (unknown) with results and (units (unknown) date) recommendations. unknown) (unknown) (no (unknown) (unknown) work within 3 (units ( unknown) date) years, fasting labs unknown) which will be:? 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 BP was high, will recheck (unknown) (no (unknown) (unknown) 31-year-old female (units (unknown) date) presents for unknown) well-woman exam/Pap and to follow-up on (unknown) (no (unknown) (unknown) Affect: normal (units (unknown) date) affect unknown) (unknown) (no (unknown) (unknown) Age/Sex: 31 / F (units (unknown) date) Date of Service: unknown) (unknown) (no (unknown) (unknown) All systems (units (un known) date) reviewed + are unknown) unremarkable except as noted in HPI and below (unknown) (no (unknown) (unknown) Allergies (units (unkn own) date) unknown) (unknown) (no (unknown) (unknown) [place], [place] (units ( unknown) date) [id number] unknown) (unknown) (no (unknown) (unknown) Anxiety (units (unkno wn) date) unknown) (unknown) (no (unknown) (unknown) Appearance: (units (un known) date) grossly normal unknown) (unknown) (no (unknown) (unknown) Assessment + Plan (units (unknown) date) unknown) (unknown) (no (unknown) (unknown) Attending Dr: (units ( unknown) date) Celso SAUNDERS unknown) (unknown) (no (unknown) (unknown) Attitude: (units (unkn own) date) cooperative unknown) (unknown) (no (unknown) (unknown) Auscultation: (units ( unknown) date) clear to unknown) auscultation bilaterally (unknown) (no (unknown) (unknown) Auscultation: (units ( unknown) date) normal bowel sounds unknown) (unknown) (no (unknown) (unknown) BMI 29.4 (units (unkno wn) date) unknown) (unknown) (no (unknown) (unknown) BP 158/110 H (units (u nknown) date) 138/102 H unknown) (unknown) (no (unknown) (unknown) Bimanual Exam- (units (unknown) date) Adnexa, other: unknown) normal adnexae, normal and non-tender (unknown) (no (unknown) (unknown) Bimanual Exam- (units (unknown) date) Vagina + Uterus: unknown) normal bimanual exam, normal palpation, uterine (unknown) (no (unknown) (unknown) Blood Pressure (units (unknown) date) Location Lt unknown) brachial Lt brachial (unknown) (no (unknown) (unknown) Breast inspection: (units (unknown) date) normal inspection unknown) of the breasts and normal inspection of the (unknown) (no (unknown) (unknown) Breast palpation: (units (unknown) date) normal palpation of unknown) the axillae and no axillary (unknown) (no (unknown) (unknown) Cardio (units (unkno wn) date) unknown) (unknown) (no (unknown) (unknown) Chest (units (unkno wn) date) unknown) (unknown) (no (unknown) (unknown) Chicken pox (units (un known) date) () unknown) (unknown) (no (unknown) (unknown) Chief Complaint (units (unknown) date) unknown) (unknown) (no (unknown) (unknown) Chief Complaint: (units (unknown) date) WWE/Pap/follow-up unknown) hypertension/labs (unknown) (no (unknown) (unknown) Cognition: normal (units (unknown) date) cognition unknown) (unknown) (no (unknown) (unknown) Const (units (unkno wn) date) unknown) (unknown) (no (unknown) (unknown) : 1990 (units (unknown) date) Acct:[id number] unknown) (unknown) (no (unknown) (unknown) Denies breast skin (units (unknown) date) changes, Denies unknown) breast pain, Denies breast mass and Denies (unknown) (no (unknown) (unknown) Denies genital (units (unknown) date) lesions, Denies unknown) nipple discharge, Denies prolapse symptoms, (unknown) (no (unknown) (unknown) Denies history of (units (unknown) date) abnormal Paps. unknown) , delivered by . Patient was (unknown) (no (unknown) (unknown) Denies sexual (units ( unknown) date) dysfunction, Denies unknown) vaginal discharge and Denies vaginal odor (unknown) (no (unknown) (unknown) Dept at (units (o wn) date) . unknown) (unknown) (no (unknown) (unknown) Details: (units (unkno wn) date) unknown) (unknown) (no (unknown) (unknown) Discontinued (units (u nknown) date) Reason: Dose Change unknown) 50 mg PO DAILY 30 tabs 2RF (unknown) (no (unknown) (unknown) Discontinued (units (u nknown) date) unknown) (unknown) (no (unknown) (unknown) Documented By: (units (unknown) date) Celso Rowley unknown) 01/17/22 1118 (unknown) (no (unknown) (unknown) Draft (units (unkno wn) date) unknown) (unknown) (no (unknown) (unknown) Dyslipidemia (units (u nknown) date) unknown) (unknown) (no (unknown) (unknown) Dyslipidemia:? (units (unknown) date) Mildly elevated unknown) LDL, decreased HDL:? Counseled on dietary (unknown) (no (unknown) (unknown) Ears: hearing (units ( unknown) date) grossly normal unknown) bilaterally, TM's normal bilaterally and EAC's (unknown) (no (unknown) (unknown) Effort + (units (unkno wn) date) Inspection: normal unknown) respiratory effort (unknown) (no (unknown) (unknown) Essential (units (unkn own) date) hypertension unknown) (-2019) (unknown) (no (unknown) (unknown) Exam (units (unkno wn) date) unknown) (unknown) (no (unknown) (unknown) External Female (units (unknown) date) Exam: normal unknown) external appearance (unknown) (no (unknown) (unknown) Extrem (units (unkno wn) date) unknown) (unknown) (no (unknown) (unknown) Eyes (units (unkno wn) date) unknown) (unknown) (no (unknown) (unknown) Family Practice (units (unknown) date) Office Visit unknown) (unknown) (no (unknown) (unknown) [facility]) (unknown) (no (unknown) (unknown) GI (units (unkno wn) date) unknown) (unknown) (no (unknown) (unknown) (units (unkno wn) date) unknown) (unknown) (no (unknown) (unknown) Gait: normal gait (units (unknown) date) unknown) (unknown) (no (unknown) (unknown) General physical (units (unknown) date) exam and unknown) gynecological exam were unremarkable. Clinical breast (unknown) (no (unknown) (unknown) General: (units (unkno wn) date) appearance normal, unknown) both eyes and all related structures (unknown) (no (unknown) (unknown) General: (units (unkno wn) date) cooperative, unknown) healthy appearing and no acute distress (unknown) (no (unknown) (unknown) General: no rashes (units (unknown) date) or lesions noted unknown) (unknown) (no (unknown) (unknown) General: normal to (units (unknown) date) inspection, full unknown) ROM and no edema (unknown) (no (unknown) (unknown) General: patient (units (unknown) date) alert, patient unknown) awake and patient oriented x3 (unknown) (no (unknown) (unknown) HENMT (units (unkno wn) date) unknown) (unknown) (no (unknown) (unknown) HPI (units (unkno wn) date) unknown) (unknown) (no (unknown) (unknown) Head: normal to (units (unknown) date) inspection unknown) (unknown) (no (unknown) (unknown) Health Management (units (unknown) date) reviewed with unknown) patient: Yes (unknown) (no (unknown) (unknown) Health Management (units (unknown) date) unknown) (unknown) (no (unknown) (unknown) Heart Sounds: S1 (units (unknown) date) normal, S2 normal, unknown) normal S1 and S2 and no murmurs (unknown) (no (unknown) (unknown) Height 152.4 cm (units (unknown) date) unknown) (unknown) (no (unknown) (unknown) History of (units (unk nown) date) section unknown) (-01/02/19) (unknown) (no (unknown) (unknown) Hypertension: We (units (unknown) date) will increase her unknown) metoprolol (unknown) (no (unknown) (unknown) Immunization due (units (unknown) date) unknown) (unknown) (no (unknown) (unknown) Impaired fasting (units (unknown) date) blood sugar unknown) (unknown) (no (unknown) (unknown) Inspection: normal (units (unknown) date) to inspection unknown) (unknown) (no (unknown) (unknown) Intake Note: (units (u nknown) date) unknown) (unknown) (no (unknown) (unknown) Intake performed (units (unknown) date) by: Jannette Whitman unknown) (unknown) (no (unknown) (unknown) Intake (units (unkno wn) date) unknown) (unknown) (no (unknown) (unknown) Intake- Clincial (units (unknown) date) Staff unknown) (unknown) (no (unknown) (unknown) Judgment: judgment (units (unknown) date) good unknown) (unknown) (no (unknown) (unknown) L breast lum about (units (unknown) date) 12 oclock is unknown) smaller, about 1cm feels more fibrocystic now (unknown) (no (unknown) (unknown) Lab work otherwise (units (unknown) date) unremarkable.? unknown) Outside of above, recommend next screening lab (unknown) (no (unknown) (unknown) Last Menstural (units (unknown) date) Cycle + Details unknown) (unknown) (no (unknown) (unknown) Left breast 12 (units (unknown) date) o'clock: unknown) Approximately 1 cm diameter cystic type mass in the (unknown) (no (unknown) (unknown) Loc: [facility] (units (unkno wn) date) unknown) (unknown) (no (unknown) (unknown) [id number] (units (unk nown) date) unknown) (unknown) (no (unknown) (unknown) Mass of breast, (units (unknown) date) left unknown) (unknown) (no (unknown) (unknown) Medical History (units (unknown) date) (Reviewed 12/09/21 unknown) @ 14:47 by NICKY Ferrer) (unknown) (no (unknown) (unknown) Medications (units (un known) date) unknown) (unknown) (no (unknown) (unknown) Medications: (units (u nknown) date) unknown) (unknown) (no (unknown) (unknown) Mental Status: (units (unknown) date) mental status unknown) grossly normal (unknown) (no (unknown) (unknown) Microalbumin Creat (units (unknown) date) Ratio Urine 3 unknown) Months R80.9 - Proteinuria, unspecified (unknown) (no (unknown) (unknown) Microalbuminuria:? (units (unknown) date) Mild.? We will get unknown) repeat microalbumin/creati nine ratio in (unknown) (no (unknown) (unknown) Mood: congruent (units (unknown) date) mood unknown) (unknown) (no (unknown) (unknown) Motor: muscle tone (units (unknown) date) normal throughout unknown) (unknown) (no (unknown) (unknown) Mouth: oral (units (un known) date) mucosae normal and unknown) oropharynx normal (unknown) (no (unknown) (unknown) NORMAL aileen, (units (un known) date) pelvic. only unknown) abnormality is breast from known biopsied lump. no (unknown) (no (unknown) (unknown) Neck mass: No (units ( unknown) date) unknown) (unknown) (no (unknown) (unknown) Neck (units (unkno wn) date) unknown) (unknown) (no (unknown) (unknown) Neck: normal (units (u nknown) date) visual inspection unknown) and no lymphadenopathy (unknown) (no (unknown) (unknown) Neuro (units (unkno wn) date) unknown) (unknown) (no (unknown) (unknown) New (units (unkno wn) date) unknown) (unknown) (no (unknown) (unknown) No Known Drug (units ( unknown) date) Allergies Allergy unknown) (Unverified 01/18/22 10:45) (unknown) (no (unknown) (unknown) No supraclavicular (units (unknown) date) or infraclavicular unknown) lymphadenopathy. (unknown) (no (unknown) (unknown) Nose: external (units (unknown) date) nose normal and unknown) nasal mucous membranes and turbinates normal (unknown) (no (unknown) (unknown) Orders (units (unkno wn) date) unknown) (unknown) (no (unknown) (unknown) Orders: (units (unkno wn) date) unknown) (unknown) (no (unknown) (unknown) Other Menstrual (units (unknown) date) Period: Other unknown) (irregular cycles since giving 2019) (unknown) (no (unknown) (unknown) Other: (units (unkno wn) date) unknown) (unknown) (no (unknown) (unknown) Oxygen Delivery (units (unknown) date) Method room air unknown) (unknown) (no (unknown) (unknown) PAP with hr HPV (units (unknown) date) 01/17/22 Z00.00 - unknown) Encounter for general adult medical (unknown) (no (unknown) (unknown) PFSH (units (unkno wn) date) unknown) (unknown) (no (unknown) (unknown) Painful lumpy left (units (unknown) date) breast unknown) (unknown) (no (unknown) (unknown) Palpation: soft, (units (unknown) date) no unknown) hepatosplenomegaly, no guarding, no hernias, no masses and (unknown) (no (unknown) (unknown) Patient has (units (un known) date) history of 2 breast unknown) biopsies on the left breast. Reports that (unknown) (no (unknown) (unknown) Patient states (units (unknown) date) that her unknown) palpitations and tachycardia seem to have improved (unknown) (no (unknown) (unknown) Patient was seen (units (unknown) date) by me about 6 weeks unknown) ago when we changed her from nifedipine ER (unknown) (no (unknown) (unknown) Patient: (units (unkno wn) date) Deepa Moser S unknown) MR#: (unknown) (no (unknown) (unknown) Pelvic Support: (units (unknown) date) normal unknown) (unknown) (no (unknown) (unknown) Percussion: normal (units (unknown) date) to percussion unknown) (unknown) (no (unknown) (unknown) Plan (units (unkno wn) date) unknown) (unknown) (no (unknown) (unknown) Position Sitting (units (unknown) date) Sitting unknown) (unknown) (no (unknown) (unknown) Psych (units (unkno wn) date) unknown) (unknown) (no (unknown) (unknown) Pulse 81 (units (unkno wn) date) unknown) (unknown) (no (unknown) (unknown) Pulse Oximetry (%) (units (unknown) date) 98 unknown) (unknown) (no (unknown) (unknown) Pulse Source (units (u nknown) date) Monitor unknown) (unknown) (no (unknown) (unknown) ROS (units (unkno wn) date) unknown) (unknown) (no (unknown) (unknown) Rate: regular rate (units (unknown) date) unknown) (unknown) (no (unknown) (unknown) Reason For Visit (units (unknown) date) unknown) (unknown) (no (unknown) (unknown) Reports as per (units (unknown) date) HPI, Denies unknown) abnormal vaginal bleeding, Denies metrorrhagia, (unknown) (no (unknown) (unknown) Resp (units (unkno wn) date) unknown) (unknown) (no (unknown) (unknown) Rhythm: regular (units (unknown) date) rhythm unknown) (unknown) (no (unknown) (unknown) Sensory Exam: no (units (unknown) date) sensory deficits unknown) noted (unknown) (no (unknown) (unknown) Signed By: (units (unk nown) date) unknown) (unknown) (no (unknown) (unknown) Skin (units (unkno wn) date) unknown) (unknown) (no (unknown) (unknown) Skin/Breast (units (un known) date) unknown) (unknown) (no (unknown) (unknown) Smoking Status: (units (unknown) date) Never smoker unknown) (unknown) (no (unknown) (unknown) Speculum Exam - (units (unknown) date) Cervix: normal unknown) appearance of the cervix (unknown) (no (unknown) (unknown) Speculum Exam - (units (unknown) date) Vagina: normal unknown) appearance of the vagina and normal vaginal (unknown) (no (unknown) (unknown) Speech: speech (units (unknown) date) normal unknown) (unknown) (no (unknown) (unknown) Status: Acute (units ( unknown) date) unknown) (unknown) (no (unknown) (unknown) Status: Chronic (units (unknown) date) unknown) (unknown) (no (unknown) (unknown) Surgical History (units (unknown) date) (Reviewed 12/09/21 unknown) @ 14:47 by NICKY Ferrer) (unknown) (no (unknown) (unknown) This note may have (units (unknown) date) been all or unknown) partially generated using voice recognition (unknown) (no (unknown) (unknown) Thought Content: (units (unknown) date) normal unknown) (unknown) (no (unknown) (unknown) Thought Process: (units (unknown) date) normal unknown) (unknown) (no (unknown) (unknown) Throat: posterior (units (unknown) date) oropharynx normal unknown) (unknown) (no (unknown) (unknown) Thyroid: thyroid (units (unknown) date) normal unknown) (unknown) (no (unknown) (unknown) Tobacco + (units (unkn own) date) Substance Use unknown) (unknown) (no (unknown) (unknown) Tobacco Status (units (unknown) date) unknown) (unknown) (no (unknown) (unknown) Visit Reasons: WWE (units (unknown) date) W/PAP, f/u BP unknown) (unknown) (no (unknown) (unknown) Vitals (units (unkno wn) date) unknown) (unknown) (no (unknown) (unknown) Weight 68.266 kg (units (unknown) date) unknown) (unknown) (no (unknown) (unknown) [place] teeth (units (u nknown) date) removed () unknown) (unknown) (no (unknown) (unknown) able to feel the (units (unknown) date) lump in the 12 unknown) o'clock region but it feels smaller than (unknown) (no (unknown) (unknown) about 3 months.? (units (unknown) date) Will contact her unknown) with results and recommendations.? (unknown) (no (unknown) (unknown) albuterol sulfate (units (unknown) date) 90 mcg/actuation unknown) breath activated powder inhaler 1 inh (unknown) (no (unknown) (unknown) axillae (units (unkno wn) date) unknown) (unknown) (no (unknown) (unknown) before patient (units (unknown) date) leaves. unknown) (unknown) (no (unknown) (unknown) bilateral breasts. (units (unknown) date) unknown) (unknown) (no (unknown) (unknown) discharge (units (unkn own) date) unknown) (unknown) (no (unknown) (unknown) exam notable for (units (unknown) date) findings as above. unknown) Pap performed; will contact the patient (unknown) (no (unknown) (unknown) examination (units (un known) date) without abnormal unknown) findings, Z12.4 - Encounter for screening for (unknown) (no (unknown) (unknown) f/u on increased (units (unknown) date) metoprolol 4-6 unknown) weeks. (unknown) (no (unknown) (unknown) for her menses. (units (unknown) date) Denies bleeding unknown) between menses. No gynecological symptoms. (unknown) (no (unknown) (unknown) further f/u (units (un known) date) recommended. unknown) (unknown) (no (unknown) (unknown) had a regular (units ( unknown) date) menses while being unknown) on the EM pill; she is currently 1 day late (unknown) (no (unknown) (unknown) have occurred. If (units (unknown) date) there are any unknown) questions, please contact the Medical Records (unknown) (no (unknown) (unknown) her (units (un known) date) decided they were unknown) open to the possibility of conceiving another (unknown) (no (unknown) (unknown) hypertension and (units (unknown) date) review pertinent unknown) lab work. (unknown) (no (unknown) (unknown) inhalation Q4-6H (units (unknown) date) PRN shortness of unknown) breath #1 ea 01/18/22 [Rx] (unknown) (no (unknown) (unknown) lymphadenopathy (units (unknown) date) unknown) (unknown) (no (unknown) (unknown) malignant neoplasm (units (unknown) date) of cervix unknown) (unknown) (no (unknown) (unknown) may occur. (units (unk nown) date) Occasional unknown) wrong-word or 'sound-alike' substitutions may have (unknown) (no (unknown) (unknown) metoprolol (units (unk nown) date) succinate 100 mg unknown) tablet,extended release 24 hr 100 mg PO DAILY #90 (unknown) (no (unknown) (unknown) metoprolol (units (unk nown) date) succinate ER 100 mg unknown) PO DAILY 90 tabs 0RF (unknown) (no (unknown) (unknown) metoprolol (units (unk nown) date) succinate ER unknown) (unknown) (no (unknown) (unknown) modifications, (units (unknown) date) regular CV and unknown) conditioning exercise, weight management. (unknown) (no (unknown) (unknown) nipple discharge (units (unknown) date) unknown) (unknown) (no (unknown) (unknown) no side effects of (units (unknown) date) metoprolol, feeling unknown) slightly better. will increase dose. (unknown) (no (unknown) (unknown) nontender (units (unkn own) date) unknown) (unknown) (no (unknown) (unknown) norethindrone (units ( unknown) date) acetate 1 unknown) mg-ethinyl estradiol 20 mcg tablet See Rx Instructions (unknown) (no (unknown) (unknown) normal (units (unkno wn) date) unknown) (unknown) (no (unknown) (unknown) occurred due to (units (unknown) date) the inherent unknown) limitations of voice recognition software. Please (unknown) (no (unknown) (unknown) , (units (unk nown) date) although not unknown) specifically planning for this. Patient has generally (unknown) (no (unknown) (unknown) previously taking (units (unknown) date) EM pill for unknown) contraception; she has stopped this as she and (unknown) (no (unknown) (unknown) previously. No new (units (unknown) date) symptoms. unknown) (unknown) (no (unknown) (unknown) read the note (units ( unknown) date) carefully and unknown) recognize, using context, where these substitutions (unknown) (no (unknown) (unknown) reflex free T4, (units (unknown) date) lipids, CMP. unknown) (unknown) (no (unknown) (unknown) repeat (units (unkno wn) date) microalbumin 3 unknown) months (unknown) (no (unknown) (unknown) results were (units (u nknown) date) benign and no unknown) additional follow-up was recommended. She is still (unknown) (no (unknown) (unknown) setting of (units (unk nown) date) generally unknown) fibrocystic type tissue. Otherwise normal palpation (unknown) (no (unknown) (unknown) size normal, (units (u nknown) date) consistency normal, unknown) normal palpation, uterine mobility normal, (unknown) (no (unknown) (unknown) software. 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 (unknown) (no (unknown) (unknown) tabs 01/17/22 [Rx (units (unknown) date) Confirmed 01/17/22] unknown) (unknown) (no (unknown) (unknown) that the (units (unkno wn) date) nifedipine ER might unknown) have been causing the palpitations/tachyc ardia.? (unknown) (no (unknown) (unknown) to metoprolol (units ( unknown) date) succinate ER for unknown) her antihypertensive medicine, due to concern (unknown) (no (unknown) (unknown) uterine shape (units ( unknown) date) normal and unknown) non-tender (unknown) (no (unknown) (unknown) with results and (units (unknown) date) recommendations. unknown) (unknown) (no (unknown) (unknown) work within 3 (units ( unknown) date) years, fasting labs unknown) which will be:? CBC with no diff, TSH with Result panel 32 (unknown) (no (unknown) (unknown) (no value) (units (unk nown) date) unknown) (unknown) (no (unknown) (unknown) (1) Well woman (units (unknown) date) exam with routine unknown) gynecological exam: (unknown) (no (unknown) (unknown) (2) Essential (units ( unknown) date) hypertension: unknown) (unknown) (no (unknown) (unknown) (3) Dyslipidemia: (units (unknown) date) unknown) (unknown) (no (unknown) (unknown) (4) Fibroadenoma (units (unknown) date) of left breast: unknown) (unknown) (no (unknown) (unknown) (5) (units (unkno wn) date) Microalbuminuria: unknown) (unknown) (no (unknown) (unknown) .Route .COMPLEX (units (unknown) date) #63 tabs 09/01/21 unknown) [Rx Confirmed 01/17/22] (unknown) (no (unknown) (unknown) 01/17/22 (units (unkno wn) date) unknown) (unknown) (no (unknown) (unknown) 01/21/22 1051 (units ( unknown) date) unknown) (unknown) (no (unknown) (unknown) 11:19 01/17/22 (units (unknown) date) unknown) (unknown) (no (unknown) (unknown) 12:14 (units (unkno wn) date) unknown) (unknown) (no (unknown) (unknown) 31 yo female (units (u nknown) date) presents today for unknown) a WWE and a PAP. BP was high, will recheck (unknown) (no (unknown) (unknown) 31-year-old female (units (unknown) date) presents for unknown) well-woman exam/Pap and to follow-up on (unknown) (no (unknown) (unknown) Affect: normal (units (unknown) date) affect unknown) (unknown) (no (unknown) (unknown) Age/Sex: 31 / F (units (unknown) date) Date of Service: unknown) (unknown) (no (unknown) (unknown) All systems (units (un known) date) reviewed + are unknown) unremarkable except as noted in HPI and below (unknown) (no (unknown) (unknown) Allergies (units (unkn own) date) unknown) (unknown) (no (unknown) (unknown) [place], [place] (units ( unknown) date) [id number] unknown) (unknown) (no (unknown) (unknown) Anxiety (units (unkno wn) date) unknown) (unknown) (no (unknown) (unknown) Appearance: (units (un known) date) grossly normal unknown) (unknown) (no (unknown) (unknown) Assessment + Plan (units (unknown) date) unknown) (unknown) (no (unknown) (unknown) Attending Dr: (units ( unknown) date) Celso SAUNDERS unknown) (unknown) (no (unknown) (unknown) Attitude: (units (unkn own) date) cooperative unknown) (unknown) (no (unknown) (unknown) Auscultation: (units ( unknown) date) clear to unknown) auscultation bilaterally (unknown) (no (unknown) (unknown) Auscultation: (units ( unknown) date) normal bowel sounds unknown) (unknown) (no (unknown) (unknown) BMI 29.4 (units (unkno wn) date) unknown) (unknown) (no (unknown) (unknown) BP 158/110 H (units (u nknown) date) 138/102 H unknown) (unknown) (no (unknown) (unknown) Bimanual Exam- (units (unknown) date) Adnexa, other: unknown) normal adnexae, normal and non-tender (unknown) (no (unknown) (unknown) Bimanual Exam- (units (unknown) date) Vagina + Uterus: unknown) normal bimanual exam, normal palpation, uterine (unknown) (no (unknown) (unknown) Blood Pressure (units (unknown) date) Location Lt unknown) brachial Lt brachial (unknown) (no (unknown) (unknown) Breast inspection: (units (unknown) date) normal inspection unknown) of the breasts and normal inspection of the (unknown) (no (unknown) (unknown) Breast palpation: (units (unknown) date) normal palpation of unknown) the axillae and no axillary (unknown) (no (unknown) (unknown) Cardio (units (unkno wn) date) unknown) (unknown) (no (unknown) (unknown) Chest (units (unkno wn) date) unknown) (unknown) (no (unknown) (unknown) Chicken pox (units (un known) date) () unknown) (unknown) (no (unknown) (unknown) Chief Complaint (units (unknown) date) unknown) (unknown) (no (unknown) (unknown) Chief Complaint: (units (unknown) date) WWE/Pap/follow-up unknown) hypertension/labs (unknown) (no (unknown) (unknown) Cognition: normal (units (unknown) date) cognition unknown) (unknown) (no (unknown) (unknown) Const (units (unkno wn) date) unknown) (unknown) (no (unknown) (unknown) : 1990 (units (unknown) date) Acct:[id number] unknown) (unknown) (no (unknown) (unknown) Denies breast skin (units (unknown) date) changes, Denies unknown) breast pain, Denies breast mass and Denies (unknown) (no (unknown) (unknown) Denies genital (units (unknown) date) lesions, Denies unknown) nipple discharge, Denies prolapse symptoms, (unknown) (no (unknown) (unknown) Denies history of (units (unknown) date) abnormal Paps. unknown) , delivered by . Patient was (unknown) (no (unknown) (unknown) Denies sexual (units ( unknown) date) dysfunction, Denies unknown) vaginal discharge and Denies vaginal odor (unknown) (no (unknown) (unknown) Dept at (units (unkno wn) date) . unknown) (unknown) (no (unknown) (unknown) Details: (units (unkno wn) date) unknown) (unknown) (no (unknown) (unknown) Discontinued (units (u nknown) date) Reason: Dose Change unknown) 50 mg PO DAILY 30 tabs 2RF (unknown) (no (unknown) (unknown) Discontinued (units (u nknown) date) unknown) (unknown) (no (unknown) (unknown) Documented By: (units (unknown) date) Celso Rowley NICKY unknown) 01/17/22 1118 (unknown) (no (unknown) (unknown) Dyslipidemia (units (u nknown) date) unknown) (unknown) (no (unknown) (unknown) Dyslipidemia:? (units (unknown) date) Mildly elevated unknown) LDL, decreased HDL:? Counseled on dietary (unknown) (no (unknown) (unknown) Ears: hearing (units ( unknown) date) grossly normal unknown) bilaterally, TM's normal bilaterally and EAC's (unknown) (no (unknown) (unknown) Effort + (units (unkno wn) date) Inspection: normal unknown) respiratory effort (unknown) (no (unknown) (unknown) Essential (units (unkn own) date) hypertension unknown) () (unknown) (no (unknown) (unknown) Exam (units (unkno wn) date) unknown) (unknown) (no (unknown) (unknown) External Female (units (unknown) date) Exam: normal unknown) external appearance (unknown) (no (unknown) (unknown) Extrem (units (unkno wn) date) unknown) (unknown) (no (unknown) (unknown) Eyes (units (unkno wn) date) unknown) (unknown) (no (unknown) (unknown) Family Practice (units (unknown) date) Office Visit unknown) (unknown) (no (unknown) (unknown) [facility]) (unknown) (no (unknown) (unknown) GI (units (unkno wn) date) unknown) (unknown) (no (unknown) (unknown) (units (unkno wn) date) unknown) (unknown) (no (unknown) (unknown) Gait: normal gait (units (unknown) date) unknown) (unknown) (no (unknown) (unknown) General physical (units (unknown) date) exam and unknown) gynecological exam were unremarkable. Clinical breast (unknown) (no (unknown) (unknown) General: (units (unkno wn) date) appearance normal, unknown) both eyes and all related structures (unknown) (no (unknown) (unknown) General: (units (unkno wn) date) cooperative, unknown) healthy appearing and no acute distress (unknown) (no (unknown) (unknown) General: no rashes (units (unknown) date) or lesions noted unknown) (unknown) (no (unknown) (unknown) General: normal to (units (unknown) date) inspection, full unknown) ROM and no edema (unknown) (no (unknown) (unknown) General: patient (units (unknown) date) alert, patient unknown) awake and patient oriented x3 (unknown) (no (unknown) (unknown) HENMT (units (unkno wn) date) unknown) (unknown) (no (unknown) (unknown) HPI (units (unkno wn) date) unknown) (unknown) (no (unknown) (unknown) Head: normal to (units (unknown) date) inspection unknown) (unknown) (no (unknown) (unknown) Health Management (units (unknown) date) reviewed with unknown) patient: Yes (unknown) (no (unknown) (unknown) Health Management (units (unknown) date) unknown) (unknown) (no (unknown) (unknown) Heart Sounds: S1 (units (unknown) date) normal, S2 normal, unknown) normal S1 and S2 and no murmurs (unknown) (no (unknown) (unknown) Height 152.4 cm (units (unknown) date) unknown) (unknown) (no (unknown) (unknown) History of (units (unk nown) date) section unknown) (-01/02/19) (unknown) (no (unknown) (unknown) Hypertension: We (units (unknown) date) will increase her unknown) metoprolol dose. Follow-up in 4-6 weeks, (unknown) (no (unknown) (unknown) Immunization due (units (unknown) date) unknown) (unknown) (no (unknown) (unknown) Impaired fasting (units (unknown) date) blood sugar unknown) (unknown) (no (unknown) (unknown) Inspection: normal (units (unknown) date) to inspection unknown) (unknown) (no (unknown) (unknown) Intake Note: (units (u nknown) date) unknown) (unknown) (no (unknown) (unknown) Intake performed (units (unknown) date) by: Jannette Whitman unknown) (unknown) (no (unknown) (unknown) Intake (units (unkno wn) date) unknown) (unknown) (no (unknown) (unknown) Intake- Clincial (units (unknown) date) Staff unknown) (unknown) (no (unknown) (unknown) Judgment: judgment (units (unknown) date) good unknown) (unknown) (no (unknown) (unknown) Lab work otherwise (units (unknown) date) unremarkable.? unknown) Outside of above, recommend next screening lab (unknown) (no (unknown) (unknown) Last Menstural (units (unknown) date) Cycle + Details unknown) (unknown) (no (unknown) (unknown) Left breast 12 (units (unknown) date) o'clock: unknown) Approximately 1 cm diameter cystic type mass in the (unknown) (no (unknown) (unknown) Left breast (units (un known) date) fibroadenoma: unknown) Reviewed the patient's pathology result 06/29/2021 (unknown) (no (unknown) (unknown) Loc: [facility] (units (unkno wn) date) unknown) (unknown) (no (unknown) (unknown) [id number] (units (unk nown) date) unknown) (unknown) (no (unknown) (unknown) Mass of breast, (units (unknown) date) left unknown) (unknown) (no (unknown) (unknown) Medical History (units (unknown) date) (Reviewed 12/09/21 unknown) @ 14:47 by NICKY Ferrer) (unknown) (no (unknown) (unknown) Medications (units (un known) date) unknown) (unknown) (no (unknown) (unknown) Medications: (units (u nknown) date) unknown) (unknown) (no (unknown) (unknown) Mental Status: (units (unknown) date) mental status unknown) grossly normal (unknown) (no (unknown) (unknown) Microalbumin Creat (units (unknown) date) Ratio Urine 3 unknown) Months R80.9 - Proteinuria, unspecified (unknown) (no (unknown) (unknown) Microalbuminuria:? (units (unknown) date) Mild.? We will get unknown) repeat microalbumin/creati nine ratio in (unknown) (no (unknown) (unknown) Mood: congruent (units (unknown) date) mood unknown) (unknown) (no (unknown) (unknown) Motor: muscle tone (units (unknown) date) normal throughout unknown) (unknown) (no (unknown) (unknown) Mouth: oral (units (un known) date) mucosae normal and unknown) oropharynx normal (unknown) (no (unknown) (unknown) Neck mass: No (units ( unknown) date) unknown) (unknown) (no (unknown) (unknown) Neck (units (unkno wn) date) unknown) (unknown) (no (unknown) (unknown) Neck: normal (units (u nknown) date) visual inspection unknown) and no lymphadenopathy (unknown) (no (unknown) (unknown) Neuro (units (unkno wn) date) unknown) (unknown) (no (unknown) (unknown) New (units (unkno wn) date) unknown) (unknown) (no (unknown) (unknown) No Known Drug (units ( unknown) date) Allergies Allergy unknown) (Unverified 01/18/22 10:45) (unknown) (no (unknown) (unknown) No supraclavicular (units (unknown) date) or infraclavicular unknown) lymphadenopathy. (unknown) (no (unknown) (unknown) Nose: external (units (unknown) date) nose normal and unknown) nasal mucous membranes and turbinates normal (unknown) (no (unknown) (unknown) Orders (units (unkno wn) date) unknown) (unknown) (no (unknown) (unknown) Orders: (units (unkno wn) date) unknown) (unknown) (no (unknown) (unknown) Other Menstrual (units (unknown) date) Period: Other unknown) (irregular cycles since giving 2019) (unknown) (no (unknown) (unknown) Other: (units (unkno wn) date) unknown) (unknown) (no (unknown) (unknown) Oxygen Delivery (units (unknown) date) Method room air unknown) (unknown) (no (unknown) (unknown) PAP with hr HPV (units (unknown) date) 01/17/22 Z00.00 - unknown) Encounter for general adult medical (unknown) (no (unknown) (unknown) PFSH (units (unkno wn) date) unknown) (unknown) (no (unknown) (unknown) Painful lumpy left (units (unknown) date) breast unknown) (unknown) (no (unknown) (unknown) Palpation: soft, (units (unknown) date) no unknown) hepatosplenomegaly, no guarding, no hernias, no masses and (unknown) (no (unknown) (unknown) Patient has (units (un known) date) history of 2 breast unknown) biopsies on the left breast. Reports that (unknown) (no (unknown) (unknown) Patient states (units (unknown) date) that her unknown) palpitations and tachycardia seem to have improved (unknown) (no (unknown) (unknown) Patient was seen (units (unknown) date) by me about 6 weeks unknown) ago when we changed her from nifedipine ER (unknown) (no (unknown) (unknown) Patient: (units (o wn) date) Deepa Moser S unknown) MR#: (unknown) (no (unknown) (unknown) Pelvic Support: (units (unknown) date) normal unknown) (unknown) (no (unknown) (unknown) Percussion: normal (units (unknown) date) to percussion unknown) (unknown) (no (unknown) (unknown) Plan (units (unkno wn) date) unknown) (unknown) (no (unknown) (unknown) Position Sitting (units (unknown) date) Sitting unknown) (unknown) (no (unknown) (unknown) Psych (units (o wn) date) unknown) (unknown) (no (unknown) (unknown) Pulse 81 (units (unkno wn) date) unknown) (unknown) (no (unknown) (unknown) Pulse Oximetry (%) (units (unknown) date) 98 unknown) (unknown) (no (unknown) (unknown) Pulse Source (units (u nknown) date) Monitor unknown) (unknown) (no (unknown) (unknown) ROS (units (unkno wn) date) unknown) (unknown) (no (unknown) (unknown) Rate: regular rate (units (unknown) date) unknown) (unknown) (no (unknown) (unknown) Reason For Visit (units (unknown) date) unknown) (unknown) (no (unknown) (unknown) Reports as per (units (unknown) date) HPI, Denies unknown) abnormal vaginal bleeding, Denies metrorrhagia, (unknown) (no (unknown) (unknown) Resp (units (unkno wn) date) unknown) (unknown) (no (unknown) (unknown) Rhythm: regular (units (unknown) date) rhythm unknown) (unknown) (no (unknown) (unknown) Sensory Exam: no (units (unknown) date) sensory deficits unknown) noted (unknown) (no (unknown) (unknown) Signed By: (units (unk nown) date) <Electronically unknown) signed by Celso Rowley> (unknown) (no (unknown) (unknown) Signed (units (unkno wn) date) unknown) (unknown) (no (unknown) (unknown) Skin (units (unkno wn) date) unknown) (unknown) (no (unknown) (unknown) Skin/Breast (units (un known) date) unknown) (unknown) (no (unknown) (unknown) Smoking Status: (units (unknown) date) Never smoker unknown) (unknown) (no (unknown) (unknown) Speculum Exam - (units (unknown) date) Cervix: normal unknown) appearance of the cervix (unknown) (no (unknown) (unknown) Speculum Exam - (units (unknown) date) Vagina: normal unknown) appearance of the vagina and normal vaginal (unknown) (no (unknown) (unknown) Speech: speech (units (unknown) date) normal unknown) (unknown) (no (unknown) (unknown) Status: Acute (units ( unknown) date) unknown) (unknown) (no (unknown) (unknown) Status: Chronic (units (unknown) date) unknown) (unknown) (no (unknown) (unknown) Surgical History (units (unknown) date) (Reviewed 12/09/21 unknown) @ 14:47 by NICKY Ferrer) (unknown) (no (unknown) (unknown) This note may have (units (unknown) date) been all or unknown) partially generated using voice recognition (unknown) (no (unknown) (unknown) Thought Content: (units (unknown) date) normal unknown) (unknown) (no (unknown) (unknown) Thought Process: (units (unknown) date) normal unknown) (unknown) (no (unknown) (unknown) Throat: posterior (units (unknown) date) oropharynx normal unknown) (unknown) (no (unknown) (unknown) Thyroid: thyroid (units (unknown) date) normal unknown) (unknown) (no (unknown) (unknown) Tobacco + (units (unkn own) date) Substance Use unknown) (unknown) (no (unknown) (unknown) Tobacco Status (units (unknown) date) unknown) (unknown) (no (unknown) (unknown) Visit Reasons: WWE (units (unknown) date) W/PAP, f/u BP unknown) (unknown) (no (unknown) (unknown) Vitals (units (unkno wn) date) unknown) (unknown) (no (unknown) (unknown) Weight 68.266 kg (units (unknown) date) unknown) (unknown) (no (unknown) (unknown) [place] teeth (units (u nknown) date) removed () unknown) (unknown) (no (unknown) (unknown) able to feel the (units (unknown) date) lump in the 12 unknown) o'clock region but it feels smaller than (unknown) (no (unknown) (unknown) about 3 months.? (units (unknown) date) Will contact her unknown) with results and recommendations.? (unknown) (no (unknown) (unknown) albuterol sulfate (units (unknown) date) 90 mcg/actuation unknown) breath activated powder inhaler 1 inh (unknown) (no (unknown) (unknown) axillae (units (unkno wn) date) unknown) (unknown) (no (unknown) (unknown) before patient (units (unknown) date) leaves. unknown) (unknown) (no (unknown) (unknown) bilateral breasts. (units (unknown) date) unknown) (unknown) (no (unknown) (unknown) discharge (units (unkn own) date) unknown) (unknown) (no (unknown) (unknown) exam notable for (units (unknown) date) findings as above. unknown) Pap performed; will contact the patient (unknown) (no (unknown) (unknown) examination (units (un known) date) without abnormal unknown) findings, Z12.4 - Encounter for screening for (unknown) (no (unknown) (unknown) for her menses. (units (unknown) date) Denies bleeding unknown) between menses. No gynecological symptoms. (unknown) (no (unknown) (unknown) had a regular (units ( unknown) date) menses while being unknown) on the EM pill; she is currently 1 day late (unknown) (no (unknown) (unknown) have occurred. If (units (unknown) date) there are any unknown) questions, please contact the Medical Records (unknown) (no (unknown) (unknown) her (units (un known) date) decided they were unknown) open to the possibility of conceiving another (unknown) (no (unknown) (unknown) hypertension and (units (unknown) date) review pertinent unknown) lab work. (unknown) (no (unknown) (unknown) inhalation Q4-6H (units (unknown) date) PRN shortness of unknown) breath #1 ea 01/18/22 [Rx] (unknown) (no (unknown) (unknown) lymphadenopathy (units (unknown) date) unknown) (unknown) (no (unknown) (unknown) malignant neoplasm (units (unknown) date) of cervix unknown) (unknown) (no (unknown) (unknown) may occur. (units (unk nown) date) Occasional unknown) wrong-word or 'sound-alike' substitutions may have (unknown) (no (unknown) (unknown) metoprolol (units (unk nown) date) succinate 100 mg unknown) tablet,extended release 24 hr 100 mg PO DAILY #90 (unknown) (no (unknown) (unknown) metoprolol (units (unk nown) date) succinate ER 100 mg unknown) PO DAILY 90 tabs 0RF (unknown) (no (unknown) (unknown) metoprolol (units (unk nown) date) succinate ER unknown) (unknown) (no (unknown) (unknown) modifications, (units (unknown) date) regular CV and unknown) conditioning exercise, weight management. (unknown) (no (unknown) (unknown) needed for any new (units (unknown) date) or worsening unknown) symptoms. (unknown) (no (unknown) (unknown) nipple discharge (units (unknown) date) unknown) (unknown) (no (unknown) (unknown) nontender (units (unkn own) date) unknown) (unknown) (no (unknown) (unknown) norethindrone (units ( unknown) date) acetate 1 unknown) mg-ethinyl estradiol 20 mcg tablet See Rx Instructions (unknown) (no (unknown) (unknown) normal (units (unkno wn) date) unknown) (unknown) (no (unknown) (unknown) occurred due to (units (unknown) date) the inherent unknown) limitations of voice recognition software. Please (unknown) (no (unknown) (unknown) , (units (unk nown) date) although not unknown) specifically planning for this. Patient has generally (unknown) (no (unknown) (unknown) previously taking (units (unknown) date) EM pill for unknown) contraception; she has stopped this as she and (unknown) (no (unknown) (unknown) previously. No new (units (unknown) date) symptoms. unknown) (unknown) (no (unknown) (unknown) read the note (units ( unknown) date) carefully and unknown) recognize, using context, where these substitutions (unknown) (no (unknown) (unknown) reflex free T4, (units (unknown) date) lipids, CMP. unknown) (unknown) (no (unknown) (unknown) results were (units (u nknown) date) benign and no unknown) additional follow-up was recommended. She is still (unknown) (no (unknown) (unknown) setting of (units (unk nown) date) generally unknown) fibrocystic type tissue. 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 Patient states (unknown) (no (unknown) (unknown) size normal, (units (u nknown) date) consistency normal, unknown) normal palpation, uterine mobility normal, (unknown) (no (unknown) (unknown) software. 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 (unknown) (no (unknown) (unknown) sooner as needed (units (unknown) date) for problems. unknown) (unknown) (no (unknown) (unknown) tabs 01/17/22 [Rx (units (unknown) date) Confirmed 01/17/22] unknown) (unknown) (no (unknown) (unknown) that the (units (unkno wn) date) nifedipine ER might unknown) have been causing the palpitations/tachyc ardia.? (unknown) (no (unknown) (unknown) that this has (units ( unknown) date) decreased in size unknown) slightly. Encouraged her to follow-up as (unknown) (no (unknown) (unknown) to metoprolol (units ( unknown) date) succinate ER for unknown) her antihypertensive medicine, due to concern (unknown) (no (unknown) (unknown) uterine shape (units ( unknown) date) normal and unknown) non-tender (unknown) (no (unknown) (unknown) with results and (units (unknown) date) recommendations. unknown) (unknown) (no (unknown) (unknown) work within 3 (units ( unknown) date) years, fasting labs unknown) which will be:? CBC with no diff, TSH with Social History date description facility +0000 Never smoked tobacco (finding) [facility] Vital Signs date measurement value units +0000 BMI BMI 29.5 kg/m2 +0000 BP_diastolic BP_diastolic 70 mmHg +0000 BP_systolic BP_systolic 122 mmHg +0000 heart_rate heart_rate 64 /min +0000 height_metric height_metric 152.4 cm +0000 height_standard height_standard 60 in +0000 weight_metric weight_metric 68.492 g_ code +0000 weight_standard weight_standard 68.492 g_code
[2022-02-01 22:50] LABS: BILIRUBIN,URINE NEGATIVE (NEGATIVE); GLUCOSE, URINE (UA) NEGATIVE (NEGATIVE); KETONES,URINE (UA) NEGATIVE (NEGATIVE); LEUKOCYTE ESTERASE, URINE SMALL (NEGATIVE); NITRITE,URINE NEGATIVE (NEGATIVE); OCCULT BLOOD,URINE LARGE (NEGATIVE); PH,URINE 6.5 PH (5.0-7.5); PROTEIN,URINE NEGATIVE (NEGATIVE); UROBILINOGEN,URINE 0.2 (NORMAL) E.U./dL (NORMAL)
[2022-02-01 22:52] LABS: CLARITY,URINE CLEAR (CLEAR); HCG UR QUAL NEGATIVE
[2022-02-01 23:01] LABS: BACTERIA,URINE Rare /HPF (None Seen); SQUAMOUS EPITHELIAL CELL,UR FEW Squamous (<= Few)
[2022-02-01] MEDS ORDERED: SULFAMETH/TRIMETH DS 800/160 MG TABLET PO STA (23:07)
--- NOTE | 2022-02-01 23:14 | ED Physician Documentation ---
PD HPI FEMALE - Stated complaint Stated Complaint: FEMALE - Chief complaint Chief Complaint: UTI - History obtained from History obtained from: Patient - Additional information Additional information: The patient comes to the emergency department chief complaint of low abdominal discomfort and dysuria that started last night. She states that has been bothering her more and more throughout the day. No fevers or chills. No back pain. No nausea or vomiting. Patient is otherwise healthy. She is not known to be . Review of Systems Ten Systems: 10 systems reviewed and negative Constitutional: reports: Reviewed and negative Eyes: reports: Reviewed and negative Ears: reports: Reviewed and negative Nose: reports: Reviewed and negative Throat: reports: Reviewed and negative Cardiac: reports: Reviewed and negative Respiratory: reports: Reviewed and negative GI: reports: Abdominal Pain (Mild) : reports: Dysuria, Frequency Skin: reports: Reviewed and negative Musculoskeletal: reports: Reviewed and negative Neurologic: reports: Reviewed and negative Psychiatric: reports: Reviewed and negative Endocrine: reports: Reviewed and negative Immunocompromised: reports: Reviewed and negative PD PAST MEDICAL HISTORY - Past Medical History Cardiovascular: Hypertension - Past Surgical History 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 Medications Home Medications: Ambulatory Orders Medication Instructions Recorded Confirmed Control 02/22/17 Metoprolol Succinate 100 mg PO DAILY 02/01/22 02/01/22 Sulfamethox/Trimeth 800/160 1 each PO BID #14 tablet 02/01/22 [Bactrim Ds 800/160] - Allergies Allergies/Adverse Reactions: Allergies Allergy/AdvReac Type Severity Reaction Status Date / Time No Known Drug Allergies Allergy Verified 04/06/21 05:51 - Social History Does the pt smoke?: No Smoking Status: Never smoker Does the pt drink ETOH?: Yes Does the pt have substance abuse?: No - Immunizations Immunizations are current?: Yes - POLST Patient has POLST: No PD ED PE NORMAL - Vitals Vital signs reviewed: Yes - General General: Alert and oriented X 3, No acute distress, Well developed/nourished - HEENT HEENT: Atraumatic, PERRL, EOMI, Moist mucous membranes - Neck Neck: Supple, no meningeal sign - Cardiac Cardiac: RRR, No murmur, Strong equal pulses - Respiratory Respiratory: No respiratory distress, Clear bilaterally - Abdomen Abdomen: Soft, Non distended, Other (Mild tenderness, no rebound or guarding.) - Derm Derm: Normal color, Warm and dry, No rash - Extremities Extremities: No deformity, No edema - Neuro Neuro: Alert and oriented X 3, 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, Normal speech - Psych Psych: Normal mood, Normal affect Results - Vitals Vitals: Vital Signs - 24 hr 02/01/22 22:36 Temperature 36.9 C Heart Rate 98 Respiratory 16 Rate Blood Pressure 188/108 H O2 Saturation 100 Oxygen O2 Source Room air - Labs Labs: Laboratory Tests 02/01/22 22:40 Urine Color YELLOW Urine Clarity CLEAR Urine pH 6.5 Ur Specific [place] <=1.005 Urine Protein NEGATIVE Urine Glucose (UA) NEGATIVE Urine Ketones NEGATIVE Urine Occult Blood LARGE H Urine Nitrite NEGATIVE Urine Bilirubin NEGATIVE Urine Urobilinogen 0.2 (NORMAL) Ur Leukocyte Esterase SMALL H Urine RBC 6-10 H Urine WBC 6-10 H Ur Squamous Epith Cells FEW Squamous Urine Bacteria Rare Ur Microscopic Review INDICATED Urine Culture Comments INDICATED Urine HCG, Qual NEGATIVE PD MEDICAL DECISION MAKING - ED course Complexity details: reviewed results, re-evaluated patient, considered d ifferential, d/w patient ED course: The patient's urinalysis was found to be positive for infection. I have discussed treatment at home. She has been given her first dose of antibiotics here. Discussed the usual indications for return. Departure - Departure Disposition: 01 Home, Self Care Clinical Impression: UTI (urinary tract infection) Qualifiers: Urinary tract infection type: acute cystitis Hematuria presence: with hematuria Qualified Code(s): N30.01 - Acute cystitis with hematuria Condition: Stable Instructions: ED UTI Cystitis Female Prescriptions: Sulfamethox/Trimeth 800/160 [Bactrim Ds 800/160] 1 each PO BID #14 tablet
== END 2022-02-01 23:25 | disposition home or self-care (01) ==
LOC: ED 22:24
DX: N30.01 Acute cystitis with hematuria (principal); I10 Essential (primary) hypertension
CPT/HCPCS: 81001; 81025; 87086; 87181; 99282; 99283; A9270; 81003

== ENCOUNTER 2023-01-29 21:56 | Emergency (ER) | payer OTHER ==
[2023-01-29 22:37] LABS: BILIRUBIN,URINE NEGATIVE (NEGATIVE); GLUCOSE, URINE (UA) NEGATIVE (NEGATIVE); KETONES,URINE (UA) NEGATIVE (NEGATIVE); LEUKOCYTE ESTERASE, URINE SMALL (NEGATIVE); NITRITE,URINE NEGATIVE (NEGATIVE); OCCULT BLOOD,URINE LARGE (NEGATIVE); PH,URINE 5.5 PH (5.0-7.5); PROTEIN,URINE NEGATIVE (NEGATIVE); UROBILINOGEN,URINE 0.2 (NORMAL) E.U./dL (NORMAL)
[2023-01-29 22:41] LABS: CLARITY,URINE CLEAR (CLEAR); HCG UR QUAL NEGATIVE
[2023-01-29 22:45] LABS: BACTERIA,URINE Few /HPF (None Seen); SQUAMOUS EPITHELIAL CELL,UR RARE Squamous (<= Few)
--- NOTE | 2023-01-30 00:13 | ED Physician Documentation ---
PD HPI FEMALE - Stated complaint Stated Complaint: - Chief complaint Chief Complaint: UTI - History obtained from History obtained from: Patient - History of Present Illness Associated symptoms: No: Fever Contributing factors: No: - Additional information Additional information: HPI from patient. Patient c/o urinary frequency, burning dysuria, gross hematuria. 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 - Present Medications Home Medications: Ambulatory Orders Medication Instructions Recorded Confirmed Control 02/22/17 Metoprolol Succinate 100 mg PO DAILY 02/01/22 02/01/22 Sulfamethox/Trimeth 800/160 1 each PO BID #14 tablet 02/01/22 [Bactrim Ds 800/160] Nitrofurantoin [Macrobid] 100 mg PO BID #9 cap 01/30/23 - Allergies Allergies/Adverse Reactions: Allergies Allergy/AdvReac Type Severity Reaction Status Date / Time No Known Drug Allergies Allergy Verified 01/29/23 22:12 - Social History Does the pt smoke?: No Smoking Status: Never smoker Does the pt drink ETOH?: Yes Does the pt have substance abuse?: No - Immunizations Immunizations are current?: Yes - POLST Patient has POLST: No PD ED PE NORMAL - Vitals Vital signs reviewed: Yes - General General: Alert and oriented X 3, No acute distress, Well developed/nourished - Abdomen Abdomen: Soft, Non tender - Back Back: No CVA TTP Results - Vitals Vitals: Oxygen O2 Source Room air - Labs Labs: Microbiology 01/29/23 22:28 Urine Culture - Final Urine,Clean Catch Escherichia Coli Laboratory Tests 01/29/23 01/30/23 01/30/23 22:28 00:20 00:20 WBC 13.0 H RBC 4.63 Hgb 12.6 Hct 38.5 MCV 83.2 MCH 27.2 MCHC 32.7 RDW 13.1 Plt Count 249 MPV 9.1 Neut # (Auto) 8.9 H Lymph # (Auto) 2.8 [place] # (Auto) 0.7 Eos # (Auto) 0.5 Baso # (Auto) 0.1 Absolute Nucleated RBC 0.00 Nucleated RBC % 0.0 Sodium 136 Potassium 3.7 Chloride 105 Carbon Dioxide 24 Anion Gap 7.0 BUN 24 H Creatinine 0.5 L Estimated GFR (MDRD) 144 Glucose 91 Calcium 10.3 Total Bilirubin 0.3 AST 12 ALT 10 Alkaline Phosphatase 70 Total Protein 7.6 Albumin 5.0 Globulin 2.6 Albumin/Globulin Ratio 1.9 Lipase 30 Urine Color STRAW Urine Clarity CLEAR Urine pH 5.5 Ur Specific [place] <=1.005 Urine Protein NEGATIVE Urine Glucose (UA) NEGATIVE Urine Ketones NEGATIVE Urine Occult Blood LARGE H Urine Nitrite NEGATIVE Urine Bilirubin NEGATIVE Urine Urobilinogen 0.2 (NORMAL) Ur Leukocyte Esterase SMALL H Urine RBC 6-10 H Urine WBC 6-10 H Ur Squamous Epith Cells RARE Squamous Urine Bacteria Few Ur Microscopic Review INDICATED Urine Culture Comments INDICATED Urine HCG, Qual NEGATIVE PD Medical Decision Making - ED course Complexity details: considered differential, d/w patient ED course: Patient presents with symptoms c/w UTI and UA results are s/o UTI with 6-10 RBC/hpf, 6-10 WBC/hpf. UHCG negative. Given 100mg PO macrobid in ED and 5-day course of BID macrobid e-prescribed to patient's pharmacy of choice. Departure - Departure Disposition: 01 Home, Self Care Clinical Impression: UTI (urinary tract infection) Qualifiers: Urinary tract infection type: acute cystitis Hematuria presence: with hematuria Qualified Code(s): N30.01 - Acute cystitis with hematuria Condition: Good Instructions: ED UTI Cystitis Female Follow-Up: Celso Rowley ARNP [Primary Care Provider] - (3-5 days if not improving) Prescriptions: Nitrofurantoin [Macrobid] 100 mg PO BID #9 cap Comments: Your urinalysis results are consistent with a urinary tract infection. You were given the first dose of antibiotic (Macrobid) in the emergency department, and a 5-day course of this antibiotic has been electronically submitted to the [facility] pharmacy in [place]. Discharge Date/Time: 01/30/23 01:11
[2023-01-30 00:27] LABS: BASOPHILS # (AUTO) 0.1 10^3/uL (0.0-0.1); BASOPHILS % (AUTO) 0.9 %; EOSINOPHILS # (AUTO) 0.5 10^3/uL (0.0-0.7); EOSINOPHILS % (AUTO) 3.9 %; HCT - HEMATOCRIT 38.5 % (37.0-47.0); HGB - HEMOGLOBIN 12.6 g/dL (12.0-16.0); LYMPHOCYTES # (AUTO) 2.8 10^3/uL (1.5-3.5); LYMPHOCYTES % (AUTO) 21.4 %; MEAN CORPUSCULAR HEMOGLOBIN 27.2 pg (27.0-31.0); MEAN CORPUSCULAR HGB CONC 32.7 g/dL (32.0-36.0); MEAN CORPUSCULAR VOLUME 83.2 fL (81.0-99.0); MEAN PLATELET VOLUME 9.1 fL (7.9-10.8); MONOCYTES # (AUTO) 0.7 10^3/uL (0.0-1.0); MONOCYTES % (AUTO) 5.5 %; NEUTROPHILS # (AUTO) 8.9 10^3/uL (1.5-6.6); NEUTROPHILS % (AUTO) 68.1 %; PLT - PLATELET COUNT 249 10^3/uL (130-450); RED BLOOD COUNT 4.63 10^6/uL (4.20-5.40); RED CELL DISTRIBUTION WIDTH 13.1 % (12.0-15.0)
[2023-01-30 00:41] LABS: ALBUMIN/GLOBULIN RATIO 1.9 (1.0-2.2); BILIRUBIN,TOTAL 0.3 mg/dL (0.2-1.0); CALCIUM 10.3 mg/dL (8.5-10.3); CREATININE 0.5 mg/dL (0.6-1.3); POTASSIUM 3.7 mmol/L (3.5-4.5); TOTAL PROTEIN 7.6 g/dL (6.4-8.9)
[2023-01-30] MEDS ORDERED: NITROFURANTOIN MACRO 100 MG CAPSULE PO STA (00:46)
[2023-01-30 01:20] VITALS: BP 128/74; O2SAT 100
== END 2023-01-30 01:11 | disposition home or self-care (01) ==
LOC: ED 21:56
DX: N30.01 Acute cystitis with hematuria (principal)
CPT/HCPCS: 36415; 80053; 81001; 81025; 83690; 85025; 87086; 87181; 99283; A9270; 81003

== ENCOUNTER 2023-03-22 22:30 | Emergency (ER) | payer OTHER ==
[2023-03-22 23:00] VITALS: O2SAT 98
[2023-03-22 23:12] LABS: BILIRUBIN,URINE NEGATIVE (NEGATIVE); GLUCOSE, URINE (UA) NEGATIVE (NEGATIVE); KETONES,URINE (UA) NEGATIVE (NEGATIVE); LEUKOCYTE ESTERASE, URINE SMALL (NEGATIVE); NITRITE,URINE NEGATIVE (NEGATIVE); OCCULT BLOOD,URINE LARGE (NEGATIVE); PROTEIN,URINE NEGATIVE (NEGATIVE); UROBILINOGEN,URINE 0.2 (NORMAL) E.U./dL (NORMAL)
[2023-03-22 23:42] LABS: CLARITY,URINE CLEAR (CLEAR); HCG UR QUAL NEGATIVE
[2023-03-22 23:43] LABS: BACTERIA,URINE Rare /HPF (None Seen); SQUAMOUS EPITHELIAL CELL,UR MOD Squamous (<= Few)
[2023-03-23] MEDS ORDERED: NITROFURANTOIN MACRO 100 MG CAPSULE PO STA (01:29)
[2023-03-23 01:42] VITALS: BP 128/82
--- NOTE | 2023-03-25 19:00 | ED Physician Documentation ---
PD HPI FEMALE - Stated complaint Stated Complaint: - Chief complaint Chief Complaint: UTI - History obtained from History obtained from: Patient - Additional information Additional information: HPI from patient. Patient c/o burning dysuria, urinary frequency; symptoms are c/w her previous UTIs. Denies fever, back pain. Review of Systems Constitutional: denies: Fever GI: denies: Abdominal Pain : reports: Dysuria, Frequency. 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 - Present Medications Home Medications: Ambulatory Orders Medication Instructions Recorded Confirmed Control 02/22/17 Metoprolol Succinate 100 mg PO DAILY 02/01/22 02/01/22 Sulfamethox/Trimeth 800/160 1 each PO BID #14 tablet 02/01/22 [Bactrim Ds 800/160] Nitrofurantoin [Macrobid] 100 mg PO BID #9 cap 01/30/23 Nitrofurantoin [Macrobid] 100 mg PO BID #13 cap 03/23/23 - Allergies Allergies/Adverse Reactions: Allergies Allergy/AdvReac Type Severity Reaction Status Date / Time No Known Drug Allergies Allergy Verified 03/22/23 22:49 - Social History Does the pt smoke?: No Smoking Status: Never smoker Does the pt drink ETOH?: Yes Does the pt have substance abuse?: No - Immunizations Immunizations are current?: Yes - POLST Patient has POLST: No PD ED PE NORMAL - Vitals Vital signs reviewed: Yes - General General: Alert and oriented X 3, No acute distress, Well developed/nourished - Back Back: No CVA TTP Results - Vitals Vitals: Oxygen O2 Source Room air - Labs Labs: Laboratory Tests 03/22/23 22:58 Urine Color COLORLESS Urine Clarity CLEAR Urine pH 6.0 Ur Specific [place] <=1.005 Urine Protein NEGATIVE Urine Glucose (UA) NEGATIVE Urine Ketones NEGATIVE Urine Occult Blood LARGE H Urine Nitrite NEGATIVE Urine Bilirubin NEGATIVE Urine Urobilinogen 0.2 (NORMAL) Ur Leukocyte Esterase SMALL H Urine RBC 11-25 H Urine WBC 6-10 H Ur Squamous Epith Cells MOD Squamous H Urine Bacteria Rare Ur Microscopic Review INDICATED Urine Culture Comments NOT INDICATED Urine HCG, Qual NEGATIVE PD Medical Decision Making - ED course Complexity details: considered differential, d/w patient ED course: UA results (11-25 RBC/hpf, 6-10 WBC/hpf) combined with symptoms are c/w UTI. given first dose of macrobid in ED and rx for one week of same provided. Departure - Departure Disposition: Home, Self Care Clinical Impression: UTI (urinary tract infection) Qualifiers: Urinary tract infection type: acute cystitis Hematuria presence: with hematuria Qualified Code(s): N30.01 - Acute cystitis with hematuria Condition: Good Instructions: ED UTI Cystitis Female Follow-Up: Celso Rowley ARNP [Primary Care Provider] - Prescriptions: Nitrofurantoin [Macrobid] 100 mg PO BID #13 cap Comments: Your symptoms, combined with the results of the urinalysis, are consistent with a urinary tract infection. You were given the first dose of an antibiotic (nitrofurantoin) in the emergency department, and I have electronically submitted a prescription for a 1-week course of this antibiotic to the [facility] pharmacy in [place]. Discharge Date/Time: 03/23/23 01:37
== END 2023-03-23 01:37 | disposition home or self-care (01) ==
LOC: ED 22:30
DX: N30.01 Acute cystitis with hematuria (principal)
CPT/HCPCS: 81001; 81025; 99283; A9270; 81003; 87086

== ENCOUNTER 2023-08-28 22:39 | Emergency (ER) | payer OTHER ==
[2023-08-28 22:52] VITALS: BP 139/75; O2SAT 98
[2023-08-28 22:54] LABS: BILIRUBIN,URINE NEGATIVE (NEGATIVE); GLUCOSE, URINE (UA) NEGATIVE (NEGATIVE); KETONES,URINE (UA) NEGATIVE (NEGATIVE); LEUKOCYTE ESTERASE, URINE SMALL (NEGATIVE); NITRITE,URINE NEGATIVE (NEGATIVE); OCCULT BLOOD,URINE LARGE (NEGATIVE); PH,URINE 5.5 PH (5.0-7.5); PROTEIN,URINE NEGATIVE (NEGATIVE); UROBILINOGEN,URINE 0.2 (NORMAL) E.U./dL (NORMAL)
[2023-08-28 22:58] LABS: CLARITY,URINE HAZY (CLEAR); HCG UR QUAL NEGATIVE
[2023-08-28 23:11] LABS: SQUAMOUS EPITHELIAL CELL,UR FEW Squamous (<= Few)
[2023-08-28 23:12] LABS: BACTERIA,URINE None Seen /HPF (None Seen)
--- NOTE | 2023-08-28 23:21 | ED Physician Documentation ---
PD HPI FEMALE - Stated complaint Stated Complaint: - Chief complaint Chief Complaint: UTI - History obtained from History obtained from: Patient - Additional information Additional information: Patient is a 33-year-old female with a history of UTIs presenting for UTI symptoms for the past 2 days. Patient reports having frequency, urgency, dysuria for the past 2 days. No blood in urine. No flank pain or fever. No nausea or vomiting. Denies concerns for . No vaginal discharge. 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 Medications Home Medications: Ambulatory Orders Medication Instructions Recorded Confirmed Control 02/22/17 Metoprolol Succinate 100 mg PO DAILY 02/01/22 02/01/22 Sulfamethox/Trimeth 800/160 1 each PO BID #14 tablet 02/01/22 [Bactrim Ds 800/160] Nitrofurantoin [Macrobid] 100 mg PO BID #9 cap 01/30/23 Nitrofurantoin [Macrobid] 100 mg PO BID #13 cap 03/23/23 Phenazopyridine HCl [Pyridium] 200 mg PO TID PRN #6 tablet 08/28/23 cephALEXin [Keflex] 500 mg PO Q6H 6 Days #24 cap 08/28/23 - Allergies Allergies/Adverse Reactions: Allergies Allergy/AdvReac Type Severity Reaction Status Date / Time No Known Drug Allergies Allergy Verified 08/28/23 22:47 - Social History Does the pt smoke?: No Smoking Status: Never smoker Does the pt drink ETOH?: Yes Does the pt have substance abuse?: No - Immunizations Immunizations are current?: Yes - POLST Patient has POLST: No PD ED PE NORMAL - General General: Alert and oriented X 3, No acute distress, Well developed/nourished - HEENT HEENT: Atraumatic - Neck Neck: Supple, no meningeal sign - Cardiac Cardiac: RRR, Strong equal pulses - Respiratory Respiratory: No respiratory distress, Clear bilaterally - Abdomen Abdomen: Normal bowel sounds, Soft, Non tender, Non distended - Back Back: No CVA TTP - Derm Derm: Warm and dry - Neuro Neuro: Normal speech Results - Vitals Vitals: Vital Signs - 24 hr 08/28/23 22:47 Temperature 36.8 C Heart Rate 88 Respiratory 16 Rate Blood Pressure 139/75 H O2 Saturation 98 Oxygen O2 Source Room air - Labs Labs: Laboratory Tests 08/28/23 22:48 Urine Color LT. YELLOW Urine Clarity HAZY Urine pH 5.5 Ur Specific [place] <=1.005 Urine Protein NEGATIVE Urine Glucose (UA) NEGATIVE Urine Ketones NEGATIVE Urine Occult Blood LARGE H Urine Nitrite NEGATIVE Urine Bilirubin NEGATIVE Urine Urobilinogen 0.2 (NORMAL) Ur Leukocyte Esterase SMALL H Urine RBC 6-10 H Urine WBC 6-10 H Ur Squamous Epith Cells FEW Squamous Urine Bacteria None Seen Ur Microscopic Review INDICATED Urine Culture Comments INDICATED Urine HCG, Qual NEGATIVE PD Medical Decision Making - ED course ED course: Patient with UTI symptoms and history of the same. Urine analysis with markers suggestive of infection. UA reflexed to culture.No flank pain, fever or abdominal tenderness. Will start on cephalexin as well as Pyridium. Patient counseled on treatment plan as well as concerning symptoms to return for. Departure - Departure Disposition: 01 Home, Self Care Clinical Impression: UTI (urinary tract infection) Condition: Stable Instructions: ED UTI Cystitis Female Prescriptions: cephALEXin [Keflex] 500 mg PO Q6H 6 Days #24 cap Phenazopyridine HCl [Pyridium] 200 mg PO TID PRN #6 tablet PRN Reason: dysuria Comments: Your testing today shows that you have a urinary tract infection. I have given you an antibiotic called cephalexin to help treat the infection along with a medication called Pyridium to help with the burning. Cephalexin should be taken as 500 mg four times a day for a total of 7 days. You were given a prepack of cephalexin which should last for 1 day. A prescription was also sent to [facility] for cephalexin as well as Pyridium. We will send the urine for culture and notify you if you need a different antibiotic. Return to the ER if you develop any worsening symptoms. Discharge Date/Time: 08/28/23 23:31
[2023-08-28] MEDS: CEPHALEXIN 250 MG Prepack 8 CAP BOTTLE PO STA (23:23)
[2023-08-28] MEDS: PHENAZOPYRIDINE 100 MG TABLET PO STA (23:23)
== END 2023-08-28 23:31 | disposition home or self-care (01) ==
LOC: ED 22:39
DX: N39.0 Urinary tract infection, site not specified (principal)
CPT/HCPCS: 81001; 81025; 87086; 99283; A9270; 81003